=== PATIENT | male | born 1990 | race Caucasian/White ===

== ENCOUNTER 2022-08-01 11:58 | Emergency (ER) | payer OTHER, SELFPAY ==
[2022-08-01 12:08] VITALS: BP 142/96; PULSE 90; RESP 18; TEMP 36.1; O2SAT 98; BMI 29.3
--- NOTE | 2022-08-01 12:27 | CRLHL7_ITS ---
For Patients: As a result of the Century Cures Act, medical imaging exams and procedure reports are released immediately into your electronic medical record. You may view this report before your referring provider. If you have questions, please contact your health care provider. INDICATION: FALL COMPARISON: none TECHNIQUE: A CT volumetric acquisition was performed of the brain without IV contrast. Please note that all CT scans at this facility use dose modulation, iterative reconstruction, and/or weight-based dosing when appropriate to reduce radiation dose to as low as reasonably achievable. FINDINGS: The CT images reveal a normal appearance of the cerebral ventricles and basal cisterns. There is no evidence of intracranial hemorrhage, tissue infarction or mass effect. The mastoid air cells and middle ear cavities are clear. The calvarium appears intact. Mucosal thickening in both maxillary sinuses along with left maxillary sinus mucous retention cysts. IMPRESSION: No intracranial hemorrhage. Please note that all CT scans at this facility use dose modulation, iterative reconstruction, and/or weight-based dosing when appropriate to reduce radiation dose to as low as reasonably achievable. Dictated by Ramirez Rollins MD @ 08/01/2022 1:05:05 PM (Electronically Signed)
--- NOTE | 2022-08-01 12:33 | ED_ITS ---
HPI - General Adult General Date Seen: 08/01/22 Chief complaint: Dizziness/Vertigo Stated complaint: Dizzy, tingling tongue/fingers, blurred vision Time Seen by Provider: 08/01/22 12:03 Source: patient History of Present Illness [facility] narrative: Patient is a 32-year-old male who says he was standing in congregation when he started to feel foggy in his head and like his vision was blurry. Says that these symptoms persisted for a while so he went outside to sit in his van. While in his van he started to feel tingly in his upper extremities bilaterally and also felt itching in his tongue. He felt like his brain became progressively foggy and he feels like it is difficult to comprehend written words. He has a headache, and also says that his head feels like he can not access parts of his brain. He has pressure in his head as well. He also has some aching in the left shoulder and arm. He does not have any neck pain or chest pain. He denies trauma. He does not have any nausea and has not had any vomiting. No palpitations and no syncope. The visual symptoms have resolved but the tingling in his arms has persisted. He does not have weakness in his extremities. He does note that his left arm and leg seem to have some decreased sensation compared to the right. He has never had symptoms like this before. He denies any past medical history. His sister has type 1 diabetes. He says he does not keep in contact with his family in general but does not think there is any significant medical history otherwise. He does not smoke, denies any alcohol or drug use. Related Data Home Medications Medication Instructions Recorded Confirmed dextroamphetamine-amphetamine 30 08/01/22 mg tablet fluoxetine 40 mg capsule mg 08/01/22 Allergies Allergy/AdvReac Type Severity Reaction Status Date / Time No Known Drug Allergies Allergy Verified 08/01/22 12:07 Review of Systems Status of ROS: Reports: 10 or more systems reviewed and unremarkable except as noted in History and below [facility] Social History Smoking Status: Never smoker Do you use any of these nicotine containing products: None Second hand tobacco smoke exposure: No How often do you have a drink containing alcohol: never How often do you have six or more drinks on one occasion: Never AUDIT-C Alcohol total score: 0 Non-prescribed substance use: denies use Exam Narrative: Exam Narrative: Vital signs as noted above. In general, an alert, well-appearing patient. Head: Normocephalic, atraumatic. Eyes: Pupils are equal reactive. Extraocular movements are full. No nystagm us. Conjunctivae are normal. ENT: Mucous membranes are moist. Throat is normal. Neck: Supple without lymphadenopathy. No bruits. Heart: Regular rate and rhythm. No murmur or rub. Lungs: Clear bilaterally. No increased work of breathing, crackles or wheezes. Abdomen: Soft and nontender. No organomegaly. Extremities: Well perfused. No edema. No calf tenderness. Pulses intact. Neurologic: Patient is alert and oriented to person and place. Speech is fluent. Face is symmetric. Moves all extremities equally. Strength is 5 5 in bilateral extremities. He notes sensation is intact bilaterally but decreased on the left compared to the right in his arm and leg. Cerebellar function is intact by finger-nose testing. Affect: Normal. Skin: Warm and dry. Well perfused. Const: Vital Signs, click to edit/add: Vital Signs - 24 hr 08/01/22 12:08 Temperature 97.0 F L Pulse Rate [Right Pulse Oximeter] 90 Respiratory Rate 18 Blood Pressure [Ri ght Upper Arm] 142/96 H Pulse Oximetry 98 Oxygen Delivery Me thod Room Air Documenting provider has reviewed patient's vital signs: yes Course Course Hospital Course: Following initial evaluation, patient had an EKG which by my review shows normal sinus rhythm, ventricular rate of 80 beats per minute. No acute ST segment changes, normal QT and NJ intervals. His symptoms do not sound overly suggestive of near-syncope as they have been persistent for quite some time, he is not describing lightheadedness. He does not appear to be hyperventilating here although I cannot rule that out earlier, his paresthesias seem to be persistent at this time. His neurologic exam does not show any objective findings, but subjectively he is noting decreased sensation on the left, and more diffuse paresthesias as well as seemingly some difficulty with comprehension, as well as a headache. I think a head CT is reasonable to start to rule out any evidence of hemorrhage although his headache seems to be fairly mild in severity. He does not have any neck pain to suggest dissection. He does not have any risk factors to suggest early atherosclerotic disease as an etiology for stroke, but given the constellation of symptoms and absence of fely ar explanation of the head CT is negative I think it will pursue an MRI to rule out another cause for his symptoms. Labs are reassuring, CBC, metabolic panel, CRP, troponin are all normal. Head CT by my review is negative for hemorrhage. Patient is presenting within a couple hours of onset of his symptoms, so I think a negative head CT is adequate to rule out subarachnoid hemorrhage. Final radiology report is likewise negative. I did gone to do an MRI of the brain without contrast. This is read by Radiology is entirely normal. There is no evidence of mass, blood product, or ischemia. I have reviewed all this with the patient. At this time, I do not see evidence of an acute process such as stroke or hemorrhage to explain his symptoms. Migraine is a possibility. Anxiety is also certainly possibly contributing. He is feeling better at this time. I think it is reasonable to let him go home. I have recommended primary care follow-up. If symptoms are persistent or recurrent, neurology follow-up may be reasonable. For acute worsening, return to the ER. Vital Signs Vital signs: Initial Vital Signs Temperature 97.0 F L 08/01/22 12:08 Temperature Source Temporal Artery Scan 08/01/22 12:08 Pulse Rate 90 08/01/22 12:08 Respiratory Rate 18 08/01/22 12:08 Blood Pressure 142/96 H 08/01/22 12:08 Blood Pressure Mean 111 08/01/22 12:08 Blood Pressure Position Sitting 08/01/22 12:08 Pulse Oximetry 98 08/01/22 12:08 Oxygen Delivery Method 08/01/22 12:08 Vital Signs Temperature 97.0 F L 08/01/22 12:08 Pulse Rate 90 08/01/22 12:08 Respiratory Rate 18 08/01/22 12:08 Blood Pressure 142/96 H 08/01/22 12:08 Pulse Oximetry 98 08/01/22 12:08 Oxygen Delivery Method 08/01/22 12:08 Temperature 97.0 F L 08/01/22 12:08 Pulse Rate 90 08/01/22 12:08 Respiratory Rate 18 08/01/22 12:08 Blood Pressure 142/96 H 08/01/22 12:08 Pulse Oximetry 98 08/01/22 12:08 Oxygen Delivery Method 08/01/22 12:08 Medical Decision Making Lab Data Labs: Lab Results 08/01/22 08/01/22 08/01/22 Range/Units 12:40 12:40 12:40 WBC 6.17 (4.50-11.00) K/uL RBC 4.84 (4.30-5.90) m/uL Hgb 15.2 (13.5-17.5) gm/dL Hct 42.1 (37.0-53.0) % MCV 87 (80-100) fL MCH 31 (26-34) pg MCHC 36 (32-36) gm/dL RDW Coeff of Gabriella 12.6 (11.5-15.5) % Plt Count 192 (140-440) K/uL Neut % (Auto) 50.7 (42.0-72.0) % Lymph % (Auto) 38.6 (20-44) % [place] % (Auto) 7.1 (0.0-11.0) % Eos % (Auto) 2.8 (0.0-7.0) % Baso % (Auto) 0.3 (0.0-3.0) % Neut # (Auto) 3.13 (1.7-7.0) K/uL Lymph # (Auto) 2.38 (0.90-2.90) K/uL [place] # (Auto) 0.40 (0.00-0.90) K/UL Eos # (Auto) 0.17 (0.00-0.50) K/uL Baso # (Auto) 0.02 (0.00-0.30) K/uL Abs Immat Gran (auto) 0.03 (0.00-0.30) K/uL Imm/Tot Granulo (auto) 0.5 % ESR 4 (2-15) mm/hr INR (0.91-1.10) Sodium 140 (135-149) mmol/L Potassium 4.7 (3.6-5.1) mmol/L Chloride 104 (96-114) mmol/L Carbon Dioxide 29 (20-32) mmol/L BUN 20 (5-24) mg/dL Creatinine 1.1 (0.5-1.5) mg/dL Estimated Creat Clear 100.78 Estimated GFR 90 ml/min Glucose 92 (60-115) mg/dL Calcium 9.3 (8.4-10.6) mg/dL Magnesium (1.5-2.6) mg/dL C-Reactive Protein (0.5-1.0) mg/dL POC Troponin I (0.01-0.04) ng/ml 08/01/22 08/01/22 08/01/22 Range/Units 12:40 12:40 12:40 WBC (4.50-11.00) K/uL RBC (4.30-5.90) m/uL Hgb (13.5-17.5) gm/dL Hct (37.0-53.0) % MCV (80-100) fL MCH (26-34) pg MCHC (32-36) gm/dL RDW Coeff of Gabriella (11.5-15.5) % Plt Count (140-440) K/uL Neut % (Auto) (42.0-72.0) % Lymph % (Auto) (20-44) % [place] % (Auto) (0.0-11.0) % Eos % (Auto) (0.0-7.0) % Baso % (Auto) (0.0-3.0) % Neut # (Auto) (1.7-7.0) K/uL Lymph # (Auto) (0.90-2.90) K/uL [place] # (Auto) (0.00-0.90) K/UL Eos # (Auto) (0.00-0.50) K/uL Baso # (Auto) (0.00-0.30) K/uL Abs Immat Gran (auto) (0.00-0.30) K/uL Imm/Tot Granulo (auto) % ESR (2-15) mm/hr INR 0.92 (0.91-1.10) Sodium (135-149) mmol/L Potassium (3.6-5.1) mmol/L Chloride (96-114) mmol/L Carbon Dioxide (20-32) mmol/L BUN (5-24) mg/dL Creatinine (0.5-1.5) mg/dL Estimated Creat Clear Estimated GFR ml/min Glucose (60-115) mg/dL Calcium (8.4-10.6) mg/dL Magnesium 2.2 (1.5-2.6) mg/dL C-Reactive Protein < 0.5 L (0.5-1.0) mg/dL POC Troponin I 0.00 L (0.01-0.04) ng/ml Discharge Plan Discharge Clinical Impression: Paresthesias Patient Disposition: Home, Self-Care Condition: Improved Instructions: Paresthesia (ED) Additional Instructions: Follow-up with your regular clinic doctor in the next week for recheck. Symptoms could be related to migraine, but if persistent or recurrent, you may need Neurology follow-up. Workup today is reassuring. Prescriptions: No Action fluoxetine 40 mg capsule Label Comments: TAKE 1 CAPSULE BY MOUTH EVERY DAY dextroamphetamine-amphetamine 30 mg tablet Label Comments: TAKE 1 TABLET (30 MG) BY MOUTH TWO TIMES A DAY. Stand Alone Forms: [employer] Info Instructions
[2022-08-01 12:45] LABS: Basophils Absolute Auto 0.02 K/uL (0.00-0.30); Basophils Percent Auto 0.3 % (0.0-3.0); Eosinophils Absolute Auto 0.17 K/uL (0.00-0.50); Eosinophils Percent Auto 2.8 % (0.0-7.0); Hematocrit 42.1 % (37.0-53.0); Hemoglobin* 15.2 gm/dL (13.5-17.5); Immature Granulocytes Abs Auto 0.03 K/uL (0.00-0.30); Immature Granulocytes Pct Auto 0.5 %; Lymphocytes Absolute Auto 2.38 K/uL (0.90-2.90); Lymphocytes Percent Auto 38.6 % (20-44); Mean Corpuscular HGB Conc 36 gm/dL (32-36); Mean Corpuscular Hemoglobin 31 pg (26-34); Mean Corpuscular Volume 87 fL (80-100); Monocytes Percent Auto 7.1 % (0.0-11.0); Neutrophils Absolute Auto 3.13 K/uL (1.7-7.0); Neutrophils Percent Auto 50.7 % (42.0-72.0); Platelet Count* 192 K/uL (140-440); RDW Coefficient of Variation % 12.6 % (11.5-15.5); Red Blood Count 4.84 m/uL (4.30-5.90); White Blood Count* 6.17 K/uL (4.50-11.00)
[2022-08-01] MEDS: ASPIRIN 81 MG TAB.CHEW 324 MG PO (12:45)
[2022-08-01 13:01] LABS: Chloride* 104 mmol/L (96-114)
[2022-08-01 13:02] LABS: Potassium* 4.7 mmol/L (3.6-5.1); Sodium* 140 mmol/L (135-149)
[2022-08-01 13:03] LABS: INR 0.92 (0.91-1.10); Prothrombin Time 12.9 Seconds
[2022-08-01 13:05] LABS: Blood Urea Nitrogen* 20 mg/dL (5-24); Calcium* 9.3 mg/dL (8.4-10.6); Carbon Dioxide* 29 mmol/L (20-32); Creatinine* 1.1 mg/dL (0.5-1.5); Est. Creatinine Clearance* 100.78; Estimated Glomerular Filt Rate 90 ml/min; Glucose* 92 mg/dL (60-115); Magnesium* 2.2 mg/dL (1.5-2.6)
[2022-08-01 13:06] LABS: Slide Review Reflex No
[2022-08-01 13:10] LABS: C Reactive Protein* < 0.5 mg/dL (0.5-1.0)
--- OUTSIDE RECORDS SUMMARY | 2022-08-01 13:14 | XMS_ITS | Encounter Summary ---
:1990 Author Organization [facility] Address [address] [place] [id number] Care Team Providers Name Role Phone Elicia Lockhart MD Primary Care Provider Reason for Visit Reason Comments Spine Cervical Encounter Details Date Type Department Care Team Description 06/01/2022 Therapy [facility] Victorina Romero, PT Neck pain (Primary Dx); - Physical Therapy [id number] [facility] Cervical radiculopathy [address] [place] [address] [phone] Social History Tobacco Use Types Packs/Day Years Used Date Smoking Tobacco: Never Smokeless Tobacco: Never Alcohol Use Standard Drinks/Week Comments Yes 1 (1 standard drink = 0.6 oz pure alcoho l) Alcohol Habits Answer Date Recorded How often do you have a drink containing alcohol? 2-4 times a month 10/22/2020 How many drinks containing alcohol do you have on a 1 or 2 10/22/2020 typical day when you are drinking? How often do you have six or more drinks on one Not asked occasion? Sex Assigned at Date Recorded Not on file documented as of this encounter Progress Notes Gibran Romero, PT - 06/01/2022 1:15 PM CDT Wilma Roman [facility] Physical Therapy Progress Note Visit Number: 6 Initial Certification Period: 05/06/2022 to 08/04/22 Referring Provider: Russel Mar Visit Diagnosis: 1. Neck pain 2. Cervical radiculopathy Precautions: none SUBJECTIVE: Patient reports he has been experiencing more tingling today but is able to decrease these symptoms with his HEP. Has been sitting more at the computer today. Since starting PT reports he has had an almost constant tension headache and is hoping to do find a way to decrease this. States for exercise he typically uses his rowing machine, 15# adjustable dumbbells, resistance bands, and treadmill. OBJECTIVE Current Objective Findings: Supine chest press: some symptoms into L 3rd finger with 10# dumbbells in each hand. Symptoms decreased when placing wrists in neutral position. Treatment/Education Today: Therapeutic activity x 30 minutes: - Lengthy discussion and education regarding exercise programming and progression at home. Possible modifications to his routine at home. - Discussion about possible home traction units if these are relieving to his symptoms Therapeutic exercise x 15 min: To improve pain, strength, and function. - discussed importance of engaging deep neck flexors to provide spine stability. Also consider supine position with some exercises for added stability. - Prone scap retraction, 10 hold, 5x - Supine chin with head lift, 5 hold, 10x - Seated with trunk leaned forward with elbows on hands, neutral spine, cervical retraction 10x - Self subocciptial release with 2 tennis balls in pillow case, 3', relief of headache during this Timed Code Treatment Minutes: 45 Total Treatment Minutes: 45 Current Home Exercise Program List: Encouraged return to upper body lifting: shoulder raises and advancing neural mobilizations with median nerve tray No handout provided per request. ASSESSMENT/PROGRESS TOWARD GOALS: Pt is new to this therapist. He returns to PT and reports he continues to get tingling symptoms but is able to decrease these for a short amount of time with HEP. During session today provided pt with lengthy education about exercise programming and prescription as it relates to his personal goals. Also discussed and practiced exercises in gravity dependent positions in order to progress intensity. He felt relief with self subocciptial release; educated pt in how to perform this at home. Pt would benefit from continued physical therapy in order to address remaining deficits and progress towards listed goals. . atient continues to improve and tolerated strengthening in gym well last session. Worked through some different exercises today in an effort to increase patient's confidence with returning to exercise and how to modify activities, if needed, with regard to symptoms. Patient tolerated exercises in clinic very well, noting some symptoms in L 3rd finger with chest press, but this decreased with neutral wrist positioning. Functional Goals/Outcomes: Patient will be able to sleep without pain He will be able to work and do all ADL without pain Patient will be able exercise without pain He will regain pain free ROM of the neck Goals to be achieved within 4-6 week time frame. PLAN: Progress nerve mobilization, check on tolerance with return to resistance training. Address further concerns or fear with any lifting or overhead movements PRN. documented in this encounter Plan of Treatment Upcoming Encounters Date Type Specialty Care Team Description 08/09/2022 [place]oint[place] [address] [place], [place] [phone] (Wo rk) 08/10/2022 Appointment Physiatry/Physical Russel Mar MD [facility] [address] [facility] [address] [id number] (Wo rk) 08/16/2022 Appoint[place] [address] [place], [place] [phone] (Wo rk) 08/23/2022 Appoint[place] [address] [place], [place] [phone] (Wo rk) 08/27/2022 Appoint[place] [address] [place], [place] [phone] (Wo rk) 08/30/2022 [place]oint[place] [address] [place], [place] [phone] (Wo rk) 09/03/2022 [place]oint[place] [address] [place], [place] [phone] (Wo rk) 09/06/2022 [place] [address] [address] [place], [place] [phone] (Wo rk) 09/10/2022 Appointment [place] [address] [address] [facility] [place] [phone] (Wo rk) 09/30/2022 Appointment Family Medicine Elicia Lockhart MD [address] [phone] (Wo rk) documented as of this encounter Visit Diagnoses Diagnosis Neck pain - Primary Cervicalgia Cervical radiculopathy Brachial neuritis or radiculitis nos documented in this encounter Care Teams [employer] Coating Machine Offbearer Relationship Specialty Start Date End Date Elicia Lockhart MD PCP - General Family Practice 08/09/[address] [phone] documented as of this encounter
--- OUTSIDE RECORDS SUMMARY | 2022-08-01 13:14 | XMS_ITS | Encounter Summary ---
:1990 Author Organization [employer] Address [address] [place] [address] Care Team Providers Name Role Phone Elicia Lockhart MD Primary Care Provider Reason for Visit Reason Comments Follow-up Neck Pain Encounter Details Date Type Department Care Team Description 06/09/2022 Office Visit Wilma Roman & Russel Mar MD Cervical radiculopathy Special[facility] - [facility] Wilma Roman (Pr imary Dx) Physical Medicine [facility] [address] [address] [place], [place] [phone] (Work) [phone] Social History Tobacco Use Types Packs/Day Years [...] on file documented as of this encounter Patient Instructions Patient InstructionsRussel Mar MD - 06/09/2022 10:00 AM CDT Images from the original note were not included. Cervical Radiculopathy (Pinched Nerve) Cervical radiculopathy, commonly called a pinched nerve occurs when a nerve in the neck is compressed or irritated where it branches away from the spinal cord. This may cause pain that radiates into the shoulder, as well as muscle weakness and numbness that travels down the arm and into the hand. Cervical radiculopathy is often caused by wear and tear changes that occur in the spine as we age,such as arthritis. In younger people, it is most often caused by a sudden injury that results in a herniated disk. Cause Cervical radiculopathy most often arises from degenerative changes that occur in the spine as we ageor from an injury that causes a herniated, or bulging, intervertebral disk. Abnormal Normal Degenerative changes. As the disks in the spine age, they lose height and begin to bulge. They also lose water content, begin to dry out, and become stiffer. This problem causes settling, or collapse, of the disk spaces and loss of disk space height. (Left) Side view of a healthy cervical vertebra and disk. (Right) A disk that has degenerated and collapsed. As the disks lose height, the vertebrae move closer together. The body responds to the collapsed disk by forming more bone --called bone spurs--around the disk to strengthen it. These bone spurs contribute to the stiffening of the spine. They may also narrow the foramen--the small openings on each side of the spinal column where the nerve roots exit--and pinch the nerve root. Degenerative changes in the disks are often called arthritis or spondylosis. These changes are normal and they occur in everyone. In fact, nearly half of all people middle-aged and older have worn disks and pinched nerves that do not cause painful symptoms. It is not known why some patients develop symptoms and others do not. Herniated disk (side view and cross section) Herniated disk. A disk herniates when its jelly-like center (nucleus) pushes against its outer ring (annulus). If the disk is very worn or injured, the nucleus may squeeze all the way through. When theherniated disk bulges out toward the spinal canal, it puts pressure on the sensitive nerve root, causing pain and weakness in the area the nerve supplies. A herniated disk often occurs with lifting, pulling Symptoms Herniated disk (side view and cross section) Herniated disk. A disk herniates when its jelly-like center (nucleus) pushes against its outer ring (annulus). If the disk is very worn or injured, the nucleus may squeeze all the way through. When theherniated disk bulges out toward the spinal canal, it puts pressure on the sensitive nerve root, causing pain and weakness in the area the nerve supplies. A herniated disk often occurs with lifting, pulling Symptoms In most cases, the pain of cervical radiculopathy starts at the neck and travels down the arm in thearea served by the damaged nerve. This pain is usually described as burning or sharp. Certain neck movements--like extending or straining the neck or turning the head--may increase the pain. Other symptoms include: Tingling or the feeling of pins and needles in the fingers or hand Weakness in the muscles of the arm, shoulder, or hand Loss of sensation Some patients report that pain decreases when they place their hands on top of their head. This movement may temporarily relieve pressure on the nerve root. Doctor Examination Physical Examination After discussing your medical history and general health, your doctor will ask you about your symptoms. He or she will then examine your neck, shoulder, arms and hands--looking for muscle weakness, loss of sensation, or any change in your reflexes. Your doctor may also ask you to perform certain neck and arm movements to try to recreate and/or relieve your symptoms. Tests This MRI image shows bulging disks pressing on the spinal cord ( arrows). X-rays. These provide images of dense structures, such as bone. An x-ray will show the alignment of bones along your neck. It can also reveal whether there is any narrowing of the foramen and damage tothe disks. Computed tomography (CT) scans. More detailed than a plain x-ray, a CT scan can help your doctor determine whether you have developed bone spurs near the foramen in your cervical spine. Magnetic resonance imaging (MRI) scans. These studies create better images of the body's soft tissues. An MRI of the neck can show if your nerve compression is caused by damage to soft tissues--such asa bulging or herniated disk. It can also help your doctor determine whether there is any damage to your spinal cord or nerve roots. Electromyography (EMG). Electromyography measures the electrical impulses of the muscles at rest andduring contractions. Nerve conduction studies are often done along with EMG to determine if a nerve is functioning normally. Together, these tests can help your doctor determine whether your symptoms are caused by pressure on spinal nerve roots and nerve damage or by another condition that causes damage to nerves, such as diabetes. Treatment It is important to note that the majority of patients with cervical radiculopathy get better over time and do not need treatment. For some patients, the pain goes away relatively quickly--in days or weeks. For others, it may take longer. It is also common for cervical radiculopathy that has improved to return at some point in the future. Even when this occurs, it usually gets better without any specific treatment. In some cases, cervical radiculopathy does not improve, however. These patients require evaluation and treatment. Nonsurgical Treatment Initial treatment for cervical radiculopathy is nonsurgical. Nonsurgical treatment options include: Soft cervical collar. This is a padded ring that wraps around the neck and is held in place with Velcro. Your doctor may advise you to wear a soft cervical collar to allow the muscles in your neck to rest and to limit neck motion. This can help decrease the pinching of the nerve roots that accompany movement of the neck. A soft collar should only be worn for a short period of time since long- term wear may decrease the strength of the muscles in your neck. Physical therapy. Specific exercises can help relieve pain, strengthen neck muscles, and improve range of motion. In some cases, traction can be used to gently stretch the joints and muscles of the neck. Medications. In some cases, medications can help improve your symptoms. Nonsteroidal anti-inflammatory drugs (NSAIDs). NSAIDs, including aspirin, ibuprofen, and naproxen, may provide relief if your pain is caused by nerve irritation or inflammation. Oral corticosteroids. A short course of oral corticosteroids may help relieve pain by reducing swelling and inflammation around the nerve. Steroid injection. In this procedure, steroids are injected near the affected nerve to reduce local inflammation. The injection may be placed between the laminae (epidural injection), in the foramen (selective nerve injection), or into the facet joint. Although steroid injections do not relieve the pressure on the nerve caused by a narrow foramen or by a bulging or herniated disk, they may lessen theswelling and relieve the pain long enough to allow the nerve to recover. Narcotics. These medications are reserved for patients with severe pain that is not relieved by other options. Narcotics are usually prescribed for a limited time only. Surgical Treatment If after a period of time nonsurgical treatment does not relieve your symptoms, your doctor may recommend surgery. There are several surgical procedures to treat cervical radiculopathy. The procedure your doctor recommends will depend on many factors, including what symptoms you are experiencing and the location of the involved nerve root. documented in this encounter Progress Notes Russel Mar MD - 06/09/2022 10:00 AM CDT Images from the original note were not included. PHYSICAL MEDICINE AND REHABILITATION OUTPATIENT FOLLOW UP CLINIC VISIT NOTES Chief Complaints: follow up bilateral upper extremity pain Fluoroscopically- guided C6-7 interlaminarepidural steroid injection HISTORICAL BACKGROUND : Hari Elise, 31 y.o., male is seen in clinic today regarding follow up. In retrospect, Hari Elise, 31 y.o., male with past medical history significant for ADHD, bilaterall hand numbness and is here in clinic today for above mentioned complain. PROCEDURES : April 28 2022Fluoroscopically-guided C6-7 interlaminar epidural steroid injection 80% pain relief PRESENTLY: Patient underwent Fluoroscopically-guided C6-7 interlaminar epidural steroid injection 80% pain relief including significant reduction from symptoms together with PT exercises . He is doing his own his therapy. Problem 1 : NECK PAIN bilateral upper extremity pain status post interlaminar epidural injection with improvement Onset : current condition started approximately 2-3 months ago . as gradual progressive pain in the neck . There was no precipitating factor such as fall or accident. He woke up one morning with pain in the right shoulder from the area of the acromioclavicular joint then started going down into the right arm. Eventually start to progress towards the left upper extremity as well. Upper neck pain started as Initially started as intense pain in the right shoulder then contunue then going to upper back . Went to chiropractor without improvement. 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 He [...] remaining deficits and progress towards listed goals. PHYSICAL EXAMINATION: There were no vitals filed for this visit. GENERAL: interactive, MUSCULOSKELETAL: Cervical Examination Cervical Flexion - normal Cervical Extension -slightly limited to pain in the neck Cervical Rotation- slightly limited to right / left / both due to pain Spurling Test ( Compression ) - positive on left worse than right Shoulder Abduction Test - positive pain in the neck with 90 degree shoulder abduction Laguerre signs - negative No signs of cervical myelopathy such as walking problem balance no bowel bladder problem NEUROMUSCULOSKELETAL EXAMINATION MANUAL MUSCLE TESTIN/5- 5/5 Upper Extremity : ROOT DISC MUSCLES Grade /5 RIGHT Grade /5 LEFT C5 C4-C5 Deltoid 5/5 5/5 C4-C5 Biceps 5/5 5/5 C6 * C5-C6 Wrist Extensors (ECRB/ECRL) (Biceps included) 5/5 5/5 C7 C6-C7 Triceps 5/5 5/5 C6-C7 Wrist Flexors (FCR) 5/5 5/5 C7-T1 Finger Flexors 5/5 5/5 DTR's ( Deep Tendon Reflex ) Upper Extremity : Root Disc Reflex RIGHT LEFT C5 C5-C6 Biceps 2/2 2/2 C6 C6-C7 Triceps 2/2 2/2 C7 C7-T1 Brachioradialis 2/2 2/2 Radiology : I have reviewed t radiologic image with the patient and agree with result : Date : MR Cervical Spine WO IV Cont Reading Physician Reading Date Result Priority Delisa Whatley MD [phone] 04/14/2022 STAT Narrative & Impression IMPRESSION INDICATION: Myelopathy, acute or progressive;weakness and tingling in both hands and arms. TECHNIQUE: MRI of the cervical spine without contrast. FINDINGS: Prominent degenerative changes within the vertebral bodies and endplates most pronounced at C3-C4 through C6-C7 with disc desiccation and loss of disc height. No definite signal abnormalitieswithin the cord within the limitations of the mild motion artifact. Minimal bulges at T1-T2 and T2-T3. Loss of the normal cervical lordosis. C2-C3: Mild bulge, mild central stenosis and no definite neural foramina narrowing. C3-C4: Disc osteophyte complex eccentric to the left, mild flattening of the cord eccentric to the left, moderate central stenosis, mild to moderate hypertrophic changes uncovertebral joints eccentric to the right, severe neural foramina narrowing on the right, mild neural foramina narrowing on the left. C4-C5: Disc osteophyte complex eccentric to the left, mild flattening of the cord, moderate central stenosis advanced hypertrophic changes uncovertebral joints eccentric to the left, severe neural foramina narrowing on the left, mild neural foramina narrowing on the right. C5-C6: Disc osteophyte complex with a small central and right paracentral protrusion, mild flattening of the cord eccentric to the right, mild to moderate central stenosis, mild to moderate hypertrophic changes uncovertebral joints eccentric to the right, moderate to severe neural foramina narrowing on the right, mild to moderate neural foramina narrowing on the left. C6-C7: Disc osteophyte complex eccentric to the right with a small shallow central and right paracentral protrusion, mild flattening of the cord eccentric to the right, mild to moderate central stenosis, mild to moderate hypertrophic changes uncovertebral joints, mild to moderate central stenosis, mild to moderate neural foramina narrowing on the right, mild neural foramina narrowing on the left. C7-T1: Minimal disc osteophyte complex eccentric to the right, mild central stenosis, prominent hypertrophic changes uncovertebral joints eccentric to the right, mild neural foramina narrowing on the right, no definite neural foramina narrowing on the left. IMPRESSION: 1. Multilevel disc osteophyte complexes as described above with moderate central stenosis at C3-C4 and C4-C5 and mild to moderate central stenosis at C5-C6 and C6-C7. 2. Severe neural foramina narrowing on the right at C3-C4 and on the left at C4-C5. 3. Moderate to severe neural foramina narrowing on the right at C5-C6. Assessment and Plan: Problem 1. Cervical Pain with / bilateral upper extremity radiculopathy due to neuroforaminal stenosis at C5C6 C6C7/ with multilevel facet arthropathy sp Fluoroscopically-guided C6-7 interlaminar epidural steroid injection 80% relief Continue Physical Therapy for neck pain - ( after epidural injection) evaluation and treatment including but not limited to Cervical Range of motion exercises Cervical Flexibility and strengthening program Pain Meds : Tylenol Ibuprofen ( NSAIDs) prn Start tapering gabapentin mid June 2022 Emphasize good and correct posture Avoid prolonged static position Stretch and change position every 30-60 minutes . Imaging -I have reviewed imaging study with the patient MRI multilevel facet arthropathy with neural foraminal narrowing at C5-C6 C6-C7 more on the right than the left Home Remedies adjust seat and table for computer to be on eye level arm rest beneficial change position every 30-60 minutes ice / warm gel packs as needed use Contour pillow if available Asked pt to return to clinic in: Return in about 2 months (around 08/09/2022).. Follow up: 1. Follow up on cervical radiculopathy and if better discharge patient Russel Mar MD This dictation was created using voice recognition technology, typographical errors may be present documented in this encounter Plan of Treatment Upcoming Encounters Date Type Specialty Care Team Description 08/09/2022 [place] [address] [address] [place], [place] [address] (Barrett akers) 08/10/2022 Appointment Physiatry/Physical Russel Mar MD [address] [address] (Barrett rk) 08/16/2022 [place] [address] [address] [place], [place] [address] (Barrett akers) 08/23/2022 [place]oint[place] [address] [place], [place] [address] (Wo rk) 08/27/2022 [place] [address] [place], [place] [address] (Wo rk) 08/30/2022 [place] [address] [place], [place] [address] (Wo rk) 09/03/2022 [place]oint[place] [address] [place], [place] [address] (Wo rk) 09/06/2022 [place] [address] [place], [place] [address] (Wo rk) 09/10/2022 [place] [address] [place], [place] [address] (Wo rk) 09/30/2022 Appointment Family Medicine Elicia Lockhart MD [address] [id number] (Wo rk) documented as of this encounter Visit Diagnoses Diagnosis Cervical radiculopathy - Primary Brachial neuritis or radiculitis nos documented in this encounter Care Teams Vascular Technologist Relationship Specialty Start Date End Date Elicia Lockhart MD PCP - General Family Practice 08/09/[address] [id number] documented as of this encounter
--- OUTSIDE RECORDS SUMMARY | 2022-08-01 13:14 | XMS_ITS | Encounter Summary ---
:1990 Author Organization [employer] Address [address] [place] [address] Care Team Providers Name Role Phone Elicia Lockhart MD Primary Care Provider Reason for Visit Reason Comments Spine Cervical Encounter Details Date Type Department Care Team Description 06/21/2022 Therapy [facility] Neck pain (Primary Dx); Center - Physical PT Cervical radiculopathy Therapy [address] [place] [address] [place] [address] [place] [address] [phone] Social History Tobacco Use Types Packs/Day Years [...] documented as of this encounter Progress Notes Holden Bell, PT - 06/21/2022 7:45 AM CDT [facility] Physical Therapy Progress Note Visit Number: 8 Initial Certification Period: 05/06/2022 to 08/04/22 Referring Provider: Russel Mar Visit Diagnosis: 1. Neck pain 2. Cervical radiculopathy Precautions: none SUBJECTIVE: My neck feels looser and I have less tingling. OBJECTIVE Current Objective Findings: NDI: not filled out Treatment/Education Today: Therapeutic exercise ( 3 minutes): - reviewing patient's symptoms and progress 2. Manual therapy (38 minutes): - central and bilateral PA's to C2-T2, gr. III, III+ oscillated to decrease inflammation/pain and improve segmental mobility Rx was tolerated well. Timed Code Treatment Minutes: 41 Total Treatment Minutes: 41 Current Home Exercise Program List: Encouraged return to upper body lifting: shoulder raises and advancing neural mobilizations with median nerve tray No handout provided per request. ASSESSMENT/PROGRESS TOWARD GOALS: Further improvement in symptoms. Progressing. Functional Goals/Outcomes: Patient will be able to sleep without pain He will be able to work and do all ADL without pain Patient will be able exercise without pain He will regain pain free ROM of the neck Goals to be achieved within 4-6 week time frame. PLAN: Con't with manual therapy and exercise as part of HEP. documented in this encounter Plan of Treatment Upcoming Encounters Date Type Specialty Care Team Description 08/09/2022 Appointment [place] [address] [address] [place], [place] [address] (Barrett akers) 08/10/2022 Appointment Physiatry/Physical Russel Mar MD [address] [address] (aBrrett akers) 08/16/2022 [place] [address] [address] [place] [address] (Barrett akers) 08/23/2022 [place]oint[place] [address] [address] [place], [place] [address] (Barrett akers) 08/27/2022 [place] [address] [place], [place] [address] (Wo rk) 08/30/2022 [place]oint[place] [address] [place], [place] [address] (Wo rk) 09/03/2022 [place]oint[place] [address] [place], [place] [address] (Wo rk) 09/06/2022 [place] [address] [place], [place] [address] (Wo rk) 09/10/2022 [place] [address] [place], [place] [address] (Wo rk) 09/30/2022 Appointment Family Medicine Elicia Lockhart MD [address] [phone] (Wo rk) documented as of this encounter Visit Diagnoses Diagnosis Neck pain - Primary Cervicalgia Cervical radiculopathy Brachial neuritis or radiculitis nos documented in this encounter Care Teams Perfect Binder Operator Relationship Specialty Start Date End Date Elicia Lockhart MD PCP - General Family Practice 08/09/[address] [id number] documented as of this encounter
--- OUTSIDE RECORDS SUMMARY | 2022-08-01 13:14 | XMS_ITS | Encounter Summary ---
:1990 Author Organization [employer] Address [address] [place] [address] Care Team Providers Name Role Phone Elicia Lockhart MD Primary Care Provider Reason for Visit Reason Comments Spine Cervical Encounter Details Date Type Department Care Team Description 06/18/2022 Therapy [facility] Holden Bell Neck pain (Primary Dx); Center - Physical PT Cervical radiculopathy Therapy [address] [address] [place] [address] [place] [address] [phone] Social History Tobacco Use Types Packs/Day Years [...] encounter Progress Notes Holden Bell, PT - 06/18/2022 8:30 AM CDT [facility] Physical Therapy Progress Note Visit Number: 7 Initial Certification Period: 05/06/2022 to 08/04/22 Referring Provider: Russel Mar Visit Diagnosis: 1. Neck pain 2. Cervical radiculopathy Precautions: none SUBJECTIVE: Hari overall reports improvement in symptoms, but is still symptomatic as he is still having bad days if he misses a day of doing his exercises. Patient has been standing most part of the day and doing some walking. For the most part he is has been doing his HEP, which he finds helpful. He has also been using a home traction unit, which he uses once a day for 10 minutes. OBJECTIVE Current Objective Findings: NDI: not filled out Treatment/Education Today: Therapeutic exercise ( 5 min): - reviewing patient's symptoms and progress - recommended doing traction for 20 minutes at a time x 1 a day. 2. Manual therapy (38 minutes): - central and bilateral PA's to C2-T2, gr. III, III+ oscillated to decrease inflammation/pain and improve segmental mobility Rx was tolerated well. Timed Code Treatment Minutes: 43 Total Treatment Minutes: 43 Current Home Exercise Program List: Encouraged return to upper body lifting: shoulder raises and advancing neural mobilizations with median nerve tray No handout provided per request. ASSESSMENT/PROGRESS TOWARD GOALS: Hari is making progress, but still symptomatic as noted above. Functional Goals/Outcomes: Patient will be able to [...] 08/09/2022 [place] [address] [place], [place] [address] (Barrett akers) 08/10/2022 Appointment Physiatry/Physical Russel Mar MD [place] [id number] [facility] [place] N [address] (Barrett akers) 08/16/2022 [place] [address] [address] (Wo rk) 08/23/2022 Appointment [place] [address] [place], [place] [address] (Wo rk) 08/27/2022 Appointment [place] [address] [place], [place] [address] (Wo rk) 08/30/2022 Appointment [place] [address] [place], [place] [address] (Wo rk) 09/03/2022 Appointment [place] [address] [place], [place] [address] (Wo rk) 09/06/2022 Appointment [place] [address] [place], [place] [address] (Wo rk) 09/10/2022 [place] [address] [place], [place] [address] (Wo rk) 09/30/2022 Appointment Family Medicine Elicia Lockhart MD [address] [phone] (Wo rk) documented as of this encounter Visit Diagnoses Diagnosis Neck pain - Primary Cervicalgia Cervical radiculopathy Brachial neuritis or radiculitis nos documented in this encounter Care Teams Operations Administrative Assistant Relationship Specialty Start Date End Date Elicia Lockhart MD PCP - General Family Practice 08/09/[address] [id number] documented as of this encounter
--- OUTSIDE RECORDS SUMMARY | 2022-08-01 13:14 | XMS_ITS | Encounter Summary ---
:1990 Author Organization [employer] Address [address] [place] [address] Care Team Providers Name Role Phone Elicia Lockhart MD Primary Care Provider Reason for Visit Reason Comments Spine Cervical Encounter Details Date Type Department Care Team Description [facility], Neck [facility] (Primary Dx); Center - Physical PT Cervical radiculopathy Therapy [id number] [place] [address] [place] [phone] (Wo rk) Social History Tobacco Use Types Packs/Day Years [...] documented as of this encounter Progress Notes Frantz Chowdary, PT - 05/12/2022 8:00 AM CDT [facility] Physical Therapy Progress Note Visit Number: 3 Initial Certification Period: 05/06/2022 to 08/04/22 Referring Provider: Russel Mar Visit Diagnosis: 1. Neck pain 2. Cervical radiculopathy Precautions: none SUBJECTIVE: Reports that he has been responding well to therapy thus far. Did not realize how weak his muscles were with the exercises that he was given. Is responding well to traction. Has not noticed a huge improvement in the tingling in his fingers/hands. OBJECTIVE Current Objective Findings: NDI: (initial 42%) Treatment/Education Today: Therapeutic exercise (8 minutes): - reviewing patient's symptoms - Bent over shoulder abduction 2 x 10 Bilateral (5#) - Bent over shoulder extension 2 x 10 Bilateral (5#) - home exercise program overview with guidance on different exercises he should focus on with home training. - patient had several questions that were answered to the best of my knowledge. 2. Manual therapy (25 minutes): - central and bilateral PA's to C2-T2, gr. III oscillated to decrease inflammation/pain and improve segmental mobility Supine rotation with upglide mobilizations both to right and left 3. Mechanical traction: 20 lbs, static for 20 minutes. Rx was tolerated well. Timed Code Treatment Minutes: 37 Total Treatment Minutes: 55 Current Home Exercise Program List: Access Code: [email or web address] URL: [email or web address]/ Date: 05/06/2022 Prepared by: Ravi Beckmania Exercises Standing Cervical Retraction - 5 x daily - 7 x weekly - 5 reps - 3-5 seconds hold Chest and Bicep Stretch - Arms Behind Back - 5 x daily - 7 x weekly - 5 reps - 5-10 seconds hold Upper Trapezius Stretch - 5 x daily - 7 x weekly - 5 reps - 5-10 seconds hold Access Code: [email or web address] URL: [email or web address] Date: 05/08/2022 Prepared by: Ravi Olownia Exercises Standing Radial Nerve Midway - 5 x daily - 7 x weekly - 5 reps - oscillate for up to 30 seconds hold ASSESSMENT/PROGRESS TOWARD GOALS: Patient tolerated treatment session well with no self reported increase or decrease in neck/distal symptoms. Encouraged him to continue to stay active and use his sit to stand deck while working from home. Will most certainly benefit from additional skilled physical therapy services to help with ongoing pain, numbness/tingling, and muscle weakness. Functional Goals/Outcomes: Patient will be able to sleep without pain He will be able to work and do all ADL without pain Patient will be able exercise without pain He will regain pain free ROM of the neck Goals to be achieved within 4-6 week time frame. PLAN: Manual as needed for pain/symptom relief, continue with traction if benefit seen, progressive mid/upper back strengthening documented in this encounter Plan of Treatment Upcoming Encounters Date Type Specialty Care Team Description 08/09/2022 [place] [address] [place], [place] [address] (Wo rk) 08/10/2022 Appointment Physiatry/Physical Russel Mar MD [facility] [address] [facility] [address] [address] (Wo rk) 08/16/2022 Appoint[place] [address] [place], [place] [address] (Wo rk) 08/23/2022 Appoint[place] [address] [place], [place] [address] (Wo rk) 08/27/2022 Appoint[place] [address] [place], [place] [address] (Wo rk) 08/30/2022 Appoint[place] [address] [place], [place] [address] (Wo rk) 09/03/2022 [place]oint[place] [address] [place], [place] [address] (Wo rk) 09/06/2022 Appointment [place] [address] [place], [place] [address] (Wo rk) 09/10/2022 Appointment [place] [address] [place], [place] [address] (Wo rk) 09/30/2022 Appointment Family Medicine Elicia Lockhart MD [address] [phone] (Wo rk) documented as of this encounter Visit Diagnoses Diagnosis Neck pain - Primary Cervicalgia Cervical radiculopathy Brachial neuritis or radiculitis nos documented in this encounter Care Teams Apple Thinner Relationship Specialty Start Date End Date Elicia Lockhart MD PCP - General Family Practice 08/09/[address] [phone] documented as of this encounter
--- OUTSIDE RECORDS SUMMARY | 2022-08-01 13:14 | XMS_ITS | Encounter Summary ---
:1988 Author Organization [employer] Address [address] [place] [address] Care Team Providers Name Role Phone Elicia Lockhart MD Primary Care Provider Reason for Visit Reason Comments Spine Cervical Encounter Details Date Type Department Care Team Description 07/26/2022 Therapy [facility] Holden Bell Neck pain (Primary Dx); Center - Physical PT Cervical radiculopathy Therapy [address] [place] [address] [place] [address] [place] [address] [phone] Social History Tobacco Use Types Packs/Day Years [...] encounter Progress Notes Holden Bell, PT - 07/26/2022 7:00 AM CST [facility] Physical Therapy Progress Note Visit Number: 13 Initial Certification Period: 05/06/2022 to 08/04/22 Referring Provider: Russel Mar Visit Diagnosis: 1. Neck pain 2. Cervical radiculopathy Precautions: none SUBJECTIVE: My neck hurts. OBJECTIVE Current Objective Findings: NDI: not filled out Treatment/Education Today: Therapeutic exercise ( 3 minutes): - reviewing patient's symptoms and progress 2. Manual therapy (15 minutes): - central and bilateral PA's to C2-T2, gr. III, III+ oscillated to decrease inflammation/pain and improve segmental mobility Rx was tolerated well. Timed Code Treatment Minutes: 18 Total Treatment Minutes: 18 Current Home Exercise Program List: Encouraged return to upper body lifting: shoulder raises and advancing neural mobilizations with median nerve tray No handout provided per request. - shoulder retraction/rowing with T-band or weights 3 sets of 10 - 3 x a day ASSESSMENT/PROGRESS TOWARD GOALS: Patient con't to be symptomatic especially with longer sitting times. Functional Goals/Outcomes: Patient will be able to sleep without pain He will be able to work and do all ADL without pain Patient will be able exercise without pain He will regain pain free ROM of the neck Goals to be achieved within 4-6 week time frame. PLAN: Hari elected to schedule more appointments and con't PT further. [employer]OR [employer] PULMONARY UNIT documented in this encounter Plan of Treatment Upcoming Encounters Date Type Specialty Care Team Description 08/09/2022 Appoint[place] [address] [address] [place], [place] [address] (Barrett akers) 08/10/2022 Appointment Physiatry/Physical Russel Mar MD [address] [address] (Barrett rk) 08/16/2022 Appointment [place] [address] [address] [place], [place] [address] (Barrett akers) 08/23/2022 Appointment [place] [address] [address] [place], [place] [address] (Wo rk) 08/27/2022 Appointment [place] [address] [place], [place] [address] (Wo rk) 08/30/2022 Appointment [place] [address] [place], [place] [address] (Wo rk) 09/03/2022 Appointment [place] [address] [place], [place] [address] (Wo rk) 09/06/2022 Appointment [place] [address] [place], [place] [address] (Wo rk) 09/10/2022 Appointment [place] [address] [place], [place] [address] (Wo rk) 09/30/2022 Appointment Family Medicine Elicia Lockhart MD [address] [id number] (Wo rk) documented as of this encounter Visit Diagnoses Diagnosis Neck pain - Primary Cervicalgia Cervical radiculopathy Brachial neuritis or radiculitis nos documented in this encounter Care Teams Rapid Outsole Stitcher Relationship Specialty Start Date End Date Elicia Lockhart MD PCP - General Family Practice 08/09/[address] [id number] documented as of this encounter
--- OUTSIDE RECORDS SUMMARY | 2022-08-01 13:14 | XMS_ITS | Encounter Summary ---
:1988 Author Organization [employer] Address [address] [place] [address] Care Team Providers Name Role Phone Elicia Lockhart MD Primary Care Provider Reason for Visit Reason Comments Spine Cervical Encounter Details Date Type Department Care Team Description 07/17/2022 Therapy [facility] Holden Bell Neck pain (Primary Dx); Center - Physical PT Cervical radiculopathy Therapy [address] [address] [place] [address] [place] [address] [phone] Social History Tobacco Use Types Packs/Day Years [...] encounter Progress Notes Holden Bell, PT - 07/17/2022 7:30 AM CDT [facility] Physical Therapy Progress Note Visit Number: 12 Initial Certification Period: 05/06/2022 to 08/04/22 Referring Provider: Russel Mar Visit Diagnosis: 1. Neck pain 2. Cervical radiculopathy Precautions: none SUBJECTIVE: Hari arrives almost 25 minutes late for his appointment. Reports only slight paresthesia in his hands and mostly muscle tightness in the neck. Overall feels significantly better with PT. OBJECTIVE Current Objective Findings: NDI: not filled [...] 3 x a day ASSESSMENT/PROGRESS TOWARD GOALS: Marked improvement in symptoms as noted in the subjective part. Today's session was shorter due to the fact that patient arrived for his appointment 25 minutes late. Functional Goals/Outcomes: Patient will be able to sleep without pain He will be able to work and do all ADL without pain Patient will be able exercise without pain He will regain pain free ROM of the neck Goals to be achieved within 4-6 week time frame. PLAN: Hari elected to schedule more appointments and con't PT further. documented in this encounter Plan of Treatment Upcoming Encounters Date Type Specialty Care Team Description 08/09/2022 Appointment [place] [address] [address] [place], [place] [address] (Barrett akers) 08/10/2022 Appointment Physiatry/Physical Russel Mar MD [place] [address] [facility] [address]Y N [address] (Barrett akers) 08/16/2022 Appoint[place] [address] [address] [place] [address] (Barrett akers) 08/23/2022 Appointment [place] [address] [place], [place] [address] (Wo rk) 08/27/2022 Appointment [place] [address] [place], [place] [address] (Wo rk) 08/30/2022 Appointment Physical [place] [address] [place], [place] [address] (Wo rk) 09/03/2022 Appointment [place] [address] [place], [place] [address] (Wo rk) 09/06/2022 Appointment Physical [place] [address] [place], [place] [address] (Wo rk) 09/10/2022 Appointment [place] [address] [place], [place] [address] (Wo rk) 09/30/2022 Appointment Family Medicine Elicia Lockhart MD [address] [address] (Wo rk) documented as of this encounter Visit Diagnoses Diagnosis Neck pain - Primary Cervicalgia Cervical radiculopathy Brachial neuritis or radiculitis nos documented in this encounter Care Teams Mumps Developer Relationship Specialty Start Date End Date Elicia Lockhart MD PCP - General Family Practice 08/09/[address] [id number] documented as of this encounter
--- OUTSIDE RECORDS SUMMARY | 2022-08-01 13:14 | XMS_ITS | Encounter Summary ---
:1988 Author Organization [employer] Address [address] [place] [address] Care Team Providers Name Role Phone Elicia Lockhart MD Primary Care Provider Reason for Visit Reason Comments Spine Cervical Encounter Details Date Type Department Care Team Description 07/05/2022 Therapy [facility] Holden Bell Neck pain (Primary Dx); Center - Physical PT Cervical radiculopathy Therapy [address] [address] [address] [place] [address] [place] [address] [phone] Social History Tobacco Use Types Packs/Day Years [...] encounter Progress Notes Holden Bell, PT - 07/05/2022 7:45 AM CDT [facility] Physical Therapy Progress Note Visit Number: 10 Initial Certification Period: 05/06/2022 to 08/04/22 Referring Provider: Russel Mar Visit Diagnosis: 1. Neck pain 2. Cervical radiculopathy Precautions: none SUBJECTIVE: Hari reports that the neck is doing well, but mid last week started to experience pain along the right side of the upper thoracic spine. OBJECTIVE Current Objective Findings: NDI: not filled out Treatment/Education Today: Therapeutic exercise ( 5 minutes): - reviewing patient's symptoms and progress - recommended that he starts doing upper back/thoracic spine strengthening (shoulder retraction/rowing) with T-band or weights (patient has both). This should be done 3 sets of 10 - 3 x a day 2. Manual therapy (38 minutes): - central [...] x a day ASSESSMENT/PROGRESS TOWARD GOALS: Patient reports that the neck is feeling well, but mid last week he has been experiencing pain alongthe right side of the upper thoracic spine, which is where we worked on today. Airam recommended adding upper thoracic spine strengthening (see above). Functional Goals/Outcomes: Patient will be able to [...] 08/09/2022 [place] [address] [place], [place] [address] (Barrett akers) 08/10/2022 Appointment Physiatry/Physical Russel Mar MD [place] 232530 [facility] [address] (Barrett akers) 08/16/2022 Appointment [place] [address] [place], [place] [address] (Wo rk) 08/23/2022 Appointment [place] [address] [place], [place] [address] (Wo rk) 08/27/2022 Appointment [place] [address] [place], [place] [address] (Wo rk) 08/30/2022 Appointment [place] [address] [place], [place] [address] (Wo rk) 09/03/2022 Appointment [place] [address] [place], [place] [address] (Wo rk) 09/06/2022 Appoint[place] [address] [place], [place] [address] (Wo rk) 09/10/2022 Appoint[place] [address] [place], [place] [address] (Wo rk) 09/30/2022 Appointment Family Medicine Elicia Lockhart MD [address] [place] [address] [place] [address] (Wo rk) documented as of this encounter Visit Diagnoses Diagnosis Neck pain - Primary Cervicalgia Cervical radiculopathy Brachial neuritis or radiculitis nos documented in this encounter Care Teams Receiving Team Member Relationship Specialty Start Date End Date Elicia Lockhart MD PCP - General Family Practice 08/09/18 [address] [place] [address] documented as of this encounter
--- OUTSIDE RECORDS SUMMARY | 2022-08-01 13:14 | XMS_ITS | Encounter Summary ---
:1988 Author Organization [employer] Address [address] [place] [address] Care Team Providers Name Role Phone Elicia Lockhart MD Primary Care Provider Reason for Visit Reason Comments Spine Cervical Encounter Details Date Type Department Care Team Description 07/09/2022 Therapy [facility] Holden Bell Neck pain (Primary Dx); Center - Physical PT Cervical radiculopathy Therapy [address] [place] [address] [place] [address] [place] [address] [phone] Social History Tobacco Use Types Packs/Day Years [...] encounter Progress Notes Holden Bell, PT - 07/09/2022 7:45 AM CDT [facility] Physical Therapy Progress Note Visit Number: 11 Initial Certification Period: 05/06/2022 to 08/04/22 Referring Provider: Russel Mar Visit Diagnosis: 1. Neck pain 2. Cervical radiculopathy Precautions: none SUBJECTIVE: Hari reports upper back feeling better and he elected that we work on his neck today and it feels tight. OBJECTIVE Current Objective Findings: NDI: not filled [...] 3 x a day ASSESSMENT/PROGRESS TOWARD GOALS: Improvement in upper back pain and for that reason the patient elected that we work on his neck today, which reported feeling tight. Functional Goals/Outcomes: Patient will be able to [...] 08/09/2022 [place] [address] [address] [place], [place] [address] (Barrett akers) 08/10/2022 Appointment Physiatry/Physical Russel Mar MD [place] 507230 [facility] [address] N [address] (Wo rk) 08/16/2022 Appoint[place] [address] [place], [place] [address] (Wo rk) 08/23/2022 Appoint[place] [address] [place], [place] [address] (Wo rk) 08/27/2022 Appointment [place] [address] [place], [place] [address] (Wo rk) 08/30/2022 Appoint[place] [address] [place], [place] [address] (Wo rk) 09/03/2022 App[place] [address] [place], [place] [address] (Wo rk) 09/06/2022 Appointment [place] [address] [place], [place] [address] (Wo rk) 09/10/2022 App[place] [address] [place], [place] [address] (Wo rk) 09/30/2022 Appointment Family Medicine Elicia Lockhart MD [address] [id number] (Wo rk) documented as of this encounter Visit Diagnoses Diagnosis Neck pain - Primary Cervicalgia Cervical radiculopathy Brachial neuritis or radiculitis nos documented in this encounter Care Teams Fire Alarm Repairer Relationship Specialty Start Date End Date Elicia Lockhart MD PCP - General Family Practice 08/09/[address] [id number] documented as of this encounter
--- OUTSIDE RECORDS SUMMARY | 2022-08-01 13:14 | XMS_ITS | Encounter Summary ---
:1990 Author Organization [employer] Address [address] [place] [address] Care Team Providers Name Role Phone Elicia Lockhart MD Primary Care Provider Reason for Visit Reason Comments Spine Cervical Encounter Details Date Type Department Care Team Description 05/18/2022 [facility] Guadalupe Decker Neck pain (Primary Dx); Center - Physical J, PT Cervical radiculopathy Therapy [address] [facility] [address] [place] [address] [place] [address] [phone] Social History Tobacco Use Types Packs/Day Years [...] documented as of this encounter Progress Notes Jose Guadalupe Decker PT - 05/18/2022 8:00 AM CDT Wilma Roman [facility] Physical Therapy Progress Note Visit Number: 5 Initial Certification Period: 05/06/2022 to 08/04/22 Referring Provider: Russel Mar Visit Diagnosis: 1. Neck pain 2. Cervical radiculopathy Precautions: none SUBJECTIVE: Patient notes that he felt some of his symptoms the other day, but he notes that doing the HEP seemed to help resolve the issue pretty quickly. Wonders if there are particular exercises to avoid with returning to working out. Did feels some slight increase in symptoms the day after last session, whichhe attributes to the triceps extensions. OBJECTIVE Current Objective Findings: Supine chest press: some symptoms into L 3rd finger with 10# dumbbells in each hand. Symptoms decreased when placing wrists in neutral position. Treatment/Education Today: Therapeutic activity x 15 minutes: - reviewed graded exposure and how patient will essentially be his own experiment regarding tolerance for activities and how his body responds. Discussed adjusting activity as needed based on response.Explained that body needs a day between strengthening that results in DOMS, so if symptoms increase from activity the previous day, consider going through stretches and walking. Discussed how to adjustactivity via less frequency, taking breaks. Will most likely not need to continue with accommodations/adjustments forever, but consider temporarily returning to them if symptoms worsen or reappear after a phase of no symptoms. Therapeutic exercise x 25 min: To improve pain, strength, and function. - discussed importance of engaging deep neck flexors to provide spine stability. Also consider supine position with some exercises for added stability. - supine overhead triceps extensions - no weight x 5 reps - 10# x 15 reps - 10# each hand x 15 reps - chest press x 10# each hand x 20 reps. Some symptoms into L 3rd finger, so changed to neutral wrist position, which helped with symptoms. - prone modified plank, ~30 seconds. Cues to maintain chin tuck. - prone scapular press-up from knees, 15 reps. Cues to maintain chin tuck. - seated row x 7# pounds each hand x 20 reps. Cues to pull to neutral shoulder extension and watch scapular hiking. Timed Code Treatment Minutes: 40 Total Treatment Minutes: 40 Current Home Exercise Program List: Encouraged return to upper body lifting: shoulder raises and advancing neural mobilizations with median nerve tray No handout provided per request. ASSESSMENT/PROGRESS TOWARD GOALS: Patient continues to improve and tolerated strengthening in gym well last session. Worked through some different exercises today in an effort to increase patient's confidence with returning to exerciseand how to modify activities, if needed, with regard to symptoms. Patient tolerated exercises in clinic very well, noting some symptoms in L 3rd finger with chest press, but this decreased with neutralwrist positioning. Functional Goals/Outcomes: Patient will be able [...] 08/09/2022 [place] [address] [place], [place] [phone] (Wo rk) 08/10/2022 Appointment Physiatry/Physical Russel Mar MD [facility] [address] [facility] [id number] (Wo rk) 08/16/2022 Appoint[place] [address] [place], [place] [address] (Wo rk) 08/23/2022 [place]oint[place] [address] [place], [place] [address] (Wo rk) 08/27/2022 [place]oint[place] [address] [place], [place] [phone] (Wo rk) 08/30/2022 [place] [address] [place], [place] [address] (Wo rk) 09/03/2022 [place]oint[place] [address] [place], [place] [address] (Wo rk) 09/06/2022 [place]oint[place] [address] [place], [place] [address] (Wo rk) 09/10/2022 [place]oint[place] [address] [place], [place] [address] (Wo rk) 09/30/2022 Appointment Family Medicine Elicia Lockhart MD [address] [place] [id number] (Wo rk) documented as of this encounter Visit Diagnoses Diagnosis Neck pain - Primary Cervicalgia Cervical radiculopathy Brachial neuritis or radiculitis nos documented in this encounter Care Teams Promotional Demonstrator Relationship Specialty Start Date End Date Elicia Lockhart MD PCP - General Family Practice 08/09/[address] [place] [id number] documented as of this encounter
--- OUTSIDE RECORDS SUMMARY | 2022-08-01 13:14 | XMS_ITS | Encounter Summary ---
:1990 Author Organization [employer] Address [address] [place] [address] Care Team Providers Name Role Phone Elicia Lockhart MD Primary Care Provider Reason for Visit Reason Comments Spine Cervical Encounter Details Date Type Department Care Team Description 06/24/2022 Therapy [facility] Holden Blel Neck pain (Primary Dx); Center - Physical PT Cervical radiculopathy Therapy [address] [place] [address] [place] [address] [place] [address] [phone] Social History Tobacco Use Types Packs/Day Years [...] encounter Progress Notes Holden Bell, PT - 06/24/2022 7:45 AM CDT [facility] Physical Therapy Progress Note Visit Number: 9 Initial Certification Period: 05/06/2022 to 08/04/22 Referring Provider: Russel Mar Visit Diagnosis: 1. Neck pain 2. Cervical radiculopathy Precautions: none SUBJECTIVE: The only time I have any tingling is when I get out of bed, but other than my neck just feels stiff. OBJECTIVE Current Objective Findings: NDI: not filled [...] handout provided per request. ASSESSMENT/PROGRESS TOWARD GOALS: Steady improvement in symptoms. Progressing very nicely. Functional Goals/Outcomes: Patient will be able to [...] 08/09/2022 Appoint[place] [address] [address] [place], [place] [address] (Barrett akers) 08/10/2022 Appointment Physiatry/Physical Russel Mar MD [address] [address] (Barrett akers) 08/16/2022 [place] [address] [place] [address] (Brarett akers) 08/23/2022 Appoint[place] [address] [address] [facility] [place] [address] (Barrett akers) 08/27/2022 Appointment [place] [address] [place], [place] [address] (Wo rk) 08/30/2022 Appointment [place] [address] [place], [place] [address] (Wo rk) 09/03/2022 Appointment [place] [address] [place], [place] [address] (Wo rk) 09/06/2022 Appointment [place] [address] [place], [place] [address] (Wo rk) 09/10/2022 Appointment [place] [address] [place], [place] [address] (Wo rk) 09/30/2022 Appointment Family Medicine Elicia Lockhart MD [address] [id number] (Wo rk) documented as of this encounter Visit Diagnoses Diagnosis Neck pain - Primary Cervicalgia Cervical radiculopathy Brachial neuritis or radiculitis nos documented in this encounter Care Teams Salvage Machine Operator Relationship Specialty Start Date End Date Elicia Lockhart MD PCP - General Family Practice 08/09/[address] [phone] documented as of this encounter
--- OUTSIDE RECORDS SUMMARY | 2022-08-01 13:14 | XMS_ITS | Encounter Summary ---
:1990 Author Organization [employer] Address [address] [place] [address] Care Team Providers Name Role Phone Elicia Lockhart MD Primary Care Provider Reason for Visit Reason Comments Spine Cervical Encounter Details Date Type Department Care Team Description 05/15/2022 [facility] Al Bobo Neck pain (Primary Dx); - Physical Therapy II, PT Cervical radiculopathy [address] [place] [address] [place], [place] [phone] [address] Social History Tobacco Use Types Packs/Day Years [...] documented as of this encounter Progress Notes Al Bobo II, PT - 05/15/2022 7:30 AM CDT [facility] Physical Therapy Progress Note Visit Number: 4 Initial Certification Period: 05/06/2022 to 08/04/22 Referring Provider: Russel Mar Visit Diagnosis: 1. Neck pain 2. Cervical radiculopathy Precautions: none SUBJECTIVE: Reports that he has been responding well to therapy thus far. Patient is new to me. Reports overall doing better, still wanting to know how to improve posture how to reduce symptoms worsening. OBJECTIVE Current Objective Findings: Median nerve test: + R at 90 deg abd and full elbow/wrist extension + L at 70 deg abd and near full elbow/wrist extension + ulnar test at end range bilaterally Treatment/Education Today: Therapeutic activity x10min - reviewed recent history, update on symptoms, goals and desired activities to return to - discussed research low on posture and more about graded exposure, improving tissue tolerance withirritable positions \ Therapeutic exercise x25min: To improve pain, strength, and function. - UBE x5 min level 3-4 - discussed previous exercises wanting or fearful to return to - overhead tricep extension 25# x10, 30# 2x10 - shoulder raises flexion, abduction 5# bilateral 2x10 - supine chin tucks x15 - overhead press 5# 2x10 Neuromuscular re-education x8 min - neurodynamic reassessment - median nerve tray gliders 1x10 each - taught tensioner technique as progression when appropriate. Timed Code Treatment Minutes: 43 Total Treatment Minutes: 43 Current Home Exercise Program List: Encouraged return to upper body lifting: shoulder raises and advancing neural mobilizations with median nerve tray No handout provided per request. ASSESSMENT/PROGRESS TOWARD GOALS: Overall symptoms progressing well since onset, reporting about 10% present. Increased mild sensationin fingertips during overhead movements. Remains positive with upper limb tension tests with median and ulnar bias. Educated on low posture concern and progressing neurodynamics and upper extremity resistance training as tolerated. Functional Goals/Outcomes: Patient will be able to [...] or fear with any lifting or overhead movements. documented in this encounter Plan of Treatment Upcoming Encounters Date Type Specialty Care Team Description 08/09/2022 [place] [address] [place], [place] [address] (Wo rk) 08/10/2022 Appointment Physiatry/Physical Russel Mar MD [facility] [address] [facility] [place] [address] (Wo rk) 08/16/2022 Appoint[place] [address] [place], [place] [address] (Wo rk) 08/23/2022 [place] [address] [place], [place] [address] (Wo rk) 08/27/2022 Appoint[place] [address] [place], [place] [address] (Wo rk) 08/30/2022 [place] [address] [place], [place] [address] (Wo rk) 09/03/2022 Appoint[place] [address] [place], [place] [address] (Wo rk) 09/06/2022 [place] [address] [place], [place] [address] (Wo rk) 09/10/2022 [place] [address] [place], [place] [address] (Wo rk) 09/30/2022 Appointment Family Medicine Elicia Lockhart MD [address] [id number] (Wo rk) documented as of this encounter Visit Diagnoses Diagnosis Neck pain - Primary Cervicalgia Cervical radiculopathy Brachial neuritis or radiculitis nos documented in this encounter Care Teams Digital Forensic Analyst Relationship Specialty Start Date End Date Elicia Lockhart MD PCP - General Family Practice 08/09/[address] [phone] documented as of this encounter
--- OUTSIDE RECORDS SUMMARY | 2022-08-01 13:14 | XMS_ITS | Clinical Summary ---
:1990 Author Organization [facility] Address [address], [place] [address] Care Team Providers Name Role Phone Elicia Lockhart MD Primary Care Provider Source Comments You are receiving this document as you are listed as the primary care provider,follow-up provider, or the patient has been referred to you for consultation.This is in compliance with the Medicare and Medicaid EHR Incentive Program,which states Providers who transition their patient to another setting of careor provider of care or refers their patient to another provider of care shouldprovide summarycare record for each transition of care or referral. [facility] Allergies No known active allergies Medications Medication Sig Dispensed Refills Start End Date Status Date cholecalciferol Take 1 Tablet 100 Tablet Active (VITAMIN D3) 1000 by mouth 9 units tablet daily. [employer] Auto-CPAP, 0 Ac tive ([id number] heated 6 LOCKING BRACKET) humidifier, MISC mask, headgear, filters and tubing. For home use. Pressure: 5-15 Length of Need: 99 cetirizine (ZYRTEC) Take 2 120 Tablet 3 Active 10 MG Tablets by 1 tabletIndications: mouth two Chronic urticaria times a day. hydrOXYzine HCl Take 1-2 90 Tablet 3 Acti ve (ATARAX) 25 MG Tablets by 1 tabletIndications: mouth every 8 Chronic urticaria hours as needed for Itching. propranolol TAKE 1 TO 2 30 Tablet 3 Active (INDERAL) 10 MG TABLETS BY 1 tabletIndications: MOUTH THREE Panic attacks (HRC) TIMES A DAY NEEDED FLUoxetine (PROZAC) TAKE 1 90 Capsule 2 Active 40 MG CAPSULE BY 2 capsuleIndications: MOUTH EVERY MAYA (generalized DAY anxiety disorder) (HRC), Current moderate episode of major depressive disorder without prior episode (HRC) amphetamine-dextroam Take 1 Tablet 60 Tablet 0 Active phetamine (ADDERALL) (30 mg) by 2 30 MG mouth two tabletIndications: times a day. Attention deficit Do not start hyperactivity before disorder (ADHD), June 14, unspecified ADHD 2021. type (HRC) Tillson-3 Fatty Acids Taking 3000 0 Active (FISH OIL) 1000 MG mg of EPA and 2 capsuleIndications: DHA daily in Attention deficit total hyperactivity disorder (ADHD), unspecified ADHD type (HRC) gabapentin Take 1 90 Capsule 3 Active (NEURONTIN) 300 MG Capsule (300 2 capsuleIndications: mg) by mouth Cervical three times a radiculopathy day. amphetamine-dextroam Take 1 Tablet 60 Tablet 0 08/22 Active phetamine (ADDERALL) (30 mg) by 2 22 30 MG mouth two tabletIndications: times a day. Attention deficit hyperactivity disorder (ADHD), unspecified ADHD type (HRC) amphetamine-dextroam Take 1 Tablet 60 Tablet 0 07/23 Discontinued phetamine (ADDERALL) (30 mg) by 2 22 30 MG mouth two tabletIndications: times a day. Attention deficit hyperactivity disorder (ADHD), predominantly inattentive type (HRC) amphetamine-dextroam Take 1 Tablet 60 Tablet 0 07/23 Discontinued phetamine (ADDERALL) (30 mg) by 2 22 (*Med change OR 30 MG mouth two same med O R tabletIndications: times a day. reorder, new Attention deficit do se/directions) hyperactivity disorder (ADHD), unspecified ADHD type (HRC) amphetamine-dextroam Take 1 Tablet 60 Tablet 0 07/23 Discontinued phetamine (ADDERALL) (30 mg) by 2 22 30 MG mouth two tabletIndications: times a day. Attention deficit Do not start hyperactivity before [place] disorder (ADHD), 2021. unspecified ADHD type (HRC) Active Problems Problem Noted Date Neck pain 05/15/2022 Cervical radiculopathy 05/15/2022 Controlled substance agreement signed 12/10/2021 Overview: Diagnosis: ADHD Medication: adderall IR 30 mg bid Controlled Substance Agreement reviewed and signed: yes Date agreement signed: 12/10/2021 Refill plan: Visits twice yearly of [facility] h 1 visit will be in office to check BP, P and weight. Can refill 3 Rx's at a time. Clinician: Elicia Lockhart MD Attention-deficit hyperactivity disorder, unspecified type 03/02/2021 Overview: Record reviewed from [facility] apt/testing don e 02/18/2021. Sent for scanning. Trying stimulants Current moderate episode of major depressive disorder without prior 09/15/2020 episode Panic attacks 09/15/2020 Chronic urticaria 07/03/2018 Overview: Hives with lip or tongue swelling. He arriola s 4-5 episodes since 2008. Anti-IgE receptor antibody. Manages symptoms with cetirizine 10 mg bid, zantac 150 mg TID, benadryl 50 mg every 6 hours as needed, hydr oxyzine 25 mg TID PRN if benadryl fails. Occasionally he needs prednisone (10 mg every 12-24 hours as needed) when cetirizine/zantac/benadryl/hydroxyzine FAIL. MAYA (generalized anxiety disorder) 07/03/2018 Overview: lexapro is not effective at 10 mg daily Mixed dyslipidemia 07/03/2018 Overview: Elevated trigs and low HDL. LDL 95 Noted in Care Everywhere in 2017 Mild obstructive sleep apnea 02/17/2017 Overview: Setting: Auto 01/31 Supplied by: [facility] PSG done: 05-05-16 ([facility] Sleep_ AHI 14 (EDS) RDI 19 Lowest O2 Sat: 90% Resolved Problems Problem Noted Date Resolved Date Gout, chronic 07/03/2018 12/29/2020 GERD (gastroesophageal reflux disease) 07/03/2018 0 04/13/2022 Dysthymic disorder 07/03/2018 04/13/2022 Posterior tibialis muscle dysfunction 04/17/2015 High ankle sprain of right lower extremity 03/25/2015 07/03/2018 Encounters Date Type Specialty Care Team Description 07/26/2022 Therapy Physical Therapy [place], Holden, Neck pain (Primary Dx); PT Cervical radicu lopathy 07/17/2022 Therapy Physical Therapy [place], Holden, Neck pain (Primary Dx); PT Cervical radicu lopathy 07/09/2022 Therapy Physical Therapy [place], Holden, Neck pain (Primary Dx); PT Cervical radicu lopathy 07/05/2022 Therapy Physical Therapy [place], Holden, Neck pain (Primary Dx); PT Cervical radicu lopathy 06/24/2022 Therapy Physical Therapy [place], Holden, Neck pain (Primary Dx); PT Cervical radicu lopathy 06/21/2022 Therapy Physical Therapy [place], Holden, Neck pain (Primary Dx); PT Cervical radicu lopathy 06/18/2022 Therapy Physical Therapy [place], Holden, Neck pain (Primary Dx); PT Cervical radicu lopathy 06/09/2022 Office Visit Physiatry/Physical Russel Mar MD [facility] radiculopathy Medicine (Primary Dx) 06/01/2022 Therapy Physical Therapy Gibran Romero, PT Neck pain (Primary Dx); Cervical radicu lopathy 05/18/2022 Therapy Physical Therapy Decker, Neck pain ( Primary Dx); Jose Guadalupe Silva, PT Cervical radi culopathy 05/15/2022 Therapy Physical Therapy Al Bobo Neck p ain (Primary Dx); II, PT Cervical radicu lopathy 05/12/2022 Therapy Physical Therapy Frantz Chowdary pa in (Primary Dx); D, PT Cervical radicu lopathy 05/08/2022 Therapy Physical Therapy [place], Holden, Neck pain (Primary Dx); PT Cervical radicu lopathy 05/06/2022 Therapy Physical Therapy [place], Holden, Neck pain (Primary Dx); PT Cervical radicu lopathy from Last 3 Months Immunizations Name Administration Dates Next Due Fluzone Qiv Multidose Vial 0.25 (6-35 07/15/2014 Mos) IPV (Polio) 10/03/2002, 05/24/1990, 1988, 1990 Influenza (Fluzone 0.25, 6-35 mos) 07/18/2013 Influenza IIV4 (Quadrivalent) 0.5mL 06/16/2020, 08/31/2019, 11/16/2018, (06090) 07/26/2017, 07/07/2016, 06/25/2015, 07/18/2013 Influenza, Unspecified Formulation 06/25/2015 MCV4 (Menactra) 03/24/2007 MMR 10/03/2002, 12/08/1989 Moderna (Spikevax) Booster COVID-19 12/10/2021 Pfizer (Comirnaty) COVID-19, 12+ Yrs 01/13/2021, 12/16/2020 Purple Top Td, Preservative Free 10/03/2002 Tdap 03/26/2021, 07/15/2014 Varicella 03/24/2007 Family History Medical History Relation Name Comments Hyperlipidemia Father GI Mother colectomy due to tumor (non-cancer) No Known Problems Brother Cardiovascular Disease Maternal Grandfather vascular disease (carotid stent) Maternal Grandfather Cardiovascular Disease Maternal Grandmother Diabetes Maternal Grandmother Alcohol Abuse Paternal Grandfather Cancer, Lung Paternal Grandfather Alcohol Abuse Paternal Grandmother Diabetes, Type I Sister Relation Name Status Comments Father Alive Mother Alive Brother Alive Maternal Grandfather Maternal Grandmother Paternal Grandfather Paternal Grandmother Sister Alive Social History Tobacco Use Types Packs/Day Years [...] Assigned at Date Recorded Not on file Last Filed Vital Signs Vital Sign Reading Time Taken Comments Blood Pressure 110/71 04/28/2022 2:18 PM CDT Pulse 78 04/28/2022 2:18 PM CDT Temperature 37.1 ??C (98.7 ??F) 08/20/2021 11:34 AM CLAY MAKER Respiratory Rate - - Oxygen Saturation 99% 08/20/2021 11:34 AM CLAY MAKER Inhaled Oxygen Concentration - - Weight 94.8 kg (209 lb) 12/10/2021 10:46 AM CDT Height 180.3 cm (5' 11) 10/22/2020 7:33 AM CLAY MAKER Body Mass Index 29.15 10/22/2020 7:33 AM CLAY MAKER Plan of Treatment Upcoming Encounters Date Type Specialty Care Team Description 08/09/2022 [place] [address] [place], [place] [address] (Wo rk) 08/10/2022 Appointment Physiatry/Physical Russel Mar MD [place] [id number] [facility] [address] [id number] (Wo rk) 08/16/2022 Appoint[place] [address] [place], [place] [phone] (Wo rk) 08/23/2022 Appoint[place] [address] [place], [place] [address] (Wo rk) 08/27/2022 Appoint[place] [address] [place], [place] [address] (Wo rk) 08/30/2022 Appoint[place] [address] [place], [place] [address] (Wo rk) 09/03/2022 App[place] [address] [place], [place] [address] (Wo rk) 09/06/2022 Appoint[place] [address] [place], [place] [address] (Wo rk) 09/10/2022 [place] [address] [place], [place] [address] (Wo rk) 09/30/2022 Appointment Family Medicine Elicia Lockhart MD [address] [place], [place] [phone] (Wo rk) Health Maintenance Due Date Last Done Comments HepB (1) 1990 COVID-19 Vaccine (4 - 02/04/2022 12/10/2021, 01/13/2021, Booster for Pfizer series) 12/16/2020 Influenza (#1) 2022 06/16/2020, 08/31/2019, 11/16/2018, Additional history exists Adult Preventive Visit 07/24/2022 07/24/2020 DTaP/Tdap/Td (4 - Tdap) 03/26/2031 03/26/2021, 07/15/2014, 10/03/2002 Zoster/Shingles (1 of 2) 2038 IPV (Polio) Completed 10/03/2002, 05/24/1990, 1988, Additional history exists MCV4 Completed 03/24/2007 HIV Screening (Preventive Completed 04/20/2019 Services) Hep C Screening (Preventive Completed 04/20/2019 Services) HPV Vaccine Aged Out No longer eligib le based on patient 's age to complete this topic HepA Aged Out No longer eligib le based on patient 's age to complete this topic Hib Aged Out No longer eligib le based on patient 's age to complete this topic Pneumococcal Aged Out No longer eligib le based on patient 's age to complete this topic Insurance Payer Benefit Plan / Subscriber ID Effective Dates Phone Addre ss Type Group [employer] SELF MANAGED [id number] 2018-[employer] t Hari Elise Personal/Family Self 1990 [address] [facility] (Home) [address] [place] [id number] Hari Elise Personal/Family Self 1990 [address] (Home) [place] [address] Care Teams Palliative Care Specialist Relationship Specialty Start Date End Date Elicia Lockhart MD PCP - General Family Practice 08/09/[address] [phone]
--- OUTSIDE RECORDS SUMMARY | 2022-08-01 13:15 | XMS_ITS | Encounter Summary ---
:1990 Author Organization [employer] Address [address] [place] [address] Care Team Providers Name Role Phone Elicia Lockhart MD Primary Care Provider Reason for Referral Procedure/Equipment (Routine) - Closed Specialty Diagnoses / Procedures Referred By Contact Refer red To Contact Diagnoses Cervical radiculopathy Russel Mar MD Procedures [place] Spinal Injection For Pain Management [address] [place], [place] [address] Referral ID Status Reason Start Date Expiration Date Visits Requ ested Visits Authorized [id number] Closed 04/20/2022 07/20/2023 1 1 Reason for Visit Reason Comments CONSULT Neck Pain Consult/Transfer Care (Routine) - New Request Specialty Diagnoses / Procedures Referred By Contact Refer red To Contact Diagnoses Bilateral hand numbness Arm numbness Hand weakness Elicia Lockhart MD [address] [place] [address] Referral ID Status Reason Start Date Expiration Date Visits V isits Requested Authorized [id number] New Request 04/13/2022 07/13/2023 1 1 Encounter Details Date Type Department Care Team Description 04/20/2022 Office Visit Russel Rushing MD Cervical radiculopathy [facility] - [address] (Pr imary Dx) Physical Medicine & [facility] [place], [place] [id number] [place] [address] (Work) [phone] Social History Tobacco Use Types Packs/Day Years [...] on file documented as of this encounter Last Filed Vital Signs Vital Sign Reading Time Taken Comments Blood Pressure 124/85 04/20/2022 11:22 AM CDT Pulse 90 04/20/2022 11:22 AM CDT Temperature - - Respiratory Rate - - Oxygen Saturation - - Inhaled Oxygen Concentration - - Weight - - Height - - Body Mass Index - - documented in this encounter Patient Instructions Patient InstructionsRussel Mar MD - 04/20/2022 11:30 AM CDT Images from the original note [...] encounter Progress Notes Russel Mar MD - 04/20/2022 11:30 AM CDT Images from the original note were not included. PHYSICAL MEDICINE AND REHABILITATION OUTPATIENT INITIAL CLINIC VISIT NOTES Chief Complaints: evaluation of bilateral upper extremity HISTORICAL BACKGROUND: In retrospect, Hari Elise, 31 y.o., male with past medical history significant for ADHD, bilaterakl hand numbness and is here in clinic today for above mentioned complain. 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 [employer] PHYSICAL EXAMINATION: Filed Vitals: 04/20/22 1122 BP: 124/85 Pulse: 90 CONSTITUTIONAL: interactive not in cardiopulmonary distress, ambulatory Cervical Examination Cervical Flexion - normal / Cervical Extension -slightly limited to pain in [...] Reading Date Result Priority Delisa Whatley MD [phone] 04/14/2022 STAT Narrative & Impression IMPRESSION INDICATION: [...] at C5C6 C6C7/ with multilevel facet arthropathy Refer to Physical Therapy for neck pain - ( after epidural injection) evaluation and treatment including but not limited to Cervical Range of motion exercises Cervical Flexibility and strengthening program Pain Meds : Tylenol Ibuprofen ( NSAIDs) Started gabapentin 300 mg 3 times a day start at bedtime gradually increase to twice a day and 3 times a day as tolerated Emphasize good and correct posture Avoid prolonged [...] as needed use Contour pillow if available Refer patient for bilateral epidural injection C6-C7 followed by physical therapy No improvement with epidural injection patient will give me a call and will refer for neurosurgery evaluation due to multilevel neural foraminal stenosis Asked pt to return to clinic in: Return in about 7 weeks (around 06/08/2022). 1. Result of epidural injection ( if no improvement consider referral to Neurosurgery without undergoing PT due to severity of multilevel narrowing Thank you for giving me the opportunity to be a part of this patient care. Russel Mar MD This dictation was created using voice recognition technology, typographical errors may be present No referring provider defined for this encounter. documented in this encounter Plan of Treatment Upcoming Encounters Date Type Specialty Care Team Description 08/09/2022 [place] [address] [place], [place] [address] (Wo rk) 08/10/2022 Appointment Physiatry/Physical Russel Mar MD [facility] [address] [facility] [place] [address] (Wo rk) 08/16/2022 Appoint[place] [address] [place], [place] [address] (Wo rk) 08/23/2022 [place]oint[place] [address] [place], [place] [address] (Wo rk) 08/27/2022 [place]oint[place] [address] [place], [place] [address] (Wo rk) 08/30/2022 [place]oint[place] [address] [place], [place] [address] (Wo rk) 09/03/2022 [place]oint[place] [address] [place], [place] [address] (Wo rk) 09/06/2022 Appointment [place] [address] [place], [place] [address] (Wo rk) 09/10/2022 [place] [address] [place], [place] [address] (Wo rk) 09/30/2022 Appointment Family Medicine Elicia Lockhart MD [address] [address] (Wo rk) documented as of this encounter Results FL Spinal Injection For Pain Management (04/28/2022 2:49 PM CDT) Anatomical Region Laterality Modality Spine, L-Spine, T-Spine, C-Spine Radiogr aphic Imaging Specimen (Source) Anatomical Location Collection Method / Collectio n Time Received Time / Laterality Volume Narrative 04/28/2022 2:50 PM CDT These images were obtained during a surg ical procedure. Russel Mar MD RAD FL documented in this encounter Visit Diagnoses Diagnosis Cervical radiculopathy - Primary Brachial neuritis or radiculitis nos Cervical radiculopathy - Primary Brachial neuritis or radiculitis nos documented in this encounter Care Teams Business Investor Relationship Specialty Start Date End Date Elicia Lockhart MD PCP - General Family Practice 08/09/[address] [place] [address] documented as of this encounter
--- OUTSIDE RECORDS SUMMARY | 2022-08-01 13:15 | XMS_ITS | Encounter Summary ---
:1990 Author Organization [email or web address] Address [address] [place] [address] Care Team Providers Name Role Phone Elicia Lockhart MD Primary Care Provider Reason for Visit Reason Comments DEPRESSION Encounter Details Date Type Department Care Team Description 09/03/2021 Telephone [facility] Elicia Ellsworth MD DEPRESSION [address] [place] [address] [place] [address] [phone] (Wo rk) Social History Tobacco Use Types [...] as of this encounter Patient Instructions Patient InstructionsTverYanique mark MA - 09/03/2021 10:51 AM CST PHQ 9 is 8 OL HEALTH ASSISTANT documented in this encounter Plan of Treatment Upcoming Encounters Date Type Specialty Care Team Description 08/09/2022 [place] [address] [place], [place] [address] (Wo rk) 08/10/2022 Appointment Physiatry/Physical Russel Mar MD [facility] [address] [facility] [place] [place] [address] (Wo rk) 08/16/2022 Appoint[place] [address] [place], [place] [address] (Wo rk) 08/23/2022 Appoint[place] [address] [place], [place] [address] (Wo rk) 08/27/2022 [place]oint[place] [address] [place], [place] [address] (Wo rk) 08/30/2022 [place] [address] [place], [place] [address] (Wo rk) 09/03/2022 Appoint[place] [address] [place], [place] [address] (Wo rk) 09/06/2022 [place]oint[place] [address] [place], [place] [address] (Wo rk) 09/10/2022 [place] [address] [place], [place] [address] (Wo rk) 09/30/2022 Appointment Family Medicine Elicia Lockhart MD [address] [place] [address] (Wo rk) documented as of this encounter Visit Diagnoses Not on filedocumented in this encounter Care Teams Calibration Engineer Relationship Specialty Start Date End Date Elicia Lockhart MD PCP - General Family Practice 08/09/[address] [place] [address] documented as of this encounter
--- OUTSIDE RECORDS SUMMARY | 2022-08-01 13:15 | XMS_ITS | Encounter Summary ---
:1990 Author Organization [employer] Address [address] [place] [address] Care Team Providers Name Role Phone Elicia Lockhart MD Primary Care Provider Reason for Visit Reason Comments Spine Cervical Encounter Details Date Type Department Care Team Description 05/06/2022 Therapy [facility] Holden Bell Neck pain (Primary Dx); Center - Physical PT Cervical radiculopathy Therapy [address] [place] [place] [address] [place] [address] [place] [address] [phone] Social History Tobacco Use Types Packs/Day Years [...] encounter Progress Notes Holden Bell, PT - 05/06/2022 9:15 AM CDT [facility] Physical Therapy-Cervical/Thoracic Evaluation/Plan of Care Initial Certification Period: 05/06/2022 to 08/04/22 Referring Provider: Russel Mar Visit Diagnosis: 1. Neck pain 2. Cervical radiculopathy Precautions: None Orders: Evaluate & treat Onset/Referral Date: Years for neck pain and 3-4 months for radiculopathy SUBJECTIVE Reason for Visit: Patient is a 31 year old male presenting with c/o bilateral and upper back pain. Patient is experiencing bilateral radiculopathy L>R all the way down to both hands affecting all fingers. He has a long history of neck pain, but radiculopathy is new as only about 3-4 months ago he started experiencing pain and paresthesia. 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 Luckily, patient is working on building a standing works station as a desk and on a treadmill where he can walk while working. Patient reports weakness in both hands especially in the morning as he has difficulty opening and closing his hands, This does improve as the date goes on. He did have an injection not long ago, which has not improved his neck symptoms, but does feel better to some extend as he no longer wakes up at night with radiculopathy. Patient Therapy Goals: Resume previous level of activity symptom free. Past Medical History: Patient has a past medical history of Chronic urticaria (07/03/2018), Depression, major (HRC) (07/03/2018), MAYA (generalized anxiety disorder) (HR) (07/03/2018), GERD (gastroesophageal reflux disease) (07/03/2018), Gout, chronic (07/03/2018), High ankle sprain of right lower extr emity (03/25/2015), Hives (07/03/2018), Mixed dyslipidemia (HRC) (07/03/2018), CHRISTOPH (obstructive sleep apnea) (02/17/2017), Posterior tibialis muscle dysfunction (04/17/2015), and Posterior tibialis muscle dysfunction (04/17/2015). 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 Joint mobility: Moderate hypomobility of the cervical and upper thoracic spine with minimal tenderness throughout Special Tests: Axial compression: (-) Left U/Q test: (+) Right U/Q test: (-) ULLT: (+) on the left PT - Spine, Cervical/Thoracic Neck Disability Index (NDI) (0%-100%, 0 being best): 42 Clinical Examination: Moderate Complexity: Addressed 3 elements from body structures and functions (see above), and/or functional limitations as noted below. Today's Intervention: Physical Therapy Evaluation was completed and the patient was educated on the condition, planned therapy intervention and expectations from treatment. Therapeutic exercise x 10 minutes: Patient was instructed to limit sitting to no more than 15-20 minutes at a time, walk frequently, ifhe wants to con't with weight training he should use low weights and higher number of repetitions and it has to be pain free, needs to ice the neck and he was provided with the following HEP Access Code: [email or web address] URL: [email or web address] [email or web address] Document Preparation/ Date: 05/06/2022 Prepared by: Ravi Bell Exercises Standing Cervical Retraction - 5 x daily - 7 x weekly - 5 reps - 3-5 seconds hold Chest and Bicep Stretch - Arms Behind Back - 5 x daily - 7 x weekly - 5 reps - 5-10 seconds hold Upper Trapezius Stretch - 5 x daily - 7 x weekly - 5 reps - 5-10 seconds hold Manual therapy x 10 minutes: central and bilateral PA's to C2-T2, gr. III oscillated to decrease inflammation/pain and improve segmental mobility Mechanical traction: 16 lbs, static for 20 minutes Rx was tolerated well. Timed Code Treatment Minutes: 20 Total Treatment Minutes: 65 ASSESSMENT Therapist Impression/Summary: Neck pain with bilateral radiculopathy PT Clinical Presentation: Moderate Complexity: Evolving Clinical Presentation with changing clinical characteristics Clinical Decision Making: Moderate Complexity Recommendations/Equipment: No additional recommendations at this time Significant Impairments: Pain, Joint hypomobility Functional Limitations:difficulty sleeping, difficulty with household tasks, difficulty meeting workdemands, difficulty with driving, and sitting Goals/Functional Outcomes: Patient will be able to sleep without pain He will be able to work and do all ADL without pain Patient will be able exercise without pain He will regain pain free ROM of the neck Goals to be achieved within 4-6 week time frame. Barriers to Goal Achievement or Learning: none Prognosis:good PLAN Planned Intervention/Education: Education, Manual Therapy, Mechanical Traction, Therapeutic Exercise Frequency: 2 x week Duration: 45 days Discharge Plan: Patient will be discharged from therapy when goals are achieved or patient plateaus in progress. Informed Consent: The patient was educated on the condition, planned therapy intervention and expectations from treatment. Goals were a collaborative effort of the therapist and patient/caregiver. Risks, benefits and alternatives to treatment have been explained. Patient and/or family in agreement with the care plan. Plan for Next Treatment: con't with manual therapy, traction and exercise as part of HEP. The driving instructor is completed by the therapist and the referring clinician's electronic signature certifies medical necessity for the plan above. documented in this encounter Plan of Treatment Upcoming Encounters Date Type Specialty Care Team Description 08/09/2022 [place] [address] [place], [place] [address] (Barrett akers) 08/10/2022 Appointment Physiatry/Physical Russel Mar MD [address] [address] (Wo rk) 08/16/2022 [place]oint[place] [address] [place], [place] [address] (Barrett akers) 08/23/2022 Appoint[place] [address] [place], [place] [address] (Barrett akers) 08/27/2022 [place] [address] [place], [place] [address] (Wo rk) 08/30/2022 [place] [address] [place], [place] [address] (Wo rk) 09/03/2022 Appointment [place] [address] [place], [place] [address] (Wo rk) 09/06/2022 [place] [address] [place], [place] [address] (Wo rk) 09/10/2022 [place] [address] [place], [place] [address] (Wo rk) 09/30/2022 Appointment Family Medicine Elicia Lockhart MD [address] [address] (Wo rk) documented as of this encounter Visit Diagnoses Diagnosis Neck pain - Primary Cervicalgia Cervical radiculopathy Brachial neuritis or radiculitis nos documented in this encounter Care Teams Quality Process Lead Relationship Specialty Start Date End Date Elicia Lockhart MD PCP - General Family Practice 08/09/[address] [phone] documented as of this encounter
--- OUTSIDE RECORDS SUMMARY | 2022-08-01 13:15 | XMS_ITS | Encounter Summary ---
:1990 Author Organization [employer] Address [address] [place] [address] Care Team Providers Name Role Phone Elicia Lockhart MD Primary Care Provider Reason for Visit Reason Comments IMMUNIZATIONS IMMUNIZATION QUESTIONS Encounter Details Date Type Department Care Team Description 12/21/2021 Telephone Elicia Leigh, IMMUNIZATIONS; [address] MD IMMUNIZATION QUESTIONS [place] [address] [address] [phone] [place] [address] (Wo rk) Social History Tobacco Use Types [...] on file documented as of this encounter Nursing Notes Victoria Zapata LPN - 12/21/2021 1:02 PM CDT Pt advised that [employer] message has been sent in information. Victoria Zapata LPN - 12/21/2021 10:10 AM CDT [employer] message sent with information. Cristina Cook - 12/21/2021 9:51 AM CDT Immunizations/Vaccines Questions: Which immunization do you have a question about? Pt has questions about his covid vaccines, need all the information to add it to vaccination card, please call back. Is it okay to leave a detailed message on your voicemail? Yes (Advise caller that the PN call back number will end with [phone] or unknown) Please route to: Epifanio Kirkpatrick documented in this encounter Plan of Treatment Upcoming Encounters Date Type Specialty Care Team Description 08/09/2022 Appoint[place] [address] [place], [place] [address] (Wo rk) 08/10/2022 Appointment Physiatry/Physical Russel Mar MD [address] [address] (Wo rk) 08/16/2022 Appoint[place] [address] [place], [place] [address] (Wo rk) 08/23/2022 Appoint[place] [address] [place], [place] [address] (Wo rk) 08/27/2022 Appoint[place] [address] [place], [place] [address] (Wo rk) 08/30/2022 Appoint[place] [address] [place], [place] [address] (Wo rk) 09/03/2022 Appoint[place] [address] [place], [place] [address] (Wo rk) 09/06/2022 Appoint[place] [address] [place], [place] [address] (Wo rk) 09/10/2022 App[place] [address] [place], [place] [address] (Wo rk) 09/30/2022 Appointment Family Medicine Elicia Lockhart MD [address] [phone] (Wo rk) documented as of this encounter Visit Diagnoses Not on filedocumented in this encounter Care Teams Special Education Classroom Aide Relationship Specialty Start Date End Date Elicia Lockhart MD PCP - General Family Practice 08/09/[address] [phone] documented as of this encounter
--- OUTSIDE RECORDS SUMMARY | 2022-08-01 13:15 | XMS_ITS | Encounter Summary ---
:1990 Author Organization Formerly [facility] Address [address], [place] [address] Care Team Providers Name Role Phone Elicia Lockhart MD Primary Care Provider Reason for Referral Consult/Transfer Care (Routine) - New Request Specialty Diagnoses / Procedures Referred By Contact Refer red To Contact Diagnoses Right hand pain Bilateral hand numbness Arm numbness Hand weakness Elicia Lockhart MD [address] [place] [address] [address] Referral ID Status Reason Start Date Expiration Date Visits V isits Requested Authorized [id number] New Request 04/15/2022 07/15/2023 1 1 Scheduling Instructions Your provider has recommended an appoint ment with [facility]. You can quickly make your appointment online at VOSS/schedule. You can also call [phone] for help scheduling yo ur appointment. We suggest you call your health insurance company about your cove rage and benefits for this appointment. Reason for Visit Reason Comments MRI Results Encounter Details Date Type Department Care Team Description 04/14/2022 Telephone Elicia Leigh MD MRI Results [address] [address] [place] [address] [phone] (Wo rk) Social History Tobacco Use Types [...] documented as of this encounter Nursing Notes Elicia Lockhart MD - 04/15/2022 12:46 PM CDT I have made a referral to [facility]. If he cannot get in with them within the next 1-2 weeks,I recommend he go to a [facility] in [place] or [place]. Please schedule an appointment[facility] by calling [phone]. Leslee Hahn RN - 04/15/2022 9:43 AM CDT Clinician Action: INput needed on scheduling Clinician Next Step: Route to [facility] Nurse jay em to follow up Specific Request(s): 1. Patient called and was read message below. He cannot get in with PMR until May-he did talk to them. What should he do until then, or somewhere else he should go? Ольга Powell - 04/15/2022 9:33 AM CDT Pt calling back for next steps Elicia Lockhart MD - 04/15/2022 9:17 AM CDT He has a multiple changes of the cervical spine including moderate cervical stenosis which means narrowing of the canal itself. Even though there is narrowing of the canal, the radiologist did not report any signal changes in the spinal cord itself. This is reassuring. He also has a lot of moderate to severe narrowing at multiple levels within the spinal cord. As discussed at his recent visit, I strongly recommend an urgent appointment with physical medicine and I donot see that it has been scheduled yet. Based on the MRI findings, he may or may not need any type of surgical intervention but it would be helpful to get the input of the physical medicine doctor. Madeline Cloud, POLY - 04/14/2022 12:59 PM CDT Clinician Action: Input needed regarding imaging results. Okay for PCP to address when back in the clinic Clinician Next Step: Route to [facility] Nurse pool to follow up Specific Request(s): 1. Pt requesting results of MRI done on 04/14/22 Problem list reviewed as related to this call. Madelin Simental - 04/14/2022 12:48 PM CDT Test Results (Advise caller/patient can view test results in [facility], if enrolled) What test are you calling about? MRI Primary Director [facility]: Elicia Lockhart MD Who ordered the test? (include first & last name) Elicia Lockhart MD When and where was the test done? 04/14/22 [place] Additional comments (related to the above concern): If a prescription is needed, patient would like it filled at the pharmacy listed in Meds & Orders. (Verify the pharmacy patient would like to use for this request is highlighted in blue in PharmacySelection under Meds & Orders) Is it okay to leave a detailed message on your voicemail? Yes (Advise caller that the PN call back number will end with [phone] or unknown) Please route to: Triage Pool documented in this encounter Plan of Treatment Upcoming Encounters Date Type Specialty Care Team Description 08/09/2022 [place] [address] [address] [address] (Wo rk) 08/10/2022 Appointment Physiatry/Physical Russel Mar MD [facility] [address] [facility] [place] [address] [address] (Wo rk) 08/16/2022 [place]oint[place] [address] [place], [place] [address] (Wo rk) 08/23/2022 [place]oint[place] [address] [place], [place] [address] (Wo rk) 08/27/2022 [place] [address] [place], [place] [address] (Wo rk) 08/30/2022 [place] [address] [place], [place] [address] (Wo rk) 09/03/2022 [place]oint[place] [address] [place], [place] [address] (Wo rk) 09/06/2022 [place] [address] [place], [place] [address] (Wo rk) 09/10/2022 [place] [address] [place], [place] [address] (Wo rk) 09/30/2022 Appointment Family Medicine Elicia Lockhart MD [address] [place] [address] [address] (Wo rk) Scheduled Referrals Name Type Priority Associated Diagnoses Order S chedule Orthopaedic Consult Referral Routine Right hand p ain Ordered: 04/15/2022 Adult/Peds Bilateral hand n umbness Arm numbness Hand weakness documented as of this encounter Visit Diagnoses Diagnosis Right hand pain - Primary Pain in limb Bilateral hand numbness Disturbance of skin sensation Arm numbness Disturbance of skin sensation Hand weakness Muscle weakness (generalized) documented in this encounter Care Teams Carpenter Streetcar Relationship Specialty Start Date End Date Elicia Lockhart MD PCP - General Family Practice 08/09/[address] [id number] documented as of this encounter
--- OUTSIDE RECORDS SUMMARY | 2022-08-01 13:15 | XMS_ITS | Encounter Summary ---
:1990 Author Organization [employer] Address [address] [place] [address] Care Team Providers Name Role Phone Elicia Lockhart MD Primary Care Provider Reason for Visit Reason Comments Labs Needed Encounter Details Date Type Department Care Team Description 08/21/2021 Telephone Elicia Leigh MD Labs Needed [address] [place] [address] [place] [address] [phone] (Wo rk) Social History Tobacco Use Types [...] encounter Nursing Notes Victoria Zapata LPN - 08/21/2021 10:03 AM CST Pt notified of message and sent mychart msg. T PROGRAMMER Elicia Lockhart MD - 08/21/2021 9:53 AM CST I spoke with lab. We are unable to run influenza. Please ask Hari Elise to return for repeat nasopharyngeal swab for influenza if he would like. It is noted that his covid test is negative. He is past the point of getting tamiflu for influenza should he have it but his recently developed newsymptoms and she could be tested for influenza (especially if her covid test is negative). Because he has been feeling poorly with symptoms of fevers/chills, I still recommend he NOT leave his house until he is fever free without ibuprofen or apap AND improving symptoms for 24 hours. T PROGRAMMER Victoria Zapata LPN - 08/21/2021 9:42 AM CST Influenza lab ordered 08/20/21 cancelled due to being collected incorrectly in Epic (Nares). Please order new lab. T PROGRAMMER documented in this encounter Plan of Treatment Upcoming Encounters Date Type Specialty Care Team Description 08/09/2022 [place] [address] [place], [place] [address] (Wo rk) 08/10/2022 Appointment Physiatry/Physical Russel Mar MD [place] [id number] [facility] [address] [address] (Wo rk) 08/16/2022 [place] [address] [place], [place] [address] (Wo rk) 08/23/2022 [place] [address] [place], [place] [address] (Wo rk) 08/27/2022 [place] [address] [place], [place] [address] (Wo rk) 08/30/2022 [place] [address] [place], [place] [address] (Wo rk) 09/03/2022 [place] [address] [place], [place] [address] (Wo rk) 09/06/2022 [place] [address] [place], [place] [address] (Wo rk) 09/10/2022 Appoint[place] [address] [place], [place] [address] (Wo rk) 09/30/2022 Appointment Family Medicine Elicia Lockhart MD [address] [id number] (Wo rk) documented as of this encounter Visit Diagnoses Not on filedocumented in this encounter Care Teams Radiology Interventional Physician Relationship Specialty Start Date End Date Elicia Lockhart MD PCP - General Family Practice 08/09/[address] [id number] documented as of this encounter
--- OUTSIDE RECORDS SUMMARY | 2022-08-01 13:15 | XMS_ITS | Encounter Summary ---
:1990 Author Organization [facility] Address [address] [place] [address] Care Team Providers Name Role Phone Elicia Lockhart MD Primary Care Provider Reason for Visit Reason Comments Spine Cervical Encounter Details Date Type Department Care Team Description 05/08/2022 Therapy [facility] Holden Bell Neck pain (Primary Dx); Center - Physical PT Cervical radiculopathy Therapy [address] [place] [address] [place] [address] [place] [address] [phone] Social History Tobacco Use Types Packs/Day Years [...] encounter Progress Notes Holden Bell, PT - 05/08/2022 7:30 AM CDT [facility] Physical Therapy Progress Note Visit Number: 2 Initial Certification Period: 05/06/2022 to 08/04/22 Referring Provider: Russel Mar Visit Diagnosis: 1. Neck pain 2. Cervical radiculopathy Precautions: none SUBJECTIVE: Patient returns for his follow up visit. Reports no change in symptoms. HEP is going well. Has started walking more and built a standing work station, so he is not sitting as much any more OBJECTIVE Current Objective Findings: NDI: (initial 42%) Treatment/Education Today: Therapeutic exercise (10 minutes): - reviewing patient's symptoms - he was provided with ULNS: Access Code: [email or web address] URL: [email or web address]/ Date: 05/08/2022 Prepared by: Ravi Bell Exercises Standing Radial Nerve [place] - 5 x daily - 7 x weekly - 5 reps - oscillate for up to 30 seconds hold - patient had several questions that were answered to the best of my knowledge. 2. Manual therapy (25 minutes): - central and bilateral PA's to C2-T2, gr. III oscillated to decrease inflammation/pain and improve segmental mobility 3. Mechanical traction: 18 lbs, static for 20 minutes (23 minutes with prep time). Rx was tolerated well. Timed Code Treatment Minutes: 35 Total Treatment Minutes: 58 Current Home Exercise Program List: Access Code: [email or web address] URL: [email or web address]/ Date: 05/06/2022 Prepared by: Ravi Olownia Exercises Standing Cervical Retraction - 5 x [...] 5-10 seconds hold Access Code: [email or web address] URL: [email or web address]/ Date: 05/08/2022 Prepared by: Ravi Olownia Exercises Standing Radial Nerve [place] - 5 x daily - 7 x weekly - 5 reps - oscillate for up to 30 seconds hold ASSESSMENT/PROGRESS TOWARD GOALS: Patient con't to be symptomatic without meaningful improvement after the initial visit. Functional Goals/Outcomes: Patient will be able to sleep without pain He will be able to work and do all ADL without pain Patient will be able exercise without pain He will regain pain free ROM of the neck Goals to be achieved within 4-6 week time frame. PLAN: Con't with Miguel. documented in this encounter Plan of Treatment Upcoming Encounters Date Type Specialty Care Team Description 08/09/2022 Appoint[place] [address] [place], [place] [address] (Wo rk) 08/10/2022 Appointment Physiatry/Physical Russel Mar MD [facility] [address] [facility] [address] [address] (Wo rk) 08/16/2022 Appoint[place] [address] [place], [place] [address] (Wo rk) 08/23/2022 Appoint[place] [address] [place], [place] [address] (Wo rk) 08/27/2022 Appoint[place] [address] [place], [place] [address] (Wo rk) 08/30/2022 Appoint[place] [address] [place], [place] [address] (Wo rk) 09/03/2022 [place]oint[place] [address] [place], [place] [address] (Wo rk) 09/06/2022 Appoint[place] [address] [place], [place] [address] (Wo rk) 09/10/2022 [place] [address] [place], [place] [address] (Barrett rk) 09/30/2022 Appointment Family Medicine Elicia Lockhart MD [address] [place] [address] (Barrett akers) documented as of this encounter Visit Diagnoses Diagnosis Neck pain - Primary Cervicalgia Cervical radiculopathy Brachial neuritis or radiculitis nos documented in this encounter Care Teams Alpaca Farmer Relationship Specialty Start Date End Date Elicia Lockhart MD PCP - General Family Practice 08/09/[address] [id number] documented as of this encounter
--- OUTSIDE RECORDS SUMMARY | 2022-08-01 13:15 | XMS_ITS | Encounter Summary ---
:1990 Author [facility] Address [address] [place] [address] Care Team Providers Name Role Phone Elicia Lockhart MD Primary Care Provider Reason for Referral Procedure/Equipment (Routine) - Incomplete Specialty Diagnoses / Procedures Referred By Contact Refer red To Contact Diagnoses Right hand pain Elicia Lockhart MD Procedures XR Hand Rt 3+ Views [address] [place] [address] Referral ID Status Reason Start Date Expiration Date Visits V isits Requested Authorized [id number] Incomplete 04/13/2022 07/13/2023 1 1 Procedure/Equipment (Routine) - Incomplete Specialty Diagnoses / Procedures Referred By Contact Refer red To Contact Diagnoses Right hand pain Bilateral hand numbness Arm numbness Hand weakness Elicia Lockhart MD Procedures MR Cervical Spine WO IV Cont [address] [place] [address] Referral ID Status Reason Start Date Expiration Date Visits V isits Requested Authorized [id number] Incomplete 04/13/2022 07/13/2023 1 1 Consult/Transfer Care (Routine) - New Request Specialty Diagnoses / Procedures Referred By Contact Refer red To Contact Diagnoses Bilateral hand numbness Arm numbness Hand weakness Elicia Lockhart MD [address] [place] [address] Referral ID Status Reason Start Date Expiration Date Visits V isits Requested Authorized [id number] New Request 04/13/2022 07/13/2023 1 1 Scheduling Instructions Your provider has recommended an appoint ment with [facility]. You can quickly make you r appointment online at [employer]/schedule. You can als o call [phone] for help scheduling your appointment. We suggest you call your [employer] insurance company about your coverage and benefits for this appointment. Reason for Visit Reason Comments MEDICATION CHECK Video Visit Encounter Details Date Type Department Care Team Description 04/13/2022 Telemedicine Elicia Cote Attentio n deficit hyperactivity disorder (ADHD), unspecified ADHD type (Primary Dx); Medicine MAYA (generalized anxiety disorder); [address] Current moderate episode of major depres sive disorder without prior episode (HRC); [place] [address] [place] [address] Mild obstructive sleep apnea; [phone] (Wo rk) Right hand pain; Bilateral hand numbness; Arm numbness; Hand weakness Social History Tobacco Use Types Packs/Day Years [...] documented as of this encounter Progress Notes Elicia Lockhart MD - 04/13/2022 6:00 PM CDT Subjective Chief Complaint Patient presents with MEDICATION CHECK Video Visit Hari Elise is a 31 y.o. male who presents (and consents) for a video visit today with the following concerns: 1. Attention deficit hyperactivity disorder (ADHD), unspecified ADHD type (HRC) 2. MAYA (generalized anxiety disorder) (HRC) 3. Current moderate episode of major depressive disorder without prior episode (HRC) 4. Mild obstructive sleep apnea 5. Right hand pain 6. Bilateral hand numbness 7. Arm numbness 8. Hand weakness ADHD: At his last visit, the adderall was increased from 20 mg bid to 30 mg bid. He feels more focused on the higher dose with higher energy. He feels more regulated. His mind wandering has greatly improved. Sleep at night is OK. He sleeps 7.5-8 hours per night. The past few weeks have been harder. Notroubles falling asleep. Using CPAP. No side effects from the adderall. Depression and anxiety: depression and anxiety are slightly increased 2 weeks ago. No triggers. He felt he had lost something but did not know what it was (he did not lose anything--had same feeling when he was 8 years old). Motivation and desire to be around other was decreased but this has started to improved. He tried exercise and a few other activities but they did not improve symptoms. He did feel good during and for 20 min after exercise. He did more intensive meditation over this past weekend which seemed to help the most. He felt more present, patient and joyful. He also focused on eating differently based on stomach chakra. CHRISTOPH: using CPAP and tolerating it ok. Feels much better when he uses it. Few months ago, woke from sleeping and had pain and swelling of the right AC joint. Since then, he has upper back pain with tingling in both arms/hands. The thumb and first 2 fingers are initially involved 60-70% of the time but then when at worse, the tingling involves entire hands (including pinky fingers) and goes up the arms (entire arm). It feels like the pain after a limb falls asleep and thenwakes back up. He does foam roller and neck exercises. Sometimes uses heating pain to help pain. Sometimes this does not help and only time helps. These symptoms can occur 1+ times per day, each episode lasting few hours. He is having pain in the both traps from bottom should blades and up to neck and over to shoulders bilaterally. Going to chiro helps but does not last. He gets weakness in the AM and cannot gasp as well as he used. Hand pain: The right hand knuckles are stiff and sore--the CMP and PIPs are primarily involved. It takes about 1-2 hours for the hand stiffness to improve. Sometime the symptoms linger through the day.No new activities. 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 PHQ9 Scores PHQ-9 04/13/2022 12/10/2021 09/03/2021 PHQ-9 Score Total 11 12 8 Q1: Loss of Int/Pleas 2 1 1 Q2: Depressed mood 2 2 1 Q3: Sleep problems 1 0 0 Q4: Tired/Low Energy 2 2 3 Q5: Appetite change 1 0 0 Q6: Feelings of failure 1 1 3 Q7: Concentration Prob 2 3 0 Q8: Slow or Restless 0 3 0 Q9: Thought Self Harm 0 0 0 Date PHQ9 was completed 04/13/2022 12/10/2021 - Index Date: 12/10/2021 MAYA 7 Scores MAYA-7 04/13/2022 04/13/2022 08/20/2021 MC Feeling nervous, anxious, or on edge More than half the days - - MC Not being able to stop or control worrying More than half the days - - MC Worrying too much about different things More than half the days - - MC Trouble relaxing More than half the days - - MC Being so restless that it's hard to sit still Several days - - MC Becoming easily annoyed or irritableBLE More than half the days - - MC Feeling afraid as if something awful might happen Not at all - - MAYA-7 MyChart Scores 11 - - How much difficulty - - - Feeling nervous - 2 - More than half the days 2 - More than half the days Can't stop worrying - 2 - More than half the days 2 - More than half the days Worrying too much - 2 - More than half the days 2 - More than half the days Trouble relaxing - 2 - More than half the days 2 - More than half the days Restlessness - 1 - Several days 1 - Several days Easily annoyed - 2 - More than half the days 2 - More than half the days Feeling afraid - 0 - Not at all 0 - Not at all How difficult? - Very difficult Somewhat difficult Total score - 11 11 Date Performed - 04/13/2022 08/19/2021 I have personally reviewed the patient's allergies, medications, past medical history and problem list in detail and updated the patient record as necessary. Objective BP Readings from Last 3 Encounters: 12/10/21 114/76 08/20/21 126/82 07/24/20 124/86 General Appearance: alert, well appearing and in no apparent distress Psychiatric: affect/mood normal, cooperative, normal judgement/insight and memory intact Assessment and Plan Attention deficit hyperactivity disorder (ADHD), unspecified ADHD type (HRC) - amphetamine-dextroamphetamine (ADDERALL) 30 MG tablet; Take 1 Tablet (30 mg) by mouth two times a day. - amphetamine-dextroamphetamine (ADDERALL) 30 MG tablet; Take 1 Tablet (30 mg) by mouth two times a day. Do not start before May 14, 2022. - amphetamine-dextroamphetamine (ADDERALL) 30 MG tablet; Take 1 Tablet (30 mg) by mouth two times a day. Do not start before June 14, 2022. - [place]-3 Fatty Acids (FISH OIL) 1000 MG capsule; Taking 3000 mg of EPA and DHA daily in total MAYA (generalized anxiety disorder) (HRC) and current moderate episode of major depressive disorder without prior episode (HRC) --controlled/stable. No change in current medication or treatment plan Mild obstructive sleep apnea --controlled/stable. No change in current medication or treatment plan Right hand pain--with symptoms lasting longer than a few hours. Recommend work up. - Complete Blood Count-No Diff; Future - Uric Acid; Future - TSH; Future - MIGUEL by IFA with Pattern; Future - C-Reactive Protein; Future - CCP Antibody; Future - Rheumatoid Factor, Quant; Future - Lyme Antibody (Reflex to Lyme Confirmatory Panel); Future - MR Cervical Spine WO IV Cont; Future -XR right hand. Bilateral hand numbness with Arm numbness and Hand weakness-symptoms are suspicious for possible myelopathy. Thus strongly recommend MRI C spine this week and urgent consult with PMR. If worsening of symptoms or leg symptoms or bowel/bladder symptoms, he should go to ER. He understands. - Physical Medicine & Rehab Consult-Adult - MR Cervical Spine WO IV Cont; Future- Follow up: Quick Schedule Follow Up Visits Return With: Me (Clinician) Return On or After: 07/26/22 Reason: Preventive/Physical Additional Notes: Adhd, mental health This visit was conducted via video. Location of clinician: clinic Location of patient: home Time spent on video in [id number] contact with patient, if applicable: e below I spent a total of 47 minutes on the day of the visit. documented in this encounter Plan of Treatment Upcoming Encounters Date Type Specialty Care Team Description 08/09/2022 [place] [address] [place], [place] [address] (Wo rk) 08/10/2022 Appointment Physiatry/Physical Russel Mar MD [facility] [address] [facility] [address] [address] (Wo rk) 08/16/2022 [place]oint[place] [address] [place], [place] [address] (Wo rk) 08/23/2022 [place] [address] [place], [place] [address] (Wo rk) 08/27/2022 [place] [address] [place], [place] [address] (Wo rk) 08/30/2022 [place] [address] [place], [place] [address] (Wo rk) 09/03/2022 [place] [address] [facility], [place] [address] (Wo rk) 09/06/2022 Appointment [place] [address] [place] [address] (Wo rk) 09/10/2022 App[place] [address] [place], [place] [address] (Wo rk) 09/30/2022 Appointment Family Medicine Elicia Lockhart MD [address] [place], [place] [id number] (Wo rk) Scheduled Referrals Name Type Priority Associated Diagnoses [facility] Referral Routine Bilateral arriola nd numbness Ordered: 04/13/2022 Rehab Consult-Adult Arm numbness Hand weakness documented as of this encounter Results XR Hand Rt 3+ Views (04/14/2022 12:27 PM CDT) Anatomical Region Laterality Modality Upper Extremity, Hand Digital Radiograph y Specimen (Source) Anatomical Collection Method Collection Time Re ceived Time Location / / Volume Laterality 04/14/2022 12:21 PM CDT Impressions 04/14/2022 2:48 PM CDT COMPARISON: ??None. FINDINGS: ??3 views obtained. No acute f racture. No significant osteoarthritic degenerative changes throughout the hand or wrist. No suspicious marginal osseous erosions. No focal suspicious osseous lesion. No radiopaque foreign body. Procedure Note Anibal Newsome MD - 04/14/2022Format ting of this note might be different from the original. IMPRESSION COMPARISON: None. FINDINGS: 3 views obtained. No acute fra cture. No significant osteoarthritic degenerative changes throughout the hand or wrist. No suspicious marginal osseous erosions. No focal suspicious osseous lesion. No radiopaque foreign body. Elicia Lockhart MD RAD GD MR Cervical Spine WO IV Cont (04/14/2022 11:42 AM CDT) Anatomical Region Laterality Modality Spine, C-Spine, Neck, Vascular, MSK Magn etic Resonance Specimen (Source) Anatomical Collection Method Collection Time Re ceived Time Location / / Volume Laterality 04/14/2022 11:18 AM CDT Impressions 04/14/2022 12:15 PM CDT INDICATION: Myelopathy, acute or progressive;weakness and tingling in both hands and arms. TECHNIQUE: ??MRI of the cervical spine w ithout contrast. COMPARISON: ??None. FINDINGS: Prominent degenerative changes within the vertebral bodies and endplates most pronounced at C3-C4 through C6-C7 with disc desiccation and loss of disc height. No definite signal abnormalities within the cord within the limitations o f the mild motion artifact. Minimal bulges at T1-T2 and T2-T3. Loss of the normal cervical lordosis. Axial C2-C3: Mild bulge, mild central stenosis and no definite neural foramina narrowing. C3-C4: Disc osteophyte complex eccentric to the left, mild flattening of the cord eccentric to the left, moderate central stenosis, mild to moderate hypertrophic changes uncovertebral joints eccentric t o the right, severe neural foramina narr owing on the right, mild neural foramina narrowing on the left. C4-C5: Disc osteophyte complex eccentric to the left, mild flattening of the cord, moderate central stenosis advanced hypertrophic changes uncovertebral joints eccentric to the left, severe neural tracy manuel narrowing on the left, mild neural f oramina narrowing on the right. C5-C6: Disc osteophyte complex with a sm all central and right paracentral protrusion, mild flattening [...] to the right, mild to moderate central stenosis , mild to moderate hypertrophic changes uncovertebral joints, mild to moderate central stenosis, mild to moderate neural foramina narrowing on the right, mild neural foramina narrowing on the left. C7-T1: Minimal disc osteophyte complex e ccentric to the right, mild central stenosis, prominent hypertrophic changes uncovertebral joints eccentric to the right, mild neural foramina narrowing on the ri ght, no definite neural foramina narrowi ng on the left. IMPRESSION: 1. Multilevel disc osteophyte complexes as described above with moderate central stenosis at C3-C4 and C4-C5 and mild to moderate central stenosis at C5-C6 and C6-C7. 2. Severe neural foramina narrowing on t he right at C3-C4 and on the left at C4-C5. 3. Moderate to severe neural foramina na rrowing on the right at C5-C6. Procedure Note Delisa Whatley MD - 04/14/2022 IMPRESSION INDICATION: Myelopathy, acute or progres sive;weakness and tingling in both hands and arms. TECHNIQUE: MRI of the cervical spine wit hout contrast. COMPARISON: None. FINDINGS: Prominent degenerative changes within the vertebral bodies and endplates most pronounced at C3-C4 through C6-C7 with disc desiccation and loss of disc height. No definite signal abnormalities within the cord within the limitations of the mild motio n artifact. Minimal bulges at T1-T2 and T2-T3. Loss of the normal cervical lordosis. Axial C2-C3: Mild bulge, mild central stenosis and [...] foramina narrowing on the left, mild neural tracy manuel narrowing on the right. C5-C6: Disc osteophyte complex with a sm all central and right paracentral protrusion, mild flattening of the cord eccentric to the right, mild to moderate central stenosis, mild to moderate hypertrophic changes uncovertebral joints eccentric to the ri ght, moderate to severe neural foramina narrowing on the right, mild to moderate neural foramina narrowing on the left. C6-C7: Disc osteophyte complex eccentric to the right with a small shallow central and right paracentral protrusion, mild flattening of the cord eccentric to the right, mild to moderate central stenosis, mild to moderate hypertrophic changes uncoverteb ral joints, mild to moderate central stenosis, mild to moderate neural foramina narrowing on the right, mild neural foramina narrowing on the left. C7-T1: Minimal disc osteophyte complex e ccentric to the right, mild central stenosis, prominent hypertrophic changes uncovertebral joints eccentric to the right, mild neural foramina narrowing on the right, no definite neural foramina narrowing on th e left. IMPRESSION: 1. Multilevel disc osteophyte complexes as described above with moderate central stenosis at C3-C4 and C4-C5 and mild to moderate central stenosis at C5-C6 and C6-C7. 2. Severe neural foramina narrowing on t he right at C3-C4 and on the left at C4-C5. 3. Moderate to severe neural foramina na rrowing on the right at C5-C6. Elicia Lockhart MD RAD MRI documented in this encounter Visit Diagnoses Diagnosis Attention deficit hyperactivity disorder (ADHD), unspecified ADHD type (HRC) - Primary MAYA (generalized anxiety disorder) (HRC) Generalized anxiety disorder Current moderate episode of major depres sive disorder without prior episode (HRC) Mild obstructive sleep apnea Obstructive sleep apnea (adult) (pediatr ic) Right hand pain Pain in limb Bilateral hand numbness Disturbance of skin sensation Arm numbness Disturbance of skin sensation Hand weakness Muscle weakness (generalized) Right hand pain Pain in limb Bilateral hand numbness Disturbance of skin sensation Arm numbness Disturbance of skin sensation Hand weakness Muscle weakness (generalized) documented in this encounter Care Teams Steward/Stewardess Economy Class Relationship Specialty Start Date End Date Elicia Lockhart MD PCP - General Family Practice 08/09/18 [address] [place] [address] documented as of this encounter
--- OUTSIDE RECORDS SUMMARY | 2022-08-01 13:15 | XMS_ITS | Encounter Summary ---
:1990 Author Organization [facility] Address [address] [place] [address] Care Team Providers Name Role Phone Elicia Lockhart MD Primary Care Provider Reason for Visit Reason Comments Appt. Work In Request Encounter Details Date Type Department Care Team Description 11/25/2021 Telephone [facility] Elicia Ellsworth, Appt. Work In Request [address] [place] [address] [address] [phone] [place] [id number] (Wo rk) Social History Tobacco Use Types [...] documented as of this encounter Nursing Notes Lesa Mcdowell RN - 11/25/2021 8:45 AM CST Calling patient- He can not make current appointments due to a . He needs to be seen sooner then the next available. Future Appointments Date Time Provider Department Center 12/10/2021 10:30 AM Elicia Lockhart MD [facility] E ESTHETICIAN Yuriy Smalls - 11/25/2021 8:23 AM CST Appointments - Same Day/Sooner Patient would like appointment with his provider. Current PCP: Elicia Lockhart MD If requested clinician is unavailable, is it okay to be seen by another clinician? No What is the patient requesting to be seen for? Med check Wants/Needs to be seen within: 12/11 earlier than his appt at 11am or before the date of 12/11. Patient stated his grandmother passed and the dare of his appt is her . Additional comments (related to the above concern): If there are questions regarding your request, is it okay to leave detailed message on your voicemail? Yes (Advise caller that the PN call back number will end with [phone] or unknown) (Please schedule next available appointment if patient is willing, in case work- in is not possible) Please route to: Appropriate pool per call routing grid E ESTHETICIAN documented in this encounter Plan of Treatment Upcoming Encounters Date Type Specialty Care Team Description 08/09/2022 Appoint[place] [address] [place], [place] [address] (Wo delphine) 08/10/2022 Appointment Physiatry/Physical Russel Mar MD [address] [address] (Wo rk) 08/16/2022 [place]oint[place] [address] [place] [address] (Wo delphine) 08/23/2022 [place] [address] [place] [address] (Wo delphine) 08/27/2022 Appointment [place] [address] [place], [place] [address] (Wo rk) 08/30/2022 Appointment [place] [address] [place], [place] [address] (Wo rk) 09/03/2022 Appointment [place] [address] [place], [place] [address] (Wo rk) 09/06/2022 Appointment [place] [address] [place], [place] [address] (Wo rk) 09/10/2022 Appointment [place] [address] [place], [place] [address] (Wo rk) 09/30/2022 Appointment Family Medicine Elicia Lockhart MD [address] [address] (Wo rk) documented as of this encounter Visit Diagnoses Not on filedocumented in this encounter Care Teams Plant Safety Leader Relationship Specialty Start Date End Date Elicia Lockhart MD PCP - General Family Practice 08/09/[address] [id number] documented as of this encounter
--- OUTSIDE RECORDS SUMMARY | 2022-08-01 13:15 | XMS_ITS | Encounter Summary ---
:1990 Author Organization [email or web address] Address [address] [place] [address] Care Team Providers Name Role Phone Elicia Lockhart MD Primary Care Provider Reason for Visit Procedure/Equipment (Routine) - Incomplete Specialty Diagnoses / Procedures Referred By Contact Refer red To Contact Diagnoses Right hand pain Elicia Lockhart MD Procedures XR Hand Rt 3+ Views [address] [place] [address] Referral ID Status Reason Start Date Expiration Date Visits V isits Requested Authorized [id number] Incomplete 04/13/2022 07/13/2023 1 1 Encounter Details Date Type Department Care Team Description 04/14/2022 Ancillary Procedure [facility] Elicia Lockhart, [address] [place] [address] [address] [phone] [place] [id number] (Wo rk) Social History Tobacco Use Types [...] on file documented as of this encounter Plan of Treatment Upcoming Encounters Date Type Specialty Care Team Description 08/09/2022 [place]oint[place] [address] [place], [place] [address] (Wo rk) 08/10/2022 Appointment Physiatry/Physical Russel Mar MD [facility] [address] [facility] [address] [address] (Wo rk) 08/16/2022 [place] [address] [place], [place] [address] (Wo rk) 08/23/2022 [place] [address] [place], [place] [address] (Wo rk) 08/27/2022 [place] [address] [place], [place] [address] (Wo rk) 08/30/2022 [place] [address] [place], [place] [address] (Wo rk) 09/03/2022 [place] [address] [place], [place] [address] (Wo rk) 09/06/2022 [place] [address] [place], [place] [address] (Wo rk) 09/10/2022 [place] [address] [place], [place] [address] (Wo rk) 09/30/2022 Appointment Family Medicine Elicia Lockhart MD [address] [place] [address] [address] (Wo rk) documented as of this encounter Procedures Procedure Name Priority Date/Time Associated Diagnosis Comme nts XR HAND RT 3+ VIEWS Routine 04/14/2022 12:27 PM Right hand lakshmi n Results for this CDT procedure are i n the results section. documented in this encounter Results XR Hand Rt 3+ [...] foreign body. Elicia Lockhart MD RAD GD documented in this encounter Visit Diagnoses Not on filedocumented in this encounter Care Teams Technical Operations Vice President Relationship Specialty Start Date End Date Elicia Lockhart MD PCP - General Family Practice 08/09/[address] [place] [address] documented as of this encounter
--- OUTSIDE RECORDS SUMMARY | 2022-08-01 13:15 | XMS_ITS | Encounter Summary ---
:1988 Author Organization [employer] Address [address] [place] [address] Care Team Providers Name Role Phone Elicia Lockhart MD Primary Care Provider Reason for Visit Reason Comments Injection Encounter Details Date Type Department Care Team Description 04/22/2022 Telephone [facility] 38[address] Marcus Tucker, DO Injection Clinic [address] [place] [address] [place], [place] [id number] [phone] Social History Tobacco Use Types Packs/Day Years [...] documented as of this encounter Nursing Notes Graham Vela MA - 04/22/2022 11:31 AM CDT Patient is scheduled for an injection and is currently taking IBU NEEDED Please call patient to discuss whether they need to discontinue prior to injection appt. documented in this encounter Plan of Treatment Upcoming Encounters Date Type Specialty Care Team Description 08/09/2022 [place]oint[place] [address] [place], [place] [address] (Wo rk) 08/10/2022 Appointment Physiatry/Physical Russel Mar MD [facility] [address] [facility] N [address] (Wo rk) 08/16/2022 Appoint[place] [address] [place], [place] [address] (Wo rk) 08/23/2022 [place]oint[place] [address] [place], [place] [address] (Wo rk) 08/27/2022 Appoint[place] [address] [place], [place] [address] (Wo rk) 08/30/2022 [place]oint[place] [address] [place], [place] [address] (Wo rk) 09/03/2022 [place]oint[place] [address] [place], [place] [address] (Wo rk) 09/06/2022 [place] [address] [place], [place] [address] (Wo rk) 09/10/2022 [place] [address] [place], [place] [address] (Wo rk) 09/30/2022 Appointment Family Medicine Elicia Lockhart MD [address] [id number] (Wo rk) documented as of this encounter Visit Diagnoses Not on filedocumented in this encounter Care Teams Credit Compliance Officer Relationship Specialty Start Date End Date Elicia Lockhart MD PCP - General Family Practice 08/09/[address] [id number] documented as of this encounter
--- OUTSIDE RECORDS SUMMARY | 2022-08-01 13:15 | XMS_ITS | Encounter Summary ---
:1988 Author Organization [facility] Address [address] [place] [address] Care Team Providers Name Role Phone Elicia Georges MD Primary Care Provider Reason for Visit Reason Comments Refill FLUoxetine (PROZAC) 40 MG ca psule [Pharmacy Med Name: FLUOXETINE HCL 40 MG CAPSULE] Encounter Details Date Type Department Care Team Description 07/27/2021 Refill Elicia Leigh, Refill (FLUoxetine [address] MD (PROZAC) 40 [place] [address] [address] [Pharmacy Med Name: [phone] [place] [address] FLUOXETINE HCL 40 MG [phone] (Wo rk) CAPSULE]) Social History Tobacco Use Types Packs/Day Years [...] documented as of this encounter Nursing Notes Vanessa Lopez, RN - 07/27/2021 6:37 PM CST Renewed medication per medication refill protocol. Requested Prescriptions Pending Prescriptions Disp Refills ??? FLUoxetine (PROZAC) 40 MG capsule [Pharmacy Med Name: FLUOXETINE HCL 40 MG CAPSULE] 90 Capsule 2 Sig: TAKE 1 CAPSULE BY MOUTH EVERY DAY TOP SUPPORT MANAGER Interface, Out Video Recruit Prov Query - 07/27/2021 11:25 AM CST FLUoxetine (PROZAC) 40 MG capsule [Pharmacy Med Name: FLUOXETINE HCL 40 MG CAPSULE] Medication started: 04/19/2019 Last ordered by ELICIA GEORGES: 07/24/2020 (368 days ago) QTY: 90, Refills: 3, Sig: take 1 capsule by mouth daily. (changed but equivalent) -> Refill x 9 months, qty: 90, refills: 2 (until due for an office visit) Last qualifying visit: 03/30/2021 (with ELICIA GEORGES) Next scheduled visit: 08/20/2021 (with ELICIA GEORGES) Age: 31 Powered by [employer], Reference: [id number], 07/27/2021 11:25:39 AM DESKTOP SUPPORT MANAGER, Casimiro: MADELEINE REFILL ([id number]) TOP SUPPORT MANAGER documented in this encounter Plan of Treatment Upcoming Encounters Date Type Specialty Care Team Description 08/09/2022 Appointment [place] [address] [place], [place] [address] (Wo rk) 08/10/2022 Appointment Physiatry/Physical Russel Mar MD [facility] [address] [facility] [place] [address] [address] (Wo rk) 08/16/2022 Appoint[place] [address] [place], [place] [address] (Wo rk) 08/23/2022 [place] [address] [place], [place] [address] (Wo rk) 08/27/2022 [place] [address] [place], [place] [address] (Wo rk) 08/30/2022 [place]oint[place] [address] [place], [place] [address] (Wo rk) 09/03/2022 [place]oint[place] [address] [place], [place] [address] (Wo rk) 09/06/2022 [place]oint[place] [address] [place], [place] [address] (Wo rk) 09/10/2022 [place] [address] [place], [place] [address] (Wo rk) 09/30/2022 Appointment Family Medicine Elicia Georges MD [address] [id number] (Wo rk) documented as of this encounter Visit Diagnoses Diagnosis MAYA (generalized anxiety disorder) (HRC) Generalized anxiety disorder Current moderate episode of major depres sive disorder without prior episode (HRC) documented in this encounter Care Teams Director Of Research Relationship Specialty Start Date End Date Elicia Georges MD PCP - General Family Practice 08/09/[address] [id number] documented as of this encounter
--- OUTSIDE RECORDS SUMMARY | 2022-08-01 13:15 | XMS_ITS | Encounter Summary ---
:1988 Author Organization [employer] Address [address] [place] [address] Care Team Providers Name Role Phone Elicia Lockhart MD Primary Care Provider Reason for Visit Reason Comments Medication Questions Encounter Details Date Type Department Care Team Description 07/20/2021 Telephone Eliica Leigh, Medication Questions [address] [place] [address] [address] [phone] [place] [address] (Wo rk) Social History Tobacco Use [...] documented as of this encounter Nursing Notes Michelle Ramirez LPN - 07/21/2021 10:40 AM CDT Pt ntfd. Elicia Lockhart MD - 07/20/2021 5:26 PM CDT Rx sent to [place] pharmacy. Elizabeth Sánchez, RN - 07/20/2021 4:52 PM CDT Clinician Action: Input needed regarding Medication Clinician Next Step: Route to [place] Nurse pool to follow up and Patient IS expecting a call back fromcare team Specific Request(s): 1. See note, requesting to have Adderall RX sent to [place] pharmacy, if possible by 07/22/21. They will return to [place] on 07/23/21. Last RX: 07/20/21 for Adderll 15 mg for #30, [facility] [place]. Pharmacy: [facility] Requested Prescriptions Pending Prescriptions Disp Refills ??? amphetamine-dextroamphetamine (ADDERALL) 15 MG tablet 60 Tablet 0 Sig: Take 1 Tablet by mouth two times a day for 30 days. Bhavin Avilez - 07/20/2021 4:40 PM CDT Medications - Med Change / Question Is this a medication change or a general question? Med Question What is your question or concern? Pt notes they are in [place], and request transfer on rx, if it can be completed by 07/22 notingthey will be in [place], 07/23, please advise What is the name and dose of the medication? adderall 15mg How often do you take it? 2xdaily Who prescribed it? Elicia Lockhart MD If a prescription is needed, patient would [...] 08/09/2022 [place] [address] [place], [place] [address] (Wo rk) 08/10/2022 Appointment Physiatry/Physical Russel Mar MD [facility] 3800 [facility] N [address] (Wo rk) 08/16/2022 Appoint[place] [address] [place], [place] [address] (Wo rk) 08/23/2022 [place] [address] [place], [place] [address] (Wo rk) 08/27/2022 [place]oint[place] [address] [place], [place] [address] (Wo rk) 08/30/2022 [place] [address] [place], [place] [address] (Wo rk) 09/03/2022 [place] [address] [place], [place] [address] (Wo rk) 09/06/2022 App[place] [address] [place], [place] [address] (Wo rk) 09/10/2022 App[place] [address] [place], [place] [address] (Wo rk) 09/30/2022 Appointment Family Medicine Elicia Lockhart MD [address] [address] (Wo rk) documented as of this encounter Visit Diagnoses Diagnosis Attention deficit hyperactivity disorder (ADHD), predominantly inattentive type (HRC) documented in this encounter Care Teams Aesthetics Instructor Relationship Specialty Start Date End Date Elicia Lockhart MD PCP - General Family Practice 08/09/[address] [address] documented as of this encounter
--- OUTSIDE RECORDS SUMMARY | 2022-08-01 13:15 | XMS_ITS | Encounter Summary ---
:1988 Author Organization [employer] Address [address] [place] [address] Care Team Providers Name Role Phone Elicia Lockhart MD Primary Care Provider Reason for Visit Reason Comments Call Back Encounter Details Date Type Department Care Team Description 06/22/[address] [facility] Olivia Pool RT Call Back [address] [facility], [address] [place] [address] Social History Tobacco Use Types Packs/Day Years [...] documented as of this encounter Nursing Notes Olivia Pool RT - 06/22/2021 2:41 PM CDT SN unit:[id number] DN: SN humidifier:[id number] WIFI ACCESS: Rx Date: 11/19/2020 DW FFM 11/05/2020 DW nasal Set up Date: change of vendor from [facility] Pt was not using any so clean or uv light, pt advised to cont to use machine. RT Deborah 06/22/2021, 2:44 PM documented in this encounter Plan of Treatment Upcoming Encounters Date Type Specialty Care Team Description 08/09/2022 [place] [address] [place], [place] [address] (Wo rk) 08/10/2022 Appointment Physiatry/Physical Russel Mar MD [facility] 3800 [facility] N [address] (Wo rk) 08/16/2022 [place] [address] [place], [place] [address] (Wo rk) 08/23/2022 [place] [address] [place], [place] [address] (Wo rk) 08/27/2022 Appoint[place] [address] [place], [place] [address] (Wo rk) 08/30/2022 [place]oint[place] [address] [place], [place] [address] (Wo rk) 09/03/2022 App[place] [address] [place], [place] [address] (Wo rk) 09/06/2022 Appoint[place] [address] [place], [place] [address] (Wo rk) 09/10/2022 Appointment [place] [address] [place], [place] [address] (Wo rk) 09/30/2022 Appointment Family Medicine Elicia Lockhart MD [address] [place], [place] [id number] (Wo rk) documented as of this encounter Visit Diagnoses Not on filedocumented in this encounter Care Teams Backend Developer Relationship Specialty Start Date End Date Elicia Lockhart MD PCP - General Family Practice 08/09/18 [address] [place], [place] [id number] documented as of this encounter
--- OUTSIDE RECORDS SUMMARY | 2022-08-01 13:15 | XMS_ITS | Encounter Summary ---
:1988 Author Organization [employer] Address [address] [place] [address] Care Team Providers Name Role Phone Elicia Lockhart MD Primary Care Provider Reason for Visit Reason Comments Injection Procedure/Equipment (Routine) - Closed Specialty Diagnoses / Procedures Referred By Contact Refer red To Contact Diagnoses Cervical radiculopathy Russel Mar MD Procedures [place] Spinal Injection For Pain Management 3800 [place], [place] [address] Referral ID Status Reason Start Date Expiration Date Visits Requ ested Visits Authorized [id number] Closed 04/20/2022 07/20/2023 1 1 Encounter Details Date Type Department Care Team Description 04/28/2022 Treatment [facility] PM[facility] Russel Mar MD 3800 [place] [address] Cervical radiculopathy INJECTIONS Anjana Gibbs DO 3800 [place], [place] [phone] (Primary Dx) [address] [place] [address] Social History Tobacco Use Types Packs/Day Years [...] Pulse 78 04/28/2022 2:18 PM CDT Temperature - - Respiratory Rate - - Oxygen Saturation - - Inhaled Oxygen Concentration - - Weight - - Height - - Body Mass Index - - documented in this encounter Progress Notes Anjana Gibbs DO - 04/28/2022 2:30 PM CDT Patient name: Hari Elise Procedure Date: 04/28/2022 Referred by: Russel Mar MD [address] [place] [address] Pre-Operative Diagnosis: Cervical Radiculopathy, Neuroforaminal Spinal Stenosis, Cervical Spondylosis without myelopathy Post-Operative Diagnosis: Cervical Radiculopathy, Neuroforaminal Spinal Stenosis, Cervical Spondylosis without myelopathy Name of Procedure: Fluoroscopically-guided C6-7 interlaminar epidural steroid injection Performed by: Anjana Gibbs DO Description of Procedure: The patient denies fevers, chills, night sweats, or weight loss. The patient does not take blood thinners or antibiotics for an active infection. We reviewed the risks, alternatives, benefits, and potential complications of a cervical epidural steroid injection which include but are not limited to bleeding, bruising, infection, allergic reaction, increased pain, headache, lack of pain relief, or nerve, spinal cord, and blood vessel injury. 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 After discussion with the patient, he has decided to proceed with the procedure. After verbal and written informed consent, the patient was taken to the procedure suite and placed in a prone position. A pre-procedural pause was performed identifying appropriate patient, site, side,and nature of procedure and confirming the patient's allergies. Fluoroscopy was used to identify theC6- C7 interlaminar space towards the midline. The overlying skin was marked and prepped with ChloraPrep solution times two and draped in a sterile fashion. Aseptic technique was used throughout the procedure. The skin was anesthetized with 1% lidocaine and using AP fluoroscopic guidance at the C6-C7 interspace, a 20-gauge Tuohy needle was advanced, first contacting the superior edge of the lower lamina. It was then redirected towards the interlaminar space and advanced, contacting the ligamentum flavum which was engaged. Loss of resistance to saline was crisp. Lateral and oblique views were obtained as well. After negative aspiration of blood and CSF, a total of 1 mL of Isovue M200 contrast material was injected in AP, lateral and oblique views. This revealed a nonvascular epidurogram. Then 40 mgof triamcinolone combined with 3 mL of preservative-free normal saline were injected slowly without difficulty or complication. The needle was removed from the epidural space and then completely removed intact with continuous flush of 1% lidocaine. A bandage was applied. The patient was taken to the recovery room and was observed for an appropriate amount of time and discharged in good condition. Overall, no complications were noted. 3 mL of Isovue M200 was drawn. 1 mL was used and 2 mL was discarded. 40 mg of triamcinolone was drawn. 40 mg was used and 0 mg was discarded Plan: -The patient will follow up in the outpatient clinic in 2-4 week(s), unless otherwise clinically indicated. -Should the patient have improved pain and/or function from the above injection, then we could consider repeating the injection up to 4 times per year. Anjana Gibbs DO 04/28/2022, 2:16 PM Pain Management Physical Medicine and Rehabilitation documented in this encounter Nursing Notes Susan Nichole RN - 04/28/2022 2:30 PM CDT Pt has a straight truck driver present. Denies any Ibuprofen use in the last 24 hours. Susan Nichole RN - 04/28/2022 2:30 PM CDT Patient was monitored for 10 minutes post injection. Patient had no signs or symptoms of adverse reaction to injection. Patient was given oral and written discharge instructions and verbalized understanding. Patient ambulated to [facility] to meet straight truck driver. documented in this encounter Plan of Treatment Upcoming Encounters Date Type Specialty Care Team Description 08/09/2022 [place] [address] [place], [place] [address] (Wo rk) 08/10/2022 Appointment Physiatry/Physical Russel Mar MD [facility] 3800 [facility] N [address] (Wo rk) 08/16/2022 Appoint[place] [address] [place], [place] [address] (Wo rk) 08/23/2022 Appoint[place] [address] [place], [place] [address] (Wo rk) 08/27/2022 Appoint[place] [address] [place], [place] [address] (Wo rk) 08/30/2022 [place] [address] [place], [place] [address] (Wo rk) 09/03/2022 [place] [address] [place], [place] [address] (Wo rk) 09/06/2022 [place] [address] [place], [place] [address] (Wo rk) 09/10/2022 Appointment [place] [address] [facility] lizzeth [place], [place] [address] (Wo rk) 09/30/2022 Appointment Family Medicine Elicia Lockhart MD [address] [phone] (Wo rk) documented as of this encounter Procedures Procedure Name Priority Date/Time Associated Diagnosis Comme nts [place] SPINAL INJECTION Routine 04/28/2022 2:49 PM Cervical radicu lopathy Results for this FOR PAIN MANAGEMENT CDT procedur e are in the results section. documented in this encounter Results [place] Spinal Injection For [...] nos documented in this encounter Care Teams Portfolio Specialist Relationship Specialty Start Date End Date Elicia Lockhart MD PCP - General Family Practice 08/09/[address] [id number] documented as of this encounter
--- OUTSIDE RECORDS SUMMARY | 2022-08-01 13:15 | XMS_ITS | Encounter Summary ---
:1988 Author Organization [facility] Address [address] [place] [address] Care Team Providers Name Role Phone Elicia Lockhart MD Primary Care Provider Reason for Visit Procedure/Equipment (Routine) - Incomplete Specialty Diagnoses / Procedures Referred By Contact Refer red To Contact Diagnoses Right hand pain Bilateral hand numbness Arm numbness Hand weakness Elicia Lockhart MD Procedures MR Cervical Spine WO IV Cont [address] [place] [address] Referral ID Status Reason Start Date Expiration Date Visits V isits Requested Authorized [id number] Incomplete 04/13/2022 07/13/2023 1 1 Encounter Details Date Type Department Care Team Description 04/14/2022 [place] Elicia Corea Right hand pain; Procedure [place] [address]Naida Bustos MD Bilateral hand numbness; Radiology MRI [address] Arm numbness; [address] [place] [address] [phone] [place], [place] (Work) [address] [phone] Social History Tobacco Use Types Packs/Day Years [...] 08/09/2022 [place] [address] [place], [place] [address] (Wo rk) 08/10/2022 Appointment Physiatry/Physical Russel Mar MD [facility] 38[address] [facility] N [address] (Wo rk) 08/16/2022 [place]oint[place] [address] [place], [place] [address] (Wo rk) 08/23/2022 Appoint[place] [address] [place], [place] [address] (Wo rk) 08/27/2022 Appoint[place] [address] [place], [place] [address] (Wo rk) 08/30/2022 Appoint[place] [address] [place], [place] [address] (Wo rk) 09/03/2022 Appoint[place] [address] [place], [place] [address] (Wo rk) 09/06/2022 App[place] [address] [place], [place] [address] (Wo rk) 09/10/2022 Appointment [place] [address] [facility], [place] [address] (Wo rk) 09/30/2022 Appointment Family Medicine Elicia Lockhart MD [address] [place], [place] [phone] (Wo rk) documented as of this encounter Procedures Procedure Name Priority Date/Time Associated Diagnosis Comme nts MR CERVICAL SPINE STAT 04/14/2022 11:42 AM Right hand pain Results for this WO IV CONT CDT Bilateral hand procedure are in numbness the results Arm numbness section. Hand weakness documented in this encounter Results MR Cervical Spine WO IV Cont (04/14/2022 [...] documented in this encounter Visit Diagnoses Diagnosis Right hand pain Pain in limb Bilateral hand numbness Disturbance of skin sensation Arm numbness Disturbance of skin sensation Hand weakness Muscle weakness (generalized) documented in this encounter Care Teams Nursery School Teacher Relationship Specialty Start Date End Date Elicia Lockhart MD PCP - General Family Practice 08/09/18 [address] [place] [address] documented as of this encounter
--- OUTSIDE RECORDS SUMMARY | 2022-08-01 13:15 | XMS_ITS | Encounter Summary ---
:1988 Author Organization [employer] Address [address] [place] [address] Care Team Providers Name Role Phone Elicia Georges MD Primary Care Provider Reason for Visit Reason Comments Refill propranolol (INDERAL) 10 MG tablet [Pharmacy Med Name: PROPRANOLOL 10 MG TABLET] Encounter Details Date Type Department Care Team Description 09/05/2021 Refill [place] Doming[place] e Elicia Georges, Refill (propranolol [address] MD (INDERAL) 10 [place] [address] [address] [Pharmacy Med Name: [phone] [place] [address] PROPRANOLOL 10 MG [phone] (Wo rk) TABLET]) Social History Tobacco Use Types Packs/Day Years [...] documented as of this encounter Nursing Notes Oleg Yun RN - 09/05/2021 2:15 PM CST Renewed medication per medication refill protocol. Requested Prescriptions Signed Prescriptions Disp Refills ??? propranolol (INDERAL) 10 MG tablet 30 Tablet 3 Sig: TAKE 1 TO 2 TABLETS BY MOUTH THREE TIMES A DAY NEEDED Authorizing Provider: ELICIA GEORGES Ordering User: OLEG YUN ROLLER Interface, [employer] Prov Query - 09/05/2021 1:26 PM CST propranolol (INDERAL) 10 MG tablet [Pharmacy Med Name: PROPRANOLOL 10 MG TABLET] Medication started: 07/24/2020 Last ordered by ELICIA GEORGES R: 12/23/2020 (256 days ago) QTY: 30, Refills: 2, Sig: take 1 to 2 tablets by mouth three times a day as needed (unchanged) -> Refill x 12 months (until due for an office visit) -> Calculate the quantity and number of refills manually. Last qualifying visit: 08/20/2021 (with ELICIA GEORGES) Next scheduled visit: None Powered by [employer] Reference: [id number], 09/05/2021 1:26:15 PM PIPE ROLLER, Pool: MADELEINE REFILL ([id number]) ROLLER documented in this encounter Plan of Treatment Upcoming Encounters Date Type Specialty Care Team Description 08/09/2022 [place] [address] [place], [place] [address] (Wo rk) 08/10/2022 Appointment Physiatry/Physical Russel Mar MD [facility] [address] [facility] [place] [address] N [address] (Wo rk) 08/16/2022 App[place] [address] [place], [place] [address] (Wo rk) 08/23/2022 Appoint[place] [address] [place], [place] [address] (Wo rk) 08/27/2022 Appoint[place] [address] [place], [place] [address] (Wo rk) 08/30/2022 Appoint[place] [address] [place], [place] [address] (Wo rk) 09/03/2022 Appoint[place] [address] [place], [place] [address] (Wo rk) 09/06/2022 Appoint[place] [address] [place], [place] [address] (Wo rk) 09/10/2022 App[place] [address] [place], [place] [address] (Wo rk) 09/30/2022 Appointment Family Medicine Elicia Georges MD [address] [id number] (Wo rk) documented as of this encounter Visit Diagnoses Diagnosis Panic attacks (HRC) Panic disorder without agoraphobia documented in this encounter Care Teams Ink Grinder Relationship Specialty Start Date End Date Elicia Georges MD PCP - General Family Practice 08/09/[address] [id number] documented as of this encounter
--- OUTSIDE RECORDS SUMMARY | 2022-08-01 13:15 | XMS_ITS | Encounter Summary ---
:1990 Author Organization [employer] Address [address] [place] [id number] Care Team Providers Name Role Phone Elicia Lockhart MD Primary Care Provider Reason for Visit Reason Comments MEDICATION CHECK Encounter Details Date Type Department Care Team Description 12/10/2021 Office Visit Elicia Cote d eficit hyperactivity disorder (ADHD), predominantly inattentive type (Primary Dx); Tony Bustos MD Controlled substance agreement signed; [address] TREJO (generalized anxiety disorder); [place] [address] [place] [address] Panic attacks; [phone] Current moderat e episode of major depressive disorder without prior episode (HRC); (Work) Dysthymic disorder; Mild obst ructive sleep apnea; Mixed dyslipide vonda; Gastroesophagea l reflux disease, unspecified whether esophagitis present Social History Tobacco Use Types Packs/Day Years [...] Sign Reading Time Taken Comments Blood Pressure 114/76 12/10/2021 10:46 AM CDT Pulse 90 12/10/2021 11:15 AM CDT Temperature - - Respiratory Rate - - Oxygen Saturation - - Inhaled Oxygen Concentration - - Weight 94.8 kg (209 lb) 12/10/2021 10:46 AM CDT Height - - Body Mass Index 29.15 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 MEDICATION CHECK Hari Elise is a 31 y.o. male who presents to the clinic today with the following concerns: 1. Attention deficit hyperactivity disorder (ADHD), predominantly inattentive type (HRC) 2. Controlled substance agreement signed 3. MAYA (generalized anxiety disorder) (HRC) 4. Panic attacks (HRC) 5. Current moderate episode of major depressive disorder without prior episode (HRC) 6. Dysthymic disorder (HRC) 7. Mild obstructive sleep apnea 8. Mixed dyslipidemia (HRC) 9. Gastroesophageal reflux disease, unspecified whether esophagitis present ADHD: still feels like he has constant chaos brain but feels he can focus better on medication. Hestill struggles. He feels less overwhelmed. He is 50% more productive at work. No side effects on adderall 20 mg bid. Much of his job requires human interactions that require sustained attention to detail. He struggles to focus listening to others. His new job requires a high level function. His job changed in April and requires more of him. 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 He is working with therapist as well. Depression and anxiety: symptoms increased but are starting to decrease. His evaluation showed some areas he needs work on. This has been a process to work through. He needs propranolol less often. Anxiety has decreased at work. Exercise improves depression and anxiety symptoms. CHRISTOPH: using CPAP nightly. Getting into routine of exercise. Current Outpatient Medications Medication Sig Dispense Refill ??? amphetamine-dextroamphetamine (ADDERALL) 30 MG tablet Take 1 Tablet (30 mg) by mouth two times aday. 60 Tablet 0 ??? [START ON 01/09/2022] amphetamine-dextroamphetamine (ADDERALL) 30 MG tablet Take 1 Tablet (30 mg)by mouth two times a day. Do not start before January 09, 2022. 60 Tablet 0 ??? [START ON 02/08/2022] amphetamine-dextroamphetamine (ADDERALL) 30 MG tablet Take 1 Tablet (30 mg)by mouth two times a day. Do not start before February 08, 2022. 60 Tablet 0 ??? cetirizine (ZYRTEC) 10 MG tablet Take 2 Tablets by mouth two times a day. 120 Tablet 3 ??? cholecalciferol (VITAMIN D3) 1000 units tablet Take 1 Tablet by mouth daily. 100 Tablet PRN ??? famotidine (PEPCID) 20 MG tablet Take 1 Tablet by mouth two times a day. 180 Tablet 3 ??? FLUoxetine (PROZAC) 40 MG capsule TAKE 1 CAPSULE BY MOUTH EVERY DAY 90 Capsule 2 ??? hydrOXYzine HCl (ATARAX) 25 MG tablet Take 1-2 Tablets by mouth every 8 hours as needed for Itching. 90 Tablet 3 ??? propranolol (INDERAL) 10 MG tablet TAKE 1 TO 2 TABLETS BY MOUTH THREE TIMES A DAY NEEDED 30 Tablet 3 ??? Sharps Container (FIFSLH-K-UOABL LOCKING BRACKET) MISC Auto-CPAP, heated humidifier, mask, headgear, filters and tubing. For home use. Pressure: 5-15 Length of Need: 99 No current facility-administered medications for this visit. I have personally reviewed the patient's allergies, medications, past medical history and problem list in detail and updated the patient record as necessary. Objective BP 114/76 (BP Location: Right Arm, BP Cuff Size: Thigh/XLarge) Pulse 90 Wt 209 lb (94.8 kg) BMI 29.15 kg/m?? General Appearance: alert, well appearing and in no apparent distress HEENT: MMM. EOMs intact and pupils equal round Heart: regular rate and rhythm and no murmurs, gallops or rubs. Rare decreased to 90 on exam but then increased back to 100. Mental Status Evaluation: Appearance: age appropriate and casually dressed Behavior: Within Normal Limits Speech: normal pitch and normal volume Mood: within normal limits Affect: mood-congruent Thought Process: within normal limits Thought Content: within normal limits Sensorium: intact Cognition: grossly intact Insight: good Judgment: good Assessment and Plan Attention deficit hyperactivity disorder (ADHD), predominantly inattentive type (HRC) and Controlledsubstance agreement signed. Improved but not optimally controlled. No SE from adderall IR 20 mg bid.Thus, will increase to 30 mg bid. Continue therapy. - amphetamine-dextroamphetamine (ADDERALL) 30 MG tablet; Take 1 Tablet (30 mg) by mouth two times a day. - amphetamine-dextroamphetamine (ADDERALL) 30 MG tablet; Take 1 Tablet (30 mg) by mouth two times a day. Do not start before January 09, 2022. - amphetamine-dextroamphetamine (ADDERALL) 30 MG tablet; Take 1 Tablet (30 mg) by mouth two times a day. Do not start before February 08, 2022. MAYA (generalized anxiety disorder) (HRC), Panic attacks (HRC), Current moderate episode of major depressive disorder without prior episode (HRC), Dysthymic disorder (HRC) -controlled/stable. No change in current medication or treatment plan Mild obstructive sleep apnea -controlled/stable. No change in current medication or treatment plan Mixed dyslipidemia (HRC) -controlled/stable. No change in current medication or treatment plan Gastroesophageal reflux disease, unspecified whether esophagitis present -controlled/stable. No change in current medication or treatment plan Other orders - Moderna Booster COVID-19 Vaccine Follow up: 3 months follow up ADHD to see if medication change helping. This will ideally be in the office to recheck BP and P documented in this encounter Plan of Treatment Upcoming Encounters Date Type Specialty Care Team Description 08/09/2022 Appointment [place] [address] [place], [place] [address] (Wo rk) 08/10/2022 Appointment Physiatry/Physical Russel Mar MD [place] [id number] [facility] [place] N [address] (Wo rk) 08/16/2022 [place] [address] [place], [place] [phone] (Wo rk) 08/23/2022 Appointment [place] [address] [place], [place] [address] (Wo rk) 08/27/2022 Appointment [place] [address] [place], [place] [address] (Wo rk) 08/30/2022 Appointment [place] [address] [place], [place] [address] (Wo rk) 09/03/2022 Appointment [place] [address] [place], [place] [address] (Wo rk) 09/06/2022 Appointment [place] [address] [place], [place] [address] (Wo rk) 09/10/2022 Appointment [place] [address] [place], [place] [address] (Wo rk) 09/30/2022 Appointment Family Medicine Elicia Lockhart MD [address] [place], [place] [id number] (Wo rk) documented as of this encounter Visit Diagnoses Diagnosis Attention deficit hyperactivity disorder (ADHD), predominantly inattentive type (HRC) - Primary Controlled substance agreement signed Encounter for long-term (current) use of other medications MAYA (generalized anxiety disorder) (HRC) Generalized anxiety disorder Panic attacks (HRC) Panic disorder without agoraphobia Current moderate episode of major depres sive disorder without prior episode (HRC) Dysthymic disorder (HRC) Dysthymic disorder Mild obstructive sleep apnea Obstructive sleep apnea (adult) (pediatr ic) Mixed dyslipidemia (HRC) Mixed hyperlipidemia Gastroesophageal reflux disease, unspeci fied whether esophagitis present documented in this encounter Care Teams Manufacturing Team Leader Relationship Specialty Start Date End Date Elicia Lockhart MD PCP - General Family Practice 08/09/18 [address] [place] [address] documented as of this encounter
--- OUTSIDE RECORDS SUMMARY | 2022-08-01 13:15 | XMS_ITS | Encounter Summary ---
:1990 Author Organization [employer] Address [address], [place] [address] Care Team Providers Name Role Phone Elicia Georges MD Primary Care Provider Reason for Visit Reason Comments Refill FLUoxetine (PROZAC) 40 MG ca psule [Pharmacy Med Name: FLUOXETINE HCL 40 MG CAPSULE] Encounter Details Date Type Department Care Team Description 03/19/2022 Refill Elicia Leigh, Refill (FLUoxetine [address] [place] (PROZAC) [place] [address] [address] [Pharmacy Med Name: [phone] [place] [address] FLUOXETINE HCL 40 MG [phone] (Wo rk) CAPSULE]) Social History Tobacco Use [...] documented as of this encounter Nursing Notes Luann Sharif RN - 03/19/2022 4:04 PM CDT Renewed medication per medication refill protocol. Requested Prescriptions Pending Prescriptions Disp Refills ??? FLUoxetine (PROZAC) 40 MG capsule [Pharmacy Med Name: FLUOXETINE HCL 40 MG CAPSULE] 90 Capsule 2 Sig: TAKE 1 CAPSULE BY MOUTH EVERY DAY Interface, Out ReachLocal Prov Query - 03/19/2022 9:23 AM CDT FLUoxetine (PROZAC) 40 MG capsule [Pharmacy Med Name: FLUOXETINE HCL 40 MG CAPSULE] Medication started: 04/19/2019 Last ordered by ELICIA GEORGES R: 07/27/2021 (235 days ago) QTY: 90, Refills: 2, Sig: take 1 capsule by mouth every day (unchanged) -> Refill x 9 months, qty: 90, refills: 2 (until due for an office visit) Last qualifying visit: 12/10/2021 (with ELICIA GEORGES) Next scheduled visit: 04/13/2022 (with ELICIA GEORGES) Age: 31 [employer] Emb[employer]ded Refills, Reference: [id number], 03/19/2022 9:23:41 AM CDT, Pool: MADELEINE REFILL ([id number]) documented in this encounter Plan of Treatment Upcoming Encounters Date Type Specialty Care Team Description 08/09/2022 Appoint[place] [address] [place], [place] [address] (Wo rk) 08/10/2022 Appointment Physiatry/Physical Russel Mar MD [facility] [address] [facility] [place] [address] [phone] (Wo rk) 08/16/2022 Appoint[place] [address] [place], [place] [address] (Wo rk) 08/23/2022 Appoint[place] [address] [place], [place] [address] (Wo rk) 08/27/2022 Appoint[place] [address] [place], [place] [address] (Wo rk) 08/30/2022 Appointment [place] [address] [place], [place] [address] (Wo rk) 09/03/2022 Appoint[place] [address] [place], [place] [address] (Wo rk) 09/06/2022 Appointment [place] [address] [place], [place] [address] (Wo rk) 09/10/2022 App[place] [address] [place], [place] [address] (Wo rk) 09/30/2022 Appointment Family Medicine Elicia Georges MD [facility] [place] [address] (Wo rk) documented as of this encounter Visit Diagnoses Diagnosis MAYA (generalized anxiety disorder) (HRC) Generalized anxiety disorder Current moderate episode of major depres sive disorder without prior episode (HRC) documented in this encounter Care Teams Tie Hacker Relationship Specialty Start Date End Date Elicia Georges MD PCP - General Family Practice 08/09/[address] [id number] documented as of this encounter
--- OUTSIDE RECORDS SUMMARY | 2022-08-01 13:15 | XMS_ITS | Encounter Summary ---
:1990 Author Organization [employer] Address [address], [place] [address] Care Team Providers Name Role Phone Elicia Lockhart MD Primary Care Provider Reason for Visit Reason Comments Follow-up mental health Encounter Details Date Type Department Care Team Description 08/20/2021 Office Visit [facility] Elicia Lockhart Upper respi ratory infection with cough and congestion (Primary Dx); Tony Bustos MD Nausea and vomiting, intractability of v omiting not specified, unspecified vomiting type; [address] Diarrhea, unspecified type; [place] [address] [place] [address] Current moderate episode of major depres sive disorder without prior episode (HRC); [phone] MAYA (generalize d anxiety disorder); (Work) Attention deficit hyperactivity disorder (ADHD), predominantly inattentive type Social History Tobacco Use Types Packs/Day Years [...] Sign Reading Time Taken Comments Blood Pressure 126/82 08/20/2021 11:48 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 [id number] (up to 3000 mg) daily. PER/RECEIVER documented in this encounter Progress Notes Elicia Lockhart MD - 08/20/2021 11:30 AM CST Subjective Chief Complaint Patient presents with ??? Follow-up mental health Hari Elise is a 31 y.o. male who presents to the clinic today with the following concerns: 1. Upper respiratory infection with cough and congestion 2. Nausea and vomiting, intractability of vomiting not specified, unspecified vomiting type 3. Diarrhea, unspecified type 4. Current moderate episode of major depressive disorder without prior episode (HRC) 5. MAYA (generalized anxiety disorder) (HRC) 6. Attention deficit hyperactivity disorder (ADHD), predominantly inattentive type (HRC) Symptoms started 9 days ago. Has cough, congestion (significant), fatigue, nausea/vomiting, diarrhea, sweats/chills, taste change started last night. Has not checked for fever but taking tylenol. He has been working from home. He vomited this am and vomiting tends to be random. Loose stools come and go but having 2-3 per day. Staying hydrated with fluids. He took today off. The fatigue can be really bad some days and other days not as bad. His and kids have had symptoms as well. His has tested many times. his is a nurse in [place]. Her symptoms returned today and she is being tested again. Depression and anxiety: doing ok. Was feeling down in July but took time away for self. This helped him feel better. Adhd: since starting adderall, he feels concentration and focus improved. He feels it was most effective when he first started taking it. The past 4-6 weeks, he feels the benefit is slightly less but was wondering if the moods were worse. He was feeling drained at the time. He is sleeping good--about 8 hours per night. He was exercise was the same. The only change was that depression worsened but then improved. Current Outpatient Medications Medication Sig Dispense Refill ??? amphetamine-dextroamphetamine (ADDERALL) 15 MG tablet Take 1 Tablet by mouth two times a day for30 days. 60 Tablet 0 ??? [START ON 09/03/2021] amphetamine-dextroamphetamine (ADDERALL) 20 MG tablet Take 1 Tablet by mouth two times a day for 30 days. 60 Tablet 0 ??? cetirizine (ZYRTEC) 10 [...] THREE TIMES A DAY NEEDED 30 Tablet 2 ??? Sharps Container (WAIWWE-T-EQVIC LOCKING BRACKET) MISC Auto-CPAP, heated humidifier, mask, headgear, filters and tubing. For home use. Pressure: 5-15 Length of Need: 99 No current facility-administered medications for this visit. I have personally reviewed the patient's allergies, medications, past medical history and problem list in detail and updated the patient record as necessary. Objective BP 126/82 Pulse (!) 108 Temp 98.7 ??F (37.1 ??C) (Oral) SpO2 99% General Appearance: alert, mildly ill appearing and in no apparent distress HEENT: MMM. EOMs intact and pupils equal round. Nasal mucosa with yellow drainage. Psychiatric: affect/mood normal, cooperative, normal judgement/insight and memory intact\ Assessment and Plan Upper respiratory infection with cough and congestion, N/V and diarrhea along with chills. Recommendchecking for influenza and covid since his and children tested neg for covid and influenza is starting to go around. - COVID/Influenza (ROUTINE) - choose patient type; Future - COVID/Influenza (ROUTINE) - choose patient type Current moderate episode of major depressive disorder without prior episode (HRC) and MAYA (generalized anxiety disorder) (HRC) -fairly well controlled. Attention deficit hyperactivity disorder (ADHD), predominantly inattentive type (HRC) - amphetamine-dextroamphetamine (ADDERALL) 20 MG tablet; Take 1 Tablet by mouth two times a day for 30 days.--increased dose: Discussed the risks benefits and alternatives -continue 15 mg bid until illness resolved and trial of 20 mg bid starting in about 2 weeks. -[employer] message sent in 2 weeks to evaluate increased dose. Could consider continuing IR dosing twice daily OR consider changing to XR dosing once daily. Could also consider combination of XR and IR dosing to optimize medication effectiveness for when needed. Follow up: Quick Schedule Follow Up Visits Return With: Nurse/MA Return On or After: 09/03/21 Reason: Immunization/Injection Reason: Immunization/Injection Additional Notes: Covid booster and flu shot Return With: Me (Clinician) Return On or After: 10/20/21 Additional Notes: Adhd and controlled substance agreement I spent a total of 40 minutes on the day of the visit. PER/RECEIVER documented in this encounter Plan of Treatment Upcoming Encounters Date Type Specialty Care Team Description 08/09/2022 Appointment [place] [address] [place], [place] [address] (Wo rk) 08/10/2022 Appointment Physiatry/Physical Russel Mar MD [place] [address] [employer] [facility] [address] [address] (Wo rk) 08/16/2022 Appoint[place] [address] [place], [place] [address] (Wo rk) 08/23/2022 Appoint[place] [address] [place], [place] [address] (Wo rk) 08/27/2022 Appoint[place] [address] [place], [place] [address] (Wo rk) 08/30/2022 Appoint[place] [address] [place], [place] [address] (Wo rk) 09/03/2022 App[place] [address] [place], [place] [address] (Wo rk) 09/06/2022 Appoint[place] [address] [place], [place] [address] (Wo rk) 09/10/2022 App[place] [address] [place], [place] [address] (Wo rk) 09/30/2022 Appointment Family Medicine Elicia Lockhart MD [address] [place], [place] [id number] (Wo rk) documented as of this encounter Procedures Procedure Name Priority Date/Time Associated Diagnosis Comme nts 2019 NOVEL Routine 08/20/2021 12:42 Upper respiratory Result s for this CORONAVIRUS PM SHIPPER/RECEIVER infection with cough procedu re are in and congestion the results Nausea and vomiting, section . intractability of vomiting not specified, unspecified vomiting type Diarrhea, unspecified type COVID/INFLUENZA Routine 08/20/2021 12:42 Upper respiratory Res ults for this PM SHIPPER/RECEIVER infection with cough procedu re are in and congestion the results Nausea and vomiting, section . intractability of vomiting not specified, unspecified vomiting type Diarrhea, unspecified type documented in this encounter Results 2019 Novel Coronavirus (COVID-19) (08/20/2021 12:42 PM SHIPPER/RECEIVER) [facility] Method Time Signature COVID-19 Not Not 08/21/2021 [facility] Interpretation Detected Detected 1:41 AM [facility]ENTRAL LAB SHIPPER/RECEIVER Source Nares, left 08/21/2021 [facility] and right 1:41 AM CENTRAL LAB SHIPPER/RECEIVER Specimen Anatomical Collection Method Collection Time Receive d Time (Source) Location / / Volume Laterality Swab (Source ENTIRE ANTERIOR Non-blood 08/20/2021 12:42 08/20/20 21 1:52 Required) NARIS / Unknown Collection / PM SHIPPER/RECEIVER PM SHIPPER/RECEIVER Unknown Narrative [facility] - 08/21/2021 1:41 AM SHIPPER/RECEIVER Test performed by Bone Tender Mediated Amplification. TMA has been shown to be equivalent to commercial real-time PCR t ests. This test has been authorized by the FDA under an Emergency Use Authorization (EUA) for use by authorized laboratories. Elicia Lockhart MD LAB_1 Performing Organization Address City/State/ZIP Code Phon e Number [facility] [address] [address] documented in this encounter Visit Diagnoses Diagnosis Upper respiratory infection with cough a nd congestion - Primary Nausea and vomiting, intractability of v omiting not specified, unspecified vomiting type Diarrhea, unspecified type Current moderate episode of major depres sive disorder without prior episode (HRC) MAYA (generalized anxiety disorder) (HRC) Generalized anxiety disorder Attention deficit hyperactivity disorder (ADHD), predominantly inattentive type (HRC) documented in this encounter Care Teams Heavy Equipment Sales Associate Relationship Specialty Start Date End Date Elicia Lockhart MD PCP - General Family Practice 08/09/18 [address] [place] [address] documented as of this encounter
--- OUTSIDE RECORDS SUMMARY | 2022-08-01 13:15 | XMS_ITS | Encounter Summary ---
:1990 Author Organization [employer] Address [address] [place] [address] Care Team Providers Name Role Phone Elicia Lockhart MD Primary Care Provider Reason for Visit Reason Comments Medication Request Encounter Details Date Type Department Care Team Description 04/14/2022 Telephone Elicia Leigh MD Medication Request [address] [place] [address] [place] [address] [phone] (Wo rk) Social History Tobacco Use Types [...] documented as of this encounter Nursing Notes Leslee Hahn RN - 04/14/2022 9:27 AM CDT Spoke with patient again. He has propranolol at home that he uses for anxiety, he will take that prior to MRI as pharmacy wouldn't be able to fill rx in time anyway. Closing encounter. Leslee Hahn RN - 04/14/2022 8:38 AM CDT Clinician Action: New Order Medication Clinician Next Step: Route to [facility] Nurse pool to follow up Specific Request(s): 1. Patient asking for medication for claustrophobia for MRI today. Appt is at 11:30 today in , but needs to be there by 10:30 if he gets medication to take prior. Sorx needs to be sent in [place] so he has time to pick it up and get to clinic. Please call when rx is sent. Pharmacy verified. Eloina Sal - 04/14/2022 7:35 AM CDT Medications - New Medication What medication are you calling about (name or what do/did you take it for)? Medication for claustrophobia for MRI today at 11:30 Why are you calling for this medication? For MRI today Have you taken this medication or type of medication before and if so, when was it last taken? Yes: has taken anti anxiety medication before but not for this purpose. (If No, please help schedule an appointment) Additional comments (related to the above concern): For this new medication, patient would like it filled at the pharmacy listed in Meds & Orders. (Verify the pharmacy patient would like to use for this request is highlighted in blue in Pharmacy Selection under Meds & Orders) Is it okay to leave a detailed message on your voicemail? Yes (Advise caller that the PN call back number will end with [phone] or unknown) Please route to: Triage Pool documented in this encounter Plan of Treatment Upcoming Encounters Date Type Specialty Care Team Description 08/09/2022 [place] [address] [place], [place] [address] (Wo rk) 08/10/2022 Appointment Physiatry/Physical Russel Mar MD [address] [place] [address] (Wo rk) 08/16/2022 [place]oint[place] [address] [place], [place] [address] (Wo rk) 08/23/2022 [place] [address] [place], [place] [address] (Wo rk) 08/27/2022 [place] [address] [place], [place] [address] (Wo rk) 08/30/2022 [place] [address] [place], [place] [address] (Wo rk) 09/03/2022 [place] [address] [place], [place] [address] (Wo rk) 09/06/2022 [place] [address] [place], [place] [address] (Wo rk) 09/10/2022 [place] [address] [place], [place] [address] (Wo rk) 09/30/2022 Appointment Family Medicine Elicia Lockhart MD [address] [place] [address] (Wo rk) documented as of this encounter Visit Diagnoses Not on filedocumented in this encounter Care Teams Order Picker/Assembler Relationship Specialty Start Date End Date Elicia Lockhart MD PCP - General Family Practice 08/09/18 [address] [place] [address] documented as of this encounter
--- OUTSIDE RECORDS SUMMARY | 2022-08-01 13:15 | XMS_ITS | Encounter Summary ---
:1990 Author Organization [employer] Address [address] [place] [address] Care Team Providers Name Role Phone Elicia Lockhart MD Primary Care Provider Reason for Visit Procedure/Equipment (Routine) - Incomplete Specialty Diagnoses / Procedures Referred By Contact Refer red To Contact Diagnoses Right hand pain Elicia Lockhart MD Procedures [facility] Hand Rt 3+ [facility] [place] [address] Referral ID Status Reason Start Date Expiration Date Visits V isits Requested Authorized [id number] Incomplete 04/13/2022 07/13/2023 1 1 Encounter Details Date Type Department Care Team Description 04/14/2022 Ancillary Procedure [place] Elicia Corea, Right hand pain [place] [address] Radiology [address] [address] [place] [address] [place], [place] [phone] (Wo rk) [address] [phone] Social History Tobacco Use Types Packs/Day Years [...] 08/09/2022 [place] [address] [place], [place] [address] (Wo rk) 08/10/2022 Appointment Physiatry/Physical Russel Mar MD [facility] [address] [facility] N [address] (Wo rk) 08/16/2022 [place] [address] [place], [place] [address] (Wo rk) 08/23/2022 Appoint[place] [address] [place], [place] [address] (Wo rk) 08/27/2022 [place] [address] [place], [place] [address] (Wo rk) 08/30/2022 [place] [address] [place], [place] [address] (Wo rk) 09/03/2022 [place] [address] [place], [place] [address] (Wo rk) 09/06/2022 [place] [address] [place], [place] [address] (Wo rk) 09/10/2022 [place] [address] [place], [place] [address] (Wo rk) 09/30/2022 Appointment Family Medicine Elicia Lockhart MD [address] [address] (Wo rk) documented as of this encounter [...] GD documented in this encounter Visit Diagnoses Diagnosis Right hand pain Pain in limb documented in this encounter Care Teams Management Expert Relationship Specialty Start Date End Date Elicia Lockhart MD PCP - General Family Practice 08/09/[address] [place] [address] documented as of this encounter
--- OUTSIDE RECORDS SUMMARY | 2022-08-01 13:15 | XMS_ITS | Encounter Summary ---
:1990 Author Organization [employer] Address [address] [place] [address] Care Team Providers Name Role Phone Elicia Lockhart MD Primary Care Provider Reason for Visit Reason Comments ADHD PHQ-9 complete = 5 Video Visit Encounter Details Date Type Department Care Team Description 03/30/2021 Telemedicine Elicia Leigh, Inattention (Primary Dx); [address] MD Current moderate episode of major depres sive disorder without prior episode (HRC); [place] [address] MAYA (generalized anxiety disorder); [phone] [place] [address] Panic attacks [phone] (Wo rk) Social History Tobacco Use Types [...] as of this encounter Patient Instructions Patient InstructionsElicia Lockhart MD - 03/30/2021 1:30 PM CDT Plan: 1-get records from [facility] and start working with a therapist regarding ADHD diagnosis 2-once ADHD diagnosis verified, prescribed Adderall immediate release 5 mg, 1-2 tablets twice daily with a goal to titrate up the dose from 1 tablet twice daily to 2 tablets twice daily. 3-check in via my chart 1 month after starting Adderall to assess for side effects and efficacy. 4-continue stimulant medication based on my chart message or consider starting nonstimulant medication if needed. 5-follow-up in the office in 3 months for ADHD recheck and controlled substance agreement review documented in this encounter Progress Notes Elicia Lockhart MD - 03/30/2021 1:30 PM CDT Subjective Chief Complaint Patient presents with ??? ADHD PHQ-9 complete = 5 ??? Video Visit Hari Elise is a 30 y.o. male who presents (and consents) for a video visit today with the following concerns: 1. Inattention 2. Current moderate episode of major depressive disorder without prior episode (HRC) 3. MAYA (generalized anxiety disorder) (HRC) 4. Panic attacks (HRC) Hari had an appointment with the [facility] in [facility]. He reports today that he was diagnosed with ADHD. I do not the records to review this evaluation diagnosis today. He would like to start stimulant medications to treat her ADHD. Per Hari Elise, ACP was suppose to have sent the records to me. He is struggling to focus at work. That really causes him to struggle to complete work in a timely fashion which in turn worsens depression. Depression: work and home life has been challenging. Now that he knows he has ADHD, he can see wheresome of the symptoms come from. He can hyperfocus at times and there are other times he cannot focusat all. Recently, he has been struggling to focus. He feels the depression is directly related to increased ADHD symptoms. PHQ9 Scores PHQ-9 03/30/2021 03/26/2021 12/29/2020 PHQ-9 Score Total 13 - 10 Q1: Loss of Int/Pleas - - - Q2: Depressed mood - - + Q3: Sleep problems - - - Q4: Tired/Low Energy - - +++ Q5: Appetite change - - - Q6: Feelings of failure - - - Q7: Concentration Prob - - +++ Q8: Slow or Restless - - +++ Q9: Thought Self Harm - - - PHQ-9 Patient-Entered Score Total - 13 - Patient-Entered Q1: Loss of Int/Pleas - ++ - Patient-Entered Q2: Depressed Mood - +++ - Patient-Entered Q3: Sleep Problems - + - Patient-Entered Q4: Tired/Low Energy - +++ - Patient-Entered Q5: Appetite Change - + - Patient-Entered Q6: Feelings of Failure - - - Patient-Entered Q7: Concentration Prob - +++ - Patient-Entered Q8: Slow or Restless - - - Patient-Entered Q9: Thought Self Harm - - - Index Date: 07/24/2020 I have personally reviewed the patient's allergies, medications, past medical history and problem list in detail and updated the patient record as necessary. Objective BP Readings from Last 3 Encounters: 07/24/20 124/86 09/07/19 (!) 155/89 08/31/19 116/80 General Appearance: alert, well appearing and in no apparent distress Mental Status Evaluation: Appearance: age appropriate and casually dressed Behavior: Within Normal Limits Speech: normal pitch and normal volume Mood: Depressed Affect: mood-congruent Thought Process: within normal limits Thought Content: within normal limits Sensorium: intact Cognition: grossly intact Insight: good Judgment: good * Assessment and Plan Inattention -recently diagnosed with ADHD. Will obtain records from [facility]. Review diagnosis of ADHD as well as typical treatment including therapy, stimulant and nonstimulant medications. Stimulant medications tend to be the most effective treatment. Today reviewed the risks benefits and side effects of stimulant medications including that they are a controlled substance and can cause symptoms of weight loss, chest pain, heart rhythm problems, insomnia, decreased appetite, dry mouth, etc.. He will reach out to [facility] and have them fax the records to me. Fax number is provided today. Reviewed the plan of care as outlined in the patient instructions below. Patient Instructions Plan: 1-get records from [facility] and start working with a therapist regarding ADHD diagnosis 2-once ADHD diagnosis verified, prescribed Adderall immediate release 5 mg, 1-2 tablets twice daily with a goal to titrate up the dose from 1 tablet twice daily to 2 tablets twice daily. 3-check in via my chart 1 month after starting Adderall to assess for side effects and efficacy. 4-continue stimulant medication based on my chart message or consider starting nonstimulant medication if needed. 5-follow-up in the office in 3 months for ADHD recheck and controlled substance agreement review Current moderate episode of major depressive disorder without prior episode (HRC) and MAYA (generalized anxiety disorder) (HRC) and Panic attacks (HRC) -continue fluoxetine for now. Consider adding bupropion if depression symptoms do not improve when treated for ADHD. Follow up: Quick Schedule Follow Up Visits Return With: Me (Clinician) Return On or After: 06/28/21 Reason: Follow Up (Office Visit), Mental Health Follow Up Additional Notes: ADHD and controlled substance agreement This visit was conducted via video. Location of clinician: home Location of patient: home Time spent on video in riri-af-mrjo contact with patient, if applicable: N/A documented in this encounter Plan of Treatment Upcoming Encounters Date Type Specialty Care Team Description 08/09/2022 [place] [address] [place], [place] [address] (Wo rk) 08/10/2022 Appointment Physiatry/Physical Russel Mar MD [facility] [address] [facility] [address] [address] (Wo rk) 08/16/2022 [place] [address] [place], [place] [address] (Wo rk) 08/23/2022 [place] [address] [place], [place] [address] (Wo rk) 08/27/2022 [place] [address] [place], [place] [address] (Wo rk) 08/30/2022 Appointment [place] [address] [place], [place] [address] (Wo rk) 09/03/2022 Appointment [place] [address] [place], [place] [address] (Wo rk) 09/06/2022 Appointment [place] [address] [place], [place] [address] (Wo rk) 09/10/2022 Appointment [place] [address] [place], [place] [address] (Wo rk) 09/30/2022 Appointment Family Medicine Elicia Lockhart MD [address] [address] (Wo rk) documented as of this encounter Visit Diagnoses Diagnosis Inattention - Primary Other specified conditions influencing h ealth status Current moderate episode of major depres sive disorder without prior episode (HRC) MAYA (generalized anxiety disorder) (HRC) Generalized anxiety disorder Panic attacks (HRC) Panic disorder without agoraphobia documented in this encounter Care Teams Mirror Inspector Relationship Specialty Start Date End Date Elicia Lockhart MD PCP - General Family Practice 08/09/[address] [place] [address] documented as of this encounter
--- OUTSIDE RECORDS SUMMARY | 2022-08-01 13:15 | XMS_ITS | Encounter Summary ---
:1990 Author Organization [employer] Address [address] [place] [address] Care Team Providers Name Role Phone Elicia Lockhart MD Primary Care Provider Reason for Visit Reason Comments Refill Encounter Details Date Type Department Care Team Description 03/19/2022 Refill [facility] Elicia Ellsworth MD Refill [address] [place] [address] [place] [address] [phone] (Wo rk) Social History Tobacco Use Types [...] encounter Nursing Notes Lesa Mcdowell RN - 03/19/2022 9:50 AM CDT Further Assistance Needed on Refill from Clinician RN reviewed. Signed order needed. Medication not on RN refill list Last office visit 12/10/21 Future Appointments Date Time Provider Department Center 04/13/2022 6:00 PM Elicia Lockhart MD [facility] Review pended order for accuracy and sign if appropriate Requested Prescriptions Pending Prescriptions Disp Refills ??? amphetamine-dextroamphetamine (ADDERALL) 30 MG tablet 60 Tablet 0 Sig: Take 1 Tablet (30 mg) by mouth two times a day. Emely Mitchell - 03/19/2022 9:28 AM CDT Medications - Refill Request (unable to re-order) How many medications do you need refilled? (This is if patient has been prescribed this medication previously) Patient needs 1 medication refilled. Med #1 Name of Medication amphetamine-dextroamphetamine (ADDERALL) 30 MG tablet Current Dosage of Medication N/a Directions for use of medication (how often does the pt take this medication) N/ a Name of Prescribing clinician Elicia Lockhart MD Additional comments (related to the above concern) Pt is out For this refill, patient would like it filled at the pharmacy listed in Meds & Orders. (Verify the pharmacy patient would like to use for this request is highlighted in blue in Pharmacy Selection under Meds & Orders) Is it okay to leave a detailed message on your voicemail? Yes (Advise caller that the PN call back number will end with [phone] or unknown) (Advise caller of turn around time is 2 business days for standard refills and 2 to 5 business days for controlled refills) Please route to: Triage Pool documented in this encounter Plan of Treatment Upcoming Encounters Date Type Specialty Care Team Description 08/09/2022 [place] [address] [address] [place], [place] [address] (Wo rk) 08/10/2022 Appointment Physiatry/Physical Russel Mar MD [place] [id number] [facility] N [address] (Wo rk) 08/16/2022 [place] [address] [place], [place] [address] (Wo rk) 08/23/2022 Appointment [place] [address] [place], [place] [address] (Wo rk) 08/27/2022 Appointment [place] [address] [place], [place] [address] (Wo rk) 08/30/2022 Appointment Physical [place] [address] [place], [place] [address] (Wo rk) 09/03/2022 Appointment [place] [address] [place], [place] [address] (Wo rk) 09/06/2022 Appointment [place] [address] [place], [place] [address] (Wo rk) 09/10/2022 Appointment [place] [address] [place], [place] [address] (Wo rk) 09/30/2022 Appointment Family Medicine Elicia Lockhart MD [address] [place] [address] (Wo rk) documented as of this encounter Visit Diagnoses Diagnosis Attention deficit hyperactivity disorder (ADHD), predominantly inattentive type (HRC) documented in this encounter Care Teams Billing Administrator Relationship Specialty Start Date End Date Elicia Lockhart MD PCP - General Family Practice 08/09/[address] [id number] documented as of this encounter
--- OUTSIDE RECORDS SUMMARY | 2022-08-01 13:15 | XMS_ITS | Encounter Summary ---
:1990 Author Organization [employer] Address [address] [place] [address] Care Team Providers Name Role Phone Elicia Lockhart MD Primary Care Provider Reason for Visit Reason Comments Nausea Encounter Details Date Type Department Care Team Description 2021 Nurse Triage Elicia Leigh MD Nausea [address] [place] [address] [place] [address] [phone] (Wo rk) Social History Tobacco Use Types [...] documented as of this encounter Nursing Notes Ashley Yusuf, RN - 2021 2:14 PM CDT Spoke with pt regarding severe nausea and vomiting that causes petechiae over the past 4 days, that occurs 1-2 times only in the morning and pt notes very vibrant dark yellow urine since 4 days ago as well. Patient denies blood or bile in vomit and says that it is brown in color, he states that he hashad a tension headache for 6 days and developed intermittent lightheadedness and dizziness. Patient states that he is eating and drinking normally after noon only. Patient denies: weakness, abdominal/flank/back pain, has normal urinary output without foul odor or blood, fever. Advised pt to get a rideto the urgent care to be evaluated and patient agreed to the plan. Care advice given. Problem list re viewed as related to this call. Reason for Disposition ? ? Drinking very little and has signs of dehydration (e.g., no urine > 12 hours, very dry mouth,very lightheaded) Protocols used: [id number] Emely Mitchell - 2021 12:07 PM CDT Symptoms Describe your symptoms (if pain, include location): Bright yellow urine , nauseas , vomiting When did they start? 3 days Additional comments (related to the above concern): [...] number will end with 1111 or unknown) For urgent symptoms: Please route and transfer to: Triage Pool (high priority) For routine symptoms: Please route to: Triage Pool (only transfer if caller insists) documented in this encounter Plan of Treatment Upcoming Encounters Date Type Specialty Care Team Description 08/09/2022 [place] [address] [facility] [place] [address] (Barrett akers) 08/10/2022 Appointment Physiatry/Physical Russel Mar MD Medicine [address] [facility] [address] [address] (Barrett akers) 08/16/2022 Appointment [place] [address] [place], [place] [address] (Wo rk) 08/23/2022 Appointment [place] [address] [place], [place] [address] (Wo rk) 08/27/2022 Appointment [place] [address] [place], [place] [address] (Wo rk) 08/30/2022 Appointment [place] [address] [place], [place] [address] (Wo rk) 09/03/2022 Appointment [place] [address] [place], [place] [address] (Wo rk) 09/06/2022 Appointment [place] [address] [place], [place] [address] (Wo rk) 09/10/2022 [place] [address] [place], [place] [address] (Wo rk) 09/30/2022 Appointment Family Medicine Elicia Lockhart MD [address] [id number] (Wo rk) documented as of this encounter Visit Diagnoses Not on filedocumented in this encounter Care Teams Rest Room Attendant Relationship Specialty Start Date End Date Elicia Lockhart MD PCP - General Family Practice 08/09/[address] [id number] documented as of this encounter
--- OUTSIDE RECORDS SUMMARY | 2022-08-01 13:16 | XMS_ITS | Encounter Summary ---
:1990 Author Organization [facility] Address [address] [place] [id number] Care Team Providers Name Role Phone Elicia Lockhart MD Primary Care Provider Reason for Referral Procedure/Equipment (Routine) - Closed Specialty Diagnoses / Procedures Referred By Contact Refer red To Contact Diagnoses Chronic urticaria Fred Silverio MD [address] [place], [place] [address] Referral ID Status Reason Start Date Expiration Date Visits Requ ested Visits Authorized [id number] Closed 12/02/2020 03/03/2022 1 1 Scheduling Instructions If scheduling assistance is needed, ciarra zelaya inquire with the medical office staff upon exiting your appointment or contact the ordering clinic for recommended locations. This recommended service/s may not be co mary carmen by your insurance coverage. To find out your specific benefit coverage, please c all the number on your insurance card. Reason for Visit Reason Comments CONSULT Urticaria Consult/Transfer Care (Routine) - Closed Specialty Diagnoses / Procedures Referred By Contact Refer red To Contact Diagnoses Chronic urticaria Elicia Lockhart MD [facility] [place] [address] Referral ID Status Reason Start Date Expiration Date Visits Requ ested Visits Authorized [id number] Closed 11/24/2020 02/23/2022 1 1 Encounter Details Date Type Department Care Team Description 12/02/2020 Telemedicine [place] [address] Nickels, Fred S, Chr onic urticaria Allergy (Primary Dx) [address] [place] [address] [phone] (Wo rk) Social History Tobacco Use Types [...] as of this encounter Patient Instructions Patient InstructionsFred Silverio MD - 12/02/2020 8:00 AM CDT For your hives, I recommend the following medications: 1. Cetirizine 10 mg, 2 tablets twice a day 2. Famotidine 20 mg 1 tablet by mouth twice a day 3. Singulair 10 mg by mouth every night 4. Hydroxyzine 25 mg 1-2 tablet by mouth every 4-6 hours as needed for breakthrough hives. We will start the process for Omalizumab. What are Hives? Hives are itchy, raised, bumps or swelling that occur at any area of your body. Medical provides mayrefer to hives as Urticaria. Hives occur when histamine is released by cells in your skin. A single hive usually lasts less than 24 hours (sometimes up to 48 hours), is very itchy, and will leave with leaving a single demetrius. New hives often appear as others disappear. What is the difference between Acute Hives and Chronic hives? Acute hives are present for less than 6 weeks. Chronic hives last for more than 6 weeks and can sometimes last a lot longer. What causes hives? Hives can occur for a number of different causes and can often be confusing. Some hives are allergicin nature. Common allergens include foods, medicines, and insect stings. More rarely, pollens can cause allergic hives, particularly if we come in contact with the plant. Typically hives that occur from allergens will develop within minutes to several hours after exposure. Other triggers to hives can include pressure, scratching of the skin (this is called dermatographism), exposure to the sun, viralillness, or other acute illnesses. Most hives, particularly when patient cannot identify a trigger or allergen exposure, are idiopathic. Idiopathic means that a trigger or allergen that cannot be identified. When this occurs, Allergiststypically recommend treatment to suppress your hives. Is there testing for what for the cause of hives? There is testing that can look for the cause of hives. The first step in testing is discussing what exposures or potential allergens may have been related to hive outbreaks. If there are allergens thatare suspected to cause the hives, both skin and blood tests can be used to explore this possibility.It is not recommended to test for allergens that are a patient is not exposed to or have been related outbreaks of hives. Are there other things that look like hives but are not actually hives? There some skin conditions that can look like hives and there are many other different types of rashes. Some signs that you may have something other than hives is if your spots/rash last longer than 24-48 hours, is more painful or burning than itching, and leaves webster on your skin after it resolves. You doctor may perform labs to make sure there are no signs that you have other causes for your symptoms. How are hives treated? Treatment for hives depends on the type and duration of hives. If a known trigger or allergen is identified, then avoidance of these triggers is fink. If hives last a long time or there are no identifiable allergens that are causing the hives, the treatment focuses on using antihistamines and other medication to suppress the hive activity. What is Chronic Idiopathic Urticaria? Chronic idiopathic Urticaria are hives that last longer than 6 weeks. What causes Chronic Idiopathic Urticaria? The cause of chronic idiopathic urticira is currently not known. Most patients (>80%) who have hives that last longer than 6 weeks do not have an external trigger or allergen that causes their hives. Scientists and doctors believe that there may be an autoimmune phenomenon where part of the immune system becomes over active and begins to stimulate cells to release histamine. Is swelling of the lips or the eyes associated with Chronic Idiopaic Urticaria? Yes. Swelling of the eyes and lips, also known as, angioedema occurs in about 50% of people with Chronic Idiopathic Urticaria. The swelling comes for the same reason, histamine release, but occurs in the deeper tissues. It is typically not dangerous, but can be uncomfortable and disruptive until it resolves. Rarely, the swelling can occur in the tongue or the throat and if this does occur, seeking emergency medical attention immediately is critical. What sort of testing or labs should be done in investigating the cause of Chronic Idiopathic Urticaria? The majority of patients who have chronic idiopathic urticaria do not have an allergic trigger to their hives. If there are any external triggers (such as food, medications, creams/lotions, etc) that you are concerned are causing your hives, please discuss this with a physician. It is not recommended that lots of allergy testing (blood or skin) be performed without a clear relationship between exposure to the substance and the development of hives. Depending on the how long hives have been present and severity, lab tests may be helpful. These tests are typically focused on ensuring that there are not major abnormalities in the body that may be manifesting as hives. In the large majority of patients, these labs come back normal. Any abnormal lab will be reviewed and discussed in the context of other medical conditions. What is the treatment for Chronic Idiopathic Urticaria? The goal of chronic idiopathic urticaria treatment is to suppress hive activity as much as possible.In some cases, hives can be completely suppressed while others times not all the hives can be suppressed. Treatment typically starts with using long acting antihistamines (such as cetirizine, fexofenadine, or loratidine). Often times, higher than normal doses are needed to control the hives. Some patients require as much as four times the normal doses of these medications. Additionally, another type of antihistamine called ???H2 blockers?? (medications like rantidine and famotidine) can be used to gain more control of the hives. Finally, a medication called montelukast can also be tried. If these medications are not enough to control the hives, there are a number of other medications that may be tried. The most commonly used is called Xolair (omalizumab) and is a monthly injection. There are other medications that can also be used to help suppress the immune system (such as cyclosporine) or as anti-inflammatory medications (such as sulfasalazine and hydroxychloroquine). These medications have a different side effect profiles which need to be discussed with a physician before starting. Are there any resources you can recommend to learn more about Chronic Idiopathic Urticria? Here are some general resources to learn more about chronic idiopathic urticira: [facility]: http://www.Takes[employer]/ [facility]: http://www.[facility].org/diseases-conditions/chronic-hives/basics/definition/co n-26551328 documented in this encounter Progress Notes Fred Silverio MD - 12/02/2020 8:00 AM CDT Division of Asthma and Allergic Disease Video Visit Initial Consult Requesting Provider: Elicia Lockhart MD [address] [place] [address] Chief Complaint: Chief Complaint Patient presents with ??? CONSULT Urticaria SUBJECTIVE: HPI: 30 y.o. male presenting for reestablish care for chronic idiopathic urticaria. Patient shares with me that he has a history of chronic idiopathic urticaria dating back to 2007. Has had 3 episodes prior to current episodes 1 in 2007, 2012 and 2018. About 5-6 weeks ago patient developed red raised bumpy lesions. Located across his body. Itchy. Transient lasting less than 24 hours. This time no associated angioedema. No joint pain no fevers. No obvious external triggers. Patient previously seen inour department in 2012. I reviewed note from 07/18/2013, in summary, history consistent with urticaria. Using cetirizine p.o. nightly. 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 That time patient was controlled with cetirizine. I reviewed clinical documentation from 11/22/2020 with primary care. At that time reported ongoing urticaria. Poorly controlled with oral antihistamines. Prednisone provided at that time. Patient has been on cetirizine 10 mg 2 tabs p.o. b.i.d., famotidine 20 mg p.o. b.i.d., and hydroxyzine 50 mg p.o. b.i.d.. Has been on prednisone for the last 2 weeks. Still having breakthrough hives despite prednisone. Review of systems: Pertinent items are noted in HPI. Past Medical History: has a past medical history of Chronic urticaria (07/03/2018), Depression, major (HRC) (07/03/2018), MAYA (generalized anxiety disorder) ([facility]C) (07/03/2018), GERD (gastroesophageal reflux disease) (07/03/2018), Gout, chronic (07/03/2018), High ankle sprain of right lower extremity (03/25/2015), Hives (07/03/2018), Mixed dyslipidemia ([facility]C) (07/03/2018), CHRISTOPH (obstructive sleep apnea) (02/17/2017), Posterior tibialis muscle dysfunction (04/17/2015), and Posterior tibialis muscle dysfunction (04/17/2015). Past Surgical History: has a past surgical history that includes wisdom teeth extraction. Family History: reviewed in [facility] Current Medication: Reviewed in [facility]. Allergies: has No Known Allergies. OBJECTIVE: Physical Exam: General: No acute distress. Alert appropriately. Eyes normal. Nose normal. Skin no obvious rashes. Respiratory rate normal. No cough or wheeze noted. 07/18/2013: JACE HARI R ? Anti-IgE Receptor AB ?? IgE Receptor AB: ?80.4 ?HIGH ?[0.0-5.0]% Results for HARI ELISE ( ) as of 12/02/2020 07:58 Ref. Range 07/18/2013 09:51 Eos Absolute Latest Ref Range: 0.0 - 0.5 k/cmm 0.2 Results for JACE HARI R ( ) as of 12/02/2020 07:58 Ref. Range 07/18/2013 09:51 MIGUEL Screen Latest Ref Range: Negative Negative Thyroperoxidase Ab Latest Ref Range: 0.0 - 9.0 IU/mL 2.9 ASSESSMENT/PLAN: Encounter Diagnoses Name Primary? Chronic urticaria Yes Patient presenting with poorly controlled recurrent/chronic idiopathic urticaria. Current flare has been going on for approximately 5-6 weeks. This condition is chronic and patient has had on and off flare since 2007. We reviewed the pathophysiology of chronic idiopathic urticaria. Patient has a good sense of the underlying etiology and cause for his current symptoms. Recommended the following: - Cetirizine 10 mg, 2 tablets twice a day - Famotidine 20 mg 1 tablet by mouth twice a day - Singulair 10 mg by mouth every night - Hydroxyzine 25 mg 1-2 tablet by mouth every 4-6 hours as needed for breakthrough hives. Recommended starting omalizumab 300 mg subcutaneous monthly. Patient agreeable with the above assessment plan. Return to clinic 3 months. Sooner with any difficulty. Location of clinician: clinic Location of patient: home This note has been completed using voice capture software. Typographical and phonographic errors maybe present. Please contact my office with any questions or needed clarifications. documented in this encounter Nursing Notes Marga Bailey - 12/02/2020 8:00 AM CDT NASAL/EYE SYMPTOMS: - Is the problem: Nose: None Eyes: None - Are these symptoms: Chronic - episodic - Symptom triggers: None CHEST SYMPTOMS: None ASTHMA: None HIVES: Active x 3 weeks this episode ECZEMA: None FOOD REACTIONS: None HAVE STINGS BY BEE, WASP, HORNET, OR YELLOW JACKET CAUSED UNUSUAL REACTIONS: None TREATMENTS TRIED: Antihistamines, Prednisone, Nasal spray PREVIOUS ALLERGIC INVESTIGATION: Laboratory Dr. 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 Plan of Treatment Upcoming Encounters Date Type Specialty Care Team Description 08/09/2022 [place]oint[place] [address] [place], [place] [address] (Wo rk) 08/10/2022 Appointment Physiatry/Physical Russel Mar MD [facility] [address] [facility] [place] [address] (Wo rk) 08/16/2022 [place]oint[place] [address] [place], [place] [address] (Wo rk) 08/23/2022 Appoint[place] [address] [place], [place] [address] (Wo rk) 08/27/2022 [place] [address] [place], [place] [address] (Wo rk) 08/30/2022 Appointment [place] [address] [place], [place] [address] (Wo rk) 09/03/2022 [place]oint[place] [address] [place], [place] [address] (Wo rk) 09/06/2022 Appointment [place] [address] [place] [address] (Wo rk) 09/10/2022 [place] [address] [place], [place] [address] (Wo rk) 09/30/2022 Appointment Family Medicine Elicia Lockhart MD [facility] [place] [id number] (Wo rk) Scheduled Referrals Name Type Priority Associated Diagnoses Order S chedule Injection Scheduling Referral Routine Chronic urticaria Or dered: 12/02/2020 documented as of this encounter Visit Diagnoses Diagnosis Chronic urticaria - Primary Other specified urticaria documented in this encounter Care Teams Core Drier Relationship Specialty Start Date End Date Elicia Lockhart MD PCP - General Family Practice 08/09/[address] [id number] documented as of this encounter
--- OUTSIDE RECORDS SUMMARY | 2022-08-01 13:16 | XMS_ITS | Encounter Summary ---
:1990 Author Organization [employer] Address [address] [place] [id number] Care Team Providers Name Role Phone Elicia Lockhart MD Primary Care Provider Reason for Referral Procedure/Equipment (Routine) - Closed Specialty Diagnoses / Procedures Referred By Contact Refer red To Contact Diagnoses CHRISTOPH (obstructive sleep apnea) Elicia Lockhart MD Procedures Sleep Supply Renew [address] [address] Referral ID Status Reason Start Date Expiration Date Visits Requ ested Visits Authorized [id number] Closed 08/31/2019 11/29/2020 1 1 ICAL ENDOSCOPIST Reason for Visit Reason Comments HAND PAIN right, tingling x 1 week Encounter Details Date Type Department Care Team Description 08/31/2019 Office Visit Elicia Cote Pain of rig ht hand (Primary Dx); Tony Bustos MD Mixed dyslipidemia; [address] Gastroesophageal reflux disease, esophag itis presence not specified; [address] [address] [address] [address] MAYA (generalized anxiety disorder); [phone] Numbness and ti ngling in right hand; (Work) CHRISTOPH (obstructive sleep apnea) Social History Tobacco Use Types Packs/Day Years Used Date Smoking Tobacco: Never Smokeless Tobacco: Never Alcohol Use Standard Drinks/Week Comments Yes 0 (1 standard drink = 0.6 oz pure alcoho l) rare Alcohol Habits Answer Date Recorded How often [...] Sign Reading Time Taken Comments Blood Pressure 116/80 08/31/2019 8:05 AM SURGICAL ENDOSCOPIST Pulse 76 08/31/2019 8:05 AM SURGICAL ENDOSCOPIST Temperature - - Respiratory Rate - - Oxygen Saturation - - Inhaled Oxygen Concentration - - Weight 99.8 kg (220 lb) 08/31/2019 8:05 AM SURGICAL ENDOSCOPIST Height - - Body Mass Index 31.12 07/18/2013 8:46 AM CDT documented in this encounter Patient Instructions Patient InstructionsHyser, Elicia Bustos MD - 08/31/2019 8:00 AM CST Images from the original note were not included. If not improving with rest, bracing, nsaids, consider occupation therapy/hand therapy or referral toPMR (physical med doctor) 15-30 minutes of exercise 5 days per week (30 min if brisk walking or 15 of more intense exercise like rowing, elliptical or running). Exercise resistance of all major muscles and stretching 2 times per week Sleep 7-9 hours per night. Efrem Allen For medical supplies ordered: [address] [address] ? ?Tuesday thru Tuesday 9:00 a.m. to 12:15 p.m. 1:00 p.m. to 5:00 p.m. Learning About Dietary Guidelines What are the Dietary Guidelines for Americans? Dietary Guidelines for Americans provide tips for eating well and staying healthy. This helps reducethe risk for long-term (chronic) diseases. These adult guidelines from the [place] government recommend that you: ?? Eat lots of fruits, vegetables, whole grains, and low-fat or nonfat dairy products. ?? Try to balance your eating with your activity. This helps you stay at a healthy weight. ?? Drink alcohol in moderation, if at all. ?? Limit foods high in salt, saturated fat, trans fat, and added sugar. What is MyPlate? MyPlate is the [place] government's food guide. It can help you make your own well- balanced eating plan. A balanced eating plan means that you eat enough, but not too much, and that your food gives you the nutrients you need to stay healthy. MyPlate focuses on eating plenty of whole grains, fruits, and vegetables, and on limiting fat and sugar. It is available online at www.ChooseMyPlate.gov. How can you get started? MyPlate suggests that most adults eat certain amounts from the different food groups: Grains Eat 5 to 8 ounces of grains each day. Half of those should be whole grains. Choose whole-grain breads, cold and cooked cereals and grains, pasta (without creamy sauces), hard rolls, or low-fat or fat-free crackers. Vegetables Eat 2 to 3 cups of vegetables every day. They contain little if any fat. And they have lots of nutrients that help protect against heart disease. Fruits Eat 1?? to 2 cups of fruits every day. Fruits contain very little fat but lots of nutrients. Protein foods Most adults need 5 to 6?? ounces each day. Choose fish and lean poultry more often. Eat red meat andfried meats less often. Dried beans, tofu, and nuts are also good sources of protein. Dairy Most adults need 3 cups of milk and milk products a day. Choose low-fat or fat- free products from this food group. If you have problems digesting milk, try eating cheese or yogurt instead. Limit fats and oils, including those used in cooking. When you do use fats, choose oils that are liquid at room temperature (unsaturated fats). These include canola oil and olive oil. Avoid foods with trans fats, such as many fried foods, cookies, and snack foods. Where can you learn more? 1. Go to https://StrongSteam.Kahua/Layered Technologieslibrary or Watertronix/Expanlibrary. 2. Enter D676 in the search box. Current as of: July 26, 2018 Content Version: 12.2 ?? 7661-9004 [employer]. Care instructions adapted under license by your healthcare professional. If you have questions about a medical condition or this instruction, always ask your healthcare professional. [employer] disclaims any warranty or liability for your use of this information. ICAL ENDOSCOPIST documented in this encounter Progress Notes Elicia Lockhart MD - 08/31/2019 8:00 AM CST Subjective Chief Complaint Patient presents with ??? HAND PAIN right, tingling x 1 week Hari Elise is a 29 y.o. male who presents to the clinic today with the following concerns: 1. Pain of right hand 2. Mixed dyslipidemia (HRC) 3. Gastroesophageal reflux disease, esophagitis presence not specified 4. MAYA (generalized anxiety disorder) (HRC) 5. Numbness and tingling in right hand 6. CHRISTOPH (obstructive sleep apnea) Per nursing notes: Pt reports right hand pain, tingling and numbness x 1 week. He rates the pain as high as 5/10. 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 He notices the tingling most often after gripping or using his hands, activities such a snow blowing or giving a massage seem to exacerbate the tingling. The pain keeps him up at night. The pain can keep him awake at night at times and aleve helps him. He has been wearing a wrist braceat night the past 4 nights and he is not sure if it is helping. He has to sometimes use the mouse inthe left hand. He has an ergo keyboard that helps. He had wrist pain in the past and had EMG/NCS that was normal. Current Outpatient Medications Medication Sig Dispense Refill ??? cholecalciferol (VITAMIN D3) 1000 units tablet Take 1 Tablet by mouth daily. 100 Tablet PRN ??? FLUoxetine (PROZAC) 20 MG capsule Take 1 Capsule by mouth daily. 90 Capsule 3 ??? hydrOXYzine HCl (ATARAX) 25 MG tablet Take 1 Tablet by mouth three times a day as needed for Anxiety. 30 Tablet 0 ??? Ranitidine HCl (AKA ZANTAC) 150 MG capsule Take 1 capsule by mouth 2 times daily. 60 capsule 11 No current facility-administered medications for this visit. I have personally reviewed the patient's allergies, medications, past medical history and problem list in detail and updated the patient record as necessary. Objective BP 116/80 (BP Location: Left Arm, BP Cuff Size: Regular) Pulse 76 Wt 220 lb (99.8 kg) BMI 31.12 kg/m?? General Appearance: alert, well appearing and in no apparent distress HEENT: MMM. EOMs intact and pupils equal round Psychiatric: affect/mood normal, cooperative, normal judgement/insight and memory intact Right arm/hand: Normal light touch sensation and strength. Tinel's negative but Phalen's positive for numbness in the thumb. Pulses intact. Normal skin color and texture. 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 Recommend stopping all activities that exacerbate or have possibly cause the symptoms especially sanding. Consider wearing a low-profile wristbrace during the day. Continue to wear in night wrist brace and consider keeping the elbow more straight at night by wrapping a towel around it and securing it with tape. -See patient instructions for more details of information discussed with Hari Elise today. -if not improving, he will contact me for referral to Physical Medicine and rehab. Mixed dyslipidemia (HRC) -history of elevated triglycerides and low HDL. Discussed cardiovascular risk associated with this and I strongly recommend weight loss, physical activity regularly, muscle resistance exercises. Gastroesophageal reflux disease, esophagitis presence not specified --controlled/stable. No change in current medication or treatment plan MAYA (generalized anxiety disorder) (HRC) - hydrOXYzine HCl (ATARAX) 25 MG tablet; Take 1 Tablet by mouth three times a day as needed for Anxiety. CHRISTOPH (obstructive sleep apnea)-he needs new mask and tubing. Order completed today. - Sleep Supply Renew Other orders - Influenza IIV4 (Quadrivalent) 0.5 mL (13303) Follow up: P.r.n. or when his next physical is due ICAL ENDOSCOPIST documented in this encounter Nursing Notes Victoria Zapata LPN - 08/31/2019 8:00 AM CST Pt reports right hand pain, tingling and numbness x 1 week. He rates the pain as high as 5/10. 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 He notices the tingling most often after gripping or using his hands, activities such a snow blowing or giving a massage seem to exacerbate the tingling. The pain keeps him up at night. ICAL ENDOSCOPIST documented in this encounter Plan of Treatment Upcoming Encounters Date Type Specialty Care Team Description 08/09/2022 [place] [address] [place], [place] [address] (Wo rk) 08/10/2022 Appointment Physiatry/Physical Russel Mar MD [facility] [address] [facility] [address] [address] (Wo rk) 08/16/2022 [place]oint[place] [address] [place], [place] [address] (Wo rk) 08/23/2022 [place]oint[place] [address] [place], [place] [address] (Wo rk) 08/27/2022 [place]oint[place] [address] [place], [place] [address] (Wo rk) 08/30/2022 [place]oint[place] [address] [place], [place] [address] (Wo rk) 09/03/2022 [place] [address] [place], [place] [address] (Wo rk) 09/06/2022 Appointment [place] [address] [place], [place] [address] (Wo rk) 09/10/2022 Appointment [place] [address] [place], [place] [address] (Wo rk) 09/30/2022 Appointment Family Medicine Elicia Lockhart MD [address] [id number] (Wo rk) documented as of this encounter Visit Diagnoses Diagnosis Pain of right hand - Primary Pain in limb Mixed dyslipidemia (HRC) Mixed hyperlipidemia Gastroesophageal reflux disease, esophag itis presence not specified MAYA (generalized anxiety disorder) (HRC) Generalized anxiety disorder Numbness and tingling in right hand Disturbance of skin sensation CHRISTOPH (obstructive sleep apnea) Obstructive sleep apnea (adult) (pediatr ic) documented in this encounter Care Teams Clinical Haematologist Relationship Specialty Start Date End Date Elicia Lockhart MD PCP - General Family Practice 08/09/[address] [id number] documented as of this encounter
--- OUTSIDE RECORDS SUMMARY | 2022-08-01 13:16 | XMS_ITS | Encounter Summary ---
:1990 Author Organization [employer] Address [address] [place] [address] Care Team Providers Name Role Phone Elicia Lockhart MD Primary Care Provider Reason for Visit Reason Comments Prior Authorization For Medication Xolair Encounter Details Date Type Department Care Team Description 12/16/2020 Telephone [facility] [address] or Authorization For Allergy MD Medication (Xolair) [address] [facility] [address] [facility] [place] [address] [phone] (Wo rk) Social History Tobacco Use Types [...] documented as of this encounter Nursing Notes Joanna Amaral - 12/16/2020 12:50 PM CDT Left VM for pt to schedule 1st Xolair injection at either [facility] or [facility], (phone numbers given) future injections can be scheduled at [place]. documented in this encounter Plan of Treatment Upcoming Encounters Date Type Specialty Care Team Description 08/09/2022 [place] [address] [place], [place] [address] (Wo rk) 08/10/2022 Appointment Physiatry/Physical Russel Mar MD [facility] [address] [facility] [address] [address] (Wo rk) 08/16/2022 Appoint[place] [address] [place], [place] [address] (Wo rk) 08/23/2022 [place] [address] [place], [place] [address] (Wo rk) 08/27/2022 [place] [address] [place], [place] [address] (Wo rk) 08/30/2022 [place] [address] [place], [place] [address] (Wo rk) 09/03/2022 Appoint[place] [address] [place], [place] [address] (Wo rk) 09/06/2022 [place] [address] [place], [place] [address] (Wo rk) 09/10/2022 [place] [address] [place], [place] [address] (Wo rk) 09/30/2022 Appointment Family Medicine Elicia Lockhart MD [address] [place] [address] (Wo rk) documented as of this encounter Visit Diagnoses Not on filedocumented in this encounter Care Teams Signal Timer Relationship Specialty Start Date End Date Elicia Lockhart MD PCP - General Family Practice 08/09/18 [address] [place] [address] documented as of this encounter
--- OUTSIDE RECORDS SUMMARY | 2022-08-01 13:16 | XMS_ITS | Encounter Summary ---
:1990 Author Organization [employer] Address [address], [place] [address] Care Team Providers Name Role Phone Elicia Georges MD Primary Care Provider Reason for Referral Consult/Transfer Care (Routine) - Incomplete Specialty Diagnoses / Procedures Referred By Contact Refer red To Contact Diagnoses Inattention Elicia Georges MD [address] [place] [address] Referral ID Status Reason Start Date Expiration Date Visits V isits Requested Authorized [id number] Incomplete 12/29/2020 03/30/2022 1 1 Scheduling Instructions Your provider has recommended an appoint ment with Behavioral Health. You may call [phone] to schedule your appointmen t. This recommended service/s may not be covered by your health plan (health insu van). To find out your specific benefit coverage, please call the number on your insurance card.?? Please note that in order to maintain access for all patients, [facility] does have a late cancellation policy. In order to avoid being restrict ed from scheduling future appointments in Behavioral Health you will need to cance l at least 24 hours in advance. We request you that you arrive 30 minutes before yo ur first appointment to complete paperwork. Reason for Visit Reason Comments Mental Health Concerns Encounter Details Date Type Department Care Team Description 12/29/2020 Telemedicine Elicia Leigh, Inattention (Primary Dx); Jayy Blake MD MAYA (generalized anxiety disorder); [address] [address] [address] Panic attacks; [phone] [address] [address] [address] Current moderate episode of major depres sive disorder without prior episode (HRC); [phone] (Wo rk) Dysthymic disorder Social History Tobacco Use Types Packs/Day Years [...] of this encounter Patient Instructions Patient InstructionsElicia Georges MD - 12/29/2020 11:00 AM CDT Consider adding bupropion for concentration, motivation and energy. We could try the XL 150 mg in AM. Bupropion can cause anxiety and insomnia and if this occurs, we could change to the SR 100 mg once in the AM OR twice daily. documented in this encounter Progress Notes Elicia Georges MD - 12/29/2020 11:00 AM CDT Addended by: ELICIA GEORGES on: 12/29/2020 11:23 AM Modules accepted: Level of Service Elicia Georges MD - 12/29/2020 11:00 AM CDT Subjective Chief Complaint Patient presents with ??? Mental Health Concerns Hari Elise is a 30 y.o. male who presents (and consents) for a video visit today with the following concerns: 1. Inattention 2. MAYA (generalized anxiety disorder) (HRC) 3. Panic attacks (HRC) 4. Current moderate episode of major depressive disorder without prior episode (HRC) 5. Dysthymic disorder (HRC) He wonders if hem ight adult ADHD-inattentive type. He was working on building something for his sonand went out to the garage and started spraying. He tends to be rather impulsive and inattentive. Reubenhas had this pattern since his whole life. He struggles with time management. He took the WHO 18 questionnaire about ADHD and he scored often and very often to 16 of the questions. Sometimes, he struggles to work. He struggles to listen unless it is a topic he feels passionate about. PHQ and MAYA reviewed. PHQ9 Scores PHQ-9 12/29/2020 11/19/2020 09/15/2020 PHQ-9 Score Total 10 4 - Q1: Loss of Int/Pleas - - - Q2: Depressed mood + - - Q3: Sleep problems - - - Q4: Tired/Low Energy +++ - - Q5: Appetite change - - - Q6: Feelings of failure - - - Q7: Concentration Prob +++ - - Q8: Slow or Restless +++ - - Q9: Thought Self Harm - - - PHQ-9 Patient-Entered Score Total - 4 6 Patient-Entered Q1: Loss of Int/Pleas - + + Patient-Entered Q2: Depressed Mood - + + Patient-Entered Q3: Sleep Problems - - - Patient-Entered Q4: Tired/Low Energy - ++ +++ Patient-Entered Q5: Appetite Change - - - Patient-Entered Q6: Feelings of Failure - - + Patient-Entered Q7: Concentration Prob - - - Patient-Entered Q8: Slow or Restless - - - Patient-Entered Q9: Thought Self Harm - - - Index Date: 07/24/2020 MAYA 7 Scores MAYA-7 12/29/2020 09/15/2020 09/15/2020 MC Feeling nervous, anxious, or on edge - Several days - MC Not being able to stop or control worrying - Several days - MC Worrying too much about different things - Not at all - MC Trouble relaxing - Nearly every day - MC Being so restless that it's hard to sit still - Not at all - MC Becoming easily annoyed or irritableBLE - More than half the days - MC Feeling afraid as if something awful might happen - Not at all - MAYA-7 MyChart Scores - 7 - How much difficulty - Somewhat difficult - Feeling nervous 0 - Not at all - 1 Can't stop worrying 0 - Not at all - 1 Worrying too much 1 - Several days - 0 Trouble relaxing 3 - Nearly every day - 3 Restlessness 0 - Not at all - 0 Easily annoyed 3 - Nearly every day - 2 Feeling afraid 0 - Not at all - 0 How difficult? Very difficult - - Total score 7 - 7 I have personally reviewed the patient's allergies, medications, past medical history and problem list in detail and updated the patient record as necessary. Objective BP Readings from Last 3 Encounters: 07/24/20 124/86 09/07/19 (!) 155/89 08/31/19 116/80 General Appearance: alert, well appearing and in no apparent distress Psychiatric: affect/mood normal, cooperative, normal judgement/insight and memory intact Assessment and Plan Inattention--possible ADHD. Recommend ADHD evaluation. Discussed helpful strategies including lists and structure to reduce struggles. Discussed possibly adding bupropion--See patient instructions for more details of information discussed with Hari Elise today. - Behavioral Health MAYA (generalized anxiety disorder) (HRC) and Panic attacks (HRC) -stable. Improved with using lists for work. Current moderate episode of major depressive disorder without prior episode (HRC) and Dysthymic disorder (HRC) -consider adding bupropion: Discussed the risks benefits and alternatives Patient Instructions Consider adding bupropion for concentration, motivation and energy. We could try the XL 150 mg in AM. Bupropion can cause anxiety and insomnia and if this occurs, we could change to the SR 100 mg once in the AM OR twice daily. Follow up: Quick Schedule Follow Up Visits Return: As Needed (PRN) This visit was conducted via video. Location of clinician: home Location of patient: home Time spent on video in [id number] contact with patient, if applicable: N/A documented in this encounter Plan of Treatment Upcoming Encounters Date Type Specialty Care Team Description 08/09/2022 Appoint[place] [address] [place], [place] [address] (Wo rk) 08/10/2022 Appointment Physiatry/Physical Russel Mar MD [facility] [address] [facility] [place] [address] [address] (Wo rk) 08/16/2022 [place] [address] [place], [place] [address] (Wo rk) 08/23/2022 [place]oint[place] [address] [place], [place] [address] (Wo rk) 08/27/2022 Appoint[place] [address] [place], [place] [address] (Wo rk) 08/30/2022 Appointment [place] [address] [place], [place] [address] (Wo rk) 09/03/2022 Appoint[place] [address] [place], [place] [address] (Wo rk) 09/06/2022 Appointment [place] [address] [place], [place] [address] (Wo rk) 09/10/2022 [place] [address] [place], [place] [address] (Wo rk) 09/30/2022 Appointment Family Medicine Elicia Georges MD [facility] [phone] (Wo rk) Scheduled Referrals Name Type Priority Associated Diagnoses [facility] Referral Routine Inattention Ordered: 0 12/29/2020 documented as of this encounter Visit Diagnoses Diagnosis Inattention - Primary Other specified conditions influencing h ealth status MAYA (generalized anxiety disorder) (HRC) Generalized anxiety disorder Panic attacks (HRC) Panic disorder without agoraphobia Current moderate episode of major depres sive disorder without prior episode (HRC) Dysthymic disorder (HRC) Dysthymic disorder documented in this encounter Care Teams Supervisor Acoustical Tile Carpenters Relationship Specialty Start Date End Date Elicia Georges MD PCP - General Family Practice 08/09/[address] [id number] documented as of this encounter
--- OUTSIDE RECORDS SUMMARY | 2022-08-01 13:16 | XMS_ITS | Encounter Summary ---
:1990 Author Organization [employer] Address [address] [place] [address] Care Team Providers Name Role Phone Elicia Lockhart MD Primary Care Provider Reason for Visit Reason Comments COLDSORE Encounter Details Date Type Department Care Team Description 09/07/2019 Office Visit Chel Michel, Recurrent herpes [address] labialis (Primary Dx) [place] [address] [address] [phone] [place] [id number] Social History Tobacco Use Types Packs/Day Years [...] Sign Reading Time Taken Comments Blood Pressure 155/89 09/07/2019 11:10 AM COMPUTER REPAIR INSTRUCTOR Pulse 90 09/07/2019 11:10 AM COMPUTER REPAIR INSTRUCTOR Temperature - - Respiratory Rate - - Oxygen Saturation - - Inhaled Oxygen Concentration - - Weight - - Height - - Body Mass Index - - documented in this encounter Progress Notes Chel Puentes MBBS - 09/07/2019 11:00 AM CST Subjective: Chief complaint: Chief Complaint Patient presents with ??? COLDSORE Hari Elise is an 29 y.o. male who presents for evaluation of herpes labialis. Patient has past medical history of herpes labialis for last several years and reported initially that lesions were present only once every few months and over last 4-5 months he has had 2 episodes. Patient does report i ncreased stress. Patient and his are expecting their child in 4 days when is planned.Patient otherwise denies any other concerns today. Patient was last seen at urgent care, and was treated with well acyclovir and patient reports he has started to notice some improvement in his symptoms. And would like a standing prescription for any future exacerbation. Pertinent items are noted in HPI. Outpatient Medications Prior to Visit Medication Sig ??? cholecalciferol (VITAMIN D3) 1000 units tablet Take 1 Tablet by mouth daily. ??? FLUoxetine (PROZAC) 20 MG capsule Take 1 Capsule by mouth daily. ??? hydrOXYzine HCl (ATARAX) 25 MG tablet Take 1 Tablet by mouth three times a day as needed for Anxiety. ??? Ranitidine HCl (AKA ZANTAC) 150 MG capsule Take 1 capsule by mouth 2 times daily. No facility-administered medications prior to visit. Adverse drug reactions: Patient has no known allergies. Objective: Vital signs: BP (!) 155/89 (BP Location: Right Arm, BP Cuff Size: Regular) Pulse 90 General: No acute distress Skin: Patient has a verroucous maculopapular lesion present along the left lateral edge of lower lipwith minimal surrounding erythema Rest of the exam was deferred today Assessment and plan: [facility] Diagnoses and all orders for this visit: Recurrent herpes labialis - valACYclovir (VALTREX) 500 MG tablet; Take 4 Tablets by mouth two times a day. Discussed with patient at this stage I would recommend continuing to monitor the symptoms closely. Patient was also advised regarding future refills. A standing prescription has been sent for 2 episodes. Patient will take 2 tablets twice daily on the earliest possible sign of recurrent lesion and advised to contact clinic if significant worsening redness around the lesions. Discussed the contagious nature specially in the early part of skin rash Follow up: PRN Patient agreeable with above plan Please note that the above medical documentation was created with voice recognition software and maycontain typographic errors. UTER REPAIR INSTRUCTOR documented in this encounter Plan of Treatment Upcoming Encounters Date Type Specialty Care Team Description 08/09/2022 [place] [address] [place], [place] [address] (Wo rk) 08/10/2022 Appointment Physiatry/Physical Russel Mar MD [facility] [address] [facility] [address] [address] (Wo rk) 08/16/2022 [place] [address] [place], [place] [address] (Wo rk) 08/23/2022 [place] [address] [place], [place] [address] (Wo rk) 08/27/2022 [place] [address] [place], [place] [address] (Wo rk) 08/30/2022 [place] [address] [place], [place] [address] (Wo rk) 09/03/2022 [place] [address] [place], [place] [address] (Wo rk) 09/06/2022 [place] [address] [place], [place] [address] (Wo rk) 09/10/2022 [place] [address] [facility] [place] [address] (Wo rk) 09/30/2022 Appointment Family Medicine Elicia Lockhart MD [address] [place] [address] [address] (Wo rk) documented as of this encounter Visit Diagnoses Diagnosis Recurrent herpes labialis - Primary Herpes simplex without mention of compli cation documented in this encounter Care Teams Production Posting Clerk Relationship Specialty Start Date End Date Elicia Lockhart MD PCP - General Family Practice 08/09/[address] [id number] documented as of this encounter
--- OUTSIDE RECORDS SUMMARY | 2022-08-01 13:16 | XMS_ITS | Encounter Summary ---
:1990 Author Organization [employer] Address [address] [place] [address] Care Team Providers Name Role Phone Elicia Lockhart MD Primary Care Provider Reason for Visit Reason Comments Follow-up Encounter Details Date Type Department Care Team Description 08/11/2020 Telemedicine [facility] Angelica e Elicia Lockhart, MAYA (generalized anxiety dis order) (Primary Dx); Arron Danny Blake MD Current moderate episode of major depres sive disorder without prior episode (HRC); [place] [address] Panic attacks [phone] [place] [id number] (Wo rk) Social History Tobacco Use Types [...] encounter Progress Notes Elicia Lockhart MD - 08/11/2020 9:00 AM CST Subjective Chief Complaint Patient presents with ??? Follow-up Hari Elise is a 30 y.o. male who presents (and consents) for a video visit today with the following concerns: 1. MAYA (generalized anxiety disorder) (HRC) 2. Current moderate episode of major depressive disorder without prior episode (HRC) 3. Panic attacks (HRC) His last visit, we increased fluoxetine from 20 mg daily to 40 mg daily and add propranolol 10-20 mgup to 3 times daily for panic attacks. He has tried propranolol and found it very helpful. 20 mg works better than 10 mg. It takes about 1 hour for the symptoms of the panic attack to resolve after taking propranolol. Unlike previously, he is able to return to work and function after taking the propranolol. He has not had any negative side effects from propranolol. He has not noticed any benefits or side effects from the increased dose of fluoxetine. However the dose was increased to half weeks ago. PHQ9 Scores PHQ-9 08/11/2020 08/11/2020 07/24/2020 PHQ-9 Score Total - 9 15 Q1: Loss of Int/Pleas - - +++ Q2: Depressed mood - - +++ Q3: Sleep problems - - + Q4: Tired/Low Energy - - +++ Q5: Appetite change - - - Q6: Feelings of failure - - ++ Q7: Concentration Prob - - +++ Q8: Slow or Restless - - - Q9: Thought Self Harm - - - PHQ-9 Patient-Entered Score Total 9 - - Patient-Entered Q1: Loss of Int/Pleas + - - Patient-Entered Q2: Depressed Mood ++ - - Patient-Entered Q3: Sleep Problems - - - Patient-Entered Q4: Tired/Low Energy +++ - - Patient-Entered Q5: Appetite Change - - - Patient-Entered Q6: Feelings of Failure ++ - - Patient-Entered Q7: Concentration Prob + - - Patient-Entered Q8: Slow or Restless - - - Patient-Entered Q9: Thought Self Harm - - - Index Date: No date on file. MAYA 7 Scores MAYA-7 07/24/2020 05/22/2019 04/19/2019 Feeling nervous 3 1 1 Can't stop worrying 3 0 1 Worrying too much 3 0 0 Trouble relaxing 3 0 1 Restlessness 0 0 0 Easily annoyed 3 1 3 Feeling afraid 3 0 0 How difficult? Extremely difficult Somewhat difficult Somewhat difficult Total score 18 2 6 I have personally reviewed the patient's allergies, [...] Speech: normal pitch and normal volume Mood: Anxious and depressed Affect: mood-congruent Thought Process: within normal limits Thought Content: within normal limits Sensorium: intact Cognition: grossly intact Insight: good Judgment: good Assessment and Plan MAYA (generalized anxiety disorder) (HRC) - FLUoxetine (PROZAC) 20 MG capsule; Take 1 Capsule by mouth daily. Take with 40 mg daily for total 60 mg daily. Current moderate episode of major depressive disorder without prior episode (HRC) - FLUoxetine (PROZAC) 20 MG capsule; Take 1 Capsule by mouth daily. Take with 40 mg daily for total 60 mg daily. Panic attacks (HRC) - FLUoxetine (PROZAC) 20 MG capsule; Take 1 Capsule by mouth daily. Take with 40 mg daily for total 60 mg daily. Increase fluoxetine to 60 mg daily:Discussed the risks benefits and alternatives Encouraged him to use propranolol earlier before he develops severe symptoms of anxiety/panic attack. It sounds like 20 mg works better for him than 10 mg and encouraged him to continue to use the 20 mg dose. Follow-up in about 4 weeks. Recheck me sooner if any side effects from the increased dose of fluoxetine Continued at healthy lifestyle changes to improve sleep mental health and physical health including physical activity. Follow up: Quick Schedule Follow Up Visits Return With: Me (Clinician) Return On or After: 09/08/20 Reason: Mental Health Follow Up, Video Visit This visit was conducted via video. Location of clinician: home Location of patient: home Time spent on video in [id number] contact with patient, if applicable: N/A SYSTEMS DEVELOPER documented in this encounter Plan of Treatment Upcoming Encounters Date Type Specialty Care Team Description 08/09/2022 [place] [address] [place], [place] [address] (Wo rk) 08/10/2022 Appointment Physiatry/Physical Russel Mar MD [facility] [address] [facility] [place] [address] (Wo rk) 08/16/2022 [place] [address] [address], [place] [address] (Wo rk) 08/23/2022 [place] [address] [address], [place] [address] (Wo rk) 08/27/2022 [place] [address] [address] [address] (Wo rk) 08/30/2022 Appointment [place] [address] [address] [address] (Wo rk) 09/03/2022 [place]oint[place] [address] [address] [address] (Wo rk) 09/06/2022 [place] [address] [address], [place] [address] (Wo rk) 09/10/2022 [place] [address] [address], [place] [address] (Wo rk) 09/30/2022 Appointment Family Medicine Elicia Lockhart MD [facility] [place] [address] (Wo rk) documented as of this encounter Visit Diagnoses Diagnosis MAYA (generalized anxiety disorder) (HRC) - Primary Generalized anxiety disorder Current moderate episode of major depres sive disorder without prior episode (HRC) Panic attacks (HRC) Panic disorder without agoraphobia documented in this encounter Care Teams Outbound Sales Consultant Relationship Specialty Start Date End Date Elicia Lockhart MD PCP - General Family Practice 08/09/[address] [place] [address] documented as of this encounter
--- OUTSIDE RECORDS SUMMARY | 2022-08-01 13:16 | XMS_ITS | Encounter Summary ---
:1988 Author Organization [employer] Address [address] [place] [address] Care Team Providers Name Role Phone Elicia Lockhart MD Primary Care Provider Encounter Details Date Type Department Care Team Description 04/20/2019 Lab Visit [facility] F[facility] [address] [place] [address] Social History Tobacco Use Types Packs/Day Years [...] encounter Progress Notes Elicia Lockhart MD - 04/20/2019 1:20 PM CDT Please let Hari Elise know: you have MONO-like illness caused by CMV virus (cytomegalovirus). It is just like mono and can last for weeks. Because your spleen is enlarged, I strongly recommend anyactivities that could cause impact to your abdomen such as a fall contact sports for the next 6 weeks. Please return to clinic or contact me if her symptoms are not improving or if you are getting worse. The rest of the tests are negative/normal. documented in this encounter Plan of Treatment Upcoming Encounters Date Type Specialty Care Team Description 08/09/2022 [place] [address] [place], [place] [address] (Wo rk) 08/10/2022 Appointment Physiatry/Physical Russel Mar MD [facility] [address] [facility] [address] [address] (Wo rk) 08/16/2022 [place] [address] [place], [place] [address] (Wo rk) 08/23/2022 [place] [address] [place], [place] [address] (Wo rk) 08/27/2022 Appoint[place] [address] [place], [place] [address] (Wo rk) 08/30/2022 [place] [address] [place], [place] [address] (Wo rk) 09/03/2022 [place] [address] [place], [place] [address] (Wo rk) 09/06/2022 App[place] [address] [place], [place] [address] (Wo rk) 09/10/2022 [place] [address] [place], [place] [address] (Wo rk) 09/30/2022 Appointment Family Medicine Elicia Lockhart MD [address] [place], [place] [phone] (Wo rk) documented as of this encounter Procedures Procedure Name Priority Date/Time Associated Comments Diagnosis EHRLICHIA AND ANAPLASMA Routine 04/20/2019 1:42 Fever and chil ls Results for this SPECIES PCR PM CDT procedure are i n the results section. CYTOMEGALOVIRUS IGM Routine 04/20/2019 1:42 Fever and chills R esults for this ANTIBODY PM CDT procedure are i n the results section. CYTOMEGALOVIRUS IGG Routine 04/20/2019 1:42 Fever and chills R esults for this ANTIBODY PM CDT procedure are i n the results section. HEPATITIS PANEL ACUTE Routine 04/20/2019 1:42 Fever and chills Results for this WITH REFLEX TO PM CDT procedure are in CONFIRMATION the results section. HIV 1/2 AG/AB 4TH GEN Routine 04/20/2019 1:42 Fever and chills Results for this PM CDT procedure are i n the results section. LYME ANTIBODY (REFLEX TO Routine 04/20/2019 1:42 Fever and chi lls Results for this LYME CONFIRMATORY PANEL) PM CDT pro cedure are in the results section. documented in this encounter Results Ehrlichia and Anaplasma Species PCR (04/20/2019 1:42 PM CDT) Component Value Ref Test Analysis Performed At [facility] Range Method Time Signature Anaplasma Not 04/23/2019 [facility] Phagocytophilum Detected 12:47 PM LABORATORIES CDT Ehrlichia Not 04/23/2019 [facility] Chaffeensis Detected 12:47 PM LABORATORIES CDT Ehrlichia Not 04/23/2019 [facility] ewingii/canis Detected 12:47 PM LABORATORIES CDT Ehrlichia Not 04/23/2019 [facility] muris-like Detected 12:47 PM LABORATORIES CDT Comment: INTERPRETIVE INFORMATION: ??Ehrlichia an d Anaplasma Species by PCR ?? A negative result does not rule out the presence of PCR inhibitors in the patient specimen or test-specific nucleic acid in concentrations below the level of detect ion by this assay. Test developed and characteristics deter mined by [employer]. See Compliance Statement B : [employer] Performed by [employer], [address] [place] [address] [email or web address], Terrence Giron MD, Lab. Director Specimen Anatomical Collection Method / Collection Time Recei nicolette Time (Source) Location / Volume Laterality Blood Venipuncture / 04/20/2019 1:42 04/20/2019 1:44 Unknown PM CDT PM CDT Elicia Lockhart MD LAB_1 Performing Organization Address City/[facility] Phon e Number [employer] 500 Counts Include 234 Beds At [facility] , [place], [place] [id number] Lyme Antibody, and Western Blot If Needed) (04/20/2019 1:42 PM CDT) athologist Signature Lyme Units 0.45 IV 04/21/2019 [facility] 9:25 AM CDT LABORATORY Comment: The magnitude of the measured r esult, above the cutoff, is not indicative of the amount of antibody present. Lyme Disease Negative Negative 04/21/2019 9:25 AM CDT [facility] Serology Specimen Anatomical Collection Method / Collection Time Recei nicolette Time (Source) Location / Volume Laterality Blood Venipuncture / 04/20/2019 1:42 04/20/2019 1:44 Unknown PM CDT PM CDT Elicia Lockhart MD LAB_1 Performing Organization Address City/[facility] Code Phon e Number [facility] [address] [place] [address] (ABNORMAL) Cytomegalovirus IgM Antibody (04/20/2019 1:42 PM CDT) [facility] Method Time Signature Cytomegalovirus IgM 234.0 AU/mL 04/24/2019 [facility] 11:28 AM CDT LABORATORY Comment: The magnitude of the measured r esult, above the cutoff, is not indicative of the amount of antibody present. Cytomegalovirus IgM Positive (A) Negative 04/24/2019 11:28 [facility] Interpretation AM CDT LABORATORY Specimen Anatomical Collection Method / Collection Time Recei nicolette Time (Source) Location / Volume Laterality Blood Venipuncture / 04/20/2019 1:42 04/20/2019 1:44 Unknown PM CDT PM CDT Narrative [facility] - 04/24/2019 11:28 AM CDT Presence of detectable CMV IgM antibodie s. A positive result is generally indicative of acute infection, reactivation, or per sistent IgM production. Elicia Lockhart MD LAB_1 Performing Organization Address [facility] e Number [facility] [address] [place] [address] (ABNORMAL) Cytomegalovirus IgG Antibody (04/20/2019 1:42 PM CDT) [facility] [email or web address] Method Time Signature Cytomegalovirus IgG 0.7 U/mL 04/24/2019 [facility] Antibody 11:28 AM CDT LABORATORY Comment: The magnitude of the measured r esult, above the cutoff, is not indicative of the amount of antibody present. Cytomegalovirus IgG Positive (A) Negative 04/24/2019 11:28 [facility] Interpretation AM CDT LABORATORY Specimen Anatomical Collection Method / Collection Time Recei nicolette Time (Source) Location / Volume Laterality Blood Venipuncture / 04/20/2019 1:42 04/20/2019 1:44 Unknown PM CDT PM CDT Narrative [facility] - 04/24/2019 11:28 AM CDT Presence of detectable CMV IgG antibodie s. A positive result generally indicates either recent or past exposure to the CM V. Elicia Lockhart MD LAB_1 Performing Organization Address [facility] [address] [place] [address] Hepatitis Panel with Reflex to Confirmation (04/20/2019 1:42 PM CDT) [facility] [email or web address] Method Time Signature Hepatitis A Negative Negative 04/20/2019 [facility] Antibody, IgM (Non (Non 8:28 PM CDT LABORATORY Reactive) Reactive) Comment: IgM anti-HAV not detected. Does not exclude the possibility of exposure to or infection with HAV. Levels of IgM ant i-HAV may be below the cut-off in early infection. Hepatitis Bc Negative (Non Negative 04/20/2019 8:[address] Antibody,IgM Reactive) (Non-Reactive) PM CDT LABORATORY Comment: IgM anti-HBc not detected. Does not exclude the possibility of exposure to or infection with HBV. Hepatitis B Negative (Non Negative (Non 04/20/2019 8:28 [facility] Surface Antigen Reactive) Reactive) PM CDT LABORATORY Hepatitis C Negative (Non Negative (Non 04/20/2019 8:28 [facility] Antibody Reactive) Reactive) PM CDT LABORATORY Comment: Antibodies to HCV not detected. Does not exclude the possiblity of exposure to HCV. Specimen Anatomical Collection Method / Collection Time Recei nicolette Time (Source) Location / Volume Laterality Blood Venipuncture / 04/20/2019 1:42 04/20/2019 1:44 Unknown PM CDT PM CDT Elicia Lockhart MD LAB_1 Performing Organization Address City/[facility] Phon e Number [facility] [address] [place] [address] HIV 1/2 Ag/Ab 4th Generation (04/20/2019 1:42 PM CDT) [facility] Method Time Signature HIV 1/2 Negative Negative 04/20/2019 [facility] Antigen/Antib (Non (Non 7:59 PM CDT LABORATORY betty (4th Reactive) Reactive) generation) Comment: HIV-1 p24 Antigen and HIV-1/HIV -2 Antibody not detected Specimen Anatomical Collection Method / Collection Time Recei nicolette Time (Source) Location / Volume Laterality Blood Venipuncture / 04/20/2019 1:42 04/20/2019 1:44 Unknown PM CDT PM CDT Elicia Lockhart MD LAB_1 Performing Organization Address City/[facility] Phon e Number [facility] [address] [place] [address] documented in this encounter Visit Diagnoses Diagnosis Fever and chills Fever, unspecified documented in this encounter Care Teams Office Asst Relationship Specialty Start Date End Date Elicia Lockhart MD PCP - General Family Practice 08/09/18 [address] [place] [address] documented as of this encounter
--- OUTSIDE RECORDS SUMMARY | 2022-08-01 13:16 | XMS_ITS | Encounter Summary ---
:1988 Author Organization [employer] Address [address] [place] [address] Care Team Providers Name Role Phone Elicia Georges MD Primary Care Provider Reason for Visit Reason Onset Date Comments Refill 12/01/2020 hydrOXYzine HCl (CHRISTY RAX) 25 MG tablet Encounter Details Date Type Department Care Team Description 12/01/2020 Refill Elicia Leigh, Refill (hydrOXYzine HCl [address] Blake MD (ATARAX) 25 MG tablet) [place] [address] [address] [phone] [place] [address] (Wo rk) Social History [...] documented as of this encounter Nursing Notes Ashlee Claros RN - 12/02/2020 9:35 AM CDT Previously pended medication(s) have been addressed or refilled in another encounter or office visit. No further action is needed. Requested Prescriptions No prescriptions requested or ordered in this encounter Interface, Out advisorCONNECT Prov Query - 12/01/2020 11:53 PM CDT hydrOXYzine HCl (ATARAX) 25 MG tablet Medication started: 11/16/2018 Last ordered by ELICIA GEORGES R: 11/13/2020 (18 days ago) QTY: 90, Refills: 3, Sig: take 1-2 tablets by mouth every 8 hours as needed for itching. (unchanged) -> Refill x 12 months (until due for an office visit) -> Calculate the quantity and number of refills manually. Last qualifying visit: 09/15/2020 (with ELICIA GEORGES) Next scheduled visit: None Powered by [employer], Reference: [id number], 12/01/2020 11:53:37 PM CDT, Pool: ABBYELIZABETH REFILL ([id number]) Mechelle Nelson - 12/01/2020 11:53 PM CDT Request received for Rx to be written for a 90 day supply. documented in this encounter Plan of Treatment Upcoming Encounters Date Type Specialty Care Team Description 08/09/2022 [place] [address] [place], [place] [address] (Wo rk) 08/10/2022 Appointment Physiatry/Physical Russel Mar MD [facility] [address] [facility] [address] [address] (Wo rk) 08/16/2022 Appoint[place] [address] [place], [place] [address] (Wo rk) 08/23/2022 Appoint[place] [address] [place], [place] [address] (Wo rk) 08/27/2022 App[place] [address] [place], [place] [address] (Wo rk) 08/30/2022 Appoint[place] [address] [place], [place] [address] (Wo rk) 09/03/2022 App[place] [address] [place], [place] [address] (Wo rk) 09/06/2022 Appoint[place] [address] [place], [place] [address] (Wo rk) 09/10/2022 [place] [address] [place], [place] [address] (Wo rk) 09/30/2022 Appointment Family Medicine Elicia Georges MD [address] [address] (Wo rk) documented as of this encounter Visit Diagnoses Diagnosis Chronic urticaria Other specified urticaria documented in this encounter Care Teams Registered Nurse Nursery Relationship Specialty Start Date End Date Elicia Georges MD PCP - General Family Practice 08/09/[address] [address] [address] documented as of this encounter
--- OUTSIDE RECORDS SUMMARY | 2022-08-01 13:16 | XMS_ITS | Encounter Summary ---
:1990 Author Organization [employer] Address [address] [place] [address] Care Team Providers Name Role Phone Elicia Lockhart MD Primary Care Provider Reason for Visit Reason Comments Follow-up Encounter Details Date Type Department Care Team Description 11/05/2020 Telephone [place] CPAP Olivia Pool RT Follow-up [address] [facility], [address] [place] [address] Social History Tobacco Use Types Packs/Day Years [...] encounter Nursing Notes Olivia Pool RT - 11/05/2020 2:29 PM CST RX from for [facility], pt was vended nasal mask, will update RX. Comments on RX as follows: Change of vendor. [facility]. ??Sim would like to make appt in [place] to come in and look at updated masks. ??Please call to set up appointment. ??Also please allow [facility] access to data. ??Has [employer]onsored machine. Thanks. I did call hari and AUBREY, I will also send welcome packet to address on file. RT Deborah 11/05/2020, 2:30 PM PAINTER documented in this encounter Plan of Treatment Upcoming Encounters Date Type Specialty Care Team Description 08/09/2022 [place] [address] [place], [place] [address] (Wo rk) 08/10/2022 Appointment Physiatry/Physical Russel Mar MD [place] [address] [facility] [address] [address] (Wo rk) 08/16/2022 [place] [address] [place], [place] [address] (Wo rk) 08/23/2022 [place] [address] [place], [place] [address] (Wo rk) 08/27/2022 [place] [address] [place] [address] [place], [place] [address] (Wo rk) 08/30/2022 [place] [address] [place] [address] [place] [address] (Wo rk) 09/03/2022 [place] [address] [place] [address] [place] [address] (Wo rk) 09/06/2022 [place] [address] [place], [place] [address] (Wo rk) 09/10/2022 Appointment [place] [address] [place], [place] [address] (Wo rk) 09/30/2022 Appointment Family Medicine Elicia Lockhart MD [address] [id number] (Wo rk) documented as of this encounter Visit Diagnoses Not on filedocumented in this encounter Care Teams Auto Electrical Technician Relationship Specialty Start Date End Date Elicia Lockhart MD PCP - General Family Practice 08/09/[address] [place] [address] [id number] documented as of this encounter
--- OUTSIDE RECORDS SUMMARY | 2022-08-01 13:16 | XMS_ITS | Encounter Summary ---
:1990 Author Organization [employer] Address [address], [place] [address] Care Team Providers Name Role Phone Elicia Lockhart MD Primary Care Provider Reason for Visit Reason Comments Other Encounter Details Date Type Department Care Team Description 07/20/2019 Telephone [facility] 393 1 CPAP Services Jeimy Dolan [address] [place] [address] Social History Tobacco Use Types Packs/Day Years [...] 08/09/2022 [place] [address] [place], [place] [address] (Barrett akers) 08/10/2022 Appointment Physiatry/Physical Russel Mar MD [facility] [facility] [address] (Barrett akers) 08/16/2022 Appointment [place] [address] [place], [place] [address] (Wo rk) 08/23/2022 Appointment [place] [address] [place], [place] [address] (Wo rk) 08/27/2022 Appointment [place] [address] [place], [place] [address] (Wo rk) 08/30/2022 [place] [address] [place], [place] [address] (Wo rk) 09/03/2022 [place] [address] [place], [place] [address] (Wo rk) 09/06/2022 [place] [address] [place], [place] [address] (Wo rk) 09/10/2022 [place] [address] [place], [place] [address] (Wo rk) 09/30/2022 Appointment Family Medicine Elicia Lockhart MD [address] [id number] (Wo rk) documented as of this encounter Visit Diagnoses Not on filedocumented in this encounter Care Teams Wood Carver Relationship Specialty Start Date End Date Elicia Lockhart MD PCP - General Family Practice 08/09/[address] [id number] documented as of this encounter
--- OUTSIDE RECORDS SUMMARY | 2022-08-01 13:16 | XMS_ITS | Encounter Summary ---
:1990 Author Organization [employer] Address [address], [place] [address] Care Team Providers Name Role Phone Elicia Georges MD Primary Care Provider Reason for Visit Reason Comments Refill FLUoxetine (PROZAC) 20 MG ca psule [Pharmacy Med Name: FLUOXETINE HCL 20 MG CAPSULE] Encounter Details Date Type Department Care Team Description 05/16/2019 Refill Elicia Leigh, Refill (FLUoxetine [address] MD (PROZAC) 20 [place] [address] [address] [Pharmacy Med Name: [phone] [address] [address] FLUOXETINE HCL 20 MG [phone] (Wo rk) CAPSULE]) Social History Tobacco Use [...] documented as of this encounter Nursing Notes Mya Mei RN - 05/18/2019 10:31 AM CDT Further Assistance Needed on Refill from Clinician RN reviewed. Medication ordered for short term. Medication newly ordered in last 12 months Per office note of 04/19/2019: Return in about 4 weeks (around 05/17/2019) for dep/JEFF crowell. Last qualifying visit: 04/19/2019 (with ELICIA GEORGES) Next scheduled visit: 05/22/2019 (with ELICIA GEORGES) Review pended order for accuracy and sign if appropriate Requested Prescriptions Pending Prescriptions Disp Refills ??? FLUoxetine (PROZAC) 20 MG capsule [Pharmacy Med Name: FLUOXETINE HCL 20 MG CAPSULE] 30 Capsule 0 Sig: TAKE 1 CAPSULE BY MOUTH EVERY DAY Interface, Out Surescripts Prov Query - 05/16/2019 12:36 PM CDT FLUoxetine (PROZAC) 20 MG capsule [Pharmacy Med Name: FLUOXETINE HCL 20 MG CAPSULE] Medication started: 04/19/2019 Last ordered by ELICIA GEORGES: 04/19/2019 (27 days ago) QTY: 30, Refills: 2, Sig: take 1 capsule by mouth daily. (changed but equivalent) -> This is a re-requested duplicate that should be manually reviewed. -> A duplicate request was processed on 05/15/2019. -> Refill x 12 months, qty: 90, refills: 3 (until due for an office visit) Last qualifying visit: 04/19/2019 (with ELICIA GEORGES) Next scheduled visit: 05/22/2019 (in Family Practice) SBP: 114 mm Hg on 04/19/2019 DBP: 74 mm Hg on 04/19/2019 Powered by [employer], Reference: [id number], 05/16/2019 12:36:33 PM CDT, Pool: MADELEINE REFILL ([id number]) documented in this encounter Plan of Treatment Upcoming Encounters Date Type Specialty Care Team Description 08/09/2022 [place] [address] [facility] [place] [address] (Wo rk) 08/10/2022 Appointment Physiatry/Physical Russel Mar MD [address] [address] (Wo rk) 08/16/2022 [place] [address] [place], [place] [address] (Wo rk) 08/23/2022 [place] [address] [place], [place] [address] (Wo rk) 08/27/2022 [place] [address] [facility] [place] [address] (Wo rk) 08/30/2022 [place] [address] [facility] [place] [address] (Wo rk) 09/03/2022 [place] [address] [facility] [place] [address] (Wo rk) 09/06/2022 Appointment [place] [address] [place], [place] [address] (Wo rk) 09/10/2022 App[place] [address] [place], [place] [address] (Wo rk) 09/30/2022 Appointment Family Medicine Elicia Georges MD [address] [id number] (Wo rk) documented as of this encounter Visit Diagnoses Diagnosis MAYA (generalized anxiety disorder) (HRC) Generalized anxiety disorder Dysthymic disorder (HRC) Dysthymic disorder documented in this encounter Care Teams Principal Developer Relationship Specialty Start Date End Date Elicia Georges MD PCP - General Family Practice 08/09/[address] [id number] documented as of this encounter
--- OUTSIDE RECORDS SUMMARY | 2022-08-01 13:16 | XMS_ITS | Encounter Summary ---
:1990 Author Organization [employer] Address [address] [place] [address] Care Team Providers Name Role Phone Elicia Lockhart MD Primary Care Provider Reason for Referral Procedure/Equipment (Routine) - Closed Specialty Diagnoses / Procedures Referred By Contact Refer red To Contact Diagnoses CHRISTOPH (obstructive sleep apnea) Maranda Sagastume APRN, CNP Procedures Positive Airway Pressure - Change [address] [place] [address] [address] [place] [address] Referral ID Status Reason Start Date Expiration Date Visits Requ ested Visits Authorized [id number] Closed 11/05/2020 02/04/2022 1 1 RANCE CLAIM APPROVER Encounter Details Date Type Department Care Team Description 11/05/2020 Notes/Orders Specialty Center 3931 Maranda Sagastume O SA (obstructive CPAP Services SHO LEZAMA sleep apnea) (Primary [address] 39[address] [facility] Dx ) [address] [place] [phone] (Wo rk) Social History Tobacco Use Types [...] 08/09/2022 [place] [address] [place], [place] [address] (Wo rk) 08/10/2022 Appointment Physiatry/Physical Russel Mar MD Medicine [address] [facility] [place] [address] (Wo rk) 08/16/2022 [place] [address] [place], [place] [address] (Wo rk) 08/23/2022 [place] [address] [place], [place] [address] (Wo rk) 08/27/2022 [place]oint[place] [address] [place], [place] [address] (Wo rk) 08/30/2022 [place] [address] [place], [place] [address] (Wo rk) 09/03/2022 [place] [address] [place], [place] [address] (Wo rk) 09/06/2022 [place] [address] [place], [place] [address] (Wo rk) 09/10/2022 [place] [address] [place], [place] [address] (Wo rk) 09/30/2022 Appointment Family Medicine Elicia Lockhart MD [address] [id number] (Wo rk) documented as of this encounter Visit Diagnoses Diagnosis CHRISTOPH (obstructive sleep apnea) - Primary Obstructive sleep apnea (adult) (pediatr ic) documented in this encounter Care Teams Customer Service Teller Relationship Specialty Start Date End Date Elicia Lockhart MD PCP - General Family Practice 08/09/[address] [id number] documented as of this encounter
--- OUTSIDE RECORDS SUMMARY | 2022-08-01 13:16 | XMS_ITS | Encounter Summary ---
:1988 Author Organization [employer] Address [address] [place] [address] Care Team Providers Name Role Phone Elicia Lockhart MD Primary Care Provider Reason for Referral Consult/Transfer Care (Routine) - Closed Specialty Diagnoses / Procedures Referred By Contact Refer red To Contact Diagnoses CHRISTOPH (obstructive sleep apnea) Elicia Lockhart MD [address] [place] [address] Referral ID Status Reason Start Date Expiration Date Visits Requ ested Visits Authorized [id number] Closed 05/22/2019 08/20/2020 1 1 Scheduling Instructions Your provider has recommended an appoint ment with Sleep Health Services. This is not a sleep study order and must first be re viewed by a sleep specialist to determine the next steps. The review process looks at multiple factors including your insurance requirements, personal health history, a nd [place] [employer] guidelines. This order will be reviewed within 1 and sent to scheduling for one of the following appointments: - Consultation/Office Visit with a Slee p Medicine Specialist - Consultation/Office Visit with an Ins omnia Specialist - Portable/Home Sleep Test If you do not hear from our scheduling s taff within the next 7 days, please contact us at [phone] and select option 1. Reason for Visit Reason Comments Follow-up Encounter Details Date Type Department Care Team Description 05/22/2019 Office Visit Elicia Cote MAYA (genera lized anxiety disorder) (Primary Dx); Tony Bustos MD Dysthymic disorder; [address] CHRISTOPH (obstructive sleep apnea); [address] [address] [address] [address] Cytomegalovirus infection, unspecified c ytomegaloviral infection type (HRC); [phone] EBV infection; (Work) Dysthymic disorder Social History Tobacco Use Types [...] Sign Reading Time Taken Comments Blood Pressure 122/76 05/22/2019 9:03 AM CDT Pulse 80 05/22/2019 9:03 AM CDT Temperature - - Respiratory Rate - - Oxygen Saturation - - Inhaled Oxygen Concentration - - Weight 99.3 kg (219 lb) 05/22/2019 9:03 AM CDT Height - - Body Mass Index 30.98 07/18/2013 8:46 AM CDT documented in this encounter Patient Instructions Patient InstructionsElicia Lockhart MD - 05/22/2019 9:00 AM CDT Exercise. Eat well (lots fruits/veggies). documented in this encounter Progress Notes Elicia Lockhart MD - 05/22/2019 9:00 AM CDT Subjective Chief Complaint Patient presents with ??? Follow-up Hari Elise is a 28 y.o. male who presents to the clinic today with the following concerns: 1. MAYA (generalized anxiety disorder) (HRC) 2. Dysthymic disorder (HRC) 3. CHRISTOPH (obstructive sleep apnea) 4. Cytomegalovirus infection, unspecified cytomegaloviral infection type (HRC) 5. EBV infection 6. Dysthymic disorder Hari presents to the clinic today for a follow-up of depression and anxiety. He states that he is tolerating the fluoxetine well and that it has definitely improved his moods. He denies any side effects from the fluoxetine and he didn't have any upon starting the medicating either. He denies suicidal ideation. He states that he has been having problems with getting adequate rest. This has been present for about 8 years. He sleeps about 6-8 hours per night. Even when he sleeps enough hours per night, he stilldoesn't feel rested. He hasn't been exercising much lately due to his recent CMV infection, but would like to start again soon. He states that his symptoms of EBV and CMV have completely resolved. His (who is ) alsotested postive for CMV IgM, but she did not have any symptoms. She is being followed by maternal medicine. He does not feel the need to complete EBV and CMV titers today. He has CHRISTOPH and uses his CPAP nightly He states that he no longer snores. He originally had his sleep[facility] done at [facility] and hasn't been followed by Sleep Medicine since. He would like to establish with Sleep Medicine at [facility] should he need supplies for his CPAP machine. PHQ9 Scores PHQ-9 05/22/2019 04/19/2019 11/16/2018 PHQ-9 Score Total 3 13 5 Q1: Loss of Int/Pleas - ++ - Q2: Depressed mood - ++ ++ Q3: Sleep problems - - +++ Q4: Tired/Low Energy +++ +++ - Q5: Appetite change - ++ - Q6: Feelings of failure - + - Q7: Concentration Prob - ++ - Q8: Slow or Restless - - - Q9: Thought Self Harm - + - Index Date: No date on file. MAYA 7 Scores MAYA-7 05/22/2019 04/19/2019 11/16/2018 Feeling nervous 1 1 3 Can't stop worrying 0 1 2 Worrying too much 0 0 3 Trouble relaxing 0 1 3 Restlessness 0 0 1 Easily annoyed 1 3 3 Feeling afraid 0 0 0 How difficult? Somewhat difficult Somewhat difficult Extremely difficult Total score 2 6 15 Current Outpatient Medications Medication Sig Dispense Refill ??? cetirizine (ZYRTEC) 10 MG tablet Take 1 Tablet by mouth two times daily as needed. ??? cholecalciferol (VITAMIN D3) 1000 units tablet Take 1 Tablet by mouth daily. 100 Tablet PRN ??? FLUoxetine (PROZAC) 20 MG capsule Take 1 Capsule by mouth daily. 90 Capsule 3 ??? hydrOXYzine HCl (ATARAX) 25 MG tablet Take 1 Tablet by mouth three times a day as needed for Anxiety. (Patient not taking: Reported on 04/19/2019) 30 Tablet 0 ??? Ranitidine HCl (AKA ZANTAC) 150 MG capsule Take 1 capsule by mouth 2 times daily. 60 capsule 11 No current facility-administered medications for this visit. I have personally reviewed the patient's allergies, medications, past medical history and problem list in detail and updated the patient record as necessary. Objective BP 122/76 (BP Location: Right Arm, BP Cuff Size: Regular) Pulse 80 Wt 219 lb (99.3 kg) BMI 30.98 kg/m?? General Appearance: alert, well appearing and in no apparent distress HEENT: MMM. EOMs intact and pupils equal round Mental Status Evaluation: Appearance: age appropriate and casually dressed Behavior: Within Normal Limits Speech: normal pitch and normal volume Mood: within normal limits Affect: mood-congruent Thought Process: within normal limits Thought Content: within normal limits Sensorium: intact Cognition: grossly intact Insight: good Judgment: good Assessment and Plan MAYA (generalized anxiety disorder) (HRC), Dysthymic disorder (HRC) - FLUoxetine (PROZAC) 20 MG capsule; Take 1 Capsule by mouth daily. - Patient has noticed improvement on fluoxetine 20 mg daily. He will continue at this dose and return for follow-up should it not be effective anymore. - Encouraged patient to add more exercise into his lifestyle and working on getting multiple fruits and vegetables into his diet, as well as protein as this may help him to feel more rested throughout the day. CHRISTOPH (obstructive sleep apnea) - Sleep Services - Patient is using his CPAP nightly and states that he doesn't snore with it. He isn't being followed by anyone (had original study done at [facility]) so we will send a referral to Sleep Services. Cytomegalovirus infection, unspecified cytomegaloviral infection type (HRC), EBV infection - Resolved. Patient does not feel the need to have titers drawn. Other orders - cholecalciferol (VITAMIN D3) 1000 units tablet; Take 1 Tablet by mouth daily. - Refilled today and instructed patient that 1000 units should be sufficient. Patient will follow-up yearly for anxiety and depression, sooner if needed. He should have an annualphysical no later than 1 year from now. He will schedule a physical sometime in the near future. Jeff Obrien RN, CORPORATE TRAVEL MANAGER-Student, 6:10 PM 05/22/2019 I have reviewed Jeff Obrien's note and agree with her history, assessment and plan. I have confirmed the history and completed the physical exam independently from the student's history and exam. Elicia Lockhart MD 05/22/2019, 6:10 PM documented in this encounter Plan of Treatment Upcoming Encounters Date Type Specialty Care Team Description 08/09/2022 [place] [address] [place], [place] [address] (Wo rk) 08/10/2022 Appointment Physiatry/Physical Russel Mar MD [address] [address] (Wo rk) 08/16/2022 [place] [address] [place], [place] [address] (Wo rk) 08/23/2022 [place] [address] [place], [place] [address] (Wo rk) 08/27/2022 [place] [address] [place] [address], [place] [address] (Wo rk) 08/30/2022 Appointment [place] [address] [place], [place] [address] (Wo rk) 09/03/2022 Appointment [place] [address] [place], [place] [address] (Wo rk) 09/06/2022 Appointment [place] [address] [place], [place] [address] (Wo rk) 09/10/2022 Appointment [place] [address] [place], [place] [address] (Wo rk) 09/30/2022 Appointment Family Medicine Elicia Lockhart MD [address] [address] (Wo rk) Scheduled Referrals Name Type Priority Associated Diagnoses Order S [facility] Sleep Services Referral Routine CHRISTOPH (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) Ordered: 05/22/2019 documented as of this encounter Visit Diagnoses Diagnosis MAYA (generalized anxiety disorder) (HRC) - Primary Generalized anxiety disorder Dysthymic disorder CHRISTOPH (obstructive sleep apnea) Obstructive sleep apnea (adult) (pediatr ic) Cytomegalovirus infection, unspecified c ytomegaloviral infection type (HRC) EBV infection Infectious mononucleosis documented in this encounter Care Teams Licensed Psychologist Director Relationship Specialty Start Date End Date Elicia Lockhart MD PCP - General Family Practice 08/09/[address] [id number] documented as of this encounter
--- OUTSIDE RECORDS SUMMARY | 2022-08-01 13:16 | XMS_ITS | Encounter Summary ---
:1988 Author Organization [employer] Address [address] [place] [address] Care Team Providers Name Role Phone Elicia Lockhart MD Primary Care Provider Reason for Visit Reason Comments RESULTS, TEST Patient Calling Back Encounter Details Date Type Department Care Team Description 04/24/2019 Telephone Elicia Leigh, RESULTS, TEST; Patient [address] MD Calling Back [address] [address] [address] [phone] [address] [id number] (Wo rk) Social History Tobacco Use Types [...] encounter Nursing Notes Victoria Zapata LPN - 04/26/2019 4:28 PM CDT Pt notified of message. Elicia Lockhart MD - 04/26/2019 3:55 PM CDT His should let her obstetrical doctor know that he has cytomegalovirus. The might want to do some monitoring if she gets sick. Victoria Zapata LPN - 04/26/2019 3:21 PM CDT Pt notified of message. Pt states he will drop off the labs from [facility]. Pt reports that his test was in the 700-720 range on the EBV lab. Pt also wanted to let Dr. Lockhart know that his is . He is concerned that whatever he has could cause issues for the baby. Please advise. Elicia Lockhart MD - 04/26/2019 7:30 AM CDT Labs ordered. I will need a copy of the EBV lab from [facility]. Thanks. Elizabeth Walters RN - 04/25/2019 3:51 PM CDT Clinician Action: New Orders for Lab Clinician Next Step: Patient IS expecting a call back from care team Specific Request(s): 1. Pt calling back and message was reviewed. Pt is interested in rechecking labs in 4-[address] orders and notify pt when ready. Victoria Zapata LPN - 04/25/2019 9:44 AM CDT LMTCB. Elicia Lockhart MD - 04/24/2019 1:44 PM CDT To confirm if he has both her either, repeat testing in 4-6 weeks would be needed. He does not need to repeat tests if he does not want to. Victoria Zapata LPN - 04/24/2019 1:15 PM CDT Pt notified of message. Expressed understanding. FYI:Pt states he tested positive for Natalia Reyes Virus at [facility] on April 18. Hospital advised him to rest and avoid strenuous activities. Victoria Zapata LPN - 04/24/2019 1:15 PM CDT ----- Message from Elicia Lockhart MD sent at 04/24/2019 12:58 PM CDT ----- Please let Hari Elise know: you have [...] 08/09/2022 [place] [address] [address] [place], [place] [address] (Wo rk) 08/10/2022 Appointment Physiatry/Physical Russel Mar MD [address] [address] (Wo rk) 08/16/2022 [place] [address] [place] [address] (Wo rk) 08/23/2022 Appointment [place] [address] [place], [place] [address] (Wo rk) 08/27/2022 Appointment [place] [address] [place], [place] [address] (Wo rk) 08/30/2022 Appointment [place] [address] [place] [address] (Wo rk) 09/03/2022 Appointment [place] [address] [place] [address] (Wo rk) 09/06/2022 Appointment [place] [address] [place] [address] (Wo rk) 09/10/2022 Appointment [place] [address] [place], [place] [address] (Wo rk) 09/30/2022 Appointment Family Medicine Elicia Lockhart MD [address] [address] (Wo rk) documented as of this encounter Visit Diagnoses Diagnosis Fever, unspecified fever cause - Primary documented in this encounter Care Teams Team Leader Relationship Specialty Start Date End Date Elicia Lockhart MD PCP - General Family Practice 08/09/[address] [id number] documented as of this encounter
--- OUTSIDE RECORDS SUMMARY | 2022-08-01 13:16 | XMS_ITS | Encounter Summary ---
:1990 Author Organization [employer] Address [address], [place] [address] Care Team Providers Name Role Phone Elicia Georges MD Primary Care Provider Reason for Visit Reason Comments Refill propranolol (INDERAL) 10 MG tablet [Pharmacy Med Name: PROPRANOLOL 10 MG TABLET] Encounter Details Date Type Department Care Team Description 12/23/2020 Refill Elicia Leigh, Refill (propranolol [address] Blake MD (INDERAL) 10 [place] [address] [address] [Pharmacy Med Name: [phone] [place] [address] PROPRANOLOL 10 MG [phone] (Wo rk) TABLET]) Social History Tobacco Use [...] encounter Nursing Notes Ashlee Claros RN - 12/23/2020 12:02 PM CDT Further Assistance Needed on Refill from Clinician RN reviewed. Medication ordered for short term. Medication newly ordered in last 12 months and Please advise if hyperbaric technician supply is appropriate Last qualifying visit: 09/15/2020 (with ELICIA GEORGES) Next scheduled visit: 12/29/2020 (with ELICIA GEORGES) Review pended order for accuracy and sign if appropriate and Document if appointment is needed for further refills Requested Prescriptions Pending Prescriptions Disp Refills propranolol (INDERAL) 10 MG tablet [Pharmacy Med Name: PROPRANOLOL 10 MG TABLET] 30 Tablet Sig: TAKE 1 TO 2 TABLETS BY MOUTH THREE TIMES A DAY NEEDED Interface, Out [employer] Prov Query - 12/23/2020 8:39 AM CDT propranolol (INDERAL) 10 MG tablet [Pharmacy Med Name: PROPRANOLOL 10 MG TABLET] Medication started: 07/24/2020 Last ordered by ELICIA GEORGES: 07/24/2020 (152 days ago) QTY: 30, Refills: 2, Sig: take 1-2 tablets by mouth three times a day as needed for other. (changed but equivalent) -> Refill x 9 months (until due for an office visit) -> Calculate the quantity and number of refills manually. Last qualifying visit: 09/15/2020 (with ELICIA GEORGES) Next scheduled visit: 12/29/2020 (with ELICIA GEORGES) Powered by [employer], Reference: [id number], 12/23/2020 8:39:55 AM CDT, Pool: MADELEINE REFILL ([id number]) documented in this encounter Plan of Treatment Upcoming Encounters Date Type Specialty Care Team Description 08/09/2022 [place] [address] [place], [place] [address] (Wo rk) 08/10/2022 Appointment Physiatry/Physical Russel Mar MD [facility] [address] [facility] [address] [address] (Wo rk) 08/16/2022 [place]oint[place] [address] [place], [place] [address] (Wo rk) 08/23/2022 [place] [address] [place], [place] [address] (Wo rk) 08/27/2022 [place]oint[place] [address] [place], [place] [address] (Wo rk) 08/30/2022 [place] [address] [place], [place] [address] (Wo rk) 09/03/2022 App[place] [address] [place], [place] [address] (Wo rk) 09/06/2022 [place] [address] [place], [place] [address] (Wo rk) 09/10/2022 [place] [address] [place], [place] [address] (Wo rk) 09/30/2022 Appointment Family Medicine Elicia Georges MD [address] [place] [address] (Wo rk) documented as of this encounter Visit Diagnoses Diagnosis Panic attacks (HRC) Panic disorder without agoraphobia documented in this encounter Care Teams Instructional Design Manager Relationship Specialty Start Date End Date Elicia Georges MD PCP - General Family Practice 08/09/[address] [place] [address] documented as of this encounter
--- OUTSIDE RECORDS SUMMARY | 2022-08-01 13:16 | XMS_ITS | Encounter Summary ---
:1988 Author Organization [facility] Address [address] [place] [address] Care Team Providers Name Role Phone Elicia Lockhart MD Primary Care Provider Reason for Visit Reason Comments Refill hydrOXYzine HCl (ATARAX) 25 MG tablet [Pharmacy Med Name: HYDROXYZINE HCL 25 MG TABLET] Encounter Details Date Type Department Care Team Description 12/13/2020 Refill Elicia Leigh, Refill (hydrOXYzine HCl [address] [place] (ATARAX) [place] [address] [address] [Pharmacy Med Name: [phone] [place] [address] HYDROXYZINE HCL 25 MG [phone] (Wo rk) TABLET]) Social History Tobacco Use [...] documented as of this encounter Nursing Notes Kelton Cooper RN - 12/13/2020 7:46 PM CDT Requested Prescriptions Refused Prescriptions Disp Refills ??? hydrOXYzine HCl (ATARAX) 25 MG tablet [Pharmacy Med Name: HYDROXYZINE HCL 25 MG TABLET] 90 Tablet Sig: TAKE 1-2 TABLETS BY MOUTH EVERY 8 HOURS NEEDED FOR ITCHING. Refused By: KELTON COOPER Reason for Refusal: Duplicate Error Interface, Out [employer] Prov Query - 12/13/2020 8:35 AM CDT hydrOXYzine HCl (ATARAX) 25 MG tablet [Pharmacy Med Name: HYDROXYZINE HCL 25 MG TABLET] Medication started: 11/16/2018 Last ordered by TERRY CASEY S: 12/02/2020 (11 days ago) QTY: 90, Refills: 3, Sig: take 1-2 tablets by mouth every 8 hours as needed for itching. (unchanged) -> Refill x 12 months (until due for an office visit) -> Calculate the quantity and number of refills manually. Last qualifying visit: 12/02/2020 (with TERRY CASEY) Next scheduled visit: None Powered by [employer], Reference: [id number], 12/13/2020 8:35:57 AM CDT, Pool: MADELEINE REFILL ([id number]) Electronically signed by Interface, Out [employer] Prov Query at 12/13/2020 7:46 PM CDT documented in this encounter Plan of Treatment Upcoming Encounters Date Type Specialty Care Team Description 08/09/2022 [place] [address] [place], [place] [address] (Wo rk) 08/10/2022 Appointment Physiatry/Physical Russel Mar MD [facility] [address] [facility] [place] [place] [address] [address] (Wo rk) 08/16/2022 Appoint[place] [address] [place], [place] [address] (Wo rk) 08/23/2022 [place] [address] [place], [place] [address] (Wo rk) 08/27/2022 Appoint[place] [address] [place], [place] [address] (Wo rk) 08/30/2022 Appoint[place] [address] [place], [place] [address] (Wo rk) 09/03/2022 [place]oint[place] [address] [place], [place] [address] (Wo rk) 09/06/2022 Appoint[place] [address] [place], [place] [address] (Wo rk) 09/10/2022 [place] [address] [place], [place] [address] (Wo rk) 09/30/2022 Appointment Family Medicine Elicia Lockhart MD [address] [place] [address] (Wo rk) documented as of this encounter Visit Diagnoses Diagnosis Chronic urticaria Other specified urticaria documented in this encounter Care Teams Funeral Assistant Relationship Specialty Start Date End Date Elicia Lockhart MD PCP - General Family Practice 08/09/[address] [place] [address] [address] documented as of this encounter
--- OUTSIDE RECORDS SUMMARY | 2022-08-01 13:16 | XMS_ITS | Encounter Summary ---
:1988 Author Organization [facility] Address [address] [place] [address] Care Team Providers Name Role Phone Elicia Lockhart MD Primary Care Provider Reason for Referral Consult/Transfer Care (Routine) - Closed Specialty Diagnoses / Procedures Referred By Contact Refer red To Contact Diagnoses Rash of foot Elicia Lockhart MD [address] [place] [address] Referral ID Status Reason Start Date Expiration Date Visits Requ ested Visits Authorized [id number] Closed 09/15/2020 12/15/2021 1 1 Scheduling Instructions Your provider has recommended an appoint ment with Wilma Morin. You may call [phone] to schedule your appoi ntment. We suggest you call your health insurance company about your coverage an d benefits for this appointment. TRONIC TEST TECHNICIAN Reason for Visit Reason Comments Mental Health Concerns Encounter Details Date Type Department Care Team Description 09/15/2020 Telemedicine [place] Doming[place] e Elicia Lockhart, MAYA (generalized anxiety dis order) (Primary Dx); Jayy Blake MD Dysthymic disorder; [place] [address] Current moderate episode of major depres sive disorder without prior episode (HRC); [phone] [place] [address] Panic attacks; [phone] (Wo rk) Rash of foot Social History Tobacco Use Types Packs/Day Years [...] encounter Progress Notes Elicia Lockhart MD - 09/15/2020 9:00 AM CST Subjective Chief Complaint Patient presents with ??? Mental Health Concerns Hari Elise is a 30 y.o. male who presents (and consents) for a video visit today with the following concerns: 1. MAYA (generalized anxiety disorder) (HRC) 2. Dysthymic disorder (HRC) 3. Current moderate episode of major depressive disorder without prior episode (HRC) 4. Panic attacks (HRC) 5. Rash of foot Anxiety: he has found the propranolol the most helpful when he has panic like feelings. He uses the propranolol every other day on average. He is using it earlier than previously (when anxiety symptomsare moderate instead of severe) and takes 20 mg of propranolol. It takes 1 hour for the medicine to start helping. He is able to function better and work after taking the propranolol. He has not noticed any negative side effects when taking propranolol this way. Overall, he feels better. He notes restless legs and feeling more tired with fluoxetine at 60 mg daily. His legs are more jumpy in the daytime and they move more at night. He is not aware that he sleeps poorly but it does take longer to fall asleep. Foot rash: he continues to have a rash on the dorsum of the foot. He tried lotrimin ultra (OTC) for over 1 month previously without a change in the rash. He tried triamcinolone and this has helped the itch but has not improved the rash to date. PHQ9 Scores PHQ-9 09/15/2020 09/15/2020 08/11/2020 PHQ-9 Score Total - 6 - Q1: Loss of Int/Pleas - - - Q2: Depressed mood - - - Q3: Sleep problems - - - Q4: Tired/Low Energy - - - Q5: Appetite change - - - Q6: Feelings of failure - - - Q7: Concentration Prob - - - Q8: Slow or Restless - - - Q9: Thought Self Harm - - - PHQ-9 Patient-Entered Score Total 6 - 9 Patient-Entered Q1: Loss of Int/Pleas + - + Patient-Entered Q2: Depressed Mood + - ++ Patient-Entered Q3: Sleep Problems - - - Patient-Entered Q4: Tired/Low Energy +++ - +++ Patient-Entered Q5: Appetite Change - - - Patient-Entered Q6: Feelings of Failure + - ++ Patient-Entered Q7: Concentration Prob - - + Patient-Entered Q8: Slow or Restless - - - Patient-Entered Q9: Thought Self Harm - - - Index Date: 07/24/2020 MAYA 7 Scores MAYA-7 09/15/2020 09/15/2020 07/24/2020 MC Feeling nervous, anxious, or on edge Several days - - MC Not being able to stop or control worrying Several days - - MC Worrying too much about different things Not at all - - MC Trouble relaxing Nearly every day - - MC Being so restless that it's hard to sit still Not at all - - MC Becoming easily annoyed or irritableBLE More than half the days - - MC Feeling afraid as if something awful might happen Not at all - - MAYA-7 MyChart Scores 7 - - How much difficulty Somewhat difficult - - Feeling nervous - 1 3 Can't stop worrying - 1 3 Worrying too much - 0 3 Trouble relaxing - 3 3 Restlessness - 0 0 Easily annoyed - 2 3 Feeling afraid - 0 3 How difficult? - - Extremely difficult Total score - 7 18 I have personally reviewed the patient's allergies, [...] Speech: normal pitch and normal volume Mood: Mildly anxious Affect: mood-congruent Thought Process: within normal limits Thought Content: within normal limits Sensorium: intact Cognition: grossly intact Insight: good Judgment: good Assessment and Plan MAYA (generalized anxiety disorder) (HRC), Dysthymic disorder (HRC), Current moderate episode of major depressive disorder without prior episode (HRC), Panic attacks (HRC) Continue propranolol 20 mg daily PRN for increased anxiety/panic attacks. Reduce dose of fluoxetine to 40 mg daily to see if this reduces feeling tired and reduces restless leg symptoms. -MycAFreeze message will be sent in 2 weeks to follow up changes in medication (see mychart message) along with repeat PHQ and MAYA. -if worsening of symptoms, he should schedule video visit follow up (office visit ok as well if he prefers). Rash of foot - ketoconazole (NIZORAL) 2 % cream; Apply topically two times a day. - Dermatology Consult-Adult/Peds--he has tried OTC antifungals and RX mid potency steroids without benefit. Recommend considering biopsy vs derm consult vs trial of RX antifungal. Will proceed with derm consult and trial of Rx antifungal. OK to continue to use triamcinolone PRN itch as it does help the itch Follow up: Quick Schedule Follow Up Visits Return: As Needed (PRN) Return PRN: If you develop new symptoms or if symptoms persist or worsen Additional Notes: No later than 07/2021 for physical. This visit was conducted via video. Location of clinician: home Location of patient: home Time spent on video in aiuj-mu-zdze contact with patient, if applicable: N/A TRONIC TEST TECHNICIAN documented in this encounter Plan of Treatment Upcoming Encounters Date Type Specialty Care Team Description 08/09/2022 Appoint[place] [address] [place], [place] [address] (Wo rk) 08/10/2022 Appointment Physiatry/Physical Russel Mar MD [place] [id number] [facility] N [address] (Wo rk) 08/16/2022 Appointment [place] [address] [place], [place] [address] (Wo rk) 08/23/2022 Appoint[place] [address] [place], [place] [address] (Wo rk) 08/27/2022 Appoint[place] [address] [place], [place] [address] (Wo rk) 08/30/2022 Appoint[place] [address] [place], [place] [address] (Wo rk) 09/03/2022 Appoint[place] [address] [place], [place] [address] (Wo rk) 09/06/2022 Appoint[place] [address] [place] [address] (Wo rk) 09/10/2022 [place] [address] [place], [place] [address] (Wo rk) 09/30/2022 Appointment Family Medicine Elicia Lockhart MD [address] [place], [place] [id number] (Wo rk) Scheduled Referrals Name Type Priority Associated Diagnoses Order S chedule Dermatology Referral Routine Rash of foot Ordered: 2019 Consult-Adult/Peds documented as of this encounter Visit Diagnoses Diagnosis MAYA (generalized anxiety disorder) (HRC) - Primary Generalized anxiety disorder Dysthymic disorder (HRC) Dysthymic disorder Current moderate episode of major depres sive disorder without prior episode (HRC) Panic attacks (HRC) Panic disorder without agoraphobia Rash of foot documented in this encounter Care Teams Metal Fabricating Shop Helper Relationship Specialty Start Date End Date Elicia Lockhart MD PCP - General Family Practice 08/09/18 [address] [place] [address] documented as of this encounter
--- OUTSIDE RECORDS SUMMARY | 2022-08-01 13:16 | XMS_ITS | Encounter Summary ---
:1988 Author Organization [employer] Address [address] [place] [address] Care Team Providers Name Role Phone Elicia Lockhart MD Primary Care Provider Reason for Visit Reason Comments Medication Questions Encounter Details Date Type Department Care Team Description 09/06/2019 Telephone Elicia Leigh, Medication Questions [address] [place] [address] [address] [phone] [place] [address] (Wo rk) Social History Tobacco Use [...] documented as of this encounter Nursing Notes Elizabeth Agrawal LPN - 09/06/2019 9:30 AM CST Patient calling back, he was seen at [facility] a couple days ago. He was given 2 doses of Valtrex. Cold sore is still present. He is concerned as his is expecting a baby on Tuesday. Advised PNChas never prescribed this medication for him. Advised he would need to be seen to get a refill. Advised to try calling the [facility] he was seen at. He agreed. UNICATIONS ASSISTANT Elizabeth Agrawal LPN - 09/06/2019 9:22 AM CST Left message to call back [phone] UNICATIONS ASSISTANT Beronica Nieves - 09/06/2019 9:06 AM CST Medications - Med Change / Question Is this a medication change or a general question? Med Question What is your question or concern? Pt was prescribed a medication in UC for a cold sore, pt would like to if he it is enough as he willbe welcoming a very soon. There were 2 dose prescribed. What is the name and dose of the medication? Valtrex How often do you take it? Who prescribed it? If a prescription is needed, patient would [...] or unknown) Please route to: Triage Pool UNICATIONS ASSISTANT documented in this encounter Plan of Treatment Upcoming Encounters Date Type Specialty Care Team Description 08/09/2022 [place] [address] [address] [place], [place] [address] (Wo rk) 08/10/2022 Appointment Physiatry/Physical Russel Mar MD [facility] [address] [place] [facility] [place] N [address] (Wo rk) 08/16/2022 [place] [address] [address] [place] [phone] (Wo rk) 08/23/2022 Appointment [place] [address] [place], [place] [address] (Wo rk) 08/27/2022 Appointment [place] [address] [place], [place] [address] (Wo rk) 08/30/2022 Appointment [place] [address] [place], [place] [address] (Wo rk) 09/03/2022 Appointment [place] [address] [place], [place] [address] (Wo rk) 09/06/2022 Appointment [place] [address] [place], [place] [address] (Wo rk) 09/10/2022 Appointment [place] [address] [place], [place] [address] (Wo rk) 09/30/2022 Appointment Family Medicine Elicia Lockhart MD [address] [id number] (Wo rk) documented as of this encounter Visit Diagnoses Not on filedocumented in this encounter Care Teams Plant Safety Leader Relationship Specialty Start Date End Date Elicia Lockhart MD PCP - General Family Practice 08/09/[address] [id number] documented as of this encounter
--- OUTSIDE RECORDS SUMMARY | 2022-08-01 13:16 | XMS_ITS | Encounter Summary ---
:1988 Author Organization [facility] Address [address] [place] [address] Care Team Providers Name Role Phone Elicia Lockhart MD Primary Care Provider Encounter Details Date Type Department Care Team Description 04/19/2019 Lab Visit [facility] Fever and chills [address] [place] [address] Social History Tobacco Use Types Packs/Day Years [...] Appointment [place] [address] [place], [place] [address] (Wo rk) 08/10/2022 Appointment Physiatry/Physical Russel Mar MD [place] [address] [facility] [place] [address] [address] (Wo rk) 08/16/2022 Appoint[place] [address] [place], [place] [address] (Wo rk) 08/23/2022 Appoint[place] [address] [place], [place] [address] (Wo rk) 08/27/2022 Appoint[place] [address] [place], [place] [address] (Wo rk) 08/30/2022 App[place] [address] [place], [place] [address] (Wo rk) 09/03/2022 [place] [address] [place], [place] [address] (Wo rk) 09/06/2022 Appoint[place] [address] [place], [place] [address] (Wo rk) 09/10/2022 [place] [address] [place], [place] [address] (Wo rk) 09/30/2022 Appointment Family Medicine Elicia Lockhart MD [address] [place], [place] [id number] (Wo rk) documented as of this encounter Procedures Procedure Name Priority Date/Time Associated Diagnosis Comme nts MONO TEST Routine 04/19/2019 3:48 PM Fever and chills Resul ts for this CDT procedure are i n the results section . documented in this encounter Results Mononucleosis Screen (04/19/2019 3:48 PM CDT) Patholo gist Method Time Signature Mononucleosis Negative Negative 04/19/2019 [facility] Screen 4:00 PM CDT LABORATORY ([facility]) Specimen Anatomical Collection Method / Collection Time Recei nicolette Time (Source) Location / Volume Laterality Blood Venipuncture / 04/19/2019 3:48 04/19/2019 3:48 Unknown PM CDT PM CDT Elicia Lockhart MD LAB_1 Performing Organization Address City/State/ZIP Code Phon e Number [facility] ([facility]) [address] [phone] documented in this encounter Visit Diagnoses Diagnosis Fever and chills Fever, unspecified documented in this encounter Care Teams Lab Instructor Relationship Specialty Start Date End Date Elicia Lockhart MD PCP - General Family Practice 08/09/[address] [id number] documented as of this encounter
--- OUTSIDE RECORDS SUMMARY | 2022-08-01 13:16 | XMS_ITS | Encounter Summary ---
:1988 Author Organization [email or web address] Address [address], [place] [address] Care Team Providers Name Role Phone Elicia Georges MD Primary Care Provider Reason for Visit Reason Comments Refill FLUoxetine (PROZAC) 20 MG ca psule [Pharmacy Med Name: FLUOXETINE HCL 20 MG CAPSULE] Encounter Details Date Type Department Care Team Description 05/15/2019 Refill [place] Dom[place] e Elicia Georges, Refill (FLUoxetine [address] MD (PROZAC) [place] [address] [address] [Pharmacy Med Name: [phone] [place] [address] FLUOXETINE HCL 20 MG [phone] (Wo rk) CAPSULE]) Social History Tobacco Use [...] documented as of this encounter Nursing Notes Interface, Out [employer] Prov Query - 05/15/2019 10:37 AM CDT FLUoxetine (PROZAC) 20 MG capsule [Pharmacy Med Name: FLUOXETINE HCL 20 MG CAPSULE] Medication started: 04/19/2019 Last ordered by ELICIA GEORGES: 04/19/2019 (26 days ago) QTY: 30, Refills: 2, Sig: take 1 capsule by mouth daily. (changed but equivalent) -> The patient is requesting refills too soon, the current prescription is due to run out on 07/18/2019. -> Refill x 12 months, qty: 90, refills: 3 (until due for an office visit) Last qualifying visit: 04/19/2019 (with ELICIA GEORGES) Next scheduled visit: 05/22/2019 (in Family Practice) SBP: 114 mm Hg on 04/19/2019 DBP: 74 mm Hg on 04/19/2019 Powered by [employer], Reference: [id number], 05/15/2019 10:37:04 AM CDT, Pool: ABBYELIZABETH REFILL ([id number]) documented in this encounter Plan of Treatment Upcoming Encounters Date Type Specialty Care Team Description 08/09/2022 [place] [address] [place], [place] [address] (Barrett akers) 08/10/2022 Appointment Physiatry/Physical Russel Mar MD [address] [address] (Wo rk) 08/16/2022 Appointment [place] [address] [place], [place] [address] (Wo rk) 08/23/2022 Appointment [place] [address] [place], [place] [address] (Wo rk) 08/27/2022 Appointment [place] [address] [place], [place] [address] (Wo rk) 08/30/2022 Appoint[place] [address] [place], [place] [address] (Wo rk) 09/03/2022 Appointment [place] [address] [place], [place] [address] (Wo rk) 09/06/2022 Appointment [place] [address] [place], [place] [address] (Wo rk) 09/10/2022 Appointment [place] [address] [place], [place] [address] (Wo rk) 09/30/2022 Appointment Family Medicine Elicia Georges MD [address] [place], [place] [id number] (Wo rk) documented as of this encounter Visit Diagnoses Diagnosis MAYA (generalized anxiety disorder) (HRC) Generalized anxiety disorder Dysthymic disorder (HRC) Dysthymic disorder documented in this encounter Care Teams Airfield Operations Specialist Relationship Specialty Start Date End Date Elicia Georges MD PCP - General Family Practice 08/09/18 [address] [place] [address] documented as of this encounter
--- OUTSIDE RECORDS SUMMARY | 2022-08-01 13:16 | XMS_ITS | Encounter Summary ---
:1990 Author Organization [employer] Address [address] [place] [address] Care Team Providers Name Role Phone Elicia Lockhart MD Primary Care Provider Reason for Referral Procedure/Equipment (Routine) - Closed Specialty Diagnoses / Procedures Referred By Contact Refer red To Contact Diagnoses CHRISTOPH (obstructive sleep apnea) Maranda Sagastume APRN, CNP Procedures Positive Airway Pressure - Change [address] [place] [address] [address] [place] [address] Referral ID Status Reason Start Date Expiration Date Visits Requ ested Visits Authorized [id number] Closed 10/22/2020 01/21/2022 1 1 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 Reason for Visit Reason Comments Sleep problems Encounter Details Date Type Department Care Team Description 10/22/2020 [facility] 3931 Maranda Sagastume O SA (obstructive sleep apnea) (Primary Dx); Pulmonary Medicine SHO LEZAMA Malaise and fatigue [address] [facility] [address] [place], [place] [address] [address] [place], [place] [phone] (Wo rk) Social History Tobacco Use [...] Sign Reading Time Taken Comments Blood Pressure - - Pulse - - Temperature - - Respiratory Rate - - Oxygen Saturation - - Inhaled Oxygen Concentration - - Weight 97.5 kg (215 lb) 10/22/2020 7:33 AM BUSI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 Height 180.3 cm (5' 11) 10/22/2020 7:33 AM BUSI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 Body Mass Index 29.99 10/22/2020 7:33 AM BUSI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 documented in this encounter Progress Notes Maranda Sagastume, FAST FOOD SUPERVISOR, MANAGER PRODUCT SUPPORT - 10/22/2020 8:00 AM CST PULMONARY/SLEEP VIDEO FOLLOW-UP CHIEF COMPLAINT: Obstructive Sleep Apnea HPI: Sim's video visit today is to establish care here at [facility]. He was diagnosed with mild sleep apnea 04/25/2016- AHI: 14. He has worn apap since that time. He has a Live[employer] station machine with dg view full face mask. He has not had supplies in a year. Does need to change vendors- [employer] to [facility] to stay in network. Compliance is excellent. He did read data to me today. Usage between 7-9 hours. Mask leak is low. 90% 10 cm h20. AHi between 1-2/hr. Bedtime; 10- 11 pm. Asleep in under 10 min. Waking 1-2 x to roll. No insomnia. Wakes 6-7 am. Is noting fatigue- no inappropriate daytime sleepiness. 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 Could take a nap but simply has no time. EES: 3. No RLS/ parasomia. I can see in previous visit with primary care he did have RLS on higher doses of prozac. Not an issue presently. Weight is stable. INTERVAL MEDICAL HISTORY:reviewed PHYSICAL EXAM: Ht 5' 11 (1.803 m) Wt 215 lb (97.5 kg) BMI 29.99 kg/m?? IMPRESSION AND PLAN: 1.mild Obstructive Sleep Apnea. Will change vendor- we need to be able to obtain data from his machine. We discussed looking at maskoptions. He will set up an appointment in the sleep store. Ok to adjust the low end pressure for comfort. He does note some daytime fatigue. Will check TSH- not done since 2012. If changing mask/ pressure he sees no change then will update me through my chart. If improves then ok to fu 3-5 years. All of the patient's questions were answered. He states understanding and agreement with my assessment and plan as above. Total time 30 min, more than half spent in face to face counseling and coordination of care. 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 documented in this encounter Nursing Notes Jamaica Booker RN - 10/22/2020 8:00 AM CST Sleep Questions When was your sleep study? 2016 Have you gained or lost weight since your previous study? Yes Are you currently using anything to treat sleep apnea? (Ex: CPAP, Dental appliance, Wedge pillow): cpap Do you wake feeling refreshed? No What is your typical bedtime? [id number] Wake time? [id number] Do you alter your bedtime on weekends? No Are you experiencing any leg twitching or kicking? No Do you nap? No Do you feel sleepy during the daytime? Yes ESS How likely are you to doze off or fall asleep in the following situations, in contrast to just feeling tired? This refers to your usual way of life in recent times. Even if you have not done some of these things recently, try to work out how they would have affected you. Use the following scale to choose the most appropriate number for each situation: 0 = would neve doze 1 = slight chance of dozing 2 = moderate chance of dozing 3 = high chance of dozing Situation: Sitting and readin Watching TV: 0 Sitting, inactive in a public place (e.g. a theater or a meeting): 0 As a passenger in a car for an hour without a break: 0 Lying down to rest in the afternoon when circumstances permit: 3 Sitting and talking to someone: 0 Sitting quietly after lunch without alcohol: 0 In a car, while stopped for a few minutes in traffic: 0 Total: 3 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 documented in this encounter Plan of Treatment Upcoming Encounters Date Type Specialty Care Team Description 08/09/2022 [place]oint[place] [address] [place], [place] [address] (Wo rk) 08/10/2022 Appointment Physiatry/Physical Russel Mar MD Medicine [address] [facility] [address] [address] (Wo rk) 08/16/2022 [place]oint[place] [address] [place], [place] [address] (Wo rk) 08/23/2022 [place]oint[place] [address] [place], [place] [address] (Wo rk) 08/27/2022 [place]oint[place] [address] [place], [place] [address] (Wo rk) 08/30/2022 [place] [address] [place], [place] [address] (Wo rk) 09/03/2022 [place] [address] [place], [place] [address] (Wo rk) 09/06/2022 [place] [address] [place], [place] [address] (Wo rk) 09/10/2022 [place] [address] [place], [place] [address] (Barrett akers) 09/30/2022 Appointment Family Medicine Elicia Lockhart MD [address] [id number] (Barrett akers) documented as of this encounter Visit Diagnoses Diagnosis CHRISTOPH (obstructive sleep apnea) - Primary Obstructive sleep apnea (adult) (pediatr ic) Malaise and fatigue Other malaise and fatigue documented in this encounter Care Teams Mixed Crop And Livestock Farmer Relationship Specialty Start Date End Date Elicia Lockhart MD PCP - General Family Practice 08/09/[address] [place] [address] documented as of this encounter
--- OUTSIDE RECORDS SUMMARY | 2022-08-01 13:16 | XMS_ITS | Encounter Summary ---
:1990 Author Organization [employer] Address [address] [place] [address] Care Team Providers Name Role Phone Elicia Georges MD Primary Care Provider Reason for Visit Reason Onset Date Comments Refill 07/03/2020 FLUoxetine (PROZAC) 20 MG capsule Encounter Details Date Type Department Care Team Description 07/03/2020 Refill [place] [facility] Angelica e Elicia Georges, Refill (FLUoxetine [address] MD (PROZAC) 20 MG capsule) [place] [address] [address] [phone] [place] [id number] (Wo rk) Social History Tobacco Use Types [...] encounter Nursing Notes Ashlee Claros RN - 07/03/2020 5:03 PM CDT Renewed medication per medication refill protocol. Requested Prescriptions Pending Prescriptions Disp Refills FLUoxetine (PROZAC) 20 MG capsule 90 Capsule 0 Sig: Take 1 Capsule by mouth daily. Interface, Out [employer] Prov Query - 07/03/2020 1:52 PM CDT FLUoxetine (PROZAC) 20 MG capsule Medication started: 04/19/2019 Last ordered by ELICIA GEORGES R: 05/22/2019 (408 days ago) QTY: 90, Refills: 3, Sig: take 1 capsule by mouth daily. (unchanged) -> Refill x 3 months (until due for an office visit) Last qualifying visit: 08/31/2019 (with ELICIA GEORGES) (A more recent visit (in Family Practice with TOY BAINS) was found) Next scheduled visit: None Age: 29 Powered by [employer], Reference: [id number], 07/03/2020 1:52:43 PM CDT, Pool: MADELEINE REFILL ([id number]) documented in this encounter Plan of Treatment Upcoming Encounters Date Type Specialty Care Team Description 08/09/2022 [place]oint[place] [address] [place] [address] (Wo rk) 08/10/2022 Appointment Physiatry/Physical Russel Mar MD [address] [address] (Wo rk) 08/16/2022 Appointment [place] [address] [place], [place] [address] (Wo rk) 08/23/2022 Appointment [place] [address] [place], [place] [address] (Wo rk) 08/27/2022 Appointment [place] [address] [place], [place] [address] (Wo rk) 08/30/2022 Appoint[place] [address] [place], [place] [address] (Wo rk) 09/03/2022 Appointment [place] [address] [place], [place] [address] (Wo rk) 09/06/2022 [place] [address] [place], [place] [address] (Wo rk) 09/10/2022 Appointment [place] [address] [place], [place] [address] (Wo rk) 09/30/2022 Appointment Family Medicine Elicia Georges MD [address] [place] [address] (Wo rk) documented as of this encounter Visit Diagnoses Diagnosis MAYA (generalized anxiety disorder) ([facility]) Generalized anxiety disorder Dysthymic disorder documented in this encounter Care Teams Internal Medicine Physician Relationship Specialty Start Date End Date Elicia Georges MD PCP - General Family Practice 08/09/18 [address] [place] [address] documented as of this encounter
--- OUTSIDE RECORDS SUMMARY | 2022-08-01 13:16 | XMS_ITS | Encounter Summary ---
:1990 Author Organization [employer] Address [address] [place] [address] Care Team Providers Name Role Phone Elicia Georges MD Primary Care Provider Reason for Visit Reason Comments Refill FLUoxetine (PROZAC) 20 MG ca psule [Pharmacy Med Name: FLUOXETINE HCL 20 MG CAPSULE] Encounter Details Date Type Department Care Team Description 11/30/2020 Refill Elicia Leigh, Refill (FLUoxetine [address] MD (PROZAC) 20 [place] [address] [address] [Pharmacy Med Name: [phone] [place] [address] FLUOXETINE HCL 20 MG [phone] (Wo rk) CAPSULE]) Social History Tobacco Use [...] documented as of this encounter Nursing Notes Joey Bravo RN - 12/03/2020 11:10 AM CDT Requested medication replaced or stopped Requested Prescriptions Pending Prescriptions Disp Refills ??? FLUoxetine (PROZAC) 20 MG capsule [Pharmacy Med Name: FLUOXETINE HCL 20 MG CAPSULE] 90 Capsule 3 Sig: TAKE 1 CAPSULE BY MOUTH EVERY DAY Interface, Out [employer] Query - 11/30/2020 9:41 AM CDT FLUoxetine (PROZAC) 20 MG capsule [Pharmacy Med Name: FLUOXETINE HCL 20 MG CAPSULE] Medication started: 04/19/2019 Last ordered by ELICIA GEORGES: 08/11/2020 (111 days ago) QTY: 30, Refills: 1, Sig: take 1 capsule by mouth daily. take with 40 mg daily for total 60 mg daily. (changed) -> This medication was discontinued on 09/15/2020 by ELICIA GEORGES. -> Unable to determine if sig has changed, review required. -> Refill x 12 months, qty: 90, refills: 3 (until due for an office visit) Last qualifying visit: 09/15/2020 (with ELICIA GEORGES) Next scheduled visit: None Age: 30 Powered by [employer] Reference: [id number], 11/30/2020 9:41:43 AM CDT, Pool: MADELEINE REFILL ([id number]) documented in this encounter Plan of Treatment Upcoming Encounters Date Type Specialty Care Team Description 08/09/2022 [place] [address] [place], [place] [address] (Wo rk) 08/10/2022 Appointment Physiatry/Physical Russel Mar MD [facility] [address] [facility] [address] [address] (Wo rk) 08/16/2022 Appoint[place] [address] [place], [place] [address] (Wo rk) 08/23/2022 Appoint[place] [address] [place], [place] [address] (Wo rk) 08/27/2022 Appoint[place] [address] [place], [place] [address] (Wo rk) 08/30/2022 Appoint[place] [address] [place], [place] [address] (Wo rk) 09/03/2022 App[place] [address] [place], [place] [address] (Wo rk) 09/06/2022 Appoint[place] [address] [place], [place] [address] (Wo rk) 09/10/2022 Appoint[place] [address] [place], [place] [address] (Wo rk) 09/30/2022 Appointment Family Medicine Elicia Georges MD [address] [place] [address] (Wo rk) documented as of this encounter Visit Diagnoses Diagnosis MAYA (generalized anxiety disorder) (HRC) Generalized anxiety disorder Dysthymic disorder documented in this encounter Care Teams Database Development Project Manager Relationship Specialty Start Date End Date Elicia Georges MD PCP - General Family Practice 08/09/[address] [place] [address] documented as of this encounter
--- OUTSIDE RECORDS SUMMARY | 2022-08-01 13:16 | XMS_ITS | Encounter Summary ---
:1990 Author Organization [facility] Address [address] [place] [id number] Care Team Providers Name Role Phone Elicia Lockhart MD Primary Care Provider Reason for Visit Reason Comments Annual Exam Encounter Details Date Type Department Care Team Description 07/24/2020 Office Visit Elicia Cote Routine phy sical examination (Primary Dx); Tony Bustos MD MAYA (generalized anxiety disorder); [address] Current moderate episode of major depres sive disorder without prior episode (HRC); [place] [address] [place] [address] Panic attacks; [phone] Eczema, unspeci fied type; (Work) CHRISTOPH (obstructive sleep apnea); Gastroeso phageal reflux disease, unspecified whether esophagitis present; Mixed dyslipide vonda; Screening, lipi d; Screening for d iabetes mellitus Social History Tobacco Use Types Packs/Day Years [...] Sign Reading Time Taken Comments Blood Pressure 124/86 07/24/2020 4:12 PM COLLEGE ARCHIVIST Pulse 92 07/24/2020 4:12 PM COLLEGE ARCHIVIST Temperature - - Respiratory Rate - - Oxygen Saturation - - Inhaled Oxygen Concentration - - Weight 100.2 kg (221 lb) 07/24/2020 4:12 PM COLLEGE ARCHIVIST Height 179.1 cm (5' 10.5) 07/24/2020 4:12 PM COLLEGE ARCHIVIST Body Mass Index 31.26 07/24/2020 4:12 PM COLLEGE ARCHIVIST documented in this encounter Patient Instructions Patient InstructionsHyElicia moe MD - 07/24/2020 4:00 PM CST Images from the original note were not included. Well Visit, Ages 18 to 50: Care Instructions Your Care Instructions Physical exams can help you stay healthy. Your doctor has checked your overall health and may have suggested ways to take good care of yourself. He or she also may have recommended tests. At home, you can help prevent illness with healthy eating, regular exercise, and other steps. Follow-up care is a fink part of your treatment and safety. Be sure to make and go to all appointments, and call your doctor if you are having problems. It's also a good idea to know your test results and keep a list of the medicines you take. How can you care for yourself at home? ?? Reach and stay at a healthy weight. This will lower your risk for many problems, such as obesity,diabetes, heart disease, and high blood pressure. ?? Get at least 30 minutes of physical activity on most days of the week. Walking is a good choice. You also may want to do other activities, such as running, swimming, cycling, or playing tennis or team sports. Discuss any changes in your exercise program with your doctor. ?? Do not smoke or allow others to smoke around you. If you need help quitting, talk to your doctor about stop-smoking programs and medicines. These can increase your chances of quitting for good. ?? Talk to your doctor about whether you have any risk factors for sexually transmitted infections (STIs). Having one sex partner (who does not have STIs and does not have sex with anyone else) is a good way to avoid these infections. ?? Use control if you do not want to have children at this time. Talk with your doctor about the choices available and what might be best for you. ?? Protect your skin from too much sun. When you're outdoors from 10 a.m. to 4 p.m., stay in the shade or cover up with clothing and a hat with a wide brim. Wear sunglasses that block UV rays. Even when it's cloudy, put broad-spectrum sunscreen (SPF 30 or higher) on any exposed skin. ?? See a dentist one or two times a year for checkups and to have your teeth cleaned. ?? Wear a seat belt in the car. ?? Drink alcohol in moderation, if at all. That means no more than 2 drinks a day for men and 1 drink a day for women. Follow your doctor's advice about when to have certain tests. These tests can spot problems early. For everyone ?? Cholesterol. Have the fat (cholesterol) in your blood tested after age 20. Your doctor will tell you how often to have this done based on your age, family history, or other things that can increase your risk for heart disease. ?? Blood pressure. Have your blood pressure checked during a routine doctor visit. Your doctor will tell you how often to check your blood pressure based on your age, your blood pressure results, and other factors. ?? Vision. Talk with your doctor about how often to have a glaucoma test. ?? Diabetes. Ask your doctor whether you should have tests for diabetes. ?? Colon cancer. Have a test for colon cancer at age 50. You may have one of several tests. If you are younger than 50, you may need a test earlier if you have any risk factors. Risk factors include whether you already had a precancerous polyp removed from your colon or whether your parent, brother, si ster, or child has had colon cancer. For women ?? Breast exam and mammogram. Talk to your doctor about when you should have a clinical breast exam and a mammogram. Medical experts differ on whether and how often women under 50 should have these tests. Your doctor can help you decide what is right for you. ?? Pap test and pelvic exam. Begin Pap tests at age 21. A Pap test is the best way to find cervical cancer. The test often is part of a pelvic exam. Ask how often to have this test. ?? Tests for sexually transmitted infections (STIs). Ask whether you should have tests for STIs. Youmay be at risk if you have sex with more than one person, especially if your partners do not wear condoms. For men ?? Tests for sexually transmitted infections (STIs). Ask whether you should have tests for STIs. Youmay be at risk if you have sex with more than one person, especially if you do not wear a condom. ?? Testicular cancer exam. Ask your doctor whether you should check your testicles regularly. ?? Prostate exam. Talk to your doctor about whether you should have a blood test (called a PSA test)for prostate cancer. Experts differ on whether and when men should have this test. Some experts suggest it if you are older than 45 and are -[place] or have a father or brother who got prostatecancer when he was younger than 65. When should you call for help? Watch closely for changes in your health, and be sure to contact your doctor if you have any problems or symptoms that concern you. Where can you learn more? 1. Go to [employer]Heysan or [employer]. 2. Enter P072 in the search box. Current as of: December 14, 2017 Content Version: 11.9 ?? 3449-3123 [employer]. Healthy lifestyle: -nutrition: 5-10 DIFFERENT vegetables and fruits daily. Eat fresh meats (fish, chicken, pork, rice).Consider a mediterranean style nutrition. Include healthy fats like nuts, un-fried extra virgin olive oil, avocado and salmon fish. Avoid processed foods that are premade, frozen, boxed or canned. Avoid processed meats (sausage, lunch meat, kraus). -activity: exercise a minimum of 150 minutes per week (30 minutes 5 days per week). Gardening, walking, yard work count. Try to be as active as you can throughout each day! Include 2 days of muscle strengthening and stretching (weights, bands, machines, yoga, etc). -stress management: Chronic stress can cause problems in your body. Try relaxation techniques, meditation (faith for phone called headspace or calm--there are many more), exercise regularly, and talk to loved ones/friends. Seek medical attention if this is not helping -sleep: most people need about 8 hours per day. Let's talk about sleep if you struggle with getting adequate rest. -protect your skin: wear long clothing, cover head and ears when in the sun. Wear SPF sunblock or sunscreen (30-50 SPF) on exposed surfaces. -bone health: take vitamin D 1000 units daily. Children should take 400-600 units daily -alcohol 21 and older: 1 alcohol equivalent is 5 ounces of wine, 1.5 ounces of liquor or 12 ounces of 5% beer. Men should have less than 14 alcohol equivalents per week and women should have less than 7 alcohol equivalents per week. Try to limit no more than 3 alcohol equivalents in 24 hours. -avoid tobacco (smoking, chewing, vaping, juuling) -wear seat belt -visit the dentist 1-2 times per year EGE ARCHIVIST documented in this encounter Progress Notes Elicia Lockhart MD - 07/24/2020 4:00 PM CST Preventive Exam Chief Complaint Patient presents with ??? Annual Exam HISTORY OF PRESENT ILLNESS: Hari Elise is a 30 y.o. male who presents for a routine preventive physical exam. The patient voices the following concerns: 1. Routine physical examination 2. MAYA (generalized anxiety disorder) (HRC) 3. Current moderate episode of major depressive disorder without prior episode (HRC) 4. Panic attacks (HRC) 5. Eczema, unspecified type 6. CHRISTOPH (obstructive sleep apnea) 7. Gastroesophageal reflux disease, unspecified whether esophagitis present 8. Chronic urticaria 9. Mixed dyslipidemia (HRC) 10. Screening, lipid 11. Screening for diabetes mellitus He is struggling with depression and anxiety. The anxiety is so overwhelming that he feels depressedat times. He is not sleeping well. He struggles with sleeping well. He is in bed for 7-8 hours but still feels exhausted. He falls asleep well and stays asleep through the night. He dreams about what he experienced that day. He was having nightmares for awhile but this has improved. His dreams recently increased and seem real and then he feels more exhausted. He is using his CPAP every night. He tried lexapro in the past up to 10 mg but it did not help. He has not noticed any benefit from the fluoxetine or side effects. He has a wood working hobby. His job is social and he has been virtually in contact with others daily through work. He has supportive colleagues. He has tried hydroxyzine and it really had no benefit for him. He did not get tired for him either. He and his have been really careful with covid. His in-laws live with them and are high risk for severe illness. Right foot rash present for months. He tried antifungal OTC and it did not help. He did get new [employer] sneakers but not sure if this is related to rash. He tried hydrocortisone 2% and it helps. The rash is not spreading. PHQ9 Scores PHQ-9 07/24/2020 08/31/2019 05/22/2019 PHQ-9 Score Total 15 4 3 Q1: Loss of Int/Pleas +++ - - Q2: Depressed mood +++ + - Q3: Sleep problems + - - Q4: Tired/Low Energy +++ +++ +++ Q5: Appetite change - - - Q6: Feelings of failure ++ - - Q7: Concentration Prob +++ - - Q8: Slow or Restless - [...] Somewhat difficult Total score 18 2 6 ROS: complete review of systems other than what is mentioned above is negative Past Medical/Surgical History/Family History: Today, Hari Elise's problem list, PMH, PSH, FH, SH, medications, and allergies are reviewed with the patient and updated in [facility]. Immunizations/Vaccines/HM: According to Health Maintenance in your medical record, you are due for: There are no preventive care reminders to display for this patient. The information above has been given to the patient. Immunization History Administered Date(s) Administered ??? Fluzone Qiv Multidose Vial 0.25 (6-35 Mos) 07/15/2014 ??? IPV (Polio) 1990, 1988, 05/24/1990, 10/03/2002 ??? Influenza (Fluzone 0.25, 6-35 mos) 07/18/2013 ??? Influenza IIV4 (Quadrivalent) 0.5mL (00977) 07/18/2013, 06/25/2015, 07/07/2016, 07/26/2017, 11/16/2018, 08/31/2019, 06/16/2020 ??? Influenza, Unspecified Formulation 06/25/2015 ??? MCV4 (Menactra) 03/24/2007 ??? MMR 12/08/1989, 10/03/2002 ??? Td, Preservative Free 10/03/2002 ??? Tdap 07/15/2014 ??? Varicella 03/24/2007 Physical exam: Filed Vitals: 07/24/20 1612 BP: 124/86 Pulse: 92 Weight: 221 lb (100.2 kg) Height: 5' 10.5 (1.791 m) General Appearance: Alert, cooperative, no distress, appears stated age Head: Normocephalic, without obvious abnormality, atraumatic Eyes: PERRL, conjunctiva/corneas clear, EOM's intact, both eyes Ears: Normal TM's and external ear canals, both ears Nose: Nares normal, septum midline, mucosa normal, no drainage Throat: Lips, mucosa, and tongue normal Neck: Supple, symmetrical, no adenopathy; thyroid: No enlargement/tenderness/nodules Back: Symmetric Lungs: Clear to auscultation bilaterally, respirations unlabored, no wheezing or rhonchi Chest wall: No tenderness or deformity Heart: Regular rate and rhythm, S1 and S2 normal, no murmur, rub or gallop Abdomen: Soft, non-tender, bowel sounds active all four quadrants, no masses, no organomegaly Extremities: Extremities normal, atraumatic, no cyanosis or edema Pulses: 2+ and symmetric all extremities Skin: Scaly plaque involving latera dorsum of foot (8 cm in diameter) with some scale and redness. Similar skin lesion between first and 2nd toe without maceration. O/w normal foot exam and o/w Skin color, texture, turgor normal, no rashes or lesions Lymph nodes: Cervical, supraclavicularnodes normal Neurologic: CNII-XII intact. Normal strength, sensation and reflexes Throughout Mental Status Evaluation: Appearance: age appropriate and casually dressed Behavior: Within Normal Limits Speech: normal pitch and normal volume Mood: within normal limits Affect: Anxious Thought Process: within normal limits Thought Content: within normal limits Sensorium: intact Cognition: grossly intact Insight: good Judgment: good Assessment/Plan: Diagnosis and Associated Orders ICD-10-CM 1. Routine physical examination Z00.00 2. MAYA (generalized anxiety disorder) (HRC) F41.1 FLUoxetine (PROZAC) 40 MG capsule 3. Current moderate episode of major depressive disorder without prior episode (HRC) F32.1 FLUoxetine (PROZAC) 40 MG capsule 4. Panic attacks (HRC) F41.0 propranolol (INDERAL) 10 MG tablet 5. Eczema, unspecified type L30.9 triamcinolone acetonide (KENALOG) 0.1 % cream 6. CHRISTOPH (obstructive sleep apnea) G47.33 7. Gastroesophageal reflux disease, unspecified whether esophagitis present K21.9 8. Chronic urticaria L50.8 9. Mixed dyslipidemia (HRC) E78.2 10. Screening, lipid Z13.220 Lipid Panel and Direct LDL(If Needed) 11. Screening for diabetes mellitus Z13.1 HGB A1C Hari was seen today for annual exam. Diagnoses and all orders for this visit: Routine physical examination MAYA (generalized anxiety disorder) (HRC) and Current moderate episode of major depressive disorder without prior episode (HRC) - FLUoxetine (PROZAC) 40 MG capsule; Take 1 Capsule by mouth daily.--increased dose: Discussed the risks benefits and alternatives -discussed increasing to 60-80 mg if needed to see response. Panic attacks (HRC) - propranolol (INDERAL) 10 MG tablet; Take 1-2 Tablets by mouth three times a day as needed for Other.--NEW: Discussed the risks benefits and alternatives Eczema, unspecified type - triamcinolone acetonide (KENALOG) 0.1 % cream; Apply topically two times a day for 30 days. Then PRN (to foot): new: Discussed the risks benefits and alternatives -if not improving, consider trying antifungal again or RTC for biospy or derm referral. CHRISTOPH (obstructive sleep apnea) --controlled/stable. No change in current medication or treatment plan Gastroesophageal reflux disease, unspecified whether esophagitis present -controlled/stable. No change in current medication or treatment plan Mixed dyslipidemia (HRC); Screening, lipid - Lipid Panel and Direct LDL(If Needed); Future Screening for diabetes mellitus - HGB A1C; Future Follow up: Quick Schedule Follow Up Visits Return With: Me (Clinician) Return On or After: 08/11/20 Reason: Mental Health Follow Up, Video Visit EGE ARCHIVIST documented in this encounter Plan of Treatment Upcoming Encounters Date Type Specialty Care Team Description 08/09/2022 [place] [address] [place], [place] [address] (Wo rk) 08/10/2022 Appointment Physiatry/Physical Russel Mar MD [facility] [address] [facility] [address] [address] (Wo rk) 08/16/2022 [place] [address] [place], [place] [address] (Wo rk) 08/23/2022 [place] [address] [place], [place] [address] (Wo rk) 08/27/2022 [place]oint[place] [address] [place], [place] [address] (Wo rk) 08/30/2022 [place] [address] [place], [place] [address] (Wo rk) 09/03/2022 [place] [address] [place], [place] [address] (Wo rk) 09/06/2022 Appointment [place] [address] [place], [place] [address] (Wo rk) 09/10/2022 Appointment [place] [address] [place], [place] [address] (Wo rk) 09/30/2022 Appointment Family Medicine Elicia Lockhart MD [address] [place] [address] [address] (Wo rk) documented as of this encounter Visit Diagnoses Diagnosis Routine physical examination - Primary Routine general medical examination at a health care facility MAYA (generalized anxiety disorder) (HRC) Generalized anxiety disorder Current moderate episode of major depres sive disorder without prior episode (HRC) Panic attacks (HRC) Panic disorder without agoraphobia Eczema, unspecified type CHRISTOPH (obstructive sleep apnea) Obstructive sleep apnea (adult) (pediatr ic) Gastroesophageal reflux disease, unspeci fied whether esophagitis present Mixed dyslipidemia (HRC) Mixed hyperlipidemia Screening, lipid Screening for lipoid disorders Screening for diabetes mellitus documented in this encounter Care Teams Distributor Sales Consultant Relationship Specialty Start Date End Date Elicia Lockhart MD PCP - General Family Practice 08/09/[address] [place] [address] documented as of this encounter
--- OUTSIDE RECORDS SUMMARY | 2022-08-01 13:17 | XMS_ITS | Encounter Summary ---
:1990 Author Organization [employer] Address [address] [place] [address] Care Team Providers Name Role Phone Unavailable Primary Care Provider Unavailable Reason for Visit Reason Comments RESULTS, TEST Encounter Details Date Type Department Care Team Description 07/13/2018 Telephone Elicia Leigh MD RESULTS, TEST [address] [place] [address] [place] [address] [phone] (Wo rk) Social History Tobacco Use Types [...] documented as of this encounter Nursing Notes Carmen Vu - 07/18/2018 3:17 PM CDT I have left a message for patient that I have mailed a Ziopatch appointment information and prep. I have also sent a Browntapet message with this same information. Carmen Vu - 07/14/2018 8:36 AM CDT Left message for patient to call back. [facility] ([facility]), please warm transfer call to extension [phone] to discuss. If no answer at extension, re-route to appropriate pool per callrouting grid. Message to Patient/Caller: I have left a message for patient to call me for Ziopatch appointment information and prep. Elicia Lockhart MD - 07/13/2018 6:16 PM CDT Since Bala is continuing to have symptoms, will proceed with ZIOPATCH. He will need to record symptoms while wearing a heart monitor to determine what heart rhythm is associated with his symptoms. Soniya Storey, POLY - 07/13/2018 4:55 PM CDT Pt called back, reviewed Dr. Lockhart's comments. Pt states he is still having the skipped heartbeat symptoms, no change in sx from appt on 07/03/18. Lopez Simon - 07/13/2018 4:52 PM CDT Pt calling back. Transferred to triage. Lexus Murillo LPN - 07/13/2018 4:09 PM CDT Message left for the pt to call back. Lexus Murillo LPN - 07/13/2018 4:09 PM CDT ----- Message from Elicia Lockhart MD sent at 07/13/2018 4:00 PM CDT ----- Please let Hari Elise know: good news Hari, your heart stress test is NORMAL/negative. If youare still having symptoms, I recommend proceeding with a ZIOPATCH heart monitor test. Please let me know if he is having continued skipped heartbeat symptoms. documented in this encounter Plan of Treatment Upcoming Encounters Date Type Specialty Care Team Description 08/09/2022 Appoint[place] [address] [place], [place] [phone] (Wo rk) 08/10/2022 Appointment Physiatry/Physical Russel Mar MD [facility] [address] [facility] [place] [address] (Wo rk) 08/16/2022 Appoint[place] [address] [place], [place] [address] (Wo rk) 08/23/2022 Appoint[place] [address] [place], [place] [address] (Wo rk) 08/27/2022 [place] [address] [place], [place] [address] (Wo rk) 08/30/2022 Appoint[place] [address] [place], [place] [address] (Wo rk) 09/03/2022 [place]oint[place] [address] [place], [place] [address] (Wo rk) 09/06/2022 [place] [address] [place], [place] [address] (Wo rk) 09/10/2022 [place] [address] [facility] [place] [address] (Wo rk) 09/30/2022 Appointment Family Medicine Elicia Lockhart MD [address] [place], [place] [id number] (Wo rk) documented as of this encounter Results Ziopatch Recorder (08/15/2018 8:37 AM STEAMING CABINET TENDER) Narrative PN POCT - 08/15/2018 8:37 AM STEAMING CABINET TENDER Zio XT Final Report for: Hari Elise Date of : [birth year] (28 yrs) Gender: Male Prescribing Clinician: Dr. Janine Lockhart Managing Location: [facility] Primary Indication: (R00.2) Palpitations Enrollment Period: 08/01/18, 01:14pm to 08/15/18, 07:01am, 13 days 18 hours Analysis Time: 13 days 14 hours (after a rtifact removed) Patient Events Triggered Events: 112 Findings within ?? 45 sec of Triggers: S inus Rhythm, Supraventricular Ectopic beat(s), Ventricular Ectopic beat(s) Diary Entries: 32 Findings within ?? 45 sec of Entries: Si nus Rhythm, Supraventricular Ectopic beat(s), Ventricular Ectopic beat(s) Patient had a min HR of 46 bpm, max HR o f 175 bpm, and avg HR of 91 bpm. Predominant underlying rhythm was Sinus Rhythm. Isolated SVEs were rare (<1.0%), and no SVE Couplets or SVE Triplets were present. Isolated VEs were rare (<1.0%), and no V E Couplets or VE Triplets were Present. Comment: Zio is unremarkable. Dr. Albert Loya Elicia Lockhart MD CARDIOLOGY/AR Performing Organization Address City/State/ZIP Code Phon e Number POCT PN POCT documented in this encounter Visit Diagnoses Diagnosis Skipped heart beats - Primary Cardiac dysrhythmia, unspecified Exertional chest pain Chest pain, unspecified Skipped heart beats Cardiac dysrhythmia, unspecified Exertional chest pain Chest pain, unspecified documented in this encounter
--- OUTSIDE RECORDS SUMMARY | 2022-08-01 13:17 | XMS_ITS | Encounter Summary ---
:1990 Author Organization [employer] Address [address], [place] [address] Care Team Providers Name Role Phone Unavailable Primary Care Provider Unavailable Reason for Visit Reason Comments Other Echo Encounter Details Date Type Department Care Team Description 07/04/2018 Telephone Elicia Leigh MD Other (Echo) [address] [place] [address] [place] [address] [phone] (Wo rk) Social History Tobacco Use Types [...] this encounter Nursing Notes Carmen Vu - 07/04/2018 2:08 PM CDT Patient has been scheduled. Carmen Vu - 07/04/2018 10:04 AM CDT Left message for patient to call back. [facility] ([facility]), please warm transfer call to extension [phone] to discuss. If no answer at extension, re-route to appropriate pool per callrouting grid. Message to Patient/Caller: I have left a message for patient to call me for stress echo appointment information. documented in this encounter Plan of Treatment Upcoming Encounters Date Type Specialty Care Team Description 08/09/2022 [place] [address] [place], [place] [address] (Wo rk) 08/10/2022 Appointment Physiatry/Physical Russel Mar MD [facility] [address] [facility] [place] [address] (Wo rk) 08/16/2022 [place] [address] [place], [place] [address] (Wo rk) 08/23/2022 [place] [address] [place], [place] [address] (Wo rk) 08/27/2022 [place] [address] [place], [place] [address] (Wo rk) 08/30/2022 [place]oint[place] [address] [place], [place] [address] (Wo rk) 09/03/2022 [place] [address] [place], [place] [address] (Wo rk) 09/06/2022 [place] [address] [place], [place] [address] (Wo rk) 09/10/2022 [place] [address] [place], [place] [address] (Wo rk) 09/30/2022 Appointment Family Medicine Elicia Lockhart MD [address] [place] [phone] (Wo rk) documented as of this encounter Visit Diagnoses Not on filedocumented in this encounter
--- OUTSIDE RECORDS SUMMARY | 2022-08-01 13:17 | XMS_ITS | Encounter Summary ---
:1990 Author Organization [employer] Address [address], [place] [address] Care Team Providers Name Role Phone Unavailable Primary Care Provider Unavailable Encounter Details Date Type Department Care Team Description 07/18/2013 Lab Visit [facility] 3850 Chronic u rticaria; Laboratory Other specified urticaria [address] [place], [place] [id number] Social History Tobacco Use Types Packs/Day Years Used Date Smoking Tobacco: Never Assessed Alcohol Habits Answer Date Recorded How often [...] documented as of this encounter Progress Notes Candis Jj RN - 07/27/2013 1:06 PM CST See phone note 07/27/13. Summer Fields MD - 07/27/2013 12:56 PM MATH AND SCIENCE INSTRUCTOR Quick Note: Mail results letter Summer Maldonado MD - 07/19/2013 7:18 PM CDT Quick Note: Notify thyroid tests nl and test for lupus negative. Will let him know when we get the send out labback documented in this encounter Miscellaneous Notes Miscellaneous - 10/29/2016 2:02 AM CSTNotes Recorded by Summer Fields MD on 07/27/2013 at 12:56 PMMail results letter------Notes Recorded by Summer Fields MD on 07/19/2013 at 7:18 PMNotify thyroid tests nl and test for lupus negative. Will let him know when we get the send out lab back AND SCIENCE INSTRUCTOR Miscellaneous - 10/29/2016 2:02 AM CSTNotes Recorded by Summer Fields MD on 07/27/2013 at 12:56 PMMail results letter------Notes Recorded by Summer Fields MD on 07/19/2013 at 7:18 PMNotify thyroid tests nl and test for lupus negative. Will let him know when we get the send out lab back AND SCIENCE INSTRUCTOR Miscellaneous - 10/29/2016 2:02 AM CSTNotes Recorded by Summer Fields MD on 07/27/2013 at 12:56 PMMail results letter------Notes Recorded by Summer Fields MD on 07/19/2013 at 7:18 PMNotify thyroid tests nl and test for lupus negative. Will let him know when we get the send out lab back AND SCIENCE INSTRUCTOR Miscellaneous - 10/29/2016 2:02 AM CSTNotes Recorded by Summer Fields MD on 07/27/2013 at 12:56 PMMail results letter------Notes Recorded by Summer Fields MD on 07/19/2013 at 7:18 PMNotify thyroid tests nl and test for lupus negative. Will let him know when we get the send out lab back AND SCIENCE INSTRUCTOR Miscellaneous - 10/29/2016 2:02 AM CSTNotes Recorded by Summer Fields MD on 07/27/2013 at 12:56 PMMail results letter------Notes Recorded by Summer Fields MD on 07/19/2013 at 7:18 PMNotify thyroid tests nl and test for lupus negative. Will let him know when we get the send out lab back AND SCIENCE INSTRUCTOR Miscellaneous - 10/29/2016 1:46 AM CSTNotes Recorded by Summer Fields MD on 07/27/2013 at 12:56 PMMail results letter AND SCIENCE INSTRUCTOR documented in this encounter Plan of Treatment Upcoming Encounters Date Type Specialty Care Team Description 08/09/2022 [place] [address] [place], [place] [address] (Wo rk) 08/10/2022 Appointment Physiatry/Physical Russel Mar MD [place] [id number] [facility] [place] [address] (Wo rk) 08/16/2022 App[place] [address] [place], [place] [address] (Wo rk) 08/23/2022 [place] [address] [place], [place] [address] (Wo rk) 08/27/2022 [place] [address] [place], [place] [address] (Wo rk) 08/30/2022 [place] [address] [place], [place] [address] (Wo rk) 09/03/2022 Appointment Physical [place] [address] [place] [address] (Wo rk) 09/06/2022 Appointment [place] [address] [place] [address] (Wo rk) 09/10/2022 Appointment [place] [address] [place] [address] (Wo rk) 09/30/2022 Appointment Family Medicine Elicia Lockhart MD [address] [place] [address] (Wo rk) documented as of this encounter Procedures Procedure Name Priority Date/Time Associated Comments Diagnosis LAB MISCELLANEOUS Routine 07/18/2013 9:51 AM Other specified R esults for this CDT urticaria procedure are i n the results section. THYROID STIMULATING Routine 07/18/2013 9:51 AM Chronic urticar ia Results for this HORMONE CDT procedure are i n the results section. THYROID AB GROUP Routine 07/18/2013 9:51 AM Chronic urticaria Results for this (MICROSOMAL+THYROGL CDT procedur e are in the results section. COMPLETE BLOOD Routine 07/18/2013 9:51 AM Chronic urticaria Re sults for this COUNT-W/DIFF CDT procedure are i n the results section. DIFFERENTIAL Routine 07/18/2013 9:51 AM Results f or this CDT procedure are i n the results section. MIGUEL SCREEN Routine 07/18/2013 9:51 AM Chronic urticaria Resu lts for this CDT procedure are i n the results section. documented in this encounter Results LAB MISCELLANEOUS (07/18/2013 9:51 AM CDT) P athologist Signature Result See Note HP CONVERSION Comment: HARI ELISE ? Anti-IgE Receptor AB ??IgE Receptor AB: ?80.4 ?HIGH ?[0.0-5.0]% ??IgE Rec Comment: ?No additiona l comments IgE Receptor Remark: In the presence of antibody to the FceR1 , basophils degranulate resulting in the increased e xpression of a specific basophil marker. The expression of this marker is determined after incubation of susceptib le donor basophils with serum from the patient. See original report for references. This test uses a kit/reagent designated by the film archivist as for research use, not for clinical u se as well as a reagent that if classified as an analyte specific reagent (ASR). The performance characteristics o f this test have been validated by [facility]. It has not been cleared or approved by [facility] Food and Drug Administration. The results are not inte nded to be used as the sole means for clinical diagnosis or patient management decisions. This laboratory is certified under the Clinical Laboratory Improvement Amendments of 198 8 (CLIA-88) as qualified to perform high complexity cli nical laboratory testing. Test Name anti fcer1 HP CONVERSION Test Code IGERAB HP CONVERSION Comment: Corrected result; previously re ported as na on 07/18/13 at 09:40 by Performing Laboratory [facility] HP CONVERSION Specimen Anatomical Collection Method Collection Time Receive d Time (Source) Location / / Volume Laterality 07/18/2013 9:51 AM 3 CDT 10:56 AM CDT Narrative HP CONVERSION - 07/27/2013 12:28 PM MATH AND SCIENCE INSTRUCTOR .[facility] labs code 30974 Transcriptions 10/29/2016 1:46 AM CSTNotes Recorded by Summer Fields MD on 07/27/2013 at 12:56 PMMail results letter Summer Fields MD LAB_1 Performing Organization Address City/State/ZIP Code Phon e Number HP CONVERSION Differential (07/18/2013 9:51 AM CDT) P athologist Signature Absolute 6.8 1.8 - 8.0 HP CONVERSION Neutrophils k/cmm Absolute 2.3 1.1 - 4.0 HP CONVERSION Lymphocytes k/cmm Absolute 0.4 0.2 - 0.8 HP CONVERSION Monocytes k/cmm Absolute 0.2 0.0 - 0.5 HP CONVERSION Eosinophils k/cmm Absolute 0.0 0.0 - 0.2 HP CONVERSION Basophils k/cmm Specimen Anatomical Collection Method Collection Time Receive d Time (Source) Location / / Volume Laterality 07/18/2013 9:51 AM 3 9:50 CDT AM CDT Narrative HP CONVERSION - 07/18/2013 9:57 AM CDT Performed at [facility], [address] [place] [address] [facility] labs code [id number] Transcriptions 10/29/2016 2:02 AM CSTNotes Recorded by Summer Fields MD on 07/27/2013 at 12:56 PMMail results letter------Notes Recorded by Summer Fields MD on 07/19/2013 at 7:18 PM Notify thyroid tests nl and test for lup us negative. Will let him know when we get the send out lab back Summer Fields MD LAB_1 Performing Organization Address City/[facility]/ZIP Code Phon e Number HP CONVERSION THYROID STIMULATING HORMONE (07/18/2013 9:51 AM CDT) P athologist Signature Thyroid 2.45 0.20 - HP CONVERSION Stimulating 4.50 mIU/L Hormone Specimen Anatomical Collection Method Collection Time Receive d Time (Source) Location / / Volume Laterality 07/18/2013 9:51 AM 3 CDT 10:55 AM CDT Narrative HP CONVERSION - 07/18/2013 11:37 AM CDT .[facility] labs code [id number] Transcriptions 10/29/2016 2:02 AM CSTNotes Recorded by Summer Fields MD on 07/27/2013 at 12:56 PMMail results letter------Notes Recorded by Summer Fields MD on 07/19/2013 at 7:18 PM Notify thyroid tests nl and test for lup us negative. Will let him know when we get the send out lab back Summer Fields MD LAB_1 Performing Organization Address City/State/ZIP Code Phon e Number HP CONVERSION THYROID AB GROUP (MICROSOMAL+THYROGL (07/18/2013 9:51 AM CDT) Patholo gist Method Time Signature Thyroid Peroxidase 2.9 0.0 - 9.0 HP CONVERSI ON (TPO) Antibodies IU/mL Thyroglobulin Ab <0.9 0.0 - 4.0 HP CONVERSION IU/mL Comment: INTERPRETIVE INFORMATION: Thyroglobulin Antibody A value of 4.0 IU/mL or less indicates a negative result for thyroglobulin antibodies. The Thyroglobulin Antibody assay is bein g performed using the Ba Kathy Access DxI method. Specimen Anatomical Collection Method Collection Time Receive d Time (Source) Location / / Volume Laterality 07/18/2013 9:51 AM 3 CDT 10:56 AM CDT Narrative HP CONVERSION - 07/19/2013 4:52 PM CDT Performed at [facility] [address] [place] [address] .[facility] labs code [id number] Transcriptions 10/29/2016 2:02 AM CSTNotes Recorded by Summer Fields MD on 07/27/2013 at 12:56 PMMail results letter------Notes Recorded by Summer Fields MD on 07/19/2013 at 7:18 PM Notify thyroid tests nl and test for lup us negative. Will let him know when we get the send out lab back Summer Fields MD LAB_1 Performing Organization Address City/State/ZIP Code Phon e Number HP CONVERSION Complete Blood Count W/Diff (07/18/2013 9:51 AM CDT) athologist Signature White Blood Cell 9.7 3.8 - 11.0 HP CONVERSIO N Count k/cmm Red Blood Cell 4.87 4.20 - HP CONVERSION Count 5.90 m/cmm Hemoglobin 15.0 13.4 - HP CONVERSION 17.5 g/dL Hematocrit 43.3 39.0 - HP CONVERSION 51.0 % Mean Corpuscular 89.1 80.0 - HP CONVERSION Volume 100.0 fL RDW 12.0 11.0 - HP CONVERSION 15.0 % Platelet Count 233 140 - 450 HP CONVERSION k/cmm Specimen Anatomical Collection Method Collection Time Receive d Time (Source) Location / / Volume Laterality 07/18/2013 9:51 AM 3 9:50 CDT AM CDT Narrative HP CONVERSION - 07/18/2013 9:57 AM CDT Performed at [facility], [address] [place] [address] [facility] labs code 43358 Transcriptions 10/29/2016 2:02 AM CSTNotes Recorded by Summer Fields MD on 07/27/2013 at 12:56 PMMail results letter------Notes Recorded by Summer Fields MD on 07/19/2013 at 7:18 PM Notify thyroid tests nl and test for lup us negative. Will let him know when we get the send out lab back Summer Fields MD LAB_1 Performing Organization Address [facility] Phon e Number HP CONVERSION MIGUEL Screen (07/18/2013 9:51 AM CDT) Analysis Performed At Patho logist Time Signature Anti-Nuclear Negative Negative HP CONVERSION Ab Specimen Anatomical Collection Method Collection Time Receive d Time (Source) Location / / Volume Laterality 07/18/2013 9:51 AM 3 CDT 10:56 AM CDT Narrative HP CONVERSION - 07/19/2013 1:11 PM CDT .[facility] labs code 36667 Transcriptions 10/29/2016 2:02 AM CSTNotes Recorded by Summer Fields MD on 07/27/2013 at 12:56 PMMail results letter------Notes Recorded by Summer Fields MD on 07/19/2013 at 7:18 PM Notify thyroid tests nl and test for lup us negative. Will let him know when we get the send out lab back Summer Fields MD LAB_1 Performing Organization Address [facility] Phon e Number HP CONVERSION documented in this encounter Visit Diagnoses Diagnosis Chronic urticaria Other specified urticaria Other specified urticaria documented in this encounter
--- OUTSIDE RECORDS SUMMARY | 2022-08-01 13:17 | XMS_ITS | Encounter Summary ---
:1990 Author Organization [employer] Address [address] [place] [address] Care Team Providers Name Role Phone Unavailable Primary Care Provider Unavailable Reason for Visit Reason Comments CONSULT Encounter Details Date Type Department Care Team Description 07/18/2013 Initial Consult [place] [id number] Summer Fields C hronic urticaria (Primary Dx); Allergy Need for prophylactic vaccination and in oculation against influenza [address] [phone] Social History Tobacco Use Types Packs/Day Years [...] Sign Reading Time Taken Comments Blood Pressure 112/78 07/18/2013 8:46 AM CDT Pulse - - Temperature - - Respiratory Rate - - Oxygen Saturation - - Inhaled Oxygen Concentration - - Weight 98.4 kg (217 lb) 07/18/2013 8:46 AM CDT Height 179.1 cm (5' 10.5) 07/18/2013 8:46 AM CDT Body Mass Index 30.7 07/18/2013 8:46 AM CDT documented in this encounter Progress Notes Summer Fields MD - 07/18/2013 12:02 PM CDT Progress Notes signed by Summer Fields MD at 07/19/132001 Author: Summer Fields MD Service: (none) Author Type: Physician Filed: 07/19/132001 Note Time: 07/18/13 1535 Status: Signed Duplicator Punch Operator: Summer Fields MD (Physician) NAME: HARI ELISE MR#: [id number] CSN: [id number] AUTHENTICATING CLINICIAN: Summer Fields MD CONFIRM #: [id number] LOC: 414 CLINIC PROGRESS NOTE DATE OF VISIT: 07/18/2013 : 1990 CHIEF COMPLAINT: Urticaria, angioedema. HISTORY OF PRESENT ILLNESS: Self-referred accompanied by Verena rico, to evaluate 2nd lifetime episode of urticaria and angioedema. This outbreak started June 11. Typical dime to golf ball sized pruritic, erythematous, maculopapular eruption. Occurs on torso, extremities, face, and neck daily. Individual lesions resolve in less than 24 hours without residual bruise. He has had 5 or 6 episodes of lip or eyelid swelling with this. It is worse when he gets very warm. No other exacerbating factors. He usually wakes up with them, and they improve over the next several hours. Loratadine 10 mg in the morning, cetirizine 10 mg at night, and ranitidine 75 mg once daily help a little. No oral steroid bursts. This is similar to a 9 month period of urticaria and angioedema that he had 4 years ago. That episode improved after treatment for mycoplasma through homeopathic practitioner. Joint swelling and stiffness, especially in his wrists and ankles, occur during urticarial eruption, and improve after it resolves. No pain medicine taken for this. No sun sensitive rash. No fevers. No night sweats. No abdominal pain. No diarrhea. No oral ulcerations. No iritis. No temperature intolerance. No antecedent viral illness recalled. No foreign travel, ever. He is rarely around young children. No antibiotics. Hives did not change on the 2 occasions that he took ibuprofen since this started. Eruptions preceded his in itiation of vitamin D, ruling that out as a culprit. No other vitamins or supplements used. No daily prescription medications. He was evaluated in his primary clinic, and had multiple negative serologic food allergy tests done.Inhalant allergy tests were positive to dust mites, clinically not significant for this problem. Records were scanned to media. 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 No surgeries. CURRENT MEDICATIONS: Updated in the electronic health record. FAMILY MEDICAL HISTORY: Positive for allergic rhinitis in his siblings. No family history of lupus, rheumatoid arthritis, orthyroid problems. 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 He has never been a smoker and doesnot have environmental tobacco exposure. OBJECTIVE: GENERAL: Pleasant, nontoxic. VITAL SIGNS: Are on the electronic health record. Temperature is 99.3. SKIN: Typical erythematous skin: 20-50 typical blanching, pink urticarial papules, that range from 1-3 cm diameter and have a distinct border. No target lesions. No blistering or peeling. No angioedema. No synovial thickening. His skin is 3+ dermatographic. His thyroid is smooth, without nodules or enlargement. There is no cervical or supraclavicular lymphadenopathy. His fingernails are normal. ASSESSMENT: Chronic urticaria and angioedema. I think this is the idiopathic form of chronic urticaria and angioedema, meaning no external allergic trigger is causing this. About 40% of these cases are due to an antibody to the high-affinity IgE receptor. PLAN: Although knowledge of the aforementioned antibody does not change prognosis or management, it is reassuring for most patients to know the cause. After discussion, Hari would like to check this, so yasmine send that out to [facility] in [place]. Check TSH and antithyroid antibodies because of their association with chronic urticaria. Less likely, but cannot completely exclude, a presentation of SLE. Check MIGUEL. Therapeutically, advised cetirizine 10 mg twice daily, and increasing ranitidine to 150 mg twice daily. Call if that is not adequately controlling symptoms, and will have to change to hydroxyzine 50 mgevery 6 hours. Potential for somnolence with that was discussed. Follow up 4-6 weeks. Influenza immunization was given today. Total time for this visit was 45 minutes, counseling time 25 minutes spent discussing diagnosis and treatment plan. CC: BARTOLOME CRAIN RN, DIRECTOR OF NEUROLOGY [address] [address] FAX: [phone] PRBAHJOT:DILLAN C: CONFIRM #: [id number] documented in this encounter Plan of Treatment Upcoming Encounters Date Type Specialty Care Team Description 08/09/2022 Appointment [place] [address] [place], [place] [address] (Wo rk) 08/10/2022 Appointment Physiatry/Physical Russel Mar MD [place] [phone] [facility] [id number] (Wo rk) 08/16/2022 Appoint[place] [address] [place], [place] [address] (Wo rk) 08/23/2022 Appoint[place] [address] [place], [place] [address] (Wo rk) 08/27/2022 Appoint[place] [address] [place], [place] [address] (Wo rk) 08/30/2022 App[place] [address] [place], [place] [address] (Wo rk) 09/03/2022 Appoint[place] [address] [place], [place] [address] (Wo rk) 09/06/2022 [place] [address] [place] [address] (Wo rk) 09/10/2022 App[place] [address] [address] [place] [address] (Wo rk) 09/30/2022 Appointment Family Medicine Elicia Lockhart MD [address] [place], [place] [phone] (Wo rk) documented as of this encounter Visit Diagnoses Diagnosis Chronic urticaria - Primary Other specified urticaria Need for prophylactic vaccination and in oculation against influenza documented in this encounter
--- OUTSIDE RECORDS SUMMARY | 2022-08-01 13:17 | XMS_ITS | Encounter Summary ---
:1990 Author Organization [employer] Address [address] [place] [address] Care Team Providers Name Role Phone Elicia Lockhart MD Primary Care Provider Reason for Visit Reason Comments SLEEP APNEA Patient Calling Back Encounter Details Date Type Department Care Team Description 08/09/2018 Telephone Elicia Leigh, SLEEP APNEA; Patient [address] MD Calling Back [place] [id number] [address] [phone] [place] [id number] (Wo rk) Social History [...] documented as of this encounter Nursing Notes Erica Tello LPN - 08/11/2018 2:48 PM CST Pt called and notified that the Home Store is probably closed today. Gave him the number and he willcall himself and check on Tuesday. TIVE RECRUITER David Tipton PA-C - 08/09/2018 5:43 PM CST Please find out from our Home Store if they carry these specific supplies. TIVE RECRUITER Olivia Hooks - 08/09/2018 4:41 PM CST Pt stated that the name of the mask is the [employer] [place] TIVE RECRUITER Shweta Thomas LPN - 08/09/2018 4:37 PM CST Pt unaware of type of mask pt is not at home to look. Pt will call back and give mask type when he is home. Ok for any nurse to get info TIVE RECRUITER David Tipton PA-C - 08/09/2018 4:05 PM CST Please find out from the patient what type of mask he has, and then find out from our Home Store if they carry these supplies. Isabelle Archuleta RN - 08/09/2018 2:38 PM CST Clinician Action: New Order DME, tubing and new mask for C-Pap Clinician Next Step: Route to [facility] to follow up and Patient IS expecting a call back fromcare team Specific Request(s): 1. New Order for Mask and Tubing for C-PAP Patient called back, he is with Dr. Lockhart now at , came from [facility]. He uses C-PAP machine for OSAdiagnosis and his mask and tubing is becoming very old. He is asking if he can have an order placed to cigar packer and picker at the [facility]. PCP is out of office until Tuesday 08/14, will route to [facility]. TIVE RECRUITER Frantz George - 08/09/2018 12:44 PM CST Miscellaneous Questions & FYI's - FYI What is your comment or FYI? Pt calling in to see if it would be his PCP or if he would need to see a ceramic chemist for his CPAP equipment to be replaced. Pt has transferred from [facility] to .and he is not sure what to do. If there are questions regarding your request, is it okay to leave a detailed message on your voicemail? Yes (Advise caller that the PN call back number will end with [phone] or unknown) Please route to: Appropriate pool per call routing grid TIVE RECRUITER documented in this encounter Plan of Treatment Upcoming Encounters Date Type Specialty Care Team Description 08/09/2022 [place] [address] [place], [place] [address] (Wo rk) 08/10/2022 Appointment Physiatry/Physical Russel Mar MD [address] [address] (Wo rk) 08/16/2022 [place] [address] [place], [place] [address] (Wo rk) 08/23/2022 [place] [address] [place], [place] [address] (Wo rk) 08/27/2022 [place] [address] [place], [place] [address] (Wo rk) 08/30/2022 [place] [address] [place], [place] [address] (Wo rk) 09/03/2022 [place] [address] [place], [place] [address] (Wo rk) 09/06/2022 [place] [address] [place], [place] [address] (Wo rk) 09/10/2022 [place] [address] [place], [place] [address] (Wo rk) 09/30/2022 Appointment Family Medicine Elicia Lockhart MD [address] [phone] (Wo rk) documented as of this encounter Visit Diagnoses Not on filedocumented in this encounter Care Teams Installation Superintendent Relationship Specialty Start Date End Date Elicia Lockhart MD PCP - General Family Practice 08/09/18[address] [phone] documented as of this encounter
--- OUTSIDE RECORDS SUMMARY | 2022-08-01 13:17 | XMS_ITS | Encounter Summary ---
:1990 Author Organization [employer] Address [address] [place] [address] Care Team Providers Name Role Phone Elicia Lockhart MD Primary Care Provider Reason for Visit Reason Comments MEDICATION CHECK anxiety Follow Up ER body aches, no appetite, alem k urine, chills, emesis (x 1), Encounter Details Date Type Department Care Team Description 04/19/2019 Office Visit Andrez Dominguez e Elicia Lockhart, LISSA (generalized anxiety dis order) ([facility]) (Primary Dx); [address] MD Dysthymic disorder; [place] [address] Fever and chills; [phone] [place] [address] Headache, unspecified headache type [phone] (Wo rk) Social History Tobacco Use Types [...] Sign Reading Time Taken Comments Blood Pressure 114/74 04/19/2019 2:45 PM CDT Pulse 100 04/19/2019 2:45 PM CDT Temperature - - Respiratory Rate - - Oxygen Saturation - - Inhaled Oxygen Concentration - - Weight 100.7 kg (222 lb) 04/19/2019 2:45 PM CDT Height - - Body Mass Index 31.4 07/18/2013 8:46 AM CDT documented in this encounter Patient Instructions Patient InstructionsElicia Lockhart MD - 04/19/2019 2:30 PM CDT Images from the original note were not included. Consider magnesium 400 mg to 800 mg daily (watch out for diarrhea) and riboflavin 400 mg daily. Headache: Care Instructions Your Care Instructions Headaches have many possible causes. Most headaches aren't a sign of a more serious problem, and they will get better on their own. Home treatment may help you feel better faster. The doctor has checked you carefully, but problems can develop later. If you notice any problems or new symptoms, get medical treatment right away. Follow-up care is a fink part of your treatment and safety. Be sure to make and go to all appointments, and call your doctor if you are having problems. It's also a good idea to know your test results and keep a list of the medicines you take. How can you care for yourself at home? ?? Do not drive if you have taken a prescription pain medicine. ?? Rest in a quiet, dark room until your headache is gone. Close your eyes and try to relax or go tosleep. Don't watch TV or read. ?? Put a cold, moist cloth or cold pack on the painful area for 10 to 20 minutes at a time. Put a thin cloth between the cold pack and your skin. ?? Use a warm, moist towel or a heating pad set on low to relax tight shoulder and neck muscles. ?? Have someone gently massage your neck and shoulders. ?? Take pain medicines exactly as directed. ? If the doctor gave you a prescription medicine for pain, take it as prescribed. ? If you are not taking a prescription pain medicine, ask your doctor if you can take an ebyr-mew-eyqnwns medicine. ?? Be careful not to take pain medicine more often than the instructions allow, because you may get worse or more frequent headaches when the medicine wears off. ?? Do not ignore new symptoms that occur with a headache, such as a fever, weakness or numbness, vision changes, or confusion. These may be signs of a more serious problem. To prevent headaches ?? Keep a headache diary so you can figure out what triggers your headaches. Avoiding triggers may help you prevent headaches. Record when each headache began, how long it lasted, and what the pain waslike (throbbing, aching, stabbing, or dull). Write down any other symptoms you had with the headache, such as nausea, flashing lights or dark spots, or sensitivity to bright light or loud noise. Note if the headache occurred near your period. List anything that might have triggered the headache, such as certain foods (chocolate, cheese, wine) or odors, smoke, bright light, stress, or lack of sleep. ?? Find healthy ways to deal with stress. Headaches are most common during or right after stressful times. Take time to relax before and after you do something that has caused a headache in the past. ?? Try to keep your muscles relaxed by keeping good posture. Check your jaw, face, neck, and shoulder muscles for tension, and try relaxing them. When sitting at a desk, change positions often, and stretch for 30 seconds each hour. ?? Get plenty of sleep and exercise. ?? Eat regularly and well. Long periods without food can trigger a headache. ?? Treat yourself to a massage. Some people find that regular massages are very helpful in relievingtension. ?? Limit caffeine by not drinking too much coffee, tea, or soda. But don't quit caffeine suddenly, because that can also give you headaches. ?? Reduce eyestrain from computers by blinking frequently and looking away from the computer screen every so often. Make sure you have proper eyewear and that your monitor is set up properly, about an arm's length away. ?? Seek help if you have depression or anxiety. Your headaches may be linked to these conditions. Treatment can both prevent headaches and help with symptoms of anxiety or depression. When should you call for help? Call 911 anytime you think you may need emergency care. For example, call if: ? You have signs of a stroke. These may include: ? Sudden numbness, paralysis, or weakness in your face, arm, or leg, especially on only one sideof your body. ? Sudden vision changes. ? Sudden trouble speaking. ? Sudden confusion or trouble understanding simple statements. ? Sudden problems with walking or balance. ? A sudden, severe headache that is different from past headaches. ?? Call your doctor now or seek immediate medical care if: ? You have a new or worse headache. ? Your headache gets much worse. Where can you learn more? 1. Go to https://MedSocket/PEAK-ITraLendAmend or easyOwn.it/PalringoraLendAmend. 2. Enter M271 in the search box. Current as of: February 19, 2018 Content Version: 12.0 ?? [id number] [employer]. Care instructions adapted under license by your healthcare professional. If you have questions about a medical condition or this instruction, always ask your healthcare professional. [employer] disclaims any warranty or liability for your use of this information. documented in this encounter Progress Notes Elicia Lockhart MD - 04/19/2019 2:30 PM CDT Subjective Chief Complaint Patient presents with ??? MEDICATION CHECK anxiety ??? Follow Up ER body aches, no appetite, dark urine, chills, emesis (x 1), Hari Elise is a 28 y.o. male who presents to the clinic today with the following concerns: 1. LISSA (generalized anxiety disorder) ([facility]) 2. Dysthymic disorder 3. Fever and chills 4. Headache, unspecified headache type About 11 days ago, he started having symptoms of body aches (everywhere, skin, joints without sweating). 7 days ago, he was in a meeting at work and felt more severe body aches, fatigue with shaking chills and sweats. He continued to have intense pain in his whole body that was worse in his lower abdomen. His urine was almost orange at times or at least dark. His skin hurt. Food did not look good anddid not eat well. He only vomited once yesterday. No diarrhea. No significant cough, sore throat, nasal congestion. No sore throat when it started. + headache and dizziness. He has slowly improved. He went to the ER yesterday in [place] and it was noted that his liver enzymes were elevated and he had steatosis of the liver and enlarged spleen. EBV titers drawn but not back yet. He has missed work on and off throughout the illness (missed 3 days). No rash. No ill contacts. He was taking nyquil (only APAP he was taking). He was taking naproxen 3 pills per day. H has never checked his temp. No IV or snorted drugs. No high risk sexual partners in lifetime. Alcohol is 3 per week. No blood transfusions. 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 He is in the [place]. He hunts and fishes. He went hunting in December in the area. He was exposed ticks ([place] ticks). No animals that go outside. Moods: doing ok. LISSA and PHQ reviewed today. He has not noticed any benefit from the increased dose of lexapro to 10 mg daily. He did experience suicidal thoughts of just give up and kill yourself. It felt more impulsive. He thought, yeah, this sounds like a good idea. He had just put his child tobed and was going to work out. His thoughts stunned and scared him. He did not feel at risk of hurting himself. This occurred 2 weeks ago. He then scheduled a therapy appointment and this appointment. He is working with his therapist to prioritize self care. He is not sure if the lexapro is helping him at all. He gets tension headaches 3 times per week. 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 He rarely has light or sound sensitivity. No nausea or vomiting. He will take naproxen and heating pad and it helps. Location: starts in the back of the neck and occiput and it wraps around to the top of the head. It can be left or right. Muscle relaxers (flexeril) did not change symptoms. PHQ9 Scores PHQ-9 04/19/2019 11/16/2018 07/03/2018 PHQ-9 Score Total 13 5 6 Q1: Loss of Int/Pleas ++ - + Q2: Depressed mood ++ ++ + Q3: Sleep problems - +++ - Q4: Tired/Low Energy +++ - - Q5: Appetite change ++ - - Q6: Feelings of failure + - +++ Q7: Concentration Prob ++ - + Q8: Slow or Restless - - - Q9: Thought Self Harm + - - Index Date: No date on file. LISSA 7 Scores LISSA-7 04/19/2019 11/16/2018 07/03/2018 Feeling nervous 1 3 3 Can't stop worrying 1 2 3 Worrying too much 0 3 3 Trouble relaxing 1 3 3 Restlessness 0 1 0 Easily annoyed 3 3 3 Feeling afraid 0 0 3 How difficult? Somewhat difficult Extremely difficult - Total score 6 15 18 Current Outpatient Medications Medication Sig Dispense Refill ??? cetirizine (ZYRTEC) 10 MG tablet Take 1 Tablet by mouth two times daily as needed. ??? cholecalciferol (AKA VITAMIN D3) 1000 UNITS tablet Take 5 tablets by mouth daily (every 24 hours). 100 tablet PRN ??? FLUoxetine (PROZAC) 20 MG capsule Take 1 Capsule by mouth daily. 30 Capsule 2 ??? hydrOXYzine HCl (ATARAX) 25 [...] the patient record as necessary. Objective BP 114/74 (BP Location: Right Arm, BP Cuff Size: Regular) Pulse 100 Wt 222 lb (100.7 kg) BMI 31.40 kg/m?? General Appearance: alert, well appearing and in no apparent distress HEENT: MMM. EOMs intact and pupils equal round Heart: regular rate and rhythm and no murmurs, gallops or rubs Lungs: clear to ausculation and no wheezes, rales or rhonchi Mental Status Evaluation: Appearance: age appropriate and casually dressed Behavior: Within Normal Limits Speech: normal pitch and normal volume Mood: Anxious and depressed Affect: mood-congruent Thought Process: within normal limits Thought Content: within normal limits Sensorium: intact Cognition: grossly intact Insight: good Judgment: good Data relevant to this visit: Labs and imaging report from [place] emergency department dated 2018 as well as patient instructions from ER visit. Assessment and Plan LISSA (generalized anxiety disorder) ([facility]) andDysthymic disorder-he does not feel his symptoms have improved at all since starting Lexapro. However, his lissa scores have decreased slowly over time but hisdepression scores have not changed. He is participating in therapy at this time. He is interested in changing medications. - FLUoxetine (PROZAC) 20 MG capsule; Take 1 Capsule by mouth daily. New medication:Discussed the risks benefits and alternatives -discussed either stopping Lexapro or decreasing to 5 mg daily for 1 week and then stopping. We alsodiscussed the possibility of increasing Lexapro to see if there would be benefit at higher doses fordepression symptoms but I would have expected to see at least a little bit of benefit at 10 mg of Lexapro. Fever and chills-discussed differential diagnosis for symptoms including mono, mono like illness (CMV), HIV, hepatitis, rheumatological disease, tick-borne illness, etc. His symptoms are starting to improve as of today. I recommend the following labs if his EBV testing and mono test today are negative/normal. He will share the EBV testing results from [facility] when available. If all of thebelow labs are normaI and he documents continued fevers of 100.5 or higher, recommend proceeding with a sed rate, LDH, blood cultures, MIGUEL, SPEP, rheumatoid factor, CPK, and consider CT of the chest abdomen and pelvis. I recommend he start checking his times when he is having symptoms of chills and sweats. He agrees to this plan of care. - HIV 1/2 Ag/Ab 4th Generation; Future - Hepatitis Panel with Reflex to Confirmation; Future - Cytomegalovirus IgG Antibody; Future - Cytomegalovirus IgM Antibody; Future - Lyme Antibody, and Western Blot If Needed); Future - Mononucleosis Screen; Future - Ehrlichia and Anaplasma Species PCR; Future Headache, unspecified headache type -headaches could be tension versus migrainous in nature. Discussed relaxation techniques to help reduce muscle tension. I also encouraged him to work with this therapist about muscle relaxation and anxiety symptoms. He agrees with this plan of care. I recommend he stop using medications such as Aleve for his mild to moderate headaches and only use it for his severe headaches. He likely has a component of medication overuse headaches as he is likely using NSAIDs about 12 days per month. -I recommended trial of starting riboflavin and magnesium. -See patient instructions for more details of information discussed with Hari Elise today. Return in about 4 weeks (around 05/17/2019) for dep/anx, AGUILAR. Total time of care was 45 minutes and more than half of this time was spent counseling regarding above diagnoses. documented in this encounter Plan of Treatment Upcoming Encounters Date Type Specialty Care Team Description 08/09/2022 [place] [address] [place], [place] [address] (Wo rk) 08/10/2022 Appointment Physiatry/Physical Russel Mar MD [facility] [address] [facility] [address] [address] (Wo rk) 08/16/2022 Appoint[place] [address] [place], [place] [address] (Wo rk) 08/23/2022 [place] [address] [place], [place] [address] (Wo rk) 08/27/2022 [place] [address] [place], [place] [address] (Wo rk) 08/30/2022 [place] [address] [place], [place] [address] (Wo rk) 09/03/2022 [place] [address] [place], [place] [address] (Wo rk) 09/06/2022 Appointment [place] [address] [facility], [place] [address] (Wo rk) 09/10/2022 Appointment [place] [address] [facility], [place] [address] (Wo rk) 09/30/2022 Appointment Family Medicine Elicia Lockhart MD [address] [place] [address] (Wo rk) documented as of this encounter Results Ehrlichia and Anaplasma Species PCR (04/20/2019 1:42 PM CDT) Component Value Ref Test Analysis Performed At [facility] Range Method Time Signature Anaplasma Not 04/23/2019 [...] Test developed and characteristics deter mined by [facility]. See Compliance Statement B : [facility]/CS Performed by [facility], [address] [place] [address] [email or web address], Terrence Giron MD, Lab. Director Specimen Anatomical Collection Method / Collection Time Recei nicolette Time (Source) Location / Volume Laterality Blood Venipuncture / 04/20/2019 1:42 04/20/2019 1:44 Unknown PM CDT PM CDT Elicia Lockhart MD LAB_1 Performing Organization Address City/State/ZIP Code Phon e Number [facility] [address] [place] [address] [phone] Lyme Antibody, and Western Blot If Needed) (04/20/2019 1:42 PM CDT) P athologist Signature Lyme Units 0.45 IV 04/21/2019 [facility] 9:25 AM CDT LABORATORY Comment: The magnitude [...] Elicia Lockhart MD LAB_1 Performing Organization Address [facility] e Number [facility] [address] [place] [address] (ABNORMAL) Cytomegalovirus IgM Antibody (04/20/2019 1:42 PM CDT) [facility] Method Time Signature Cytomegalovirus IgM 234.0 AU/mL 04/24/2019 [facility] 11:28 AM CDT LABORATORY Comment: The magnitude of the measured r esult, above the cutoff, is not indicative of the amount of antibody present. Cytomegalovirus IgM Positive (A) Negative 04/24/2019 11:28 [facility] Interpretation AM CDT LABORATORY Specimen Anatomical Collection Method / Collection Time Recei nicolette Time (Source) Location / Volume Laterality Blood Venipuncture / 04/20/2019 1:42 04/20/2019 1:44 Unknown PM CDT PM CDT Narrative [facility] - 04/24/2019 11:28 AM CDT Presence of detectable CMV IgM antibodie s. A positive result is generally indicative of acute infection, reactivation, or per sistent IgM production. Elicia Lockhart MD LAB_1 Performing Organization Address [facility] e Number [facility] [address] [place] [address] (ABNORMAL) Cytomegalovirus IgG Antibody (04/20/2019 1:42 PM CDT) [facility] Method Time Signature Cytomegalovirus IgG 0.7 U/mL 04/24/2019 [facility] Antibody 11:28 AM CDT LABORATORY Comment: The magnitude of the measured r esult, above the cutoff, is not indicative of the amount of antibody present. Cytomegalovirus IgG Positive (A) Negative 04/24/2019 11:28 [facility] Interpretation AM CDT LABORATORY Specimen Anatomical Collection Method / Collection Time Recei nicolette Time (Source) Location / Volume Laterality Blood Venipuncture / 04/20/2019 1:42 04/20/2019 1:44 Unknown PM CDT PM CDT Narrative [facility] - 04/24/2019 11:28 AM CDT Presence of detectable CMV IgG antibodie s. A positive result generally indicates either recent or past exposure to the CM V. Elicia Lockhart MD LAB_1 Performing Organization Address [facility] e Number [facility] [address] [place] [address] Hepatitis Panel with Reflex to Confirmation (04/20/2019 1:42 PM CDT) [facility] Method Time Signature Hepatitis A Negative Negative 04/20/2019 [facility] Antibody, IgM (Non (Non 8:28 PM CDT [...] Elicia Lockhart MD LAB_1 Performing Organization Address City/[facility] Phon e Number [facility] [address] [place] [address] HIV 1/2 Ag/Ab 4th Generation (04/20/2019 1:42 PM CDT) [facility] Method Time Signature HIV 1/2 Negative Negative 04/20/2019 [facility] Antigen/Antib (Non (Non 7:59 PM CDT LABORATORY betty (4th Reactive) Reactive) generation) Comment: HIV-1 p24 Antigen and HIV-1/HIV -2 Antibody not detected Specimen Anatomical Collection Method / Collection Time Recei nicolette Time (Source) Location / Volume Laterality Blood Venipuncture / 04/20/2019 1:42 04/20/2019 1:44 Unknown PM CDT PM CDT Elicia Lockhart MD LAB_1 Performing Organization Address City/[facility]/ZIP Code Phon e Number [facility] [address] [place] [address] Mononucleosis Screen (04/19/2019 3:48 PM CDT) [facility] Method Time Signature Mononucleosis Negative Negative 04/19/2019 [facility] Screen 4:00 PM CDT LABORATORY (PN) Specimen Anatomical Collection Method / Collection Time Recei nicolette Time (Source) Location / Volume Laterality Blood Venipuncture / 04/19/2019 3:48 04/19/2019 3:48 Unknown PM CDT PM CDT Elicia Lockhart MD LAB_1 Performing Organization Address City/[facility] Phon e Number [facility] (PN) [address] [phone] documented in this encounter Visit Diagnoses Diagnosis LISSA (generalized anxiety disorder) ([facility]) - Primary Generalized anxiety disorder Dysthymic disorder ([facility]) Dysthymic disorder Fever and chills Fever, unspecified Headache, unspecified headache type documented in this encounter 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
--- OUTSIDE RECORDS SUMMARY | 2022-08-01 13:17 | XMS_ITS | Encounter Summary ---
:1990 Author Organization [facility] Address [address] [place] [address] Care Team Providers Name Role Phone Unavailable Primary Care Provider Unavailable Encounter Details Date Type Department Care Team Description 07/18/2013 Notes/Orders [facility] [address] [place] specified Allergy urticaria ([facility] [facility] [address] [facility] [place] [phone] (Wo rk) Social History Tobacco Use Types [...] 08/09/2022 [place] [address] [place], [place] [address] (Wo rk) 08/10/2022 Appointment Physiatry/Physical Russel Mar MD Medicine [address] [facility] N [address] (Wo rk) 08/16/2022 [place] [address] [place], [place] [address] (Wo rk) 08/23/2022 [place] [address] [place], [place] [address] (Wo rk) 08/27/2022 Appoint[place] [address] [place], [place] [address] (Wo rk) 08/30/2022 [place] [address] [place], [place] [address] (Wo rk) 09/03/2022 [place] [address] [place], [place] [address] (Wo rk) 09/06/2022 Appoint[place] [address] [place], [place] [address] (Wo rk) 09/10/2022 [place] [address] [place], [place] [address] (Wo rk) 09/30/2022 Appointment Family Medicine Elicia Lockhart MD [address] [place] [address] (Wo rk) documented as of this encounter Visit Diagnoses Diagnosis Other specified urticaria - Primary documented in this encounter
--- OUTSIDE RECORDS SUMMARY | 2022-08-01 13:17 | XMS_ITS | Encounter Summary ---
:1990 Author Organization [employer] Address [address] [place] [address] Care Team Providers Name Role Phone Unavailable Primary Care Provider Unavailable Reason for Visit Reason Comments Event Monitoring Encounter Details Date Type Department Care Team Description 08/01/2018 Office Visit [facility] Nurse, Luis Carlos peng heart beats (Primary Dx); Medicine Fp Exertional chest pain [address] [place] [address] Social History Tobacco Use Types [...] documented as of this encounter Progress Notes Dana Jacobo RN - 08/01/2018 1:00 PM CST Pt in clinic for Ziopatch placement today. Ziopatch placed without incident. Pt given verbal instructions to keep dry for the first 24 hours and given instructions on how to document symptoms as well as how to return when monitoring is completed. Pt verbalized understanding of the above. 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 Plan of Treatment Upcoming Encounters Date Type Specialty Care Team Description 08/09/2022 [place] [address] [place], [place] [address] (Wo rk) 08/10/2022 Appointment Physiatry/Physical Russel Mar MD [facility] [address] [facility] [place] N [address] (Wo rk) 08/16/2022 [place] [address] [place], [place] [address] (Wo rk) 08/23/2022 [place] [address] [place], [place] [address] (Wo rk) 08/27/2022 [place] [address] [place], [place] [address] (Wo rk) 08/30/2022 [place] [address] [place], [place] [address] (Wo rk) 09/03/2022 [place] [address] [place], [place] [address] (Wo rk) 09/06/2022 [place] [address] [place], [place] [address] (Wo rk) 09/10/2022 [place] [address] [place], [place] [address] (Wo rk) 09/30/2022 Appointment Family Medicine Elicia Lockhart MD [address] [place] [address] (Wo rk) documented as of this encounter Visit Diagnoses Diagnosis Skipped heart beats - Primary Cardiac dysrhythmia, unspecified Exertional chest pain Chest pain, unspecified documented in this encounter
--- OUTSIDE RECORDS SUMMARY | 2022-08-01 13:17 | XMS_ITS | Encounter Summary ---
:1990 Author Organization [employer] Address [address] [place] [address] Care Team Providers Name Role Phone Elicia Lockhart MD Primary Care Provider Reason for Visit Reason Comments ANXIETY Encounter Details Date Type Department Care Team Description 11/16/2018 Office Visit Elicia Leigh, MAYA (generalized anxiety dis order) (Primary Dx); [address] [place] [address] [address] [phone] [place] [address] (Wo rk) Social History [...] Sign Reading Time Taken Comments Blood Pressure 118/72 11/16/2018 8:42 AM DIRECTOR OF MEDICAL STAFF SERVICES Pulse 68 11/16/2018 8:42 AM DIRECTOR OF MEDICAL STAFF SERVICES Temperature - - Respiratory Rate - - Oxygen Saturation - - Inhaled Oxygen Concentration - - Weight - - Height - - Body Mass Index - - documented in this encounter Patient Instructions Patient InstructionsElicia Lockhart MD - 11/16/2018 8:40 AM CST STRESS ECHOCARDIOGRAM. Date: 07/13/2018 Start: 08:10 AM Facility: [facility] ?? CONCLUSIONS REST: LV chamber size, wall thickness, and segmental and global wall motion are normal. No significant valvular abnormalities are seen. The visually estimated resting LVEF is 60%. ?? STRESS: All segments display appropriate hyperkinesis; ejection fraction increases appropriately. End systolic area decreases. ?? CONCLUSIONS: 1. Normal exercise echocardiogram with adequate heart rate and workload. 2. No evidence for inducible ischemia. 3. There were no arrhythmias during the test. 4. Risk stratification by stress echocardiography is identified as low risk based on normal stress echocardiogram. ?? Comment: Zio is unremarkable. CTOR OF MEDICAL STAFF SERVICES documented in this encounter Progress Notes Elicia Lockhart MD - 11/16/2018 8:40 AM CST Chief Complaint Patient presents with ??? ANXIETY Hari Elise is a 28 y.o. male who presents to the clinic today with the following concerns: 1. MAYA (generalized anxiety disorder) (HRC) 2. Dysthymic disorder (HRC) HPI: Increased stress and anxiety: Hari and his recently moved, built a home with in-laws andthere were a lot of mistakes during the building process. They had to move out after moving in TWICEbecause of all the mistakes. He noticed increased smaller and larger panic attacks. He had symptoms of elevated heart rate, SOB, crying, sweating, feeling overwhelmed and dizziness. He struggled to settle his body down during these episodes. This occurred more last week and each episode lasted 10 minutes. After eat episode, he felt really wiped out to the point he had to leave work and go home and rest. He does not feel the lexapro is helping his symptoms. Outside of the panic attacks, he does not feel excessively stressed out. Panic attacks are 1 time per week for the past few weeks but prior to this, he had panic attacks 1-2 times per month. Anxiety affects him most weeks for at last 20-30 minutes each episode (but manageable). He feels irritable most days. He is seeing a therapist and this is helpful. He uses coping skills, guided meditation. He used to meditate every day but stopped recently. He is not exercising at this time. He has a rowing machine athome. PHQ9 Scores PHQ-9 11/16/2018 07/03/2018 PHQ-9 Score Total 5 6 Q1: Loss of Int/Pleas - + Q2: Depressed mood ++ + Q3: Sleep problems +++ - Q4: Tired/Low Energy - - Q5: Appetite change - - Q6: Feelings of failure - +++ Q7: Concentration Prob - + Q8: Slow or Restless - - Q9: Thought Self Harm - - Index Date: No date on file. MAYA 7 Scores MAYA-7 11/16/2018 07/03/2018 Feeling nervous 3 3 Can't stop worrying 2 3 Worrying too much 3 3 Trouble relaxing 3 3 Restlessness 1 0 Easily annoyed 3 3 Feeling afraid 0 3 How difficult? Extremely difficult - Total score 15 18 Problem List/PMH Patient Active Problem List Diagnosis Date Noted ??? Gout, chronic 07/03/2018 ??? GERD (gastroesophageal reflux disease) 07/03/2018 ??? Chronic urticaria 07/03/2018 Overview Note: Hives with lip or tongue swelling. He has 4-5 episodes since 2008. Anti-IgE receptor antibody. Manages symptoms with cetirizine 10 mg bid, zantac 150 mg TID, benadryl 50 mg every 6 hours as needed, hydroxyzine 25 mg TID PRN if benadryl fails. Occasionally he needs prednisone (10 mg every 12-24 hours as needed) when cetirizine/zantac/benadryl/hydroxyzine FAIL. ??? MAYA (generalized anxiety disorder) (HRC) 07/03/2018 ??? Dysthymic disorder (HRC) 07/03/2018 ??? Mixed dyslipidemia (HRC) 07/03/2018 Overview Note: Elevated trigs and low HDL. LDL 95 Noted in Care Everywhere in 2017 ??? CHRISTOPH (obstructive sleep apnea) 02/17/2017 Current Medications Current Outpatient Medications Medication Sig Dispense Refill ??? cetirizine (ZYRTEC) 10 MG tablet Take 1 Tablet by mouth two times daily as needed. ??? cholecalciferol (AKA VITAMIN D3) 1000 UNITS tablet Take 5 tablets by mouth daily (every 24 hours). 100 tablet PRN ??? escitalopram oxalate (LEXAPRO) 10 MG tablet Take 1 Tablet by mouth daily. 90 Tablet 3 ??? hydrOXYzine HCl (ATARAX) 25 MG tablet Take 1 Tablet by mouth three times a day as needed for Anxiety. 30 Tablet 0 ??? Ranitidine HCl (AKA ZANTAC) 150 MG capsule Take 1 capsule by mouth 2 times daily. 60 capsule 11 No current facility-administered medications for this visit. Allergies No Known Allergies Social History Social History Socioeconomic History ??? Marital status: Spouse name: Ashley ??? Number of children: 1 ??? Years of education: Not on file ??? Highest education level: Not on file Occupational History ??? 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 Financial resource strain: Not on file ??? Food insecurity: Worry: Not on file Inability: Not on file ??? Transportation needs: Medical: Not on file Non-medical: Not on file Tobacco Use ??? Smoking status: Never Smoker ??? Smokeless tobacco: Never Used Substance and Sexual Activity ??? Alcohol use: Yes Comment: rare ??? Drug use: Not on file ??? Sexual activity: Not on file Lifestyle ??? Physical activity: Days per week: Not on file Minutes per session: Not on file ??? Stress: Not on file Relationships ??? Social connections: Talks on phone: Not on file Gets together: Not on file Attends alevism service: Not on file Active member of club or organization: Not on file Attends meetings of clubs or organizations: Not on file Relationship status: Not on file ??? Intimate partner violence: Fear of current or ex partner: Not on file Emotionally abused: Not on file Physically abused: Not on file Forced sexual activity: Not on file Other Topics Concern ??? Bike Helmet Not Asked ??? [place] Not Asked ??? Exercise Not Asked ??? Guns in home Not Asked ??? Seat Belt Not Asked ??? Special Diet Not Asked ??? Weight Concern Not Asked Social History Narrative ??? Not on file Exam Filed Vitals: 11/16/18 0842 BP: 118/72 Pulse: 68 GEN: NAD, A&OX3. HEENT: MMM. PERRL. EOMI. Sclera white/normal. Mental Status Evaluation: Appearance: age appropriate and casually dressed Behavior: Within Normal Limits Speech: normal pitch and normal volume Mood: anxious Affect: mood-congruent Thought Process: within normal limits Thought Content: within normal limits Sensorium: intact Cognition: grossly intact Insight: good Judgment: good No results found for this or any previous visit (from the past 24 hour(s)). Assessment/Plan: Diagnosis and Associated Orders ICD-10-CM 1. MAYA (generalized anxiety disorder) (HRC) F41.1 escitalopram oxalate (LEXAPRO) 10 MG tablet hydrOXYzine HCl (ATARAX) 25 MG tablet 2. Dysthymic disorder (HRC) F34.1 Hari was seen today for anxiety. Diagnoses and all orders for this visit: MAYA (generalized anxiety disorder) (HRC) - escitalopram oxalate (LEXAPRO) 10 MG tablet; Take 1 Tablet by mouth daily. - hydrOXYzine HCl (ATARAX) 25 MG tablet; Take 1 Tablet by mouth three times a day as needed for Anxiety (panic attacks: Discussed the risks benefits and alternatives). This is an increased dose. Dysthymic disorder (HRC)-lexapro increased. See above. 3 Other orders - Influenza IIV4 (Quadrivalent) 0.5 mL ([id number]) Return in about 1 month (around 12/14/2018) for anxiety. Patient Instructions STRESS ECHOCARDIOGRAM. Date: 07/13/2018 Start: 08:10 AM Facility: [facility] ?? CONCLUSIONS REST: LV chamber size, wall thickness, and segmental and global wall motion are normal. No significant valvular abnormalities are seen. The visually estimated resting LVEF is 60%. ?? STRESS: All segments display appropriate hyperkinesis; ejection fraction increases appropriately. End systolic area decreases. ?? CONCLUSIONS: 1. Normal exercise echocardiogram with adequate heart rate and workload. 2. No evidence for inducible ischemia. 3. There were no arrhythmias during the test. 4. Risk stratification by stress echocardiography is identified as low risk based on normal stress echocardiogram. ?? Comment: Zio is unremarkable. CTOR OF MEDICAL STAFF SERVICES documented in this encounter Plan of Treatment Upcoming Encounters Date Type Specialty Care Team Description 08/09/2022 [place] [address] [place], [place] [address] (Wo rk) 08/10/2022 Appointment Physiatry/Physical Russel Mar MD [facility] [address] [facility] [place] [address] [address] (Wo rk) 08/16/2022 Appoint[place] [address] [place], [place] [address] (Wo rk) 08/23/2022 Appoint[place] [address] [place], [place] [address] (Wo rk) 08/27/2022 App[place] [address] [place], [place] [address] (Wo rk) 08/30/2022 App[place] [address] [place], [place] [address] (Wo rk) 09/03/2022 App[place] [address] [place], [place] [address] (Wo rk) 09/06/2022 Appoint[place] [address] [place], [place] [address] (Wo rk) 09/10/2022 Appoint[place] [address] [place], [place] [address] (Wo rk) 09/30/2022 Appointment Family Medicine Elicia Lockhart MD [address] [place], [place] [phone] (Wo rk) documented as of this encounter Visit Diagnoses Diagnosis MAYA (generalized anxiety disorder) (HRC) - Primary Generalized anxiety disorder Dysthymic disorder (HRC) Dysthymic disorder documented in this encounter Care Teams Creative Coordinator Relationship Specialty Start Date End Date Elicia Lockhart MD PCP - General Family Practice 08/09/181884 [address] [phone] documented as of this encounter
--- OUTSIDE RECORDS SUMMARY | 2022-08-01 13:17 | XMS_ITS | Encounter Summary ---
:1988 Author Organization [employer] Address [address] [place] [address] Care Team Providers Name Role Phone Unavailable Primary Care Provider Unavailable Reason for Visit Reason Comments PALPITATIONS--ED Encounter Details Date Type Department Care Team Description 06/23/2018 Nurse Triage [place] Fitzgerald Pcp, Assignment PALPITATIONS--ED [address] [facility] [place] [address] [place], [place] [phone] [address] Social History Tobacco Use Types Packs/Day Years [...] documented as of this encounter Nursing Notes Gary Caceres RN - 06/23/2018 3:51 PM CDT Reason for Disposition ??? Skipped or extra beat(s) and increases with exercise or exertion Protocols used: HEART RATE AND HEARTBEAT [id number] Spoke with patient, who complains of intermittent palpitations for a month now. Notes he feels a flipping sensation after exercising or going up the steps. The sensation lasts for about 30 mins. No chest pain, dizziness, weakness, or unusual sweating. Patient states he had similar symptoms about a year and a half ago- and wore a Holter monitor for 24 hrs. Notes he was advised that he is sensitive to irregular heart beat'. Started lexapro about 2 months ago for anxiety/ depression. Notes those symptoms are under control. Home care and problem list reviewed as pertaining to the call. Patient will go to per protocol for evaluation of irregular heartbeat. Jacky Ferguson - 06/23/2018 3:42 PM CDT Symptoms Describe your symptoms (if pain, include location): Heart palpitations When did they start? 2weeks Additional comments (related to the above concern): Pt looking to establish care in [place] If a prescription is needed, patient would [...] 08/09/2022 [place] [address] [place], [place] [address] (Barrett akers) 08/10/2022 Appointment Physiatry/Physical Russel Mar MD Medicine [address] [facility] [address] [address] (Barrett rk) 08/16/2022 [place] [address] [place], [place] [address] (Barrett akers) 08/23/2022 Appoint[place] [address] [place], [place] [address] (Wo rk) 08/27/2022 Appoint[place] [address] [place], [place] [address] (Wo rk) 08/30/2022 Appoint[place] [address] [place], [place] [address] (Wo rk) 09/03/2022 App[place] [address] [place], [place] [address] (Wo rk) 09/06/2022 [place] [address] [place], [place] [address] (Wo rk) 09/10/2022 [place] [address] [place], [place] [address] (Wo rk) 09/30/2022 Appointment Family Medicine Elicia Lockhart MD [address] [place] [address] (Wo rk) documented as of this encounter Visit Diagnoses Not on filedocumented in this encounter
--- OUTSIDE RECORDS SUMMARY | 2022-08-01 13:17 | XMS_ITS | Encounter Summary ---
:1990 Author Organization [facility] Address [address] [place] [address] Care Team Providers Name Role Phone Unavailable Primary Care Provider Unavailable Reason for Referral (Routine) - Closed Specialty Diagnoses / Procedures Referred By Contact Refer red To Contact Diagnoses Skipped heart beats Exertional chest pain Mixed dyslipidemia (HRC) Elicia Georges MD Procedures Stress Echocardiogram [address] [place] [address] Referral ID Status Reason Start Date Expiration Date Visits Requ ested Visits Authorized [id number] Closed 07/04/2018 10/03/2019 1 1 Reason for Visit Reason Comments Follow-up ER visit Encounter Details Date Type Department Care Team Description 07/03/2018 Office Visit Elicia Cote, Exertion al chest pain (Primary Dx); Medicine Skipped heart beats; [address] MAYA (generalized anxiety disorder); [address] [address] [address] [place] [address] Dysthymic disorder; [phone] (Wo rk) CHRISTOPH (obstructive sleep apnea); Mixed dys lipidemia Social History Tobacco Use Types Packs/Day Years [...] Sign Reading Time Taken Comments Blood Pressure 118/84 07/03/2018 3:24 PM CDT Pulse 106 07/03/2018 3:24 PM CDT Temperature - - Respiratory Rate - - Oxygen Saturation - - Inhaled Oxygen Concentration - - Weight 100.7 kg (222 lb) 07/03/2018 3:24 PM CDT Height - - Body Mass Index 31.4 07/18/2013 8:46 AM CDT documented in this encounter Progress Notes Elicia Georges MD - 07/04/2018 8:15 AM CDT Addended by: ELICIA GEORGES on: 07/04/2018 08:15 AM Modules accepted: Orders Elicia Georges MD - 07/03/2018 3:30 PM CDT Chief Complaint Patient presents with ??? Follow-up ER visit Hari Elise is a 27 y.o. male who presents to the clinic today with the following concerns: 1. Exertional chest pain 2. Skipped heart beats 3. MAYA (generalized anxiety disorder) (HRC) 4. Dysthymic disorder (HRC) 5. CHRISTOPH (obstructive sleep apnea) HPI: Chest pressure. Was in ER at [facility] last week (this is reviewed in care everywhere). He had been experiencing chest pressure and it felt like something had been released and then the pressure discomfort improved. It felt like a geyser. During the time of pressure when it release, he was checking his pulse and noticed a skipped beat. At that time, he felt a flutter in his chest. Around that same time, he had massive stressors within 72 hours (furnace out, car broke down, work stress). He is also selling his home (old home). They are building a house. They have many things to fix in their home. His chest symptoms are about 80% better. His initial symptoms started when he walked up stairs. He still does get some symptoms at rest (very mild compared to 2 weeks ago). 30 seconds after he walks up a flight of stairs, he does get some chest pressure (after walking up 2 flights of stairs). Anxiety and depression. Feels better on lexapro 5 mg and it was started 2 months ago. Around the same time he changed jobs which has significantly reduced stress/anxiety. PHQ and MAYA reviewed: PHQ9 Scores PHQ-9 07/03/2018 PHQ-9 Score Total 6 Q1: Loss of Int/Pleas + Q2: Depressed mood + Q3: Sleep problems - Q4: Tired/Low Energy - Q5: Appetite change - Q6: Feelings of failure +++ Q7: Concentration Prob + Q8: Slow or Restless - Q9: Thought Self Harm - Index Date: No date on file. MAYA 7 Scores MAYA-7 07/03/2018 Feeling nervous 3 Can't stop worrying 3 Worrying too much 3 Trouble relaxing 3 Restlessness 0 Easily annoyed 3 Feeling afraid 3 Total score 18 Today, Hari Elise's problem list, PMH, PSH, FH, SH, medications, and allergies are reviewed with the patient and updated in [facility]. Problem List/PMH Patient Active Problem List Diagnosis [...] sleep apnea) 02/17/2017 Current Medications Current Outpatient Prescriptions Medication Sig Dispense Refill ??? cetirizine (ZYRTEC) 10 MG tablet Take 1 Tablet by mouth two times daily as needed. ??? cholecalciferol (AKA VITAMIN D3) 1000 UNITS tablet Take 5 tablets by mouth daily (every 24 hours). 100 tablet PRN ??? escitalopram oxalate (LEXAPRO) 5 MG tablet Take 5 mg by mouth daily. ??? hydrOXYzine HCl (AKA ATARAX) 50 MG tablet Take 0.5 tablets by mouth 3 times daily. ??? Ranitidine HCl (AKA ZANTAC) 150 MG capsule Take 1 capsule by mouth 2 times daily. 60 capsule 11 No current facility-administered medications for this visit. Allergies No Known Allergies Social History Social History Social History ??? Marital status: Spouse name: Ashley ??? Number of children: 1 ??? 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 Smoking status: Never Smoker ??? Smokeless tobacco: Never Used ??? Alcohol use Yes Comment: rare ??? Drug use: Not on file ??? Sexual activity: Not on file Other Topics Concern ??? Not on file Social History Narrative ??? No narrative on file Exam Filed Vitals: 07/03/18 1524 BP: 118/84 Pulse: (!) 106 Weight: 222 lb (100.7 kg) GEN: NAD, A&OX3. HEENT: MMM. No oral lesions. TM's and ear canals normal. PERRL. EOMI. Sclera white/normal. NECK: no LAD Chest: clear bilaterally. No wheezes, rhonchi, rales. CV: heart with regular rhythm. No murmur. Rate is borderline at 100 on my exam. PT and radial pulsesintact akshat. Psych: dressed and groomed appropriately for today's visit. Mood anxious and congruent with affect. Speech normal. Insight and judgement intact. No results found for this or any previous visit (from the past 24 hour(s)). Assessment/Plan: Diagnosis and Associated Orders ICD-10-CM 1. Exertional chest pain R07.9 Cardiology Consult-Adults ECG 12 Lead Outpatient 2. Skipped heart beats I45.9 3. MAYA (generalized anxiety disorder) (HRC) F41.1 4. Dysthymic disorder (HRC) F34.1 5. CHRISTOPH (obstructive sleep apnea) G47.33 Hari was seen today for follow-up. Diagnoses and all orders for this visit: Exertional chest pain and Skipped heart beats; risk factor include CHRISTOPH, overweight status, elevated trigs and LOW HDL in 2017. - Cardiology Consult-Adults - ECG 12 Lead Outpatient -if cardiac stress test is negative and still having symptoms, consider ZIOPATCH. MAYA (generalized anxiety disorder) (HRC)and Dysthymic disorder (HRC) -he reports symptoms are greatly improved with the change of jobs. He is not sure if the current dose of lexapro is helping or if the job change is helping. CHRISTOPH (obstructive sleep apnea) -continue CPAP. Return in about 4 weeks (around 07/31/2018) for follow up chest pain, heart palpitations, stress/anxiety. There are no Patient Instructions on file for this visit. Total time of care was 45 minutes and more than half of this time was spent counseling regarding above dx, reviewing medical records via Care Everywhere. documented in this encounter Plan of Treatment Upcoming Encounters Date Type Specialty Care Team Description 08/09/2022 [place] [address] [place], [place] [address] (Barrett akers) 08/10/2022 Appointment Physiatry/Physical Russel Mar MD [address] [address] (Wo rk) 08/16/2022 Appoint[place] [address] [place] [address] (Barrett akers) 08/23/2022 Appoint[place] [address] [place] [address] (Barrett akers) 08/27/2022 Appointment [place] [address] [place], [place] [address] (Wo rk) 08/30/2022 Appointment [place] [address] [place], [place] [address] (Wo rk) 09/03/2022 Appointment [place] [address] [facility] [place] [address] (Wo rk) 09/06/2022 Appointment [place] [address] [place], [place] [address] (Wo rk) 09/10/2022 Appointment [place] [address] [place], [place] [address] (Wo rk) 09/30/2022 Appointment Family Medicine Elicia Georges MD [address] [place] [address] (Wo rk) documented as of this encounter Procedures Procedure Name Priority Date/Time Associated Comments Diagnosis ECG 12 LEAD Routine 07/03/2018 4:33 PM Exertional chest Resul ts for this OUTPATIENT CDT pain procedure are i n the results section. documented in this encounter Results Stress Echocardiogram (07/13/2018 8:10 AM CDT) Specimen (Source) Anatomical Collection Method Collection Time Re ceived Time Location / / Volume Laterality 07/13/2018 8:10 AM CDT Narrative PN ECHO - 07/13/2018 9:41 AM CDT STRESS ECHOCARDIOGRAM. Date: 07/13/2018 Start: 08:10 AM Facilit y: [place] CONCLUSIONS REST: LV chamber size, wall thickness, and seg mental and global wall motion are normal. No significant valvular abno rmalities are seen. The visually estimated resting LVEF is 60%. STRESS: All segments display appropriate hyperki nesis; ejection fraction increases appropriately. End systolic ar ea decreases. CONCLUSIONS: 1. Normal exercise echocardiogram with a dequate heart rate and workload. 2. No evidence for inducible ischemia. 3. There were no arrhythmias during the test. 4. Risk stratification by stress echocar diography is identified as low risk based on normal stress echocardiogr am. REST ECG Normal sinus rhythm. Normal ST-T segmen ts. Resting HR:68 bpmResting BP:128/74 mmHg Pre-Stress Physical Exam No medications which affect electrocard iographic interpretation. STRESS Stress Type: Bike Ergometer Peak HR: 163 bpm ?HR Response: Normal Peak BP: 188/92 mmHg ?BP Response: Normal Max Predicted HR: 191 bpm ? HR BP Product: 56743 % of Max Predicted HR: 85 ? Max Exercise: 6.9 METS Test Duration: 13 min Reason for Termination: Fatigue ? Exercise Effort: Good Risk Stratification: Low risk Stress Interpretation ECG portion of stress test is negative for ischemia. RESULTS Global LVEF (rest): Normal (LVEF >51%) Global LVEF (stress): Hyperkinetic (LVE F >72%) ECG No significant ST-T changes noted. ARRHYTHMIAS No rhythm abnormality. SYMPTOMS Fatigue. Musculoskeletal. Protocol completed. Predicted heart rat e achieved. No cardiovascular symptoms with maximal exercise. M-MODE/2D MEASUREMENTS & CALCULATIONS EF Estimated: 60 % ?MR Radius: PROCEDURE Doppler Quality: Adequate quality pulse, continuous wave, and color Doppler was performed and interpreted. 2-D Quality:Adequate quality 2-dimension al echo was performed and interpreted. Indications: Skipped Beats, exertional c hest pain and mixed hyperlipidemia. Contrast Medium: Not Applicable. Height: 70 inches Weight: 222 pounds BSA : 2.18 m^2 BMI: 31.85 kg/m^2 Rhythm: Sinus Gender: ? Male SIGNATURE DEMOGRAPHICS Patient Name ?? JACE Bustos ??Room Number ? OUTPT Patient Number [id number] ? Alphonso e of Study ? 07/13/2018 Accession ?[id number] ? Interpreting ?ОЛЬГА SANDOVAL, Riley ?Physician ? Date of ??1990 ? Ord ering ?Elicia Georges, ? Physician ? Primary ?Elicia Bustos Physician ?MD Richy ? Core Dipper ? NR, RDCS Nurse ?DALE, plastics bench mechanic Note Ольга Sandoval MD - 07/13/2018For matting of this note might be different from the original. STRESS ECHOCARDIOGRAM. Date: 07/13/2018 Start: 08:10 AM Facilit y: Sanket CONCLUSIONS REST: LV chamber size, wall thickness, and seg mental and global wall motion are normal. No significant valvular abno rmalities are seen. The visually estimated resting LVEF is 60%. STRESS: All segments display appropriate hyperki nesis; ejection fraction increases appropriately. End systolic ar ea decreases. CONCLUSIONS: 1. Normal exercise echocardiogram with a dequate heart rate and workload. 2. No evidence for inducible ischemia. 3. There were no arrhythmias during the test. 4. Risk stratification by stress echocar diography is identified as low risk based on normal stress echocardiogr am. REST ECG Normal sinus rhythm. Normal ST-T segmen ts. Resting HR:68 bpmResting BP:128/74 mmHg Pre-Stress Physical Exam No medications which affect electrocard iographic interpretation. STRESS Stress Type: Bike Ergometer Peak HR: 163 bpm HR Response: Normal Peak BP: 188/92 mmHg BP Response: Teresa l Max Predicted HR: 191 bpm HR BP Product : 38066 % of Max Predicted HR: 85 Max Exercise: 6.9 METS Test Duration: 13 min Reason for Termination: Fatigue Exercis e Effort: Good Risk Stratification: Low risk Stress Interpretation ECG portion of stress test is negative for ischemia. RESULTS Global LVEF (rest): Normal (LVEF >51%) Global LVEF (stress): Hyperkinetic (LVE F >72%) ECG No significant ST-T changes noted. ARRHYTHMIAS No rhythm abnormality. SYMPTOMS Fatigue. Musculoskeletal. Protocol completed. Predicted heart rat e achieved. No cardiovascular symptoms with maximal exercise. M-MODE/2D MEASUREMENTS & CALCULATIONS EF Estimated: 60 % MR Radius: PROCEDURE Doppler Quality: Adequate quality pulse, continuous wave, and color Doppler was performed and interpreted. 2-D Quality:Adequate quality 2-dimension al echo was performed and interpreted. Indications: Skipped Beats, exertional c hest pain and mixed hyperlipidemia. Contrast Medium: Not Applicable. Height: 70 inches Weight: 222 pounds BSA : 2.18 m^2 BMI: 31.85 kg/m^2 Rhythm: Sinus Gender: Male SIGNATURE DEMOGRAPHICS Patient Name JACE bustos OUTPT Patient Number [id number] Date of Study 1 Interpreting ALEX SANDOVAL, Number Physician Date of 1990 Ordering Jass Georges Physician Primary Elicia Georges MD Core Dipper NR, [facility] Nurse DALE, RN Elicia Georges MD ET ECHO ORDERABLES Performing Organization Address City/State/ZIP Code Phon e Number PN ECHO ECG 12 Lead Outpatient (07/03/2018 4:33 PM CDT) P athologist Signature Ventricular Rate 82 BPM [facility] Atrial Rate 82 BPM [facility] P-R Interval 158 ms [facility] QRS Duration 92 ms [facility] QT 356 ms [facility] QTc 415 ms [facility] P Marshall 21 degrees [facility] R Marshall 35 degrees [facility] T Marshall 11 degrees [facility] Specimen (Source) Anatomical Collection Method Collection Time Re ceived Time Location / / Volume Laterality 07/03/2018 4:33 PM CDT Narrative [facility] - 07/04/2018 6:57 AM CDT Sinus rhythm Normal ECG No previous ECGs available Confirmed by MARIA ELENA RABAGO ([id number]) on 6:57:10 AM Procedure Note Maria Elena Rabago MD / Epic, Internal Pro cessing - 01/03/2020 Sinus rhythm Normal ECG No previous ECGs available Confirmed by MARIA ELENA RABAGO ([id number]) on 6:57:10 AM Elicia Georges MD PN ECG ORDERABLES Performing Organization Address City/State/ZIP Code Phon e Number [facility] [address] [place] [phone] documented in this encounter Visit Diagnoses Diagnosis Exertional chest pain - Primary Chest pain, unspecified Skipped heart beats Cardiac dysrhythmia, unspecified MAYA (generalized anxiety disorder) (HRC) Generalized anxiety disorder Dysthymic disorder (HRC) Dysthymic disorder CHRISTOPH (obstructive sleep apnea) Obstructive sleep apnea (adult) (pediatr ic) Mixed dyslipidemia (HRC) Mixed hyperlipidemia Skipped heart beats Cardiac dysrhythmia, unspecified Exertional chest pain Chest pain, unspecified Mixed dyslipidemia (HRC) Mixed hyperlipidemia documented in this encounter
--- OUTSIDE RECORDS SUMMARY | 2022-08-01 13:17 | XMS_ITS | Encounter Summary ---
:1990 Author Organization [employer] [facility] Address [address], [place] [address] Care Team Providers Name Role Phone Unavailable Primary Care Provider Unavailable Encounter Details Date Type Department Care Team Description 08/16/2010 [facility] Soniya Fay, Facesheet [address] [facility] [place] [address] [address] [facility] [phone] [place], [place] [address] (Wo rk) Social History Tobacco Use Types [...] on file documented as of this encounter Procedure Notes Soniya Fay PA-C - 08/16/2010 12:00 AM CSTAssociated Order(s): IMAGING REPORTS HX documented in this encounter Plan of Treatment Upcoming Encounters Date Type Specialty Care Team Description 08/09/2022 [place] [address] [place], [place] [address] (Wo rk) 08/10/2022 Appointment Physiatry/Physical Russel Mar MD [facility] [address] [facility] [address] [address] (Wo rk) 08/16/2022 Appoint[place] [address] [place], [place] [address] (Wo rk) 08/23/2022 Appoint[place] [address] [place], [place] [address] (Wo rk) 08/27/2022 [place] [address] [place], [place] [address] (Wo rk) 08/30/2022 [place] [address] [place], [place] [address] (Wo rk) 09/03/2022 [place] [address] [place], [place] [address] (Wo rk) 09/06/2022 [place] [address] [place], [place] [address] (Wo rk) 09/10/2022 App[place] [address] [place], [place] [address] (Wo rk) 09/30/2022 Appointment Family Medicine Elicia Lockhart MD [address] [place] [address] (Wo rk) documented as of this encounter Procedures Procedure Name Priority Date/Time Associated Diagnosis Comme nts XR ABD 2 VIEWS Routine 08/16/2010 2:48 PM Results for this ROUTINE BACKUP ADMINISTRATIVE COORDINATOR procedure are i n the results section. IMAGING REPORTS HX 08/16/2010 12:00 AM Re sults for this BACKUP ADMINISTRATIVE COORDINATOR procedure are i n the results section. documented in this encounter Results XR ABDOMEN ROUTINE 2VWS (08/16/2010 2:48 PM BACKUP ADMINISTRATIVE COORDINATOR) Anatomical Region Laterality Modality Abdomen Other Specimen (Source) Anatomical Collection Method Collection Time Re ceived Time Location / / Volume Laterality 08/16/2010 2:48 PM BACKUP ADMINISTRATIVE COORDINATOR Narrative 08/16/2010 2:48 PM BACKUP ADMINISTRATIVE COORDINATOR FINAL RESULT [facility] ABDOMEN 08/16/2010 AT 1410 HOURS INDICATION: Abdominal pain. COMPARISON: None. FINDINGS: ??Negative. Report Electronically Signed by: ??Venkatesh Perez MD TueAug 16 14:48:27 BACKUP ADMINISTRATIVE COORDINATOR 2009KEVAN/TI/STACIE 14:48 14:48 S:08/16/1014:48 Page ?? CONFIDENTIAL - INTENDED FOR HEALTHCAR E PROVIDER USE ONLY Procedure Note Albert Perez - 10/19/2011Formatt ing of this note might be different from the original. FINAL RESULT [facility] ABDOMEN 08/16/2010 AT 1410 HOURS INDICATION: Abdominal pain. COMPARISON: None. FINDINGS: Negative. Report Electronically Signed by: Albert Perez MD TueAug 16 14:48:27 BACKUP ADMINISTRATIVE COORDINATOR 2009KEVAN/TI/STACIE 14:48 14:48 S:08/16/1014:48 Page CONFIDENTIAL - INTENDED FOR HEALTHCAR E PROVIDER USE ONLY Soniya Fay PA-C RAD GD IMAGING REPORTS HX (08/16/2010 12:00 AM BACKUP ADMINISTRATIVE COORDINATOR) Anatomical Region Laterality Modality Other Narrative This result has an attachment that is no t available. Transcriptions Soniya Fay PA-C - 08/16/2010 12: 00 AM CST Soniya L Edmeyer PA-C DUMMY/OTHER/AR documented in this encounter Visit Diagnoses Not on filedocumented in this encounter
--- OUTSIDE RECORDS SUMMARY | 2022-08-01 13:17 | XMS_ITS | Encounter Summary ---
:1990 Author Organization [facility] Address [address] [place] [address] Care Team Providers Name Role Phone Unavailable Primary Care Provider Unavailable Reason for Visit Reason Comments LAB RESULTS Encounter Details Date Type Department Care Team Description 07/27/[address] [facility] [address] [facility] Candis Jj, SWITCHGEAR REPAIRER RESULTS [address] [place], [place] [id number] Social History Tobacco Use Types Packs/Day Years [...] documented as of this encounter Nursing Notes Candis Jj, RN - 07/27/2013 1:06 PM CST [facility] pt, last seen 07/18/13. Lab letter mailed per MD request. WARE DEVELOPER Candis Jj, RN - 07/27/2013 1:04 PM CST Message copied by CANDIS JJ on TueJul 27, 2013 1:04 PM ------ Message from: DEE HANSEN Created: TueJul 27, 2013 12:56 PM Mail results letter ------ documented in this encounter Plan of Treatment Upcoming Encounters Date Type Specialty Care Team Description 08/09/2022 Appoint[place] [address] [place], [place] [address] (Wo rk) 08/10/2022 Appointment Physiatry/Physical Russel Mar MD [facility] [address] [facility] [address] [address] (Wo rk) 08/16/2022 Appoint[place] [address] [place], [place] [address] (Wo rk) 08/23/2022 App[place] [address] [place], [place] [address] (Wo rk) 08/27/2022 Appoint[place] [address] [place], [place] [address] (Wo rk) 08/30/2022 App[place] [address] [place], [place] [address] (Wo rk) 09/03/2022 Appoint[place] [address] [place], [place] [address] (Wo rk) 09/06/2022 App[place] [address] [place], [place] [address] (Wo rk) 09/10/2022 [place] [address] [place], [place] [address] (Wo rk) 09/30/2022 Appointment Family Medicine lEicia Lockhart MD [address] [phone] (Wo rk) documented as of this encounter Visit Diagnoses Not on filedocumented in this encounter
--- OUTSIDE RECORDS SUMMARY | 2022-08-01 13:17 | XMS_ITS | Encounter Summary ---
:1990 Author Organization [facility] Address [address] [place] [address] Care Team Providers Name Role Phone Unavailable Primary Care Provider Unavailable Reason for Visit Reason Comments Medication Request Encounter Details Date Type Department Care Team Description 08/22/2013 Telephone [facility] [address] Shani Tapia Me dication Request Allergy [address] [place], [place] [address] Social History Tobacco Use Types Packs/Day Years [...] documented as of this encounter Nursing Notes Shani Tapia RN - 08/22/2013 4:06 PM CST Rx faxed per [facility]. Spoke with pt, gave him information. Pt agreed with plan. Note complete. Summer Fields MD - 08/22/2013 3:50 PM CST THx for calling. Advise stop zyrtec. Start hydroxyzine 50mg every 6 hours #30 day supply, 11 rf and continue ranitidine 150mg twice daily, PLease see me in next 4 weeks to determine efficacy or change treatment ERY HAND Shani Tapia, RN - 08/22/2013 3:37 PM CST [facility] pt. Last seen 07/18/13. Pt calling back, was instructed to call if his sx (hives) were not controlled with Zantac 150mg BID and Zyrtec 10mg TID. He doesn't feel meds are working, thinks hives may actually be even worse. Last dictation mentions Hydroxyzine as next step. Ok to provide rx? Pls advise. documented in this encounter Plan of Treatment Upcoming Encounters Date Type Specialty Care Team Description 08/09/2022 [place] [address] [place], [place] [address] (Wo rk) 08/10/2022 Appointment Physiatry/Physical Russel Mar MD [address] [address] (Wo rk) 08/16/2022 Appoint[place] [address] [place], [place] [address] (Wo rk) 08/23/2022 App[place] [address] [place], [place] [address] (Wo rk) 08/27/2022 [place] [address] [place], [place] [address] (Wo rk) 08/30/2022 [place] [address] [place], [place] [address] (Wo rk) 09/03/2022 App[place] [address] [facility] [place] [address] (Wo rk) 09/06/2022 [place] [address] [facility] l[place] [address] (Wo rk) 09/10/2022 [place] [address] [facility] [place] [address] (Wo rk) 09/30/2022 Appointment Family Medicine Elicia Lockhart MD [address] [address] (Wo rk) documented as of this encounter Visit Diagnoses Not on filedocumented in this encounter
--- OUTSIDE RECORDS SUMMARY | 2022-08-01 13:17 | XMS_ITS | Encounter Summary ---
:1990 Author Organization [facility] Address [address] [place] [address] Care Team Providers Name Role Phone Unavailable Primary Care Provider Unavailable Reason for Visit Reason Comments HIVES Encounter Details Date Type Department Care Team Description 09/14/2013 Office Visit [facility] [address], Jac morris, chronic Allergy (Primary Dx) [address] [place] [address] [facility] [place] [phone] (Wo rk) Social History Tobacco Use Types [...] Sign Reading Time Taken Comments Blood Pressure 110/76 09/14/2013 10:05 AM ACCOUNTING RECONCILIATION CLERK Pulse - - Temperature - - Respiratory Rate - - Oxygen Saturation - - Inhaled Oxygen Concentration - - Weight - - Height - - Body Mass Index - - documented in this encounter Progress Notes Summer Fields MD - 09/14/2013 11:07 AM CST Progress Notes signed by Summer Fields MD at 09/23/13 5029 Author: Summer Fields MD Service: (none) Author Type: Physician Filed: 09/23/13 1525 Note Time: 09/14/13 8469 Status: Signed Tacking Machine Operator: Summer Fields MD (Physician) NAME: HARI ELISE MR#: [id number] CSN: [id number] AUTHENTICATING CLINICIAN: Summer Fields MD CONFIRM #: [id number] LOC: 414 CLINIC PROGRESS NOTE DATE OF VISIT: 09/14/2013 : 1990 CHIEF COMPLAINT: Urticaria, angioedema. 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 TSH and MIGUEL are normal. CBC normal. No antithyroid antibodies. Antibody assay was positive at send out lab ([facility]). Hives have spontaneously remitted some in the last 2 weeks, though still has near daily small patches of pink, mildly itchy pruritic papules. Lesions resolve within 24 hours without residual bruise. Last angioedema affected his lip 1 week ago. No new triggers noted. No systemic symptoms. Hydroxyzine 50 mg every 6 hours did not seem helpful and dizziness and dryness were associated. Cetirizine 10 mg 3 times daily stopped helping enough and was discontinued in favor of hydroxyzine. Ranitidine 150 mg twice daily has been continued. MEDICATION LIST: Updated in the electronic health record. OBJECTIVE: GENERAL: Pleasant, interactive. VITAL SIGNS: Normal. He has a small patch of urticaria left inner forearm that are roughly dime-sized and kehinde with pressure. His skin is 3+ dermatographic. Fingernails are normal. 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 PLAN: Benign, but frustrating course of this type of urticaria was reviewed. Spontaneous remissions are common. Since it seems to be improving, advise reducing hydroxyzine to 25 mg 3 times daily. Continue ranitidine 150 mg daily. Trial of adding Singulair 10 mg daily. He can taper off these medications whenno hive outbreaks for 7 days. If hives worsen, immune suppressives would be the next step in treatment algorithm. CC: PRICILLA AGUILAR [address] [address] BJG:MEDQ C: CONFIRM #: [id number] UNTING RECONCILIATION CLERK documented in this encounter Plan of Treatment Upcoming Encounters Date Type Specialty Care Team Description 08/09/2022 [place] [address] [place], [place] [phone] (Wo rk) 08/10/2022 Appointment Physiatry/Physical Russel Mar MD [facility] [address] [facility] [place] [address] (Wo rk) 08/16/2022 [place] [address] [place], [place] [address] (Wo rk) 08/23/2022 [place] [address] [place], [place] [address] (Wo rk) 08/27/2022 [place] [address] [place], [place] [address] (Wo rk) 08/30/2022 [place] [address] [place], [place] [address] (Wo rk) 09/03/2022 [place] [address] [place], [place] [address] (Wo rk) 09/06/2022 [place] [address] [place], [place] [address] (Wo rk) 09/10/2022 [place] [address] [facility] [place]izzeth [place] [phone] (Wo rk) 09/30/2022 Appointment Family Medicine Elicia Lockhart MD [address] [place] [address] Dr [place] [phone] (Wo rk) documented as of this encounter Visit Diagnoses Diagnosis Urticaria, chronic - Primary Other specified urticaria documented in this encounter
--- OUTSIDE RECORDS SUMMARY | 2022-08-01 13:17 | XMS_ITS | Encounter Summary ---
:1990 Author Organization [employer] Address [address], [place] [address] Care Team Providers Name Role Phone Unavailable Primary Care Provider Unavailable Reason for Visit Reason Comments LAB RESULTS Encounter Details Date Type Department Care Team Description 07/20/2013 Telephone [facility] [address] Марина Wilson LAB RESULTS [address] [place], [place] [id number] Social History Tobacco Use Types Packs/Day Years [...] documented as of this encounter Nursing Notes Марина Mackenzie - 07/20/2013 10:27 AM CDT Spoke with pt. Told him test for lupus negative and thyroid labs normal. Will call him with send outlab results when ready. Марина Mackenzie - 07/20/2013 10:24 AM CDT Message copied by МАРИНА MACKENZIE on TueJul 20, 2013 10:24 AM ------ Message from: DEE HANSEN Created: [facility] Jul 19, 2013 7:18 PM Notify thyroid tests nl and test for lupus negative. Will let him know when we get the send out labback ------ documented in this encounter Plan of Treatment Upcoming Encounters Date Type Specialty Care Team Description 08/09/2022 [place] [address] [place], [place] [phone] (Wo rk) 08/10/2022 Appointment Physiatry/Physical Russel Mar MD [facility] 3800 [facility] N [address] (Wo rk) 08/16/2022 [place]oint[place] [address] [place], [place] [address] (Wo rk) 08/23/2022 [place] [address] [place], [place] [address] (Wo rk) 08/27/2022 [place] [address] [place], [place] [address] (Wo rk) 08/30/2022 [place] [address] [place], [place] [address] (Wo rk) 09/03/2022 [place] [address] [place], [place] [address] (Wo rk) 09/06/2022 [place] [address] [place], [place] [address] (Wo rk) 09/10/2022 [place] [address] [facility] [place] [address] (Wo rk) 09/30/2022 Appointment Family Medicine Elicia Lockhart MD [address] [place] [phone] (Wo rk) documented as of this encounter Visit Diagnoses Not on filedocumented in this encounter
--- OUTSIDE RECORDS SUMMARY | 2022-08-01 13:17 | XMS_ITS | Encounter Summary ---
:1990 Author Organization [employer] Address [address] [place] [address] Care Team Providers Name Role Phone Elicia Lockhart MD Primary Care Provider Reason for Visit Reason Onset Date Comments Refill 08/09/2018 Encounter Details Date Type Department Care Team Description 08/09/2018 Refill [facility] Elicia Ellsworth MD Refill [address] [place] [place] [address] [place] [address] [phone] (Wo rk) Social History Tobacco Use Types [...] documented as of this encounter Nursing Notes David Tipton PA-C - 08/09/2018 5:48 PM CST faxed Erica Aguillon RN - 08/09/2018 3:35 PM CST Further Assistance Needed on Refill from Clinician RN reviewed. Signed order needed. 07/03/18 visit with Elicia Lockhart MD Review pended order for accuracy and sign if appropriate and Close encounter Requested Prescriptions Pending Prescriptions Disp Refills ??? escitalopram oxalate (LEXAPRO) 5 MG tablet 90 Tablet 2 Sig: Take 1 Tablet by mouth daily. RMATION SYSTEMS CONSULTANT Interface, Out Surescripts Prov Query - 08/09/2018 2:39 PM CST The patient chart could not be locked at 08/09/2018 2:39 PM by [facility] in order to process this refill request. Please try re-routing to attempt to retry processing through [facility]. RMATION SYSTEMS CONSULTANT Madelin Simental - 08/09/2018 2:37 PM CST Medications - Refill Request (able to re-order) Name of prescribing clinician: Elicia Lockhart MD Additional comments (related to the above concern): Pt states he is out of medication For this refill, patient would like it filled at the pharmacy listed in Meds & Orders. (Verify the pharmacy patient would like to use for this request is highlighted in blue in Pharmacy Selection under Meds & Orders) If there are questions regarding your request, is it okay to leave a detailed message on your voicemail? Yes (Advise caller that the PN call back number will end with [phone] or unknown) (Advise caller of turn around time is 2 business days for standard refills and 2 to 5 business days for controlled refills) Please route to: Refill Pool (P [phone]) MPLS EMIL Hughes ONLY (P [phone]) RMATION SYSTEMS CONSULTANT documented in this encounter Plan of Treatment Upcoming Encounters Date Type Specialty Care Team Description 08/09/2022 [place] [address] [address] [place], [place] [address] (Wo rk) 08/10/2022 Appointment Physiatry/Physical uRssel Mar MD [facility] [facility] [place] [address] (Wo rk) 08/16/2022 [place] [address] [place], [place] [address] (Wo rk) 08/23/2022 Appoint[place] [address] [place], [place] [address] (Wo rk) 08/27/2022 [place] [address] [place], [place] [address] (Wo rk) 08/30/2022 [place] [address] [place], [place] [address] (Wo rk) 09/03/2022 Appoint[place] [address] [place], [place] [address] (Wo rk) 09/06/2022 Appoint[place] [address] [place], [place] [address] (Wo rk) 09/10/2022 [place] [address] [place], [place] [address] (Wo rk) 09/30/2022 Appointment Family Medicine Elicia Lockhart MD [address] [place] [address] [place] [address] (Wo rk) documented as of this encounter Visit Diagnoses Not on filedocumented in this encounter Care Teams Stitch Bonding Machine Tender Relationship Specialty Start Date End Date Elicia Lockhart MD PCP - General Family Practice 08/09/[address] [place] [address] documented as of this encounter
--- OUTSIDE RECORDS SUMMARY | 2022-08-01 13:17 | XMS_ITS | Encounter Summary ---
:1990 Author Organization [facility] Address [address] [place] [address] Care Team Providers Name Role Phone Elicia Lockhart MD Primary Care Provider Reason for Visit Reason Comments Palpitations Encounter Details Date Type Department Care Team Description 08/15/2018 Evaluation [facility] Skipped heart beats; [address] Exertional chest pain [place], [place] [id number] Social History Tobacco Use Types Packs/Day Years [...] documented as of this encounter Progress Notes Tricia Boswell - 08/15/2018 8:40 AM CST Procedure completed. Report available in Epic. OR WIND INSTRUMENT TUNER documented in this encounter Plan of Treatment Upcoming Encounters Date Type Specialty Care Team Description 08/09/2022 Appointment [place] [address] [place] [address] [place], [place] [address] (Wo rk) 08/10/2022 Appointment Physiatry/Physical Mar, Russel M, MD Medicine [address] [facility] [place] N [address] (Wo rk) 08/16/2022 Appoint[place] [address] [place], [place] [address] (Wo rk) 08/23/2022 Appoint[place] [address] [place], [place] [address] (Wo rk) 08/27/2022 [place] [address] [place], [place] [address] (Wo rk) 08/30/2022 [place] [address] [place], [place] [address] (Wo rk) 09/03/2022 [place] [address] [place], [place] [address] (Wo rk) 09/06/2022 [place] [address] [place], [place] [address] (Wo rk) 09/10/2022 [place] [address] [place], [place] [address] (Wo rk) 09/30/2022 Appointment Family Medicine Elicia Lockhart MD [address] [place] [address] (Wo rk) documented as of this encounter Procedures Procedure Name Priority Date/Time Associated Diagnosis Comme nts ZIOPATCH RECORDER: Routine 08/15/2018 8:37 AM Skipped he art beats Results for this 48 HOURS-7 DAYS REED OR WIND INSTRUMENT TUNER Exertional chest procedur e are in pain the results section. documented in this encounter Results Ziopatch Recorder (08/15/2018 8:37 AM REED OR WIND INSTRUMENT TUNER) Narrative PN POCT - 08/15/2018 8:37 AM REED OR WIND INSTRUMENT TUNER Zio XT Final Report for: Hari Elise Date of : [birth year] (28 yrs) Gender: Male Prescribing Clinician: Dr. Janine Lockhart Managing Location: [facility] Primary Indication: (R00.2) Palpitations Enrollment Period: 08/01/18, [...] encounter Visit Diagnoses Diagnosis Skipped heart beats Cardiac dysrhythmia, unspecified Exertional chest pain Chest pain, unspecified documented in this encounter Care Teams Head Gauge Unit Operator Relationship Specialty Start Date End Date Elicia Lockhart MD PCP - General Family Practice 08/09/[address] [place] [address] documented as of this encounter
--- OUTSIDE RECORDS SUMMARY | 2022-08-01 13:17 | XMS_ITS | Encounter Summary ---
:1990 Author Organization [facility] Address [address] [place] [address] Care Team Providers Name Role Phone Unavailable Primary Care Provider Unavailable Reason for Visit Reason Comments Chest Pain (Routine) - Closed Specialty Diagnoses / Procedures Referred By Contact Refer red To Contact Diagnoses Skipped heart beats Exertional chest pain Mixed dyslipidemia (HRC) Elicia Lockhart MD Procedures Stress Echocardiogram [address] [place] [address] Referral ID Status Reason Start Date Expiration Date Visits Requ ested Visits Authorized [id number] Closed 07/04/2018 10/03/2019 1 1 Encounter Details Date Type Department Care Team Description 07/13/2018 Procedure Visit [facility] Chest Pain [address] [place] [address] Social History Tobacco Use Types [...] encounter Progress Notes Elicia Lockhart MD - 07/13/2018 4:00 PM CDT Please let Hari Elise know: good news Hari, your heart stress test is NORMAL/negative. If youare still having symptoms, I recommend proceeding with a ZIOPATCH heart monitor test. Please let me know if he is having continued skipped heartbeat symptoms. Samantha Henry, POLY - 07/13/2018 8:00 AM CDT Stress test complete. Results pending. documented in this encounter Plan of Treatment Upcoming Encounters Date Type Specialty Care Team Description 08/09/2022 App[place] [address] [place], [place] [address] (Wo rk) 08/10/2022 Appointment Physiatry/Physical Russel Mar MD [place] [id number] [facility] N [address] (Wo rk) 08/16/2022 [place] [address] [place], [place] [address] (Wo rk) 08/23/2022 Appoint[place] [address] [place], [place] [address] (Wo rk) 08/27/2022 [place] [address] [place], [place] [address] (Wo rk) 08/30/2022 [place] [address] [place], [place] [address] (Wo rk) 09/03/2022 [place] [address] [facility] [place], [place] [address] (Wo rk) 09/06/2022 Appointment [place] [address] [facility] lizzeth [place], [place] [address] (Wo rk) 09/10/2022 Appointment [place] [address] [facility] lizzeth [place], [place] [address] (Wo rk) 09/30/2022 Appointment Family Medicine Elicia Lockhart MD [address] [place], [place] [phone] (Wo rk) documented as of this encounter Procedures Procedure Name Priority Date/Time Associated Diagnosis Comme nts STRESS ECHO Routine 07/13/2018 8:10 AM Skipped heart beats Results for this CDT Exertional chest pain procedure are in Mixed dyslipidemia the resul ts section. documented in this encounter Results Stress [...] HR: 191 bpm ? HR BP Product: 64576 % of Max Predicted HR: 85 ? [...] Bustos ??Room Number ? OUTPT Patient Number [id number] ? Alphonso e of Study ? 07/13/2018 Accession ?[id number] ? Interpreting ?ОЛЬГА SANDOVAL, Number ?Physician ? Date of ??1990 ? Ord ering ?Elicia Lockhart, ? Physician ? Primary ?Elicia Bustos Physician ?MD Richy ? Line And Frame Poler ? NR, [facility] Nurse ?KH, pound keeper Note Ольга Sandoval MD - 07/13/2018For matting of this note might be different from the original. STRESS ECHOCARDIOGRAM. Date: 07/13/2018 Start: 08:10 AM Aamir lemon: Sanket CONCLUSIONS REST: LV chamber size, wall [...] HR: 191 bpm HR BP Product : 32086 % of Max Predicted HR: 85 Max [...] Gender: Male SIGNATURE DEMOGRAPHICS Patient Name JACE DESIRPT Patient Number [id number] Date of Study 1 Interpreting ALEX SANDOVAL, Riley Physician Date of 1990 Ordering Physician KIRA Tang Primary Elicia Lockhart MD Line And Frame Poler NR, RDCS Nurse KH, RN Elicia Lockhart MD ET ECHO ORDERABLES Performing Organization Address City/State/ZIP Code Phon e Number PN ECHO documented in this encounter Visit Diagnoses Diagnosis Skipped heart beats Cardiac dysrhythmia, unspecified Exertional chest pain Chest pain, unspecified Mixed dyslipidemia (HRC) Mixed hyperlipidemia documented in this encounter
--- NOTE | 2022-08-01 13:18 | CRLHL7_ITS ---
For Patients: As a result of the Century Cures Act, medical imaging exams and procedure reports are released immediately into your electronic medical record. You may view this report before your referring provider. If you have questions, please contact your health care provider. INDICATION: Left-sided numbness/tingling. Word finding difficulties. TECHNIQUE: Brain MRI without contrast. The following sequences were obtained: Sagittal T1 weighted sequence. DWI and ADC mapping sequences. Axial FLAIR and GARDENIA T2 weighted sequences. COMPARISON: Head CT from 08/01/2022. FINDINGS: No evidence of acute ischemia. No evidence of acute or chronic intracranial blood products. No pathologic intracranial signal abnormality. No mass effect or herniation. No hydrocephalus or extra-axial collections. The pituitary gland, parasellar structures and optic chiasm are normal. Posterior fossa is normal. All the major intracranial vascular structures demonstrate normal flow-related signal. The orbital contents are normal. No calvarial or skull base marrow replacing process. Mild left maxillary sinus mucosal thickening. No extracranial soft tissue findings. IMPRESSION: 1. No evidence of acute ischemia. No other significant intracranial pathology. Dictated by Marcello Padgett MD @ 08/01/2022 2:20:32 PM (Electronically Signed)
[2022-08-01 13:38] LABS: Erythrocyte SedimentationRate* 4 mm/hr (2-15)
== END 2022-08-01 14:38 | disposition home or self-care (01) ==
PROVIDERS: Emergency Provider Emergency Medicine
DX: R20.2 Paresthesia of skin (principal)
CPT/HCPCS: 36415; 70450; 70551; 80048; 83735; 85025; 85610; 85651; 86140; 93005; 99284; 99285; A9270

== ENCOUNTER 2022-09-08 12:10 | Emergency (ER) | payer OTHER, SELFPAY ==
[2022-09-08 12:18] VITALS: BP 132/84; PULSE 99; RESP 22; TEMP 36.1; O2SAT 100; BMI 29.3
--- NOTE | 2022-09-08 12:32 | ED_ITS ---
HPI - Extremity Injury (Lower) General Time Seen by Provider: 12:32 Date Seen: 09/08/22 Chief Complaint: Hip Injury/Pain Stated Complaint: Hip pain Time Seen by Provider: 09/08/22 12:31 Source: patient, RN notes reviewed and old records reviewed Mode of arrival: ambulatory Limitations: no limitations History of Present Illness HPI Narrative: Sim is a very pleasant 32-year-old gentleman with a history of ADHD, currently in therapy for some cervical rehabilitation given advanced degenerative disease, who comes to the [facility] with greater than 36 hours of low back right groin pain. Patient cannot recall any specific injury but noted the onset of his right low back and lateral hip aching on Tuesday night September 06. He states that the pain would wrap around to his lower abdomen. On Tuesday the yesterday morning after barely sleeping overnight he had increased pain. He thought it may be his low back and so employed some yoga str etches. He states that perhaps this would help for approximately 30 minutes and he was able to stand up but the pain is now returned and is much worse. He has been trying to use a heating pad, stretching, ibuprofen and Tylenol and it is really not helping. He states that he did take 5 mg Flexeril tablet earlier and was able to sleep 1 hour. He states that 6 years ago he did have back pain. He states that he had picked up something and felt a pop in his hip. He subsequently went to a chiropractor did work on his front hip flexor and it went away. He states that this feels much more severe. Patient notes that his right leg feels somewhat cold but it is not numb. He denies any scrotal pain or dysuria. He has not noticed any blood in his urine nor does he have a history of kidney stones. He states that he feels like the pain is very deep in his back and lower abdomen. He states that he gets lightheaded when the pain is severe and this definitely occurs with any movement. He tries to lie a still as possible. Past medical history sleep apnea uses CPAP ADHD takes Adderall Family history no history of clotting disorders but states that dad has always been told that his blood clots quickly. Current medications are Adderall fluoxetine fish oil magnesium and vitamin-D Denies any allergies. Related Data Home Medications Medication Instructions Recorded Confirmed dextroamphetamine-amphetamine 30 30 mg PO BID 08/01/22 09/08/22 mg tablet fluoxetine 40 mg capsule 10 mg PO DAILY 08/01/22 09/08/22 Allergies Allergy/AdvReac Type Severity Reaction Status Date / Time No Known Drug Allergies Allergy Verified 09/08/22 12:23 Review of Systems Status of ROS: Reports: 10 or more systems reviewed and unremarkable except as noted in History and below Const: Denies: fever or chills Eyes: Denies: change in vision ENMT: Reports: neck pain (Chronic); Denies: throat pain or hoarseness Cardio: Denies: chest pain, palpitations, swelling of feet/ankles or shortness of breath with exertion Resp: Denies: shortness of breath, cough or wheezing GI: Reports: abdominal pain; Denies: nausea, vomiting, diarrhea or constipation : Denies: painful urination, urinary frequency or blood in urine Musculo: Reports: back pain, neck pain (Chronic) and extremity pain (Most proximal aspect of the right leg.) Integ/Breast: Denies: rash Neuro: Reports: headache; Denies: numbness in extremities Allergy/Immuno: Denies: wheezing PFSH PFSH Social History Smoking Status: Never smoker Do you use any of these nicotine containing products: None Second hand tobacco smoke exposure: No How often do you have a drink containing alcohol: never How often do you have six or more drinks on one occasion: Never AUDIT-C Alcohol total score: 0 Non-prescribed substance use: denies use Exam Narrative: Exam Narrative: Sim is alert and oriented. He is lying on the chair which is elevated his feet in room 4. He is very guarded in movement. His eyes are clear. Neck is supple. Heart with regular rate and rhythm and lungs are clear to auscultation. Abdomen shows tenderness in the right lateral abdomen no significant rebound tenderness. Movement of his right leg increases discomfort in hip flexion on the right hip. I do not palpate any tenderness of the lumbar spine sacrum right hip right greater trochanter. Lower extremities are warm to the touch. Full sensation and motor in the lower extremities. Const: Vital Signs, click to edit/add: Vital Signs - 24 hr 09/08/22 12:18 09/08/22 14:59 09/08/22 17:07 Temperature 96.9 F L Pulse Rate [Right Pulse Oximeter] 99 96 99 Respiratory Rate 22 Blood Pressure [Ri t Upper Arm] 132/84 119/83 133/96 H Pulse Oximetry 100 97 99 Oxygen Delivery Me thod Room Air Room Air Room Air Documenting provider has reviewed patient's vital signs: yes Course Course Hospital Course: Differential diagnosis includes but is not limited to radiculopathy/radiculitis, appendicitis, colitis, internal hernia, kidney stone, musculoskeletal pain. Patient will have IV placed, laboratories values drawn including CBC, comprehensive, CRP, urinalysis, lipase. Will use Toradol 15 mg IV at this time. Given history and pain that is certainly out of proportion to exam would feel like we need to pursue CT to rule out possibility of retrocecal appendicitis or colitis. Patient is receptive to our plan. Reevaluation(s) Reevaluation #1: Patient noted to have improvement of his discomfort. Consultations Consultation #1: I consulted with surgeon Dr. Rodriguez. We discussed patient's mild colitis noted on CT. At this time we are not going to pursue antibiotics given the fact that patient has not had recent travel, has no fever and no diarrhea. Vital Signs Vital signs: Initial Vital Signs Temperature 96.9 F L 09/08/22 12:18 Temperature Source Temporal Artery Scan 09/08/22 12:18 Pulse Rate 99 09/08/22 12:18 Respiratory Rate 22 09/08/22 12:18 Blood Pressure 132/84 09/08/22 12:18 Blood Pressure Mean 100 09/08/22 12:18 Blood Pressure Position Sitting 09/08/22 12:18 Pulse Oximetry 100 09/08/22 12:18 Oxygen Delivery Method 09/08/22 12:18 Vital Signs Temperature 96.9 F L 09/08/22 12:18 Pulse Rate 99 09/08/22 12:18 Respiratory Rate 22 09/08/22 12:18 Blood Pressure 132/84 09/08/22 12:18 Pulse Oximetry 100 09/08/22 12:18 Oxygen Delivery Method 09/08/22 12:18 Temperature 96.9 F L 09/08/22 12:18 Pulse Rate 99 09/08/22 17:07 Respiratory Rate 22 09/08/22 12:18 Blood Pressure 133/96 H 09/08/22 17:07 Pulse Oximetry 99 09/08/22 17:07 Oxygen Delivery Method 09/08/22 17:07 MDM - Extremity Injury (Lower) MDM Narrative Medical decision making narrative: 1. Colitis-patient has ascending colitis mild noted on the CT. Initially we thought this may be a musculoskeletal problem but recon of the lumbar CT does not show any abnormalities. Patient had improvement with Toradol and would like to continue ibuprofen 800 mg every 8 hours as needed for discomfort. I will also give him a small amount of Vicodin 01/19 25 1-2 tablets p.o. q.4-6 hours p.r.n. 10. Via instant meds with no refills. Cautioned against taking any additional Tylenol. Follow-up with your primary MD for recheck and possible referral for colonoscopy and or to see surgeon. No antibiotics at this time given reassuring CBC, CRP, no evidence of recent travel or diarrhea. 2. Constipation-suggest the use of MiraLax 1 dose b.i.d. until stools are soft. 2. Disposition-patient is discharged home. Return or seek medical attention for fever, worsening pain and as needed. Medical Records Attestation: I reviewed the patient's medical records. Lab Data Attestation: I reviewed the patient's lab results. Labs: Lab Results 09/08/22 09/08/22 09/08/22 Range/Units 13:03 13:03 13:03 WBC 7.50 (4.50-11.00) K/uL RBC 5.19 (4.30-5.90) m/uL Hgb 16.4 (13.5-17.5) gm/dL Hct 44.8 (37.0-53.0) % MCV 86 (80-100) fL MCH 32 (26-34) pg MCHC 37 H (32-36) gm/dL RDW Coeff of Gabriella 12.5 (11.5-15.5) % Plt Count 231 (140-440) K/uL Neut % (Auto) 43.3 (42.0-72.0) % Lymph % (Auto) 45.9 H (20-44) % [place] % (Auto) 6.8 (0.0-11.0) % Eos % (Auto) 3.2 (0.0-7.0) % Baso % (Auto) 0.4 (0.0-3.0) % Neut # (Auto) 3.25 (1.7-7.0) K/uL Lymph # (Auto) 3.40 H (0.90-2.90) K/uL [place] # (Auto) 0.50 (0.00-0.90) K/UL Eos # (Auto) 0.24 (0.00-0.50) K/uL Baso # (Auto) 0.03 (0.00-0.30) K/uL Sodium 141 (135-149) mmol/L Potassium 4.2 (3.6-5.1) mmol/L Chloride 107 (96-114) mmol/L Carbon Dioxide 24 (20-32) mmol/L BUN 15 (5-24) mg/dL Creatinine 0.9 (0.5-1.5) mg/dL Estimated Creat Clear 123.18 Estimated GFR 115 ml/min Glucose 91 (60-115) mg/dL Calcium 9.1 (8.4-10.6) mg/dL Total Bilirubin 0.7 (0.1-1.5) mg/dL AST 41 H (12-35) U/L ALT 64 H (4-50) U/L Alkaline Phosphatase 69 (40-150) U/L C-Reactive Protein < 0.5 L (0.5-1.0) mg/dL Total Protein 8.3 (6.0-8.3) g/dL Albumin 4.9 (3.3-5.0) g/dL Amylase 57 (18-89) U/L Lipase 52 (23-300) U/L Urine Color (Yellow) Urine Appearance (Clear) Urine pH (5.0-8.5) Ur Specific [place] (1.000-1.030) Urine Protein (Negative) Urine Glucose (UA) (Negative) Urine Ketones (Negative) Urine Blood (Negative) Urine Nitrite (Negative) Urine Bilirubin (Negative) Urine Urobilinogen (0.2-1.0) Ur Leukocyte Esterase (Negative) Urine RBC (0-2) Urine WBC (0-5) Ur Squamous Epith Cells (None-Few) Urine Bacteria (None) 09/08/22 Range/Units 13:35 WBC (4.50-11.00) K/uL RBC (4.30-5.90) m/uL Hgb (13.5-17.5) gm/dL Hct (37.0-53.0) % MCV (80-100) fL MCH (26-34) pg MCHC (32-36) gm/dL RDW Coeff of Gabriella (11.5-15.5) % Plt Count (140-440) K/uL Neut % (Auto) (42.0-72.0) % Lymph % (Auto) (20-44) % [place] % (Auto) (0.0-11.0) % Eos % (Auto) (0.0-7.0) % Baso % (Auto) (0.0-3.0) % Neut # (Auto) (1.7-7.0) K/uL Lymph # (Auto) (0.90-2.90) K/uL [place] # (Auto) (0.00-0.90) K/UL Eos # (Auto) (0.00-0.50) K/uL Baso # (Auto) (0.00-0.30) K/uL Sodium (135-149) mmol/L Potassium (3.6-5.1) mmol/L Chloride (96-114) mmol/L Carbon Dioxide (20-32) mmol/L BUN (5-24) mg/dL Creatinine (0.5-1.5) mg/dL Estimated Creat Clear Estimated GFR ml/min Glucose (60-115) mg/dL Calcium (8.4-10.6) mg/dL Total Bilirubin (0.1-1.5) mg/dL AST (12-35) U/L ALT (4-50) U/L Alkaline Phosphatase (40-150) U/L C-Reactive Protein (0.5-1.0) mg/dL Total Protein (6.0-8.3) g/dL Albumin (3.3-5.0) g/dL Amylase (18-89) U/L Lipase (23-300) U/L Urine Color Yellow (Yellow) Urine Appearance Clear (Clear) Urine pH 5.5 (5.0-8.5) Ur Specific [place] 1.025 (1.000-1.030) Urine Protein Negative (Negative) Urine Glucose (UA) Negative (Negative) Urine Ketones Negative (Negative) Urine Blood Negative (Negative) Urine Nitrite Negative (Negative) Urine Bilirubin Negative (Negative) Urine Urobilinogen 0.2 (0.2-1.0) Ur Leukocyte Esterase Negative (Negative) Urine RBC 0-2 (0-2) Urine WBC 0-2 (0-5) Ur Squamous Epith Cells None (None-Few) Urine Bacteria None (None) Imaging Data CT scan - abdomen: Attestation: I have reviewed the pertinent imaging results. Radiologist's impression: The lung bases are clear. The liver is enlarged with moderate hepatomegaly and hepatic steatosis. There is no focal abnormality. The portal vein is patent. There is a contracted appearance of the gallbladder. There is no significant common biliary ductal dilatation or abrupt cut off. The spleen is normal in enhancement and size. The stomach and duodenum are grossly unremarkable. The pancreas is normal in enhancement without significant atrophy. The adrenal glands are unremarkable. The kidneys demonstrate preserved corticomedullary differentiation without evidence of obstructive uropathy. There is moderate stool seen throughout the colon with decompressed appearance of the distal colon. There is minimal distal colonic diverticulosis without evidence of diverticulitis. There is nonspecific thickening of the ascending colon and cecum which may represent sequela of mild colitis changes. The appendix is unremarkable. There is no significant mesenteric, retroperitoneal, or pelvic sidewall lymph nodes. The aorta is nonaneurysmal. There is no significant atherosclerotic disease appreciated. The solid pelvic viscera are grossly unremarkable. There is no free fluid or free air. The anterior abdominal wall is intact without significant hernias. There is mild straightening of the normal lumbar lordosis without evidence of significant spondylolisthesis. Impression: Moderate stool seen throughout the colon with minimal nonspecific thickening of the ascending colon and cecum which may represent colitis changes. No overt pericolonic inflammation is seen. Moderate hepatomegaly and hepatic steatosis. Contracted appearance of the gallbladder. Otherwise, no definite acute intra-abdominal abnormality is appreciated. Lumbar spine CT: Attestation: I have reviewed the pertinent imaging results. My impression: No noted acute findings. Radiologist's impression: Vertebrae: Alignment is normal. No fractures or suspicious bony lesions. Discs and facet joints: Disc spaces and facets are within normal limits. Extraspinal findings: Prevertebral soft tissues and visualized retroperitoneum are unremarkable. IMPRESSION: Unremarkable lumbar spine CT. Discharge Plan Discharge Clinical Impression: Colitis Patient Disposition: Home, Self-Care Condition: Improved Additional Instructions: Continue ibuprofen 800 mg every 8 hours taken with food for anti time inflamm atory as well as pain relieving properties. I will give you a few tablets of a narcotic pain medication called hydrocodone also known as Vicodin. This narcotic is combine with Tylenol so he would not want to use any excess Tylenol. This medication will cause constipation and you are already constipated so I would take this medication sparingly. Push fluids as much as possible. I would also start MiraLax which is a stool laxative, 1 does twice a day until you have loose stools. Follow-up with our surgeons for a recheck to ensure you are improving next week. The phone number is [phone]. Return to the emergency room for worsening symptoms especially increasing pain, fever, blood in your stool and as needed. Prescriptions: No Action fluoxetine 40 mg capsule 10 mg PO DAILY Label Comments: TAKE 1 CAPSULE BY MOUTH EVERY DAY dextroamphetamine-amphetamine 30 mg tablet 30 mg PO BID Label Comments: TAKE 1 TABLET (30 MG) BY MOUTH TWO TIMES A DAY. Follow Up/Referrals: Provider,Not a Local [Primary Care Provider] - Stand Alone Forms: [facility] Info Instructions
--- NOTE | 2022-09-08 13:03 | CRLHL7_ITS ---
For Patients: As a result of the Century Cures Act, medical imaging exams and procedure reports are released immediately into your electronic medical record. You may view this report before your referring provider. If you have questions, please contact your health care provider. Indication: Right-sided abdominal pain and low back pain Technique: Volumetric multidetector CT images of the abdomen and pelvis were obtained after the administration of intravenous contrast. 100 cc Isovue 370. low osmolar intravenous contrast Comparison: None available. Findings: The lung bases are clear. The liver is enlarged with moderate hepatomegaly and hepatic steatosis. There is no focal abnormality. The portal vein is patent. There is a contracted appearance of the gallbladder. There is no significant common biliary ductal dilatation or abrupt cut off. The spleen is normal in enhancement and size. The stomach and duodenum are grossly unremarkable. The pancreas is normal in enhancement without significant atrophy. The adrenal glands are unremarkable. The kidneys demonstrate preserved corticomedullary differentiation without evidence of obstructive uropathy. There is moderate stool seen throughout the colon with decompressed appearance of the distal colon. There is minimal distal colonic diverticulosis without evidence of diverticulitis. There is nonspecific thickening of the ascending colon and cecum which may represent sequela of mild colitis changes. The appendix is unremarkable. There is no significant mesenteric, retroperitoneal, or pelvic sidewall lymph nodes. The aorta is nonaneurysmal. There is no significant atherosclerotic disease appreciated. The solid pelvic viscera are grossly unremarkable. There is no free fluid or free air. The anterior abdominal wall is intact without significant hernias. There is mild straightening of the normal lumbar lordosis without evidence of significant spondylolisthesis. Impression: Moderate stool seen throughout the colon with minimal nonspecific thickening of the ascending colon and cecum which may represent colitis changes. No overt pericolonic inflammation is seen. Moderate hepatomegaly and hepatic steatosis. Contracted appearance of the gallbladder. Otherwise, no definite acute intra-abdominal abnormality is appreciated. Please note that all CT scans at this facility use dose modulation, iterative reconstruction, and/or weight-based dosing when appropriate to reduce radiation dose to as low as reasonably achievable. Dictated by Dani Wolfe MD @ 09/08/2022 3:34:02 PM (Electronically Signed)
[2022-09-08] MEDS: 0.9 % SODIUM CHLORIDE 500 ML 500 ML IV (13:58)
[2022-09-08] MEDS: KETOROLAC 15 MG/ML inj IVP (13:58)
[2022-09-08 14:09] LABS: Appearance Urine Clear (Clear); Bilirubin Urine Negative (Negative); Blood Urine Negative (Negative); Color Urine Yellow (Yellow); Glucose Urine Negative (Negative); Ketones Urine Negative (Negative); Leukocyte Esterase Urine Negative (Negative); Nitrite Urine Negative (Negative); Protein Urine Negative (Negative); Specific Gravity Urine 1.025 (1.000-1.030); Urobilinogen Urine 0.2 (0.2-1.0); pH Urine 5.5 (5.0-8.5)
[2022-09-08 14:23] LABS: Basophils Absolute Auto 0.03 K/uL (0.00-0.30); Basophils Percent Auto 0.4 % (0.0-3.0); Eosinophils Absolute Auto 0.24 K/uL (0.00-0.50); Eosinophils Percent Auto 3.2 % (0.0-7.0); Hematocrit 44.8 % (37.0-53.0); Hemoglobin* 16.4 gm/dL (13.5-17.5); Immature Granulocytes Abs Auto 0.03 K/uL (0.00-0.30); Immature Granulocytes Pct Auto 0.4 %; Lymphocytes Percent Auto 45.9 % (20-44); Mean Corpuscular HGB Conc 37 gm/dL (32-36); Mean Corpuscular Hemoglobin 32 pg (26-34); Mean Corpuscular Volume 86 fL (80-100); Monocytes Percent Auto 6.8 % (0.0-11.0); Neutrophils Absolute Auto 3.25 K/uL (1.7-7.0); Neutrophils Percent Auto 43.3 % (42.0-72.0); Platelet Count* 231 K/uL (140-440); RDW Coefficient of Variation % 12.5 % (11.5-15.5); Red Blood Count 5.19 m/uL (4.30-5.90)
[2022-09-08 14:27] LABS: Albumin* 4.9 g/dL (3.3-5.0); Chloride* 107 mmol/L (96-114)
[2022-09-08 14:28] LABS: Potassium* 4.2 mmol/L (3.6-5.1); Sodium* 141 mmol/L (135-149)
[2022-09-08 14:29] LABS: RBC Urine 0-2 (0-2); WBC Urine 0-2 (0-5)
[2022-09-08 14:30] LABS: Bilirubin Total* 0.7 mg/dL (0.1-1.5); Creatinine* 0.9 mg/dL (0.5-1.5); Est. Creatinine Clearance* 123.18; Estimated Glomerular Filt Rate 115 ml/min; Slide Review Reflex No
[2022-09-08 14:31] LABS: Alanine Aminotransferase* 64 U/L (4-50); Alkaline Phosphatase* 69 U/L (40-150); Aspartate Amino Transferase* 41 U/L (12-35); Blood Urea Nitrogen* 15 mg/dL (5-24); Calcium* 9.1 mg/dL (8.4-10.6); Carbon Dioxide* 24 mmol/L (20-32); Glucose* 91 mg/dL (60-115); Total Protein* 8.3 g/dL (6.0-8.3)
[2022-09-08 14:32] LABS: Amylase* 57 U/L (18-89); Lipase* 52 U/L (23-300)
[2022-09-08 14:39] LABS: C Reactive Protein* < 0.5 mg/dL (0.5-1.0)
[2022-09-08 14:59] VITALS: BP 119/83; PULSE 96; O2SAT 97
--- NOTE | 2022-09-08 15:40 | CRLHL7_ITS ---
For Patients: As a result of the Cures Act, medical imaging exams and procedure reports are released immediately into your electronic medical record. You may view this report before your referring provider. If you have questions, please contact your health care provider. INDICATION: Back and right groin pain. TECHNIQUE: CT lumbar spine without contrast. Coronal and sagittal reformats were generated. COMPARISON: None. FINDINGS: Vertebrae: Alignment is normal. No fractures or suspicious bony lesions. Discs and facet joints: Disc spaces and facets are within normal limits. Extraspinal findings: Prevertebral soft tissues and visualized retroperitoneum are unremarkable. IMPRESSION: Unremarkable lumbar spine CT. Please note that all CT scans at this facility use dose modulation, iterative reconstruction, and/or weight-based dosing when appropriate to reduce radiation dose to as low as reasonably achievable. Dictated by Niall Rollins MD @ 09/08/2022 4:15:50 PM (Electronically Signed)
[2022-09-08 17:07] VITALS: BP 133/96; PULSE 99; O2SAT 99
== END 2022-09-08 17:14 | disposition home or self-care (01) ==
PROVIDERS: Emergency Provider Family Medicine
DX: K52.9 Noninfective gastroenteritis and colitis, unspecified (principal)
CPT/HCPCS: 36415; 72131; 74177; 80053; 81001; 82150; 83690; 85025; 86140; 96361; 96374; 99284; 99285; J1885; J7120; Q9967

== ENCOUNTER 2025-09-12 07:56 | Emergency (ER) | payer OTHER, SELFPAY ==
--- OUTSIDE RECORDS SUMMARY | 2025-07-29 12:05 | XMS_ITS | Encounter Summary ---
Author Organization [facility] Address [address], [place] [address] Care Team Providers Care Legal Services Professional Name Role Phone Elicia Lockhart MD Primary Care Provider [phone] Reason for Visit * ReasonCommentsQUESTIONS, GENERALEntered automatically based on patient selection in Seer. Encounter Details DateTypeDepartmentCare Team (Latest Contact Info)Iqhdzivgkoq06/10/2025 12:05 PM [facility]-Visit [address], [address] [place] [address] Anibal Cuellar MD [address] [place] [id number] Chief Comp: QUESTIONS, GENERAL Social History Tobacco UseTypesPacks/DayYears UsedDateSmoking Tobacco: NeverPassive Smoke Exposure: NeverSmokeless Tobacco: NeverAlcohol UseStandard Drinks/WeekComments Not Currently0 (1 standard drink = 0.6 oz pure alcohol)AUDIT-CAnswerDate RecordedQ1: How often do you have a drink containing alcohol?2-4 times a month 10/22/2020Q2: How many drinks containing alcohol do you have on a typical day when you are drinking?1 or Frequency of Binge DrinkingNot on file 1PHQ-2AnswerDate RecordedPHQ-2 [place]374Sex and Gender InformationValueDate RecordedSex Assigned at BirthNot on fileLegal SexMale 06/28/2012 6:44 AM CDTGender IdentityNot on fileSexual OrientationNot on file OccupationIndustryJob Start DateJob End Datem[facility] health consultantNot on fileNot on fileNot on filedocumented as of this encounter Nursing Notes * Anibal Cuellar MD - 08/01/2025 10:37 AM CST Information reviewed. This information request was addressed in separate telephone encounter. I have listed diagnosis of trauma and stressor related disorder, at this time not PTSD. Will close this encounter. Anibal Cuellar MD GER STYLE * Victoria Hoffman - 07/30/2025 1:32 PM CST Provider needing review, dx letter provided for pt for Trauma and Stressor disorder, said he needs PTSD dx for WC. adithya GER STYLE * Nia Torres RN - 07/29/2025 12:11 PM CST Routing letter request to [facility] for assistance. GER STYLE documented in this encounter Plan of Treatment Not on file documented as of this encounter Visit Diagnoses Not on filedocumented in this encounter Care Teams Team MemberRelationshipSpecialtyStart DateEnd Date Elicia Lockhart MD [address] [place] [address] PCP - GeneralFamily Hgpkzfbr70/21/18documented as of this encounter
--- OUTSIDE RECORDS SUMMARY | 2025-08-07 10:05 | XMS_ITS | Encounter Summary ---
Author Organization [facility] Address [address], [place] [address] Care Team Providers Care Small Package And Bundle Sorter Clerk Name Role Phone Elicia Lockhart MD Primary Care Provider [phone] Encounter Details DateTypeDepartmentCare Team (Latest Contact Info)Tvbyzeqwagc66/19/2025 10:05 AM CSTTelemedicine Psychiatric hospital Psychiatry [address] [place] [address], [facility] [address] [place] [address] Anibal Cuellar MD [address] [place] [id number] PTSD (post-traumatic stress disorder) (HRC) (Primary Dx); Attention deficit hyperactivity disorder (ADHD), unspecified ADHD type (HRC); Other specified depressive episodes; Anxiety (HRC) Social History Tobacco UseTypesPacks/DayYears UsedDateSmoking Tobacco: NeverPassive Smoke Exposure: NeverSmokeless Tobacco: NeverAlcohol UseStandard Drinks/WeekComments Not Currently0 (1 standard drink = 0.6 oz pure alcohol)AUDIT-CAnswerDate RecordedQ1: How often do you have a drink containing alcohol?2-4 times a month 10/22/2020Q2: How many drinks containing alcohol do you have on a typical day when you are drinking?1 or Frequency of Binge DrinkingNot on file 10/22/2020HQ-2AnswerDate RecordedPHQ-2 Pxpsi37610/07/2024Sex and Gender InformationValueDate RecordedSex Assigned at BirthNot on fileLegal SexMale 06/28/2012 6:44 AM CDTGender IdentityNot on fileSexual OrientationNot on file OccupationIndustryJob Start DateJob End Date[facility] consultantNot on fileNot on fileNot on filedocumented as of this encounter Progress Notes * Anibal Cuellar MD - 08/07/2025 10:05 AM CST PSYCHIATRY CLINIC PROGRESS NOTE (TELEMEDICINE / VIDEO VISIT) CARE TEAM: PCP- Elicia Lockhart MD Therapist- in therapy Date of initial diagnostic assessment is 03/18/2023. INTERIM HISTORY Last seen on 07/18/2025 at which time plan was to start Zoloft titration to 50 mg daily. The patient reports good treatment adherence. History was provided by the patient who was a good historian. Since last visit: - He has be struggling with trauma related symptoms. Intrusive memories. Ongoing significant symptoms. Nightmares. Difficulty sleeping. Irritability. Feeling fatigued. - Pursuing workman's compensation. Needing paperwork from psychiatrist. - Continues to see two therapists. Doing EMDR and other trauma work. - Ongoing anxiety. - Overall symptoms continue to interfere with functioning. - Taking his medications consistently. Some initial upset stomach with Zoloft, but that did seem tosubside. 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 PSYCH Critical Summary Points since 02/202303/18/2023: Changed to Adderall XR 30 mg daily +Adderall 15-30 mg daily as needed for focus. 05/04/2023: Changed Adderall back to Adderall 30 mg twice a day. 04/12/2024: Started Strattera 25 mg daily. 06/27/2024: Increased Strattera to 40 mg daily. 10/22/2024: Discontinued Strattera 40 mg daily. Started Wellbutrin XL 150 mg daily. 12/11/2024: Increased Wellbutrin XL to 300 mg daily. 06/13/2025: Started prazosin 1 mg at bedtime. 07/18/2025: Started Zoloft titration to 50 mg daily. PAST PSYCH MED TRIALS 1. Adderall XR, Adderall 2. Prozac 3. Lexapro 4. Hydroxyzine 5. Propranolol 6. Strattera 7. Wellbutrin XL 8. Prazosin 9. Zoloft MEDICAL / SURGICAL HISTORY Neurologic Hx - none Past Medical History: Diagnosis Date Chronic urticaria 07/03/2018 Depression, major ([facility] [facility]) 07/03/2018 MAYA (generalized anxiety disorder) ([facility]) 07/03/2018 GERD (gastroesophageal reflux disease) 07/03/2018 Gout, chronic 07/03/2018 High ankle sprain of right lower extremity 03/25/2015 Hives 07/03/2018 Mixed dyslipidemia ([facility]) 07/03/2018 Elevated trigs and low HDL. LDL 95 Noted in Care Everywhere in 2017 CHRISTOPH (obstructive sleep apnea) 02/17/2017 Posterior tibialis muscle dysfunction 04/17/2015 Posterior tibialis muscle dysfunction 04/17/2015 ALLERGY No Known Allergies MEDICATIONS Current Outpatient Medications Medication Sig Dispense Refill amphetamine-dextroamphetamine (ADDERALL) 30 MG tablet Take 1 Tablet (30 mg) by mouth two times a day. Do not start before July 01, 2025. 60 Tablet 0 amphetamine-dextroamphetamine (ADDERALL) 30 MG tablet Take 1 Tablet (30 mg) by mouth two times a day. Do not start before July 29, 2025. 60 Tablet 0 [START ON 08/26/2025] amphetamine-dextroamphetamine (ADDERALL) 30 MG tablet Take 1 Tablet (30 mg) bymouth two times a day. Do not start before August 26, 2025. 60 Tablet 0 buPROPion (WELLBUTRIN XL) 300 MG 24 hour release tablet Take 1 Tablet (300 mg) by mouth daily. 30 Tablet 3 cetirizine (ZYRTEC) 10 MG tablet Take 2 Tablets (20 mg) by mouth two times a day. 120 Tablet 3 cholecalciferol (VITAMIN D3) 1000 units tablet Take 1 Tablet (1,000 Units) by mouth daily. (Patientnot taking: Reported on 10/13/2023) 100 Tablet PRN hydrOXYzine HCl (ATARAX) 25 MG tablet Take 1-2 Tablets (25-50 mg) by mouth every 8 hours as needed for Itching. 60 Tablet 2 Magnesium 500 MG 1 tab daily. (Patient not taking: Reported on 10/13/2023) montelukast (SINGULAIR) 10 MG tablet Take 1 Tablet (10 mg) by mouth daily. 90 Tablet 3 [place]-3 Fatty Acids (FISH OIL) 1000 MG capsule Taking 3000 mg of EPA and DHA daily in total (Patient not taking: Reported on 10/13/2023) prazosin (MINIPRESS) 1 MG capsule Take 1 Capsule (1 mg) by mouth every evening. 30 Capsule 1 propranolol (INDERAL) 10 MG tablet Take 1-2 Tablets (10-20 mg) by mouth three times a day as needed. 30 Tablet 3 sertraline (ZOLOFT) 50 MG tablet Take 1/2 tablet (25 mg) daily x 4 days, THEN increase to 1 tablet (50 mg) daily. 30 Tablet 1 Sharps Container (RYUMDW-K-WHHRX LOCKING BRACKET) MISC Auto-CPAP, heated humidifier, mask, headgear, filters and tubing. For home use. Pressure: 5-15 Length of Need: 99 (Patient not taking: Reported on 10/13/2023) No current facility-administered medications for this visit. MENTAL STATUS EXAM Appearance: alert, neatly groomed Behavior: cooperative, engaged Motor: normal Gait and Station: seated Muscle strength and tone: No apparent abnormalities. Speech: normal in rate and loudness Language: intact Thought process: logical and goal-directed Thought content: without delusions, hallucinations or suicidal ideation Associations: intact Mood: Anxious Affect: Neutral Orientation: intact Attention: intact Memory: intact Fund of Knowledge: intact Insight: intact Judgement: intact LABS and DATA PHQ9 TODAY = 24 DIAGNOSIS 1. Attention deficit hyperactivity disorder, unspecified type 2. Unspecified anxiety disorder 3. Unspecified depressive disorder 4. PTSD ASSESSMENT TODAY: Reports ongoing difficulties with PTSD symptoms and anxiety. Symptoms continue to interfere with functioning. Continues in different therapy modalities to help target trauma related symptoms. He is taking his medications consistently. Today, will continue on current medication as prescribed. Of note, did discuss I am in support of [employer]'s comp request. PLAN 1) PSYCHOTROPIC MEDICATIONS: - Continue Zoloft 50 mg daily - Continue prazosin 1 mg at bedtime - Continue Adderall 30 mg BID - Continue Wellbutrin XL 300 mg daily 2) THERAPY: continue 3) NEXT DUE: Labs- none EKG- none Rating Scales- none 4) REFERRALS: none 5) RTC: 2 weeks PROVIDER: Anibal Cuellar MD This visit was conducted via video. Location of clinician clinic. Location of patient home. Billing based on: Complexity N SAW DRIVER documented in this encounter Plan of Treatment Not on file documented as of this encounter Visit Diagnoses Diagnosis PTSD (post-traumatic stress disorder) (HRC)- Primary Posttraumatic stress disorder Attention deficit hyperactivity disorder (ADHD), unspecified ADHD type (HRC) Other specified depressive episodes Anxiety (HRC) Anxiety state, unspecified documented in this encounter Care Teams Team MemberRelationshipSpecialtyStart DateEnd Date Elicia Lockhart MD [address] [place] [address] PCP - GeneralFamily Rjugglbu48/21/18documented as of this encounter
--- OUTSIDE RECORDS SUMMARY | 2025-08-07 10:45 | XMS_ITS | Encounter Summary ---
Author Organization [facility] Address [address], [place] [address] Care Team Providers Care Edger Saw Operator Name Role Phone Elicia Lockhart MD Primary Care Provider [phone] Reason for Visit * ReasonCommentsQUESTIONS, GENERALEntered automatically based on patient selection in [email or web address]. Encounter Details DateTypeDepartmentCare Team (Latest Contact Info)Shmzbqumgtp54/19/2025 10:45 AM CSTE-Visit [address], [address] [place], [place] [id number] Anibal Cuellar MD [address] [place] [id number] Chief Comp: QUESTIONS, GENERAL Social History Tobacco [...] of Binge DrinkingNot on file 1PHQ-2AnswerDate RecordedPHQ-2 Eayrm78310/07/2024Sex and Gender InformationValueDate RecordedSex Assigned at BirthNot on fileLegal SexMale 06/28/2012 6:44 AM CDTGender IdentityNot on fileSexual OrientationNot on file OccupationIndustryJob Start DateJob End Date[facility] consultantNot on fileNot on fileNot on filedocumented as of this encounter Nursing Notes * Victoria Hoffman - 09/03/2025 1:22 PM CST Letter done and pt notified. adithya TANCE ABUSE PREVENTION COORDINATOR * Nia Torres RN - 08/30/2025 2:21 PM CST Routing pt response/request to Med Sec. TANCE ABUSE PREVENTION COORDINATOR documented in this encounter Plan of Treatment Not on file documented as of this encounter Visit Diagnoses Not on filedocumented in this encounter Care Teams Team MemberRelationshipSpecialtyStart DateEnd Date Elicia Lockhart MD [address] [place] [address] PCP - GeneralFamily Ffqejotg08/21/18documented as of this encounter
--- OUTSIDE RECORDS SUMMARY | 2025-08-22 08:05 | XMS_ITS | Encounter Summary ---
Author Organization [facility] Address [address] [address] Care Team Providers Care Union Organiser Name Role Phone Elicia Lockhart MD Primary Care Provider [phone] Encounter Details DateTypeDepartmentCare Team (Latest Contact Info)Lfyoijmkbks23/04/2025 8:05 AM CSTTelemedicine [facility] Psychiatry [address] [place] [address], [address] [place] [address] Anibal Cuellar MD [address] [place] [id number] PTSD (post-traumatic stress disorder) (HRC) (Primary Dx); Attention deficit hyperactivity disorder (ADHD), unspecified ADHD type (HRC); Other specified depressive episodes Social History Tobacco UseTypesPacks/DayYears UsedDateSmoking Tobacco: NeverPassive Smoke Exposure: NeverSmokeless Tobacco: NeverAlcohol UseStandard Drinks/WeekComments Not Currently0 (1 standard drink = 0.6 oz pure alcohol)AUDIT-CAnswerDate RecordedQ1: How often do you have a drink containing alcohol?2-4 times a month 10/22/2020Q2: How many drinks containing alcohol do you have on a typical day when you are drinking?1 or Frequency of Binge DrinkingNot on file 10/22/2020HQ-2AnswerDate RecordedPHQ-2 Ahrjm55410/07/2024Sex and Gender InformationValueDate RecordedSex Assigned at BirthNot on fileLegal SexMale 06/28/2012 6:44 AM CDTGender IdentityNot on fileSexual OrientationNot on file OccupationIndustryJob Start DateJob End Date[facility] consultantNot on fileNot on fileNot on filedocumented as of this encounter Progress Notes * Anibal Cuellar MD - 08/22/2025 8:05 AM CST PSYCHIATRY CLINIC PROGRESS NOTE (TELEMEDICINE / VIDEO VISIT) CARE TEAM: PCP- Elicia Lockhart MD Therapist- in therapy Date of initial diagnostic assessment is 03/18/2023. INTERIM HISTORY Last seen on 08/07/2025 at which time no changes were made. The patient reports good treatment adherence. History was provided by the patient who was a good historian. Since last visit: - Reports ongoing PTSD symptoms. Triggered symptoms. 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 - Ongoing anxiety. He feels he is making some progress. - Continues to therapy. Continues to see two therapists. Doing EMDR and other trauma work. - Taking his medications consistently. 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 LDL [...] mg) by mouth daily. 90 Tablet 3 [place]-3 Fatty Acids (FISH OIL) 1000 MG capsule [...] mg) daily. 30 Tablet 1 Sharps Container (XILYMT-B-NALDR LOCKING BRACKET) MISC Auto-CPAP, heated humidifier, mask, headgear, filters and tubing. For home use. Pressure: 5-15 Length of Need: 99 (Patient not taking: Reported on 10/13/2023) No current facility-administered medications for this visit. MENTAL STATUS EXAM Appearance: alert, casually groomed Behavior: cooperative, engaged Motor: normal Gait and Station: seated Muscle strength and tone: No apparent abnormalities. Speech: normal in rate and loudness Language: intact Thought process: logical and goal-directed Thought content: without delusions, hallucinations or suicidal ideation Associations: intact Mood: Anxious Affect: Anxious Orientation: intact Attention: intact Memory: intact Fund of Knowledge: intact Insight: intact Judgement: intact LABS and DATA PHQ9 TODAY = not completed today DIAGNOSIS 1. Attention deficit hyperactivity disorder, unspecified [...] as prescribed. Of note, did discuss I continue to be support of workman's comp request. PLAN 1) PSYCHOTROPIC MEDICATIONS: - Continue Zoloft 50 mg daily - Continue prazosin 1 mg at bedtime - Continue Adderall 30 mg BID - Continue Wellbutrin XL 300 mg daily 2) THERAPY: continue 3) NEXT DUE: Labs- none EKG- none Rating Scales- none 4) REFERRALS: none 5) RTC: 6 weeks PROVIDER: Anibal Cuellar MD This visit was conducted via video. Location of clinician clinic. Location of patient home. Billing based on: Complexity SWING OPERATOR documented in this encounter Plan of Treatment Not on file documented as of this encounter Visit Diagnoses Diagnosis PTSD (post-traumatic stress disorder) (HRC)- Primary Posttraumatic stress disorder Attention deficit hyperactivity disorder (ADHD), unspecified ADHD type (HRC) Other specified depressive episodes documented in this encounter Care Teams Team MemberRelationshipSpecialtyStart DateEnd Date Elicia Lockhart MD [address] [place] [address] PCP - GeneralFamily Yjsarfqi23/21/18documented as of this encounter
[2025-09-12] VITALS (9 sets, daily range): BP systolic 109–149; BP diastolic 50–97; PULSE 62–89; RESP 14–40; TEMP 36.2; O2SAT 92–100
--- OUTSIDE RECORDS SUMMARY | 2025-09-12 07:59 | XMS_ITS | Clinical Summary ---
Author Organization [facility] Address [address] [place] [address] Care Team Providers Care Tank Insulator Rubber Name Role Phone Unknown, Doctor Unavailable Unavailable Harley Madden MD Unavailable [phone] Wilma Diehl Primary Care Provider Unava ilable Allergies No known active allergies Medications MedicationSigDispense QuantityRefillsLast FilledStart DateEnd DateStatus CPAP Indications:CHRISTPOH (obstructive sleep apnea)Auto-CPAP, heated humidifier, mask, headgear, filters and tubing. For home use. Pressure: 5-15 Length of Need: 99 1 unit Active cetirizine (ZYRTEC) 10 mg tablet 1 tab BID [id number] diphenhydrAMINE (BENADRYL) 50 mg capsule Take 1 capsule by mouth 3 times daily if needed.Active ranitidine (ZANTAC) 150 mg tablet Take 1 tablet by mouth 2 times daily if needed.Active predniSONE (DELTASONE) 10 mg tablet Indications:HivesTake 1 tablet by mouth 2 times daily with meals. 40 tablet 03/31/2018 1:05 PM CDT03/30/2018Active FLUoxetine (PROZAC) 40 mg capsule Take 40 mg by mouth once daily.04/30/2022ctive Amphetamine-Dextroamphetamine (ADDERALL) 30 mg tablet TAKE 1 TABLET (30 MG) BY MOUTH TWO TIMES A DAY. DO NOT START BEFORE 2021.06/19/2022ctive Active Problems ProblemNoted DateDiagnosed DateOSA (obstructive sleep apnea)02/17/2017Posterior tibialis muscle dysfunction, right04/17/2015Right ankle pain04/17/2015nkle ubijng3003/25/2015High ankle sprain of right ankle03/25/2015 Immunizations ImmunizationAdministration DatesNext DueInfluenza, XXC97609/25/2016,06/25/2015Tdap 07/15/2014 Family History Medical HistoryRelationNameCommentsOtherFathersnoringOtherMothercolon cancer related to ?RelationNameStatusCommentsFatherMother Social History Tobacco UseTypesPacks/DayYears UsedDateSmoking Tobacco: WnunaIxylmdqgtz4Kegx: 04/06/2010Smokeless Tobacco: NeverQuit: 04/06/2010 Tobacco Cessation:Counseling Given: No Alcohol UseStandard Drinks/WeekCommentsYes0 (1 standard drink = 0.6 oz pure alcohol)occassionalPHQ-2AnswerDate RecordedPHQ-2 Kzklb69611/21/2018Sex and Gender InformationValueDate RecordedSex Assigned at BirthNot on fileLegal SexMale 10/02/2012 8:02 AM CSTGender IdentityNot on fileSexual OrientationNot on file Last Filed Vital Signs Vital SignReadingTime TakenCommentsBlood Rretnfln928/8910 9:25 AM CDT Gihdv841307/15/2022 9:25 AM QUSPvdwfqjtzpu10.1 ??C (96.9 ??F)07/15/2022 9:25 AM CDTRespiratory Upof0682 9:25 AM CDTOxygen Dnfhlvfnht97%07/15/2022 9:25 AM CDTInhaled Oxygen Concentration--Zfdcex59.9 kg (207 lb)07/15/2022 9:25 AM CDT Ufdjcs425.3 cm (5' 11)07/15/2022 9:25 AM CDTBody Mass Index28.8707/15/2022 9:25 AM CDT Plan of Treatment Health MaintenanceDue DateLast DoneCommentsHIV for age 15-6507/16/2003Hepatitis B series for 19+ (1 of 3 - 19+ 3-dose series)2007HPV series for age 9-45 (1 - 3-dose SCDM series)2015BMI (ht and wt on same day) for age 18+ , 01/11/2018, 12/16/2017, Additional history exists Depression screening for age 12+, 02/17/2017, 10/02/2015 Lipids for age 35-4410///09/2016Tetanus dtyujyw30/27//, 07/15/2014COVID-19 vaccine series ( season)/09/2021, 12/10/2021, 01/13/2021, Additional history existsInfluenza Vaccine (#1) /03/2017, 06/25/2015Hepatitis C screening for age 18-79Completed 01/11/2018Pneumococcal series for age 6-49Aged OutNo longer eligible based on patient's age to complete this topic Procedures Procedure NamePriorityDate/TimeAssociated DiagnosisCommentsANTI HCVRoutine 01/11/2018 3:05 PM CDT Autoimmune urticaria LIPID PANEL W REFLEX MEASURED OBKBoyfctk51/01/2017 9:09 AM CDT Screening for endocrine, metabolic and immunity disorder from Last 3 Months or Most Recently Relevant to Health Maintenance Results * ANTI HCV (01/11/2018 3:05 PM CDT)ComponentValueRef RangeTest MethodAnalysis TimePerformed AtPathologist SignatureHEPATITIS C ANTIBODYNon-Reactive Non-Pqhwajxj90/25/2018 9:57 PM CDTALFORMERLY [facility] Comment:Antibodies to HCV not detected; does not exclude the possibility of exposure to HCV.Specimen (Source)Anatomical Location / LateralityCollection Method / VolumeCollection TimeReceived TimeBloodBLOOD SPECIMEN / Unknown Venipuncture / Wgtgxpl4901/11/2018 3:05 PM CDT01/11/2018 3:04 PM CDT Narrative Authorizing ProviderResult TypeResult StatusPrasanthi Schuyler MDSEND OUTSFinal ResultPerforming OrganizationAddressCity/State/ZIP CodePhone Number [facility] [address] * (ABNORMAL) LIPID PANEL W REFLEX MEASURED LDL (02/17/2017 9:09 AM CDT)Component ValueRef RangeTest MethodAnalysis TimePerformed AtPathologist Signature CHOLESTEROL,[id number] - 199 mg/dL02/17/2017 4:51 PM [facility]AL RWDBOHWUHXOGLLQSXSHBRTI760(H)<150 mg/dL02/17/2017 4:51 PM [facility]-CENTRAL LABORATORYHDL GZUGEIANJJN64(L)>40 mg/dL 02/17/2017 4:51 PM [facility]-CENTRAL LABORATORYNON-HDL ISYAWJJIBLW507<145 mg/dl02/17/2017 4:51 PM [facility]-CENTRAL LABORATORYCHOL/HDL RATIO5.12(H)<4.50002/17/2017 4:51 PM [facility]-CENTRAL LABORATORYLDL YUNMYPOICMS05<=130 mg/dL02/17/2017 4:51 PM [facility]-CENTRAL LABORATORYPATIENT GCGJZKHBQKFBC46/01/2017 4:51 PM [facility]-CENTRAL LABORATORYSpecimen (Source) Anatomical Location / LateralityCollection Method / VolumeCollection Time Received TimeBloodBLOOD SPECIMEN / UnknownVenipuncture / Sscprcz4702/17/2017 9:09 AM CDT02/17/2017 9:10 AM CDT Narrative Authorizing ProviderResult TypeResult StatusLaura Suurmeyer Gusa MDCHEMISTRY Final ResultPerforming OrganizationAddressCity/State/ZIP CodePhone Number [facility] [address] from Last 3 Months or Most Recently Relevant to Health Maintenance Insurance * Guarantor: WORKERS,COMPAccount TypeRelation to PatientDate of BirthPhone Billing AddressWorkers Comp [address] [place] [address] Care Teams Team MemberRelationshipSpecialtyStart DateEnd Date Wilma Diehl PCP - General10/05/20 Unknown, Doctor . Emergency Medicine02/23/15 Harley Madden MD [address] [facility] [address] [place] [address] RheumatologyRheumatology01/11/18
--- OUTSIDE RECORDS SUMMARY | 2025-09-12 07:59 | XMS_ITS | Encounter Summary ---
Author Organization [facility] Address [address] [address] Care Team Providers Care Youth Career Specialist Name Role Phone Elicia Lockhart MD Primary Care Provider [phone] Reason for Visit * ReasonCommentsForms Encounter Details DateTypeDepartmentCare Team (Latest Contact Info)Ddwusbwteam51/12/2025Telephone [address], [address] [address] Anibal Cuellar MD [address] [place] [phone] Forms Social History Tobacco UseTypesPacks/DayYears UsedDateSmoking Tobacco: NeverPassive Smoke Exposure: NeverSmokeless Tobacco: NeverAlcohol UseStandard Drinks/WeekComments Not Currently0 (1 standard drink = 0.6 oz pure alcohol)AUDIT-CAnswerDate RecordedQ1: How often do you have a drink containing alcohol?2-4 times a month 10/22/2020Q2: How many drinks containing alcohol do you have on a typical day when you are drinking?1 or Frequency of Binge DrinkingNot on file 10/22/2020HQ-2AnswerDate RecordedPHQ-2 Bgfjv48710/07/2024Sex and Gender InformationValueDate RecordedSex Assigned at BirthNot on fileLegal SexMale 06/28/2012 6:44 AM CDTGender IdentityNot on fileSexual OrientationNot on file OccupationIndustryJob Start 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 adithya WALKER * Randi Pina, RN - 09/03/2025 10:39 AM CST Encounter routed to med sec WALKER * Kai Ramos - 09/03/2025 10:31 AM CST Pt called back to f/u on msg. Pt stated that it urgent that this get taking care of and need a callback today with update. Ok to [facility] if pt doesn't answer. WALKER * Mariely Sharp - 08/30/2025 2:45 PM CST Forms and Letters What form or letter is being requested? PT is requesting a workers compensation letter from [employer] that specifically states My PTSD diagnosis is a result of my (Hari's) work activities and pt states if uploading this to [employer] is faster that is fine but to also fax it to [place] [employer] with the claim # [id number] and health technical writer informed pt med sec is out today and t hat ppw takes 7-10 business days and pt acknowledged this but stated the longer this goes undone the more financially at risk me and my family are, so if this could be done faster that would be great. See TE's 07/26, 07/29, 08/07. How would you like to receive your form/letter? Fax or my chart. Fax number for [facility] - [phone] Is it okay to leave a detailed message on your voicemail? Yes WALKER WALKER documented in this encounter Plan of Treatment Not on file documented as of this encounter Visit Diagnoses Not on filedocumented in this encounter Care Teams Team MemberRelationshipSpecialtyStart DateEnd Date Elicia Lockhart MD [address] [place] [address] PCP - GeneralFamily Clppcxhj09/21/18documented as of this encounter
--- OUTSIDE RECORDS SUMMARY | 2025-09-12 07:59 | XMS_ITS | Encounter Summary ---
[facility] Address [address], [place] [address] Care Team Providers Care Marketing Communications Leader Name Role Phone Elicia Lockhart MD Primary Care Provider [phone] Encounter Details DateTypeDepartmentCare Team (Latest Contact Info)Nuytbcdplsa42/07/2025Telephone [address] [address] Anibal Cuellar MD [address] [place] [address] [place] [address] Social History Tobacco UseTypesPacks/DayYears UsedDateSmoking Tobacco: NeverPassive Smoke Exposure: NeverSmokeless Tobacco: NeverAlcohol UseStandard Drinks/WeekComments Not Currently0 (1 standard drink = 0.6 oz pure alcohol)AUDIT-CAnswerDate RecordedQ1: How often do you have a drink containing alcohol?2-4 times a month 10/22/2020Q2: How many drinks containing alcohol do you have on a typical day when you are drinking?1 or Frequency of Binge DrinkingNot on file 10/22/2020HQ-2AnswerDate RecordedPHQ-2 [id number] and Gender InformationValueDate RecordedSex Assigned at BirthNot on fileLegal SexMale 06/28/2012 6:44 AM CDTGender IdentityNot on fileSexual OrientationNot on file 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 Patient verbalized understanding and would like a sooner appt so he can discuss this with provider. Encounter routed to [place] to call patient and schedule MD work in appt NDS CREW SUPERVISOR * Victoria Hoffman - 08/01/2025 9:44 AM CST Can nursing relay message from provider to patient? Assume he may have further comments on it that med sec cannot address. Med sec already did letter with pt dx and noted to him he can have his notes with Dr Cuellar on mychart. adithya NDS CREW SUPERVISOR * Anibal Cuellar MD - 08/01/2025 9:42 AM CST Information noted. 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 I have not fully diagnosed PTSD. If trauma and stress-related disorder is adequate for patient's requested forms, then I am in support of filling out his requested forms. Anibal Cuellar MD N[employer] CREW SUPERVISOR * Nia Torres RN - 07/26/2025 12:51 PM CST Per last visit note from 07/18/2025, provider wrote: Reports having difficulties with anxiety and trauma related symptoms. Trial of prazosin has offered a little bit of help, but challenges still remain. He has taken a leave from work due to severity of symptoms. Routing to provider to review and advise if provider is able to sign off on requested forms for pt once they are received; to advise if there are any details that pt would need to clarify prior to provider signing forms. NDS CREW SUPERVISOR * Daksha Sharpe - 07/26/2025 10:28 AM CST Patient is calling to see if provider is willing to fill out form for Workman's Comp for PTSD. Patient will have forms faxed over to provider, but needs to make sure they would get done. When calling you may leave msg if he doesn't answer. N[employer] CREW SUPERVISOR documented in this encounter Plan of Treatment Not on file documented as of this encounter Visit Diagnoses Not on filedocumented in this encounter Care Teams Team MemberRelationshipSpecialtyStart DateEnd Date Elicia Lockhart MD [address] [place] [address] PCP - GeneralFamily Mblscbwt54/21/18documented as of this encounter
--- OUTSIDE RECORDS SUMMARY | 2025-09-12 07:59 | XMS_ITS | Data Portability ---
Author Organization [place] - [facility], [employer] - [facility] [employer] [facility] Address [address] [place] [address] Assessment Encounter Date Assessment Date Assessment LastModified by Organization Details LastModified Time 01/21/2025 01/21/2025 ASSESSMENT: Patient is a good candidate for conservative care and the prognosis is for a favorable outcome thatachieves the patients' goals. We discussed etiology, activity modifications, home care, and other treatment options. Initially, it is recommended that the patient receive in-office treatment 1 times per week for 8 weeks at which time a re-evaluation will be performed to determine an appropriate change in plan. Initially, treatment will focus on joint manipulation to restore range of motion and reduce pain. We will slowly progress to therapeutic exercises and activities to improve function, strength, and stability may also be used as warranted. If the patient is not responding as expected, more invasive procedures will be discussed along with a referral. All considerations above were discussed with the patient and questions answered to satisfaction. If the patient should have any additional questions, or should the condition evolve or worsen, the patient should not hesitate to contact our office. ecramNot orpoktjwb46/05/2025 17:13:41 Plan of Treatment Reminders Order DateSubmit DateProviderLast Modified ByGarrett DetailsLast Modified TimeDetailsAppointmentsNone recorded.LabNone recorded.ReferralNone recorded. ProceduresNone recorded.SurgeriesNone recorded.ImagingNone recorded.Medication OrdersNone recorded. Patient TargetsNo targets recorded. Patient InstructionsNo instructions recorded. Reason for Referral None Reported. Problems Name Problem SNOMED Code Status Onset Date Resolution Date Notes Provider Name and Address Organization Details Recorded Time Thoracic segmental dysfunction 576675670 Active 01/21 Cheikh Frances DC [address], [place], [address], [place] - [facility]01/21/2025 17:13:42Low back [id number]/05/2025 Cheikh Frances BERNA [address], [place], [address], [place] [facility]01/21/2025 17:13:42Lumbar segmental uuocbnglaqc787517484 Njhwlx8701/21/2025Cheikh Frances BERNA [address], [place], [address], [place] [facility]01/21/2025 17:13:42Somatic dysfunction of sacral spine 931797786Xidxup25/05/2025Cheikh Sheikh MarielenaadyBERNA [address], [place], [address], [facility] [place] [facility]01/21/2025 17:13:42 Problem Notes None recorded. Procedures Surgical History Date Name Laterality Status Provider Name and Address Organization Details Recorded Time 01/21/2025 24234: Spinal manipulation, 3 to 4 regions completedCheikh FrancesBERNA [address], [place], [address], [facility]01/21/2025 17:16:40 Imaging Results None recorded. Procedure Notes None recorded. Medical Equipment None Reported. Vitals None Recorded Social History None recorded. Functional Status None recorded. Mental Status None recorded. Family History Nothing Reported. Medical History No medical history recorded. Past Encounters Encounter ID Performer Location Encounter Start Date Encounter Closed Date Diagnosis/Indication Diagnosis SNOMED-CT Code Diagnosis ICD10 Code Diagnosis IMO Codes Diagnosis Note [id number] Cheikh Sheikh [facility]ielenaadyBERNA [facility] [address] [place] [address] 01/21/2025 17:08:12 01/21/2025 18:03:04 Lumbar segmental dysfunction 022152601 M99.03 Low back vifm166243757N98.50 Somatic dysfunction of sacral ynqer881143693P02.04 Thoracic segmental phkpzckqvvh907470870W83.02 Health Concerns Section Related Observation LastModified by Organization Detai ls LastModified Time None Recorded Concern Status LastModified by Organization Details LastModified Time None Recorded Advance Directives Directive None Recorded Payers Insurance Date Sequence Insurance Name Policy Number Policy Clark Covered Member ID Clark Member ID Guarantor Name 01/22/2025 JAY Harrell [id number] [employer]Hari [id number] Gosia Notes Date Note Type Note Provider Name and Address Organization Details Recorded Time 01/21/2025 text/html HPI - Lumbar SpineReported by PatientHPIFor location, patient reportsbilateral(wi th radiation to knee). For quality, patient reportsachingandbur shakeel. For severity, patient reportsmoderateands evere. For timing, patient reportsdate of onset: (01/20/2025)andabrupt . For duration, patient reportsacute. For context, patient reportsbending,lift ing, andtwisting. For aggravating factors, patient reportswalking,lift ing,twisting, andbending/squattin g. For alleviating factors, patient reportsiceandrest. Cheikh Frances DC [address], [place], [address], [place] [facility] 01/21/2025 17:16:51
--- OUTSIDE RECORDS SUMMARY | 2025-09-12 07:59 | XMS_ITS | Clinical Summary ---
Author Organization Formerly [facility] Address [address] [address] Care Team Providers Care Compounding And Finishing Supervisor Name Role Phone Elicia Lockhart MD Primary Care Provider [phone] Source Comments You are receiving this document as you are listed as the primary care provider,follow-up provider, or the patient has been referred to you for consultation.This is in compliance with the Medicare and[facility] EHR Incentive Program,which states Providers who transition their patient to another setting of careor provider of care or refers their patient to another provider of care shouldprovide summary care record for each transition of care or referral. [facility] Allergies No known active allergies Medications MedicationSigDispense QuantityRefillsLast FilledStart DateEnd DateStatus cholecalciferol (VITAMIN D3) 1000 units tablet Take 1 Tablet (1,000 Units) by mouth daily. 100 Tablet 05/22/2019Active Sharps Container (VJTWLG-G-QJZYJ LOCKING BRACKET) MISC Auto-CPAP, heated humidifier, mask, headgear, filters and tubing. For home use. Pressure: 5-15 Length of Need: 9905/04/2016Active [place]-3 Fatty Acids (FISH OIL) 1000 MG capsule Indications:Attention deficit hyperactivity disorder (ADHD), unspecified ADHD type (HRC)Taking 3000 mg of EPA and DHA daily in total04/13/2022ctive propranolol (INDERAL) 10 MG tablet Indications:Panic attacks (HRC)Take 1-2 Tablets (10-20 mg) by mouth three times a day as needed. 30 Tablet ctive Magnesium 500 MG 1 tab daily.08/19/2022ctive cetirizine (ZYRTEC) 10 MG tablet Indications:Chronic urticariaTake 2 Tablets (20 mg) by mouth two times a day. 120 Tablet ctive montelukast (SINGULAIR) 10 MG tablet Take 1 Tablet (10 mg) by mouth daily. 90 Tablet ctive hydrOXYzine HCl (ATARAX) 25 MG tablet Indications:Chronic urticariaTake 1-2 Tablets (25-50 mg) by mouth every 8 hours as needed for Itching. 60 Tablet ctive amphetamine-dextroamphetamine (ADDERALL) 30 MG tablet Indications:Attention deficit hyperactivity disorder (ADHD), unspecified ADHD type (HRC)Take 1 Tablet (30 mg) by mouth two times a day. Do not start before August 26, 2025. 60 Tablet 08/26/2025tive sertraline (ZOLOFT) 50 MG tablet Indications:PTSD (post-traumatic stress disorder) (HRC)Take 1 Tablet (50 mg) by mouth daily. 30 Tablet tive prazosin (MINIPRESS) 1 MG capsule Indications:PTSD (post-traumatic stress disorder) (HRC)Take 1 Capsule (1 mg) by mouth every evening. 30 Capsule ctive buPROPion (WELLBUTRIN XL) 300 MG 24 hour release tablet Indications:Other specified depressive episodesTake 1 Tablet (300 mg) by mouth daily. 30 Tablet ctive amphetamine-dextroamphetamine (ADDERALL) 30 MG tablet Indications:Attention deficit hyperactivity disorder (ADHD), unspecified ADHD type (HRC)Take 1 Tablet (30 mg) by mouth two times a day. Do not start before September 23, 2025. 60 Tablet 09/23/2025ctive buPROPion (WELLBUTRIN XL) 300 MG 24 hour release tablet Take 1 Tablet (300 mg) by mouth daily. 30 Tablet Discontinued(*Med change OR same med OR reorder, new dose/directions) amphetamine-dextroamphetamine (ADDERALL) 30 MG tablet Indications:Attention deficit hyperactivity disorder (ADHD), unspecified ADHD type (HRC)Take 1 Tablet (30 mg) by mouth two times a day. Do not start before July 01, 2025. 60 Tablet /12/2024Discontinued amphetamine-dextroamphetamine (ADDERALL) 30 MG tablet Indications:Attention deficit hyperactivity disorder (ADHD), unspecified ADHD type (HRC)Take 1 Tablet (30 mg) by mouth two times a day. Do not start before July 29, 2025. 60 Tablet Discontinued(*Med change OR same med OR reorder, new dose/directions) sertraline (ZOLOFT) 50 MG tablet Take 1/2 tablet (25 mg) daily x 4 days, THEN increase to 1 tablet (50 mg) daily. 30 Tablet Discontinued(*Med change OR same med OR reorder, new dose/directions) prazosin (MINIPRESS) 1 MG capsule Take 1 Capsule (1 mg) by mouth every evening. 30 Capsule Discontinued(*Med change OR same med OR reorder, new dose/directions) Active Problems ProblemNoted DateDiagnosed DateSpinal stenosis, cervical qolrbb143Colitis 09/17/2022Neck pain2Cervical wkiokhjputmyn58/27/2022ontrolled substance agreement agvert8312/10/2021 Overview (12/10/2021): Diagnosis: ADHD Medication: adderall IR 30 mg bid Controlled Substance Agreement reviewed and signed: yes Date agreement signed: 12/10/2021 Refill plan: Visits twice yearly of which 1 visit will be in office to check BP, P and weight. Can refill 3 Rx's at a time. Clinician: Elicia Lockhart MD Attention-deficit hyperactivity disorder, unspecified type03/02/2021 Overview (04/09/2021): Record [facility] apt/testing done 02/18/2021. Sent for scanning. Trying stimulants Major depressive disorder with single episode, in full hlpbfoqca72/28/2020Panic qvtusum5509/15/2020Chronic zjdiqgfgm29/15/2018 Overview (07/03/2018): Hives with lip or tongue swelling. He has 4-5 episodes since 2008. Anti-IgE receptor antibody. Manages symptoms with cetirizine 10 mg bid, zantac 150 mg TID, benadryl 50 mg every 6 hours as needed, hydroxyzine 25 mg TID PRN if benadryl fails. Occasionally he needs prednisone (10 mg every 12-24 hours as needed) when cetirizine/zantac/benadryl/hydroxyzine FAIL. MAYA (generalized anxiety disorder)07/03/2018 Overview (04/19/2019): lexapro is not effective at 10 mg daily Mixed qkuavbxdyyet73/15/2018 Overview (07/03/2018): Elevated trigs and low HDL. LDL 95 Noted in Care Everywhere in 2016 Mild obstructive sleep apnea02/17/2017 Overview (10/29/2021): Setting: Auto 01/31 Supplied by: [facility] PSG done: 05-05-16 ([facility]_ AHI 14 (EDS) RDI 19 Lowest O2 Sat: 90% Resolved Problems ProblemNoted DateDiagnosed DateResolved DateGout, dyjsnye37 GERD (gastroesophageal reflux disease)2Dysthymic disorder 2Posterior tibialis muscle ccntxjitqgf68 High ankle sprain of right lower amfgdnbxx06 Encounters DateTypeDepartmentCare LuweNffvvdirfdh55/12/2025Telephone [facility]ly [facility], [facility] Psychiatry [address] [place] [address], [address] [place] [address] Anibal Cuellar MD Forms08/22/2025 8:05 AM CSTTelemedicine [facility]ly [facility], [facility] Psychiatry [address] [place] [address], [address] [place] [address] Anibal Cuellar MD PTSD (post-traumatic stress disorder) (HRC) (Primary Dx); Attention deficit hyperactivity disorder (ADHD), unspecified ADHD type (HRC); Other specified depressive vckckijv98/19/2025 10:45 AM CSTE-Visit [facility] Psychiatry [address] [place] [address], [address] [address] Anibal Cuellar MD Chief Comp: QUESTIONS, WYCINWC4908/07/2025 10:05 AM [facility] Psychiatry [address] [place] [address], [address] [address] Anibal Cuellar MD PTSD (post-traumatic stress disorder) (HRC) (Primary Dx); Attention deficit hyperactivity disorder (ADHD), unspecified ADHD type (HRC); Other specified depressive episodes; Anxiety (HRC)07/29/2025 12:05 PM CSTE-Visit [facility] Psychiatry [address] [place] [address], [address] [address] Anibal Cuellar MD Chief Comp: QUESTIONS, ZGGZQRN6307/26/2025[facility] [address] [place] [address], [address] [address] Anibal Cuellar MD 07/18/2025 11:[address], [address] [address] Anibal Cuellar MD Attention deficit hyperactivity disorder (ADHD), unspecified ADHD type (HRC); Other specified depressive episodes; Anxiety (HRC); Trauma and stressor-related disorder (HRC)06/13/2025 4:05 PM [facility] Psychiatry [address] [place] [address], [address] [address] Anibal Cuellar MD Attention deficit hyperactivity disorder (ADHD), unspecified ADHD type (HRC); Other specified depressive episodes; Anxiety (HRC)from Last 3 Months Immunizations ImmunizationAdministration DatesNext DueFluzone Qiv Multidose Vial 0.25 (6-35 Mos)07/15/2014HepB Adult (Heplisav-B, 19+ yrs, 2 dose series)09/17/2022IPV (Polio)10/03/2002,05/24/1990,1988,1988Influenza (Fluzone 0.25, 6-35 mos)07/18/2013Influenza IIV4 (Quadrivalent) 0.5mL (68620)08/19/2022,06/16/2020, 08/31/2019,11/16/2018,07/26/2017,07/07/2016,06/25/2015,07/18/2013Influenza, Unspecified Wztzhmyvkzv56/07/2713HZM5 (Menactra)03/24/2007MMR10/03/2002, 12/08/1989Moderna Bivalent 12+08/19/2022Moderna Monovalent Booster 12+12/10/2021 Pfizer Monovalent 12+ Purple Top01/13/2021,12/16/2020Td, Preservative Free 10/03/2002Tdap03/26/2021,07/15/20144233Cqhmbrqjk26/06/2007 Family History Medical HistoryRelationNameCommentsHyperlipidemiaBirth FatherGIBirth Mother colectomy due to tumor (non-cancer)No Known ProblemsBrotherCardiovascular DiseaseMaternal Grandfathervascular disease (carotid stent)Maternal Grandfather Cardiovascular DiseaseMaternal GrandmotherDiabetesMaternal GrandmotherAlcohol AbusePaternal GrandfatherCancer, LungPaternal GrandfatherAlcohol AbusePaternal GrandmotherDiabetes, Type ISisterRelationNameStatusCommentsBirth FatherAlive MotherAliveBrotherAliveMaternal GrandfatherMaternal GrandmotherPaternal GrandfatherPaternal GrandmotherSisterAlive Social History Tobacco UseTypesPacks/DayYears UsedDateSmoking Tobacco: NeverPassive Smoke Exposure: NeverSmokeless Tobacco: Never Tobacco Cessation:Counseling Given: Not Answered Alcohol UseStandard Drinks/WeekCommentsNot Currently0 (1 standard drink = 0.6 oz pure alcohol)AUDIT-CAnswerDate RecordedQ1: How often do you have a drink containing alcohol?2-4 times a month10/22/2020Q2: How many drinks containing alcohol do you have on a typical day when you are drinking?1 or Frequency of Binge DrinkingNot on file1PHQ-2AnswerDate RecordedPHQ-2 Cjrio50510/07/2024Sex and Gender InformationValueDate RecordedSex Assigned at BirthNot on fileLegal AroUats97/10/2012 6:44 AM CDTGender IdentityNot on file Sexual OrientationNot on fileOccupationIndustryJob Start DateJob End Date organizational health consultantNot on fileNot on fileNot on file Last Filed Vital Signs Vital SignReadingTime TakenCommentsBlood Qgzoykhj703/7809/17/2022 1:35 PM ROUTE SALES MANAGER Scqtn91497/30/2022 1:35 PM YGYJwbzavstozc26.4 ??C (97.5 ??F)04/16/2023 10:00 AM CDTRespiratory Rate--Oxygen Qyequpkqfo17%08/20/2021 11:34 AM CSTInhaled Oxygen Concentration--Glxbnc91.3 kg (208 lb)04/16/2023 10:00 AM GQWVmlaco370.3 cm (5' 11)04/16/2023 10:00 AM CDTBody Mass Index29.01004/16/2023 10:00 AM CDT Plan of Treatment Health MaintenanceDue DateLast DoneCommentsHepB Vaccine (2) Adult Preventive Visit/09/2021, 07/24/2020COVID-19 Vaccine ( season), 12/10/2021, 01/13/2021, Additional history existsInfluenza Vaccine (#1)/09/2021, 06/16/2020, 08/31/2019, Additional history capjzkTmuhwwkiqry12/01/202712/2DTaP/Tdap/Td Vaccine (4 - Tdap)/04/2021, 07/15/2014, 10/03/2002Zoster/Shingles Vaccine (1 of 2)2038IPV (Polio) WfjlamtUfvcqppmv65/15/2003, 05/24/1990, 1988, Additional history existsMCV4 LxcjdrjYmgyilvyr04/06/2007Hep C Screening (Preventive Services)Crfnwytne87/02/2019HIV Screening (Preventive Services) Xljstvffm27/20/2024, 04/20/2019HPV Vaccine (No Doses Required)CompletedHepA VaccineAged OutNo longer eligible based on patient's age to complete this topic Hib VaccineAged OutNo longer eligible based on patient's age to complete this topicMeningococcal B VaccineAged OutNo longer eligible based on patient's age to complete this topicPneumococcal VaccineAged OutNo longer eligible based on patient's age to complete this topic Procedures Procedure NamePriorityDate/TimeAssociated DiagnosisCommentsCHOLESTEROL, TOTAL AND FSRSihlwhx76/01/2022 3:35 PM ROUTE SALES MANAGER Screening, lipid HIV 1/2 AG/AB 4TH MJFXcdehgq37/02/2019 1:42 PM CDT Fever and chills HEPATITIS PANEL ACUTE WITH REFLEX TO VQOPLQMVPMFTUfdjcfl83/02/2019 1:42 PM CDT Fever and chills from Last 3 Months or Most Recently Relevant to Health Maintenance Results * (ABNORMAL) Cholesterol, Total and HDL (08/19/2022 3:35 PM ROUTE SALES MANAGER)ComponentValue Ref RangeTest MethodAnalysis TimePerformed AtPathologist SignatureCholesterol 1660 - 199 mg/dL08/19/2022 5:35 PM [facility]ATORYHDL Pfldzgfcdar73 (L)>=40 mg/dL08/19/2022 5:35 PM [facility]ORYNon HDL Chol, Eumjirlneb851<=159 mg/dL08/19/2022 5:35 PM [facility] LABORATORYSpecimen (Source)Anatomical Location / LateralityCollection Method / VolumeCollection TimeReceived TimeBloodVenipuncture / Ndkapqa1908/19/2022 3:35 PM CST08/19/2022 3:35 PM ROUTE SALES MANAGER Narrative Authorizing ProviderResult TypeResult StatusChbambi Lockhart MDLAB_1Final ResultPerforming OrganizationAddressCity/State/ZIP CodePhone Number [facility] [address] [place] [address] [phone] * Hepatitis Panel with Reflex to Confirmation (04/20/2019 1:42 PM CDT)Component ValueRef RangeTest MethodAnalysis TimePerformed AtPathologist Signature Hepatitis A Antibody, IgMNegative (Non Reactive)Negative (Non Reactive) 04/20/2019 8:28 PM CDTMETHODIST LABORATORYComment:IgM anti-HAV not detected. Does not exclude the possibility of exposure to or infection with HAV. Levels of IgM anti-HAV may be below the cut-off in early infection.Hepatitis Bc Antibody,IgMNegative (Non Reactive)Negative (Non-Reactive)04/20/2019 8:28 PM CDTMETHODIST LABORATORYComment:IgM anti-HBc not detected. Does not exclude the possibility of exposure to or infection with HBV.Hepatitis B Surface Antigen Negative (Non Reactive)Negative (Non Reactive)04/20/2019 8:28 PM CDTMETHODIST LABORATORYHepatitis C AntibodyNegative (Non Reactive)Negative (Non Reactive) 04/20/2019 8:28 PM CDTMETHODIST LABORATORYComment:Antibodies to HCV not detected. Does not exclude the possiblity of exposure to HCV.Specimen (Source) Anatomical Location / LateralityCollection Method / VolumeCollection Time Received TimeBloodVenipuncture / Ticwkpv4704/20/2019 1:42 PM CDT04/20/2019 1:44 PM CDT Narrative Authorizing ProviderResult TypeResult StatusChbambi Lockhart MDLAB_1Final ResultPerforming OrganizationAddressCity/State/ZIP CodePhone Number [facility] [address] * HIV 1/2 Ag/Ab 4th Generation (04/20/2019 1:42 PM CDT)ComponentValueRef Range Test MethodAnalysis TimePerformed AtPathologist SignatureHIV 1/2 Antigen/Antibody (4th generation)Negative (Non Reactive)Negative (Non Reactive)04/20/2019 7:59 PM CDTMETHODIST LABORATORYComment:HIV-1 p24 Antigen and HIV-1/HIV-2 Antibody not detectedSpecimen (Source)Anatomical Location / LateralityCollection Method / VolumeCollection TimeReceived TimeBlood Venipuncture / Fdijrut1704/20/2019 1:42 PM CDT04/20/2019 1:44 PM CDT Narrative Authorizing ProviderResult TypeResult StatusChbambi Lockhart MDLAB_1Final ResultPerforming OrganizationAddressCity/State/ZIP CodePhone Number [facility] [address] [place] [address], [place] from Last 3 Months or Most Recently Relevant to Health Maintenance Insurance Care Teams Team MemberRelationshipSpecialtyStart DateEnd Elicia Lockhart MD [address] [place] [address] [facility] - [facility] Rbbgszxs89/21/18
--- NOTE | 2025-09-12 08:13 | ED.GENADULT ---
HPI - General Adult General Chief complaint: Abdominal Pain Stated complaint: severe abdominal pain Time Seen by Provider: 09/12/25 07:57 History of Present Illness HPI narrative: Patient is a 35 year white male has had a history of colitis in the past, presents with sudden onset abdominal pain this morning. He reports the room is umbilicus. It does not really radiate to his flank to his groin. He has had a history of colitis the past it seemed to respond and resolve on its own. He has been generally healthy otherwise. He does take a medicine for ADHD and depression. He has had no chest pain, breathing problem, if he has been diaphoretic and his states he looks a little pale. He has had no GI bleeding or urinary symptoms. No leg swelling or edema. Patient reports he had frequent bowel movement in gas last night and then developed abdominal pain today. Related Data Home Medications ?Medication ?Instructions ?Recorded ?Confirmed dextroamphetamine-amphetamine 30 30 mg PO BID 08/01/22 09/12/25 mg tablet bupropion HCl 150 mg 24 hr tablet, 150 mg PO DAILY 12/05/24 09/12/25 extended release prazosin 1 mg capsule 1 mg PO QPM 09/12/25 09/12/25 sertraline 50 mg tablet 50 mg PO DAILY 09/12/25 09/12/25 Allergies Allergy/AdvReac Type Severity Reaction Status Date / Time No Known Drug Allergies Allergy Verified 09/12/25 08:05 Review of Systems Status of ROS: Reports: 10 or more systems reviewed and unremarkable except as noted in History and below PFSH PFS Social History Smoking Status: Never smoker Do you use any of these nicotine containing products: None Second hand tobacco smoke exposure: No How often do you have a drink containing alcohol: never How often do you have six or more drinks on one occasion: Never AUDIT-C Alcohol total score: 0 Non-prescribed substance use: denies use Exam Narrative: Exam Narrative: Objective vital signs look largely unremarkable other than slightly elevated blood pressure, he is afebrile He is a moaning and writhing in discomfort, he is slightly pale He is sweating. He describes pain in his periumbilical and upper abdominal area. Denies flank pain, denies groin pain. HEENT unremarkable neck is supple Chest is clear Heart rhythm regular no murmur Abdomen obese, he has got significant right upper quadrant pain to palpation and epigastric pain to palpation no palpable masses. Lower abdomen benign. Const: Vital Signs, click to edit/add: Vital Signs - 24 hr 09/12/25 07:59 09/12/25 08:45 09/12/25 09:00 Temperature 97.1 F L Pulse Rate Pulse Rate [Right Pulse Oximeter] 89 70 65 Respiratory Rate 22 40 H 32 H Blood Pressure [Ri ght Upper Arm] 149/90 H 130/81 109/50 L Pulse Oximetry 100 99 99 Oxygen Delivery Me thod Room Air Room Air Room Air 09/12/25 09:20 09/12/25 09:40 09/12/25 10:00 Temperature Pulse Rate Pulse Rate [Right Pulse Oximeter] 72 63 Respiratory Rate 28 H 14 14 Blood Pressure [Ri ght Upper Arm] 140/90 H 145/85 H 141/97 H Pulse Oximetry 93 93 92 Oxygen Delivery Me thod Room Air Room Air 09/12/25 10:16 09/12/25 10:30 09/12/25 10:45 Temperature Pulse Rate 62 70 76 Pulse Rate [Right Pulse Oximeter] Respiratory Rate Blood Pressure [Ri ght Upper Arm] Pulse Oximetry 97 96 94 Oxygen Delivery Me thod Room Air Course Vital Signs Vital signs: Initial Vital Signs Temperature 97.1 F L 09/12/25 07:59 Temperature Source Temporal Artery Scan 09/12/25 07:59 Pulse Rate 89 09/12/25 07:59 Pulse Rhythm Regular 09/12/25 07:59 Pulse Strength 3+ Normal 09/12/25 07:59 Respiratory Rate 22 09/12/25 07:59 Blood Pressure 149/90 H 09/12/25 07:59 Blood Pressure Mean 109 H 09/12/25 07:59 Blood Pressure Position Sitting 09/12/25 07:59 Pulse Oximetry 100 09/12/25 07:59 Oxygen Delivery Method Room Air 09/12/25 07:59 Vital Signs Temperature 97.1 F L 09/12/25 07:59 Pulse Rate 89 09/12/25 07:59 Respiratory Rate 22 09/12/25 07:59 Blood Pressure 149/90 H 09/12/25 07:59 Pulse Oximetry 100 09/12/25 07:59 Oxygen Delivery Method Room Air 09/12/25 07:59 Temperature 97.1 F L 09/12/25 07:59 Pulse Rate 76 09/12/25 10:45 Respiratory Rate 14 09/12/25 10:00 Blood Pressure 141/97 H 09/12/25 10:00 Pulse Oximetry 94 09/12/25 10:45 Oxygen Delivery Method Room Air 09/12/25 10:45 Medications Administered Medications: Discontinued Medications Generic Name Dose Route Start Last Admin Trade Name Fanta PRN Reason Stop Dose Admin Droperidol 2.5 mg 09/12/25 09:15 09/12/25 10:05 Droperidol 2.5 Mg/Ml Inj IV 09/12/25 09:16 2.5 mg ONCE ONE Administration Hydromorphone HCl 0.5 mg 09/12/25 08:25 09/12/25 08:20 Hydromorphone 0.5 Mg/0.5 Ml Inj IVP 09/12/25 08:26 0.5 mg ONCE ONE Administration Hydromorphone HCl 1 mg 09/12/25 08:42 09/12/25 09:00 Hydromorphone 0.5 Mg/0.5 Ml Inj IVP 09/12/25 08:43 1 mg ONCE ONE Administration Sodium Chloride 1,000 mls @ 6,000 mls/hr 09/12/25 08:15 09/12/25 08:20 0.9 % Sodium Chloride 1000 Ml IV 09/12/25 08:24 6,000 mls/hr .Q10M JEREMY Administration Morphine Sulfate 4 mg 09/12/25 08:10 09/12/25 08:20 Morphine 4 Mg/Ml Inj IVP 09/12/25 08:11 4 mg ONCE ONE Administration Ondansetron HCl 4 mg 09/12/25 08:21 09/12/25 08:20 Ondansetron 2 Mg/Ml Inj IVP 09/12/25 08:22 4 mg ONCE ONE Administration Oxycodone/Acetaminophen 1 tab 09/12/25 10:25 09/12/25 10:43 Oxycodone/Apap 5-325 Tablet PO 09/12/25 10:26 1 tab ONCE ONE Administration Pantoprazole Sodium 40 mg 09/12/25 08:22 09/12/25 08:56 Pantoprazole Sodium 40 Mg Inj IVP 09/12/25 08:23 40 mg ONCE ONE Administration Medical Decision Making [facility] Narrative Medical decision making narrative: [age] white male with epigastric right-sided abdominal pain upper, rule out kidney stone, rule out colitis rule out gallstones. Or cholecystitis. Other intra-abdominal pathology possible. Patient will get a CT scan initially without contrast, will do IV fluid, IV morphine, labs electrolytes urinalysis. Disposition pending findings above. Differential is broad including the above.. Also need to rule out pancreatitis. Patient reports he does not drink much alcohol. Addendum 9:00 a.m. patient's labs look reassuring so far, CT scan with contrast shows enteritis. There appears to be no abscess or obstruction. Appendix is normal. At this point would see if his pain medication and fluid will help him feel better we could try some oral medicine and see if we can get him comfortable enough to discharge home, if not he might need observation period in the hospital. Patient feels like the narcotic medicine has not helped in the much, will try some IV droperidol. IV fluid has been given as well. 10:30 a.m.: The patient continues to feel well. Will give him a Percocet before he leaves and allowed to go home will give some oral pain medicine for home. Light diet recommended today, follow-up with primary care in 2-3 days, return to ED sooner problems or concerns. Hopefully this enteritis would be something that will resolve spontaneously, if not he will need to come back for hospitalization. Lab Data Labs: Lab Results 09/12/25 09/12/25 09/12/25 Range/Units 08:20 08:45 10:10 WBC 9.70 (4.50-11.00) K/uL RBC 5.11 (4.30-5.90) m/uL Hgb 15.6 (13.5-17.5) gm/dL Hct 44.6 (37.0-53.0) % MCV 87 (80-100) fL MCH 31 (26-34) pg MCHC 35 (32-36) gm/dL RDW Coeff of Gabriella 13.1 (11.5-15.5) % Plt Count 203 (140-440) K/uL Neut % (Auto) 48.1 (42.0-72.0) % Lymph % (Auto) 43.0 (20-44) % [place] % (Auto) 6.6 (0.0-11.0) % Eos % (Auto) 1.9 (0.0-7.0) % Baso % (Auto) 0.1 (0.0-3.0) % Neut # (Auto) 4.67 (1.7-7.0) K/uL Lymph # (Auto) 4.17 H (0.90-2.90) K/uL [place] # (Auto) 0.60 (0.00-0.90) K/UL Eos # (Auto) 0.18 (0.00-0.50) K/uL Baso # (Auto) 0.01 (0.00-0.30) K/uL Abs Immat Gran (auto) 0.03 (0.00-0.30) K/uL Imm/Tot Granulo (auto) 0.3 % Sodium 139 (135-149) mmol/L Potassium 4.1 (3.6-5.1) mmol/L Chloride 107 (96-114) mmol/L Carbon Dioxide 23 (20-32) mmol/L Anion Gap 9 (7-15) mEq/L BUN 18 (5-24) mg/dL Creatinine 1.0 (0.5-1.5) mg/dL Estimated GFR 99 ml/min Glucose 107 (60-115) mg/dL Lactate 2.6 H (0.5-1.9) mmol/L Calcium 9.5 (8.4-10.6) mg/dL C-Reactive Protein < 0.5 L (0.5-1.0) mg/dL Amylase 113 H (18-89) U/L Urine Color Yellow (Yellow) Urine Appearance Clear (Clear) Urine pH 6.5 (5.0-8.5) Ur Specific Bryan 1.010 (1.000-1.030) Urine Protein Negative (Negative) Urine Glucose (UA) Negative (Negative) Urine Ketones Negative (Negative) Urine Blood Negative (Negative) Urine Nitrite Negative (Negative) Urine Bilirubin Negative (Negative) Urine Urobilinogen 0.2 (0.2-1.0) Ur Leukocyte Esterase Negative (Negative) Urine RBC 0-2 (0-2) Urine WBC 0-2 (0-5) Ur Squamous Epith Cells None (None-Few) Urine Bacteria None (None) SARS-CoV-2 (PCR) Negative SARS-CoV-2 (Negative) Influenza Type A (PCR) Negative PCR FLU A (Negative) Influenza Type B (PCR) Negative PCR FLU B (Negative) RSV (PCR) Negative PCR RSV (Negative) Discharge Plan Discharge Clinical Impression: Abdominal pain, Enteritis Patient Disposition: Home w/ Parent or Adult Condition: Improved Additional Instructions: Very light diet today, limited activity, no driving. Recommend recheck with regular doctor in 2-3 days, return to the ED sooner for worsening pain or other problems. Pain medicine as prescribed Activity Level: Light activity Discharge Diet: Full Liquid Prescriptions: No Action bupropion HCl 150 mg tablet extended release 24 hr 150 mg PO DAILY dextroamphetamine-amphetamine 30 mg tablet 30 mg PO BID Patient Comments: TAKE 1 TABLET (30 MG) BY MOUTH TWO TIMES A DAY. prazosin 1 mg capsule 1 mg PO QPM sertraline 50 mg tablet 50 mg PO DAILY Follow Up/Referrals: Provider,Not a Local [Primary Care Provider, Family Practice] Stand Alone Forms: Eng[employer] Info Instructions
--- NOTE | 2025-09-12 08:17 | CRLHL7_ITS ---
For Patients: As a result of the Century Cures Act, medical imaging exams and procedure reports are released immediately into your electronic medical record. You may view this report before your referring provider. If you have questions, please contact your health care provider. INDICATION: Abdominal pain, nausea. TECHNIQUE: CT abdomen and pelvis acquired with 103 cc of Isovue 370 IV contrast. COMPARISON: None. FINDINGS: Lower chest: Unremarkable. Liver: Hepatomegaly measuring 18 cm with diffuse hepatic steatosis. Gallbladder and bile ducts: No stones or inflammation. No biliary dilatation. Pancreas: No mass or inflammation. Spleen: Normal in size. No masses. Adrenal glands: No suspicious mass. Kidneys: Bilateral kidneys are normal in size with symmetric enhancement. No nephrolithiasis or hydronephrosis. GI tract: There is mucosal hyperenhancement of the small bowel loops with mild wall edema. No significant bowel distention or obstruction. Normal appendix. Colonic diverticulosis. Vasculature: Abdominal aorta is normal in caliber. Lymph nodes: No lymphadenopathy. Peritoneum/Abdominal Wall: No free air or significant free fluid. Small fat containing umbilical hernia. Pelvis: Unremarkable. Bones: Degenerative changes of the spine. IMPRESSION: Findings are concerning for enteritis. No bowel obstruction. No free fluid. Hepatomegaly with diffuse hepatic steatosis. Colonic diverticulosis. Please note that all CT scans at this facility use dose modulation, iterative reconstruction, and/or weight-based dosing when appropriate to reduce radiation dose to as low as reasonably achievable. Dictated by Ron Miller MD @ 09/12/2025 8:50:34 AM (Electronically Signed)
[2025-09-12] MEDS: MORPHINE 4 MG/ML INJ IVP (08:20)
[2025-09-12] MEDS: ONDANSETRON 2 MG/ML inj 4 MG IVP (08:20)
[2025-09-12 08:28] LABS: Lactate* 2.6 mmol/L (0.5-1.9)
[2025-09-12 08:30] LABS: Hematocrit* 44.6 % (37.0-53.0); Hemoglobin* 15.6 gm/dL (13.5-17.5); Immature Granulocytes Abs Auto 0.03 K/uL (0.00-0.30); Immature Granulocytes Pct Auto 0.3 %; Lymphocytes Absolute Auto 4.17 K/uL (0.90-2.90); Mean Corpuscular HGB Conc 35 gm/dL (32-36); Mean Corpuscular Hemoglobin 31 pg (26-34); Mean Corpuscular Volume 87 fL (80-100); RDW Coefficient of Variation % 13.1 % (11.5-15.5); Red Blood Count* 5.11 m/uL (4.30-5.90); White Blood Count* 9.70 K/uL (4.50-11.00)
[2025-09-12 08:33] LABS: Slide Review Reflex No
[2025-09-12 08:48] LABS: Chloride* 107 mmol/L (96-114); Potassium* 4.1 mmol/L (3.6-5.1); Sodium* 139 mmol/L (135-149)
[2025-09-12 08:51] LABS: Blood Urea Nitrogen* 18 mg/dL (5-24); Creatinine* 1.0 mg/dL (0.5-1.5); Estimated Glomerular Filt Rate 99 ml/min
[2025-09-12 08:52] LABS: Anion Gap 9 mEq/L (7-15); Calcium* 9.5 mg/dL (8.4-10.6); Carbon Dioxide* 23 mmol/L (20-32); Glucose* 107 mg/dL (60-115)
[2025-09-12] MEDS: PANTOPRAZOLE SODIUM 40 MG INJ IVP (08:56)
[2025-09-12 09:41] LABS: PCR FLU A Negative PCR FLU A (Negative); PCR FLU B Negative PCR FLU B (Negative); PCR RSV Negative PCR RSV (Negative); SARS PCR* Negative SARS-CoV-2 (Negative)
[2025-09-12 10:18] LABS: Appearance Urine Clear (Clear)
[2025-09-12] MEDS: OxyCODONE/APAP 5-325 TABLET 1 TAB PO (10:43)
== END 2025-09-12 11:14 | disposition home or self-care (01) ==
PROVIDERS: Emergency Provider Family Medicine
DX: K52.9 Noninfective gastroenteritis and colitis, unspecified (principal); R10.13 Epigastric pain
CPT/HCPCS: 36415; 74177; 80048; 81001; 82150; 83605; 85025; 86140; 87086; 87631; 96374; 96375; 96376; 99284; 99285; A9270; J1171; J1790; J2270; J2405; J2470; J7030; Q9967